=== PATIENT | female | born 1960 | race Hispanic/Latino ===

== ENCOUNTER 2020-01-27 02:31 | Observation (INO) | payer MEDICARE, MEDICAID, SELFPAY ==
[2020-01-27] VITALS (39 sets, daily range): BP systolic 167–236; BP diastolic 74–165; PULSE 82–108; RESP 14–23; TEMP 36.4–36.9; O2SAT 91–100; BMI 36.5
--- NOTE | ~2020-01-27 | XR_ITS ---
EXAMINATION: XR chest 2V DATE: 01/27/2020 03:11 INDICATION: Chest pain TECHNIQUE: frontal and lateral views of the chest were obtained. COMPARISON: Chest radiograph dated 09/03/2019 FINDINGS: Mild increased interstitial pattern in the bilateral lower lung zones consistent with mild pulmonary edema. Very small bilateral pleural effusions seen at the left posterior sulcus and along the right m ajor and minor fissures. No pneumothorax. The cardiomediastinal silhouette is normal. Mild thoracolum bar spondylosis. Cholecystectomy clips in right upper quadrant. IMPRESSION: 1. Mild pulmonary edema and very small bilateral pleural effusions. Reviewed, dictated and finalized at location A. MANAGEMENT CONSULTANT
--- NOTE | ~2020-01-27 | XR_ITS ---
EXAMINATION: XR abdomen obstructive series DATE: 01/29/2020 06:08 INDICATION: Abdominal pain and constipation TECHNIQUE: Frontal supine and upright views of the abdomen were obtained. COMPARISON: 04/23/19 FINDINGS: Moderate amount of stool in the proximal colon. The distal colon appears relatively decompressed. No dilated loops of gas-filled bowel to suggest obstruction. Cholecystectomy clips in the right upper qu adrant. 4 mm stone projecting over the upper pole of the right kidney. There are phleboliths in the p melissa and projecting over the left L5 transverse process. Larger round heterotopic ossicles projectin g slightly cephalad to the bilateral iliac crests. Airspace opacity in the right lower lung zone whic h could represent atelectasis and/or pneumonia. Minimal lumbar dextrocurvature. IMPRESSION: 1. No free intraperitoneal gas or dilated gas-filled loops of bowel to suggest obstruction. 2. Right nephrolithiasis. 3. Increasing airspace disease in the right lower lung zone which could represent atelectasis and/or pneumonia. Reviewed, dictated and finalized at location A. NALIST IMPRESSION: 1. No free intraperitoneal gas or dilated gas-filled loops of bowel to suggest obstruction. 2. Right nephrolithiasis. 3. Increasing airspace disease in the right lower lung zone which could represe nt atelectasis and/or pneumonia.
--- NOTE | ~2020-01-27 | XR_ITS ---
XR chest 2V DATE: 01/30/2020 11:16 INDICATION: Chest pain TECHNIQUE: PA and lateral views COMPARISON: 01/27/2020 AP and lateral chest FINDINGS: There is increased atelectasis and/or consolidation at the right lower lung and blunting of the right costo phrenic angle suggesting mild right pleural effusion. Mild cardiomegaly. There is mild prominence of the fissures suggesting pulmonary interstitial edema. Aortic calcification and mild tortuosity. Diffuse idiopathic skeletal hyperostosis of the thoracolumbar spine. Diffuse osteopenia. IMPRESSION: Increased right lower lung infiltrate/atelectasis and mild congestive changes since 020 Reviewed, dictated and finalized at location B. CONTROL CLERK IMPRESSION: Increased right lower lung infiltrate/atelectasis and mild congesti ve changes since 01/30/2020
--- NOTE | 2020-01-27 02:32 | ECG_ITS ---
Measurements Intervals [place] Rate: 99 P: 31 OR: 146 QRS: 2 QRSD: 84 T: 42 QT: 361 QTc: 464 Interpretive Statements SINUS RHYTHM BASELINE ARTIFACT- I, II, III, AVL NORMAL ECG Electronically Signed On 01-27-2020 7:03:08 LINE STAKER by Balbir Ashley D.O.
--- NOTE | 2020-01-27 02:32 | ED.CHESTPAIN ---
HPI - Chest Pain General Chief Complaint: Chest Pain Stated Complaint: CP Time Seen by Provider: 01/27/20 02:32 Source: patient and RN notes reviewed Mode of arrival: EMS Limitations: no limitations History of Present Illness HPI narrative: Pt is a 59 y/o female who presents to the ED, via EMS, with c/o intermittent midsternal chest pain which began at 2100 last night. Pt states she started to experience SOB alongside the chest pain. She reports her SOB is aggravated when she is lying down. Pt states she had two Nitroglycerin tablets at home which alleviated her pain. However, upon arrival to the ED bed, her pain has started again. She denies any modifying factors. Pt reports she is prescribed Lasix medication which she is currently taking as prescribed to her.. Patient took a full 325 mg aspirin prior to arrival Pt reports a PMHx of CHF. Pt states she is currently on dialysis treatment where she goes every Monday, , and Monday every week. MD complaint: chest pain (midsternal) Pertinent past history: other (CHF) Onset (ago): hour(s) (2100 last night) Timing of current episode: episodic (currently in the ED bed) Onset: during rest Pain location: other (midsternal) Pain radiation: none Relieving factors: nitroglycerin (2 tablets) Exacerbating factors: nothing Associated symptoms: dyspnea Related Data Allergies Allergy/AdvReac Type Severity Reaction Status Date / Time No Known Allergies Allergy Unknown Verified 01/27/20 03:02 Review of Systems Review of Systems: All systems reviewed & are unremarkable except as noted in HPI and below Cardiovascular: Cardiovascular: Reports chest pain (midsternal) Respiratory: Respiratory: Reports dyspnea [facility] Past Medical History Medical History (Updated 01/27/20 @ 04:53 by Simon Garcia DO) Anemia Angina at rest Anxiety Arthritis Bronchitis Cataract Congestive heart failure Coronary artery disease Depression Diabetes Fibromyalgia Hypercholesterolemia Hypertension Knee fracture, left Myocardial infarction Peripheral neuropathy Renal disease Seasonal allergies UTI (urinary tract infection) Surgical History Surgical History (Updated 01/27/20 @ 02:44 by Keesha Lopez) H/O cardiac catheterization H/O exploratory laparotomy H/O inguinal hernia repair H/O: hysterectomy Hx of cholecystectomy Stented coronary artery Family History Family History (Updated 07/03/17 @ 11:00 by DOCTOR UNKNOWN) Other Cerebrovascular accident Depression Diabetes mellitus Family history of Alzheimer's disease Family history of arthritis Family history of kidney disease Family history of osteoporosis Hypertension Social History Social History Smoking status: Never smoker Alcohol intake: never Exam Narrative: Exam Narrative: APPEARANCE: No acute distress, nontoxic, resting in bed EYES: EOMI HEENT: Normocephalic, atraumatic, OMM RESPIRATORY: No respiratory distress Clear to auscultation bilaterally with no rhonchi wheezing or rales. CARDIOVASCULAR: Regular rate and rhythm without murmurs rubs or gallops. ABDOMINAL: Soft, nontender, nondistended, no rebound or guarding MUSCULOSKELETAl: Moves all extremities. No clubbing, cyanosis or edema. NEURO: Awake and alert. Following commands, speech normal, no focal deficits SKIN:: Warm, dry. No rashes lesions or abrasions PSYCHIATRIC: Normal affect/mood, Course Course Emergency Course: Patient states chest pain is resolved with Nitropaste Discussed with Dr. Vasquez presentation work-up. This time agrees with admission. Discussed patient's blood pressure will give Lopressor at this time Discussed Dr Borja presentation work-up. Agrees with admission at this time Discussed with patient and family results of workup and diagnosis. Discussed need for admission. Patient and family understand and agree to current treatment plan Vital Signs Vital signs: Vital Signs Temperature 97.9 F 01/27/20 02:30 Puls
[2020-01-27] MEDS: NITROGLYCERIN OINTMENT 1 INCH DOSE TRANSDERM (02:57)
--- NOTE | 2020-01-27 03:02 | PC.NURSE ---
Patient taken to radiology.
[2020-01-27 03:09] LABS: Basophils Absolute Auto 0.1 K/mm3 (0.0-0.1); Basophils Percent Auto 0.9 % (0.2-1.2); Eosinophils Absolute Auto 0.4 K/mm3 (0-0.3); Hematocrit 33.5 % (37.0-47.0); Hemoglobin 10.4 g/dL (12.0-15.0); Immature Granulocyte Absolute 0.03 K/mm3 (0.00-0.031); Immature Granulocyte Percent A 0.4 % (0-0.5); Lymphocytes Absolute Auto 1.69 K/mm3 (0.9-3.2); Lymphocytes Percent Auto 19.8 % (18.3-44.2); Mean Corpuscular Hemoglobin 31.2 pg (26-34); Mean Corpuscular Volume 100.6 fl (80-100); Mean Platelet Volume 10.7 fl (7.4-10.4); Monocytes Absolute Auto 0.9 K/mm3 (0.1-0.6); Monocytes Percent Auto 10.1 % (2.6-8.5); Neutrophils Absolute Auto 5.5 K/mm3 (1.3-6.7); Neutrophils Percent Auto 63.8 % (45.5-73.1); Platelet Count Result 280 k/mm3 (150-375); Red Blood Count 3.33 M/mm3 (4.2-5.4); Red Cell Distribution Width 13.3 % (11.5-14.5); White Blood Count 8.6 K/mm3 (4.5-10.0)
[2020-01-27 03:24] LABS: Blood Urea Nitrogen 35 mg/dL (7-17); Calcium 9.5 mg/dL (8.4-10.2); Carbon Dioxide 26 mmol/L (22-30); Chloride 94 mmol/L (98-107); Estimated Glomerular Filt Rate 6; Glucose 129 mg/dL (65-105); Potassium 4.6 mmol/L (3.4-5.0); Sodium 137 mmol/L (137-145)
[2020-01-27 03:31] LABS: NT Pro B Type Natriuretic Pept 27300 PG/ML (5-100); Troponin I < 0.012 ng/mL (0.000-0.034)
[2020-01-27 03:39] LABS: INR 0.9; Prothrombin Time 12.3 Seconds (11.1-14.7)
[2020-01-27 03:40] LABS: Partial Thromboplastin Time 20.7 SECONDS (22.3-36.8)
[2020-01-27] MEDS: METOPROLOL TARTRATE INJ 5 MG/5 ML VIAL IV PUSH (04:26)
--- NOTE | 2020-01-27 04:55 | PC.NURSE ---
This patient, Isis Moore, was admitted to IMU Room 214-01. Patient/family oriented to hospital policies and general routines including ID bracelet, bed and alarms, visiting hours, pain management, procedures, bathroom and other care routines, personal items, smoking policy, room service/diet, and visiting hours. Valuables list has been completed. Information on how to activate the Rapid Response Team has been discussed. Patient/Family are encouraged to report perceived risks to care and to ask questions if they do not understand what they are told or what they should do.
[2020-01-27 08:35] LABS: Troponin I 0.014 ng/mL (0.000-0.034)
[2020-01-27] MEDS: METOPROLOL SUCCINATE EXT REL 25 MG TABCR PO (09:08)
[2020-01-27] MEDS: FLUOXETINE HCL 20 MG CAP 60 MG PO (09:08)
[2020-01-27] MEDS: ASPIRIN 325 MG TABLET PO (09:08)
[2020-01-27] MEDS: CLOPIDOGREL BISULFATE 75 MG TABLET PO (09:08)
[2020-01-27] MEDS: GABAPENTIN 300 MG CAPSULE 600 MG PO ×2 (09:09→18:36)
[2020-01-27] MEDS: hydrALAZINE HCL 50 MG TABLET PO ×3 (09:09→20:18)
[2020-01-27] MEDS: AMLODIPINE BESYLATE 5 MG TABLET 10 MG PO (09:09)
[2020-01-27] MEDS: RANOLAZINE 500 MG TAB.ER.12H PO (09:09)
[2020-01-27] MEDS: ATORVASTATIN 40 MG TABLET PO (09:09)
[2020-01-27] MEDS: ISOSORBIDE MONONITRATE 30 MG TAB.ER.24H PO (09:09)
[2020-01-27] MEDS: FUROSEMIDE 80 MG TABLET PO (09:09)
[2020-01-27] MEDS: PANTOPRAZOLE 40 MG TABLET PO ×2 (09:09→20:18)
[2020-01-27] MEDS: LORATADINE 10 MG TABLET PO (09:10)
--- NOTE | 2020-01-27 09:25 | PM.CNCAR ---
Assessment and Plan Assessment and plan (1) Chest pain: Qualifiers: Chest pain type: unspecified Qualified Code(s): R07.9 - Chest pain, unspecified Code(s): R07.9 - Chest pain, unspecified Status: Acute Assessment and Plan: Known to have stable angina with anti-anginal regimen including BB, Isosorbide and Ranexa She had ruled out for [place] by EKG and negative troponin X3 Would hold off repeating ischemic evaluation at this point Check 2D echo to rule out regional wall motion abnormalities (2) Coronary artery disease: Qualifiers: Coronary Disease-Associated Artery/Lesion type: [place] artery [place] vs. transplanted heart: [place] heart Associated angina: with unspecified angina Qualified Code(s): I25.119 - Atherosclerotic heart disease of [place] coronary artery with unspecified angina pectoris Code(s): I25.10 - Atherosclerotic heart disease of [place] coronary artery without angina pectoris Status: Acute Assessment and Plan: s/p LAD PCI. Continue ASA, Plavix and statin (3) End stage renal disease: Code(s): N18.6 - End stage renal disease Status: Chronic Assessment and Plan: HD per nephrology History of Present Illness History of Present Illness Consult date/time: 01/27/20 09:25 59 years-old woman with coronary artery disease s/p LAD stent (2012), HF-pEF, hypertension, hyperlipidemia, Diabetes mellitus, End Stage Renal Disease on Dialysis T//Mon, who presented with shortness of breath and chest pain. She is known to have stable angina and chronic chest pain typically more symptoms on her non dialysis day. She presented again with chest pain that was nitro responsive with recurrence of chest pain after nitro had helped. Most recent ischemic eval was with Cath in 2017 with patent LAD stent and small diagonal branch disease. . EKG sinus rhythm with no ST changes. Had ECHO done in 04/24/19 showed mild LVH , EF 60% , mild enlargement of left atrium. Mild mitral annular calcification. Mild mitral valve regurgitation. sleeps with 2 pillows. No palpitation. No syncope or near syncope. Denies recent ankle swelling. No nausea and vomiting. Had TIA 09/2017 at [facility] and work up showed no clear source of emboli was found, she had minor carotid disease Reason For Visit: Chest pain Review of Systems Review of Systems: All systems reviewed & are unremarkable except as noted in HPI and below Constitutional: Constitutional: Denies fatigue and Denies headache(s) Eyes: Eyes: Denies blurry vision ENT: Reports Normal hearing present and Denies headache(s) Cardiovascular: Cardiovascular: Denies chest pain, Denies diaphoresis, Denies pedal edema, Denies leg edema, Denies lightheadedness, Denies palpitations and Denies dyspnea Respiratory: Respiratory: Denies cough and Denies dyspnea Gastrointestinal: Gastrointestinal: Denies abdominal pain Musculoskeletal: Musculoskeletal: Denies back pain Neurologic: Reports Normal hearing present and Denies headache(s) Psychiatric: Psychiatric: Denies anxiety Endocrine: Endocrine: Denies fatigue and Denies palpitations [facility] Past Medical History Medical History (Updated 01/27/20 @ 13:53 by Garth Chowdhury MD) Anemia Anemia in CKD (chronic kidney disease) Angina at rest Anxiety Arthritis Bipolar disorder Bronchitis Cataract Chronic renal failure Congestive heart failure Coronary artery disease Depression Diabetes End stage renal disease Follows with Dr Chowdhury; HD Tues/Thurs/Sat at [facility] Fibromyalgia Hypercholesterolemia Hypertension Knee fracture, left Myocardial infarction Peripheral neuropathy Renal disease Seasonal allergies Secondary hyperparathyroidism (of renal origin) UTI (urinary tract infection) Surgical History Surgical History (Updated 01/27/20 @ 02:44 by Keesha Lopez) H/O cardiac catheterization H/O exploratory laparotomy
[2020-01-27 09:39] LABS: Troponin I 0.015 ng/mL (0.000-0.034)
[2020-01-27 09:56] LABS: Glucose Point of Care 136 (65-105)
--- NOTE | 2020-01-27 10:35 | PM.IMHP ---
H&P: HPI History of Present Illness Chief complaint: Chest pain Narrative: Date of Service 01/27/20 The supervising physician for this history and physical is Dr. Hopson. Isis Moore is a 59-year-old female with history of end-stage renal disease on hemodialysis Monday, , Monday, coronary artery disease, insulin-dependent type 2 diabetes mellitus, hypertension, and several other comorbidities who presented to the emergency department by EMS for evaluation of chest pain. She describes a sharp stabbing pain to the middle of her chest that began last night. She reported that she took 2 nitroglycerin which improved her pain. She describes the right side of her neck is sore along with a headache on the right side. She describes the chest pain is coming and going but is still present this morning at time of exam. She mentions nausea without vomiting. She describes that she began to feel more short of breath over the last 2 days. She went to dialysis as scheduled on Monday. She admits that she may have missed some doses of blood pressure medications yesterday because she was feeling so unwell. Blood pressures were significantly elevated in the ED early this morning up to 236/117 and appears that she was treated with 5 mg of IV Lopressor and nitro. Pressures this morning still elevated at 204/87 prior to resuming her home medications. Chest x-ray shows pulmonary edema and very small bilateral pleural effusions. Routine labs reveal stable chronic macrocytic anemia and stable elevated BUN and Cr near her baseline. The patient is admitted for evaluation of chest pain. She follows with Dr. Borja who has been consulted, and she has been seen by Dr Saunders this AM. Review of Systems Review of Systems: Narrative: Midsternal stabbing chest pain still present this morning, headache. She reports shortness of breath over the last 2 days, denies cough. She reports nausea without vomiting. Denies fever or chills at home. She reports she was constipated the last few days but had a good formed bowel movement this morning. She denies diarrhea, hematochezia, melena, or hematemesis. Twelve systems were reviewed with pertinent positives and negatives as per HPI. [facility] Past Medical History Medical History (Updated 01/27/20 @ 13:53 by Garth Chowdhury MD) Anemia Anemia in CKD (chronic kidney disease) Angina at rest Anxiety Arthritis Bipolar disorder Bronchitis Cataract Chronic renal failure Congestive heart failure Coronary artery disease Depression Diabetes End stage renal disease Follows with Dr Chowdhury; HD Tues/Thurs/Sat at [facility] in [place] Fibromyalgia Hypercholesterolemia Hypertension Knee fracture, left Myocardial infarction Peripheral neuropathy Renal disease Seasonal allergies Secondary hyperparathyroidism (of renal origin) UTI (urinary tract infection) Surgical History Surgical History (Updated 01/27/20 @ 19:09 by Elisa Rodriguez PA-C) H/O cardiac catheterization Sep 2017 showed patent stent to LAD and 90% occlusion of a very small diagonal branch. H/O cataract removal with insertion of prosthetic lens Fall 2018 Bilateral H/O section x2 - one in 1977, one 1979 H/O exploratory laparotomy ? partial colectomy in the ? Patient is unsure what this was for but denies history of cancer. H/O inguinal hernia repair H/O: hysterectomy 2002 Hx of cholecystectomy 1996 Stented coronary artery to LAD in 2012 Family History Family History (Updated 01/27/20 @ 19:11 by Elisa Rodriguez PA-C) Father , age 50s Cancer Diabetes mellitus Mother , Age 89 Cerebrovascular accident Sibling Family history of kidney disease Brother on dialysis Son Hypertension Diabetes mellitus Other Depression Family history of Alzheimer's disease Family history of arthritis Family history of osteoporosis Social History Social History (Updated 01/27/20 @ 19:13
--- NOTE | 2020-01-27 13:46 | PM.CNNEP ---
Assessment and Plan Assessment and plan (1) End stage renal disease: Code(s): N18.6 - End stage renal disease Status: Chronic Assessment and Plan: Patient is on Monday, , Monday dialysis schedule. We will maintain. There is plan with the cardiac catheterization. Dialysis either before or after depending on needs. Otherwise she is due for dialysis tomorrow. Maintain follow-up of ESRD and related complications. Erythropoietin and vitamin D analog as needed. Blood pressure control. Sugar control. Patient has been started on metoprolol. I will add clonidine p.r.n. for the time being and monitor heart rate. This will alleviate some of the stress that may be induced on the heart in the setting with chest pain. She is on multiple medications and dose adjustment slowly. Will follow. (2) Coronary artery disease: Qualifiers: Coronary Disease-Associated Artery/Lesion type: [place] artery [place] vs. transplanted heart: [place] heart Associated angina: with unspecified angina Qualified Code(s): I25.119 - Atherosclerotic heart disease of [place] coronary artery with unspecified angina pectoris Code(s): I25.10 - Atherosclerotic heart disease of [place] coronary artery without angina pectoris Status: Acute (3) Diabetes: Qualifiers: Diabetes mellitus type: type 2 Diabetes mellitus director long term care insulin use: with correction use Diabetes mellitus complication status: with neurologic complications Diabetes mellitus complication detail: with polyneuropathy Qualified Code(s): E11.42 - Type 2 diabetes mellitus with diabetic polyneuropathy; Z79.4 - halfway (current) use of insulin Code(s): E11.9 - Type 2 diabetes mellitus without complications Status: Chronic (4) Hypertensive urgency: Code(s): I16.0 - Hypertensive urgency Status: Acute (5) Chest pain: Qualifiers: Chest pain type: unspecified Qualified Code(s): R07.9 - Chest pain, unspecified Code(s): R07.9 - Chest pain, unspecified Status: Acute (6) Anemia in CKD (chronic kidney disease): Code(s): N18.9 - Chronic kidney disease, unspecified; D63.1 - Anemia in chronic kidney disease Status: Acute (7) Secondary hyperparathyroidism (of renal origin): Code(s): N25.81 - Secondary hyperparathyroidism of renal origin Status: Acute History of Present Illness Reason for Consult Consult date: 01/27/20 Reason for consult: end stage renal disease Chief Complaint Chief complaint: Chest pain History of Present Illness Narrative: 59-year-old female with a history of ESRD secondary to diabetes mellitus, hypertension, and has associated coronary artery disease, history of stent, congestive heart failure, and complications related to end-stage renal disease including anemia of chronic kidney disease and secondary hyperparathyroidism. CKD mean that she was sleeping last night and she does lobe central heavy pressure-like pain lasting less than 30 minutes with the radiation to the right side of the neck and year. She did not have any associated nausea vomiting or diaphoresis but she did have some shortness of breath. She came to the emergency room for the chest pain: She is admitted for further management She generally feels unwell. Also has hypertension. She is regular with dialysis 3 times a week on Monday, , Monday dialysis schedule. She has a functioning AV graft. Is has no uremic features. Review of Systems Review of Systems: All systems reviewed & are unremarkable except as noted in HPI and below PMFSH Past Medical History Medical History (Updated 01/27/20 @ 13:53 by Garth Chowdhury MD) Anemia Anemia in CKD (chronic kidney disease) Angina at rest Anxiety Arthritis Bipolar disorder Bronchitis Cataract Chronic renal failure Congestive heart failure Coronary artery disease Depression Diabetes End stage renal disease Follows with Dr Chowdhury;
[2020-01-27 18:36] LABS: Glucose Point of Care 120 (65-105)
[2020-01-27 18:36] LABS: Glucose Point of Care 133 (65-105)
[2020-01-27] MEDS: ACETAMINOPHEN 325 MG TABLET 650 MG PO (20:18)
[2020-01-27] MEDS: PRAZOSIN HCL 5 MG CAPSULE PO (20:18)
[2020-01-27] MEDS: CLONAZEPAM 0.5 MG TAB PO (20:30)
[2020-01-27 21:03] LABS: Glucose Point of Care 182 (65-105)
[2020-01-27] MEDS: ZIPRASIDONE HCL 20 MG CAPSULE 40 MG PO (21:55)
[2020-01-28] VITALS (29 sets, daily range): BP systolic 162–192; BP diastolic 67–100; PULSE 75–98; RESP 18–22; TEMP 36–37; O2SAT 93–99
--- NOTE | 2020-01-28 | ECHO_ITS ---
Patient Info Name: Isis Moore Age: 59 years : 1960 Gender: Female Ht: 62 in Wt: 199 lbs BSA: 2.03 m2 HR: 96 bpm BP: 173 / 82 mmHg Technical Quality: Good Exam Date: 01/28/2020 11:45 AM Exam Location: [facility] Patient Status: Outpatient Admit Date: 01/27/2020 Staff Ordering Physician: Elisa Rodriguez PA-C Transaction Manager: Flo Jean RDCS, RT Attending Provider: Radha Sellers PA-C Exam Type: CA echo dop color flow w con Study Info Indications R07.89 - Other chest pain Complete two-dimensional, color flow and Doppler transthoracic echocardiogram is performed with contrast to opacify the left ventrical and to improve the deliniation of the left ventrical endocarial boarders. Summary 1. Left ventricular chamber dimension is mildly enlarged. 2. Left ventricular systolic function is normal, estimated at 55-60%. 3. Mitral valve leaflets are thickened and mildly calcified. Posterior mitral annular calcification noted. Turbulent flow noted across mitral valve with mild increase mean pressure gradient at 4-5 mmHg at heart rate of 96. 4. The prox ascending aorta size is moderately calcified. 5. Moderate pulmonary hypertension, estimated pulmonary arterial systolic pressure is 60-65 mmHg. Left Ventricle Left ventricular chamber dimension is mildly enlarged. Left ventricular systolic function is normal, estimated at 55-60%. There is mildly increased left ventricular wall thickness. Left ventricular septal wall motion is normal. The left ventricular diastolic function is normal. Right Ventricle Right ventricular systolic function is normal. Right ventricle is top normal in size. Left Atria Left atrial chamber dimension is mildly enlarged. Right Atria Right atrial chamber dimension is normal. Aortic Valve The aortic valve is trileaflet. There is mild aortic valve sclerosis. There is no aortic valve stenosis. There is no aortic valve regurgitation. Pulmonic Valve The pulmonic valve is normal. There is no pulmonic valve stenosis. There is no pulmonic regurgitation. Mitral Valve There is mild mitral valve stenosis. There is mild mitral valve regurgitation. Mitral valve leaflets are thickened and mildly calcified. Posterior mitral annular calcification noted. Turbulent flow noted across mitral valve with mild increase mean pressure gradient at 4-5 mmHg at heart rate of 96. Tricuspid Valve The tricuspid valve leaflets are normal. There is mild tricuspid valve regurgitation. Moderate pulmonary hypertension, estimated pulmonary arterial systolic pressure is 60-65 mmHg. Pericardium/Pleural The pericardium appears normal. There is trivial pericardial effusion. Inferior Vena Cava Inferior vena cava is top normal in size. Aorta The prox ascending aorta size is moderately calcified. Left Ventricular Outflow Tract Name Value Normal LVOT 2D LVOT Diameter 1.98 cm LVOT Doppler LVOT Peak Gradient 8 mmHg LVOT Mean Gradient 4 mmHg LVOT VTI 26.79 cm LVOT VTI/AV VTI Ratio 0.73
[2020-01-28 04:45] LABS: Basophils Absolute Auto 0.1 K/mm3 (0.0-0.1); Basophils Percent Auto 0.6 % (0.2-1.2); Eosinophils Absolute Auto 0.5 K/mm3 (0-0.3); Eosinophils Percent Auto 4.3 % (0-4.4); Hematocrit 31.6 % (37.0-47.0); Hemoglobin 9.9 g/dL (12.0-15.0); Immature Granulocyte Absolute 0.05 K/mm3 (0.00-0.031); Immature Granulocyte Percent A 0.5 % (0-0.5); Lymphocytes Absolute Auto 1.41 K/mm3 (0.9-3.2); Lymphocytes Percent Auto 13.5 % (18.3-44.2); Mean Corpuscular HGB Conc 31.3 g/dl (32-36); Mean Corpuscular Hemoglobin 31.7 pg (26-34); Mean Corpuscular Volume 101.3 fl (80-100); Mean Platelet Volume 10.7 fl (7.4-10.4); Monocytes Percent Auto 9.2 % (2.6-8.5); Neutrophils Absolute Auto 7.5 K/mm3 (1.3-6.7); Neutrophils Percent Auto 71.9 % (45.5-73.1); Platelet Count Result 252 k/mm3 (150-375); Red Blood Count 3.12 M/mm3 (4.2-5.4); Red Cell Distribution Width 13.1 % (11.5-14.5); White Blood Count 10.4 K/mm3 (4.5-10.0)
[2020-01-28 05:11] LABS: Albumin Level 3.4 g/dL (3.5-5.1); Blood Urea Nitrogen 48 mg/dL (7-17); Carbon Dioxide 25 mmol/L (22-30); Chloride 98 mmol/L (98-107); Estimated CRCL calculation 7 ml/min; Estimated Glomerular Filt Rate 5; Glucose 127 mg/dL (65-105); Magnesium 2.3 mg/dL (1.6-2.3); Phosphorus 4.8 mg/dL (2.5-4.5); Potassium 4.7 mmol/L (3.4-5.0); Sodium 134 mmol/L (137-145)
[2020-01-28] MEDS: hydrALAZINE HCL 50 MG TABLET PO ×3 (06:38→21:43)
[2020-01-28 07:51] LABS: Glucose Point of Care 144 (65-105)
--- NOTE | 2020-01-28 09:46 | PM.PNNEP ---
Progress Note: A&P Assessment and Plan (1) End stage renal disease: Code(s): N18.6 - End stage renal disease Status: Chronic Assessment and Plan: Patient will be dialyzed today. The removal of fluid that hemodialysis will help the patient. Blood pressure may trend down. The patient is having anginal pain. Plan will be to medical treatment as discussed with Cardiology team. Maintained on erythropoietin and vitamin D analog therapy I am decreasing the dose of the gabapentin to a renal end-stage renal disease appropriate dose of 300 mg daily from 600 mg twice a day Whenever appropriate the patient may be discharged from a renal standpoint, follow up will be done on an outpatient basis at [facility] on a Monday, , Monday dialysis schedule (2) Hypertensive urgency: Code(s): I16.0 - Hypertensive urgency Status: Acute Assessment and Plan: Increasing metoprolol dose (3) Secondary hyperparathyroidism (of renal origin): Code(s): N25.81 - Secondary hyperparathyroidism of renal origin Status: Acute Assessment and Plan: Vitamin D analog (4) Anemia in CKD (chronic kidney disease): Code(s): N18.9 - Chronic kidney disease, unspecified; D63.1 - Anemia in chronic kidney disease Status: Acute Assessment and Plan: Erythropoietin (5) Coronary artery disease: Qualifiers: Coronary Disease-Associated Artery/Lesion type: [place] artery [place] vs. transplanted heart: [place] heart Associated angina: with unspecified angina Qualified Code(s): I25.119 - Atherosclerotic heart disease of [place] coronary artery with unspecified angina pectoris Code(s): I25.10 - Atherosclerotic heart disease of [place] coronary artery without angina pectoris Status: Acute Assessment and Plan: Angina (6) Chest pain: Qualifiers: Chest pain type: unspecified Qualified Code(s): R07.9 - Chest pain, unspecified Code(s): R07.9 - Chest pain, unspecified Status: Acute Assessment and Plan: No repeat cardiac catheterization planned, treatment will be medically as per the Cardiology team (7) Diabetes: Qualifiers: Diabetes mellitus type: type 2 Diabetes mellitus shelter insulin use: with shelter use Diabetes mellitus complication status: with neurologic complications Diabetes mellitus complication detail: with polyneuropathy Qualified Code(s): E11.42 - Type 2 diabetes mellitus with diabetic polyneuropathy; Z79.4 - [facility] (current) use of insulin Code(s): E11.9 - Type 2 diabetes mellitus without complications Status: Chronic Assessment and Plan: Need to keep hemoglobin A1c less than 7 Subjective Date/time seen: 01/28/20 09:46 Patient is having some chest pain and shortness of breath. I discussed with internet marketing strategist Dr Saunders patient is angina, patient will have medical treatment. She is due for dialysis today Exam Narrative: Exam Narrative: Patient is mildly short of breath, using oxygen, JVD negative regular rhythm no gallop, no rub, equal breath sounds, no crackles or wheezing, soft,mildly obese, nontender, abdomen,no masses, edema + Objective Data Vital Signs Vital Signs: Vital Signs - 24 hr 01/27/20 10:00 01/27/20 12:00 01/27/20 14:00 Temperature 36.6 C Pulse Rate 92 100 86 Respiratory Rate 20 Blood Pressure 204/87 H Pulse Oximetry 91 01/27/20 16:00 01/27/20 18:00 01/27/20 20:00 Temperature 36.4 C 36.9 C Pulse Rate 89 90 94 Respiratory Rate 18 18 Blood Pressure 175/74 H 184/75 H Pulse Oximetry 94 94 01/27/20 21:32 01/27/20 23:52 01/28/20 00:00 Temperature 36.6 C Pulse Rate 93 96 98 Respiratory Rate 20 Blood Pressure 162/77 H Pulse Oximetry 94 01/28/20 01:45 01/28/20 04:00 01/28/20 06:00 Temperature 36.8 C Pulse Rate 95 91 93 Respiratory Rate 18 Blood Pressure 173/82 H Pulse Oximetry 93 01/28/20 08:13 Temperature 36.
[2020-01-28] MEDS: AMLODIPINE BESYLATE 5 MG TABLET 10 MG PO (10:13)
[2020-01-28] MEDS: ASPIRIN 325 MG TABLET PO (10:14)
[2020-01-28] MEDS: ATORVASTATIN 40 MG TABLET PO (10:15)
[2020-01-28] MEDS: CLOPIDOGREL BISULFATE 75 MG TABLET PO (10:15)
[2020-01-28] MEDS: FLUOXETINE HCL 20 MG CAP 60 MG PO (10:15)
[2020-01-28] MEDS: FLUTICASONE PROPIONATE 0.05% NA SPR 16 GM BTL (*BKC) 1 SPRAY NASAL (10:16)
[2020-01-28] MEDS: FUROSEMIDE 80 MG TABLET PO (10:17)
[2020-01-28] MEDS: ISOSORBIDE MONONITRATE 30 MG TAB.ER.24H PO (10:17)
[2020-01-28] MEDS: LORATADINE 10 MG TABLET PO (10:18)
[2020-01-28] MEDS: PANTOPRAZOLE 40 MG TABLET PO ×2 (10:18→21:43)
--- NOTE | 2020-01-28 10:34 | PM.PNCARD ---
Progress Note: A&P Assessment and Plan (1) Chest pain: Qualifiers: Chest pain type: unspecified Qualified Code(s): R07.9 - Chest pain, unspecified Code(s): R07.9 - Chest pain, unspecified Status: Acute Assessment and Plan: Known to have stable angina on anti-anginal regimen including BB, Isosorbide and Ranexa She had ruled out for [place] by EKG and negative troponin X3 She typically has similar symptoms when volume overloaded She will be started on her scheduled dialysis session shortly Will follow symptoms after dialysis Would hold off repeating ischemic evaluation at this point Check 2D echo to rule out regional wall motion abnormalities (2) Coronary artery disease: Qualifiers: Coronary Disease-Associated Artery/Lesion type: [place] artery [place] vs. transplanted heart: [place] heart Associated angina: with unspecified angina Qualified Code(s): I25.119 - Atherosclerotic heart disease of [place] coronary artery with unspecified angina pectoris Code(s): I25.10 - Atherosclerotic heart disease of [place] coronary artery without angina pectoris Status: Acute Assessment and Plan: s/p LAD PCI. Continue ASA, Plavix and statin (3) End stage renal disease: Code(s): N18.6 - End stage renal disease Status: Chronic Assessment and Plan: HD per nephrology Subjective Date/time seen: 01/28/20 10:34 She feels more short of breath today with chest tightness associated with that. She will be started on her dialysis session shortly. Review of Systems Review of Systems: All systems reviewed & are unremarkable except as noted in HPI and below Constitutional: Constitutional: Denies fatigue and Denies headache(s) Eyes: Eyes: Denies blurry vision ENT: Reports Normal hearing present and Denies headache(s) Cardiovascular: Cardiovascular: Denies chest pain, Denies diaphoresis, Denies pedal edema, Denies leg edema, Denies lightheadedness, Denies palpitations and Denies dyspnea Respiratory: Respiratory: Denies cough and Denies dyspnea Gastrointestinal: Gastrointestinal: Denies abdominal pain Musculoskeletal: Musculoskeletal: Denies back pain Neurologic: Reports Normal hearing present and Denies headache(s) Psychiatric: Psychiatric: Denies anxiety Endocrine: Endocrine: Denies fatigue and Denies palpitations Exam Const: General: no acute distress Eyes: Sclera: sclerae normal Neck: Neck: no JVD Carotids: no bruits Resp: Effort & Inspection: normal respiratory effort Auscultation: clear to auscultation bilaterally Cardio: Rate: regular rate and not tachycardic Rhythm: regular rhythm Heart sounds: no gallops, no murmurs and no rubs Skin: General skin exam: normal color Neuro: Cranial nerves: Yes Normal hearing present Speech: normal speech Extrem: General: normal to inspection and no edema Psych: Affect: normal affect Objective Data Vital Signs Vital Signs: Vital Signs - 24 hr 01/27/20 12:00 01/27/20 14:00 01/27/20 16:00 Temperature 36.6 C 36.4 C Pulse Rate 100 86 89 Respiratory Rate 20 18 Blood Pressure 204/87 H 175/74 H Pulse Oximetry 91 94 01/27/20 18:00 01/27/20 20:00 01/27/20 21:32 Temperature 36.9 C Pulse Rate 90 94 93 Respiratory Rate 18 Blood Pressure 184/75 H Pulse Oximetry 94 01/27/20 23:52 01/28/20 00:00 01/28/20 01:45 Temperature 36.6 C Pulse Rate 96 98 95 Respiratory Rate 20 Blood Pressure 162/77 H Pulse Oximetry 94 01/28/20 04:00 01/28/20 06:00 01/28/20 08:13 Temperature 36.8 C 36.3 C L Pulse Rate 91 93 75 Respiratory Rate 18 20 Blood Pressure 173/82 H 188/79 H Pulse Oximetry 93 97 Intake/Output Intake/Output: Intake & Output 01/25/20 01/26/20 01/27/20 01/28/20 23:59 23:59 23:59 23:59 Intake Total 840 720 Balance 840 720 Meds/Results Medications: Active Medications Generic Name Dose Route Start Last Admin Trade Name Freq PRN Reason
[2020-01-28] MEDS: INSULIN ASPART (*BKC) 100 UNITS/ML SUB-Q (10:40)
[2020-01-28] MEDS: ACETAMINOPHEN 325 MG TABLET 650 MG PO (10:44)
[2020-01-28 12:03] LABS: Glucose Point of Care 181 (65-105)
[2020-01-28] MEDS: PERFLUTREN LIPID MICROSPHERES 1.5 ML VIAL DILUTED TO 10 ML TOTAL VOLUME IV PUSH (12:43)
[2020-01-28] MEDS: CLONIDINE HCL 0.1 MG TABLET PO ×2 (13:09→21:43)
[2020-01-28] MEDS: RANOLAZINE 500 MG TAB.ER.12H PO ×2 (13:09→21:43)
--- NOTE | 2020-01-28 16:18 | PM.IMPN ---
Progress Note: A&P Assessment and Plan (1) Chest pain: Qualifiers: Chest pain type: unspecified Qualified Code(s): R07.9 - Chest pain, unspecified Code(s): R07.9 - Chest pain, unspecified Status: Acute Assessment and Plan: ------Midsternal stabbing chest pain which has improved and now having GERD symptoms. Pain may be due to fluid overload. CXR reviewed, showing edema. PNA/PE less likely at this time. Undergoing dialysis and pt may need additional dialysis. No cardiac w/u at this time. Will await echo. (2) Hypertensive urgency: Code(s): I16.0 - Hypertensive urgency Status: Acute Assessment and Plan: -----Blood pressures significantly elevated in the ED and remain elevated but coming down nicely last bp 166/81. Will see her new trend after dialysis and taking more fluid off. May adjust medications. Pt currently has nitro pach on. Resume her home medications with Norvasc, hydralazine, Imdur, metoprolol and monitor BP. (3) End stage renal disease: Code(s): N18.6 - End stage renal disease Status: Chronic Assessment and Plan: ------End-stage renal disease on hemodialysis Monday, , Monday followed by Dr. Chowdhury. (4) Coronary artery disease: Qualifiers: Coronary Disease-Associated Artery/Lesion type: [place] artery [place] vs. transplanted heart: [place] heart Associated angina: with unspecified angina Qualified Code(s): I25.119 - Atherosclerotic heart disease of [place] coronary artery with unspecified angina pectoris Code(s): I25.10 - Atherosclerotic heart disease of [place] coronary artery without angina pectoris Status: Acute Assessment and Plan: -----Stent to LAD 2012. Cardiac catheterization September 2017 showed a patent stent 90% occlusion in a very small diagonal branch. Further management per cardiology. Continue her home medications including aspirin and Plavix. (5) Diabetes: Qualifiers: Diabetes mellitus type: type 2 Diabetes mellitus [place] insulin use: with fpc use Diabetes mellitus complication status: with neurologic complications Diabetes mellitus complication detail: with polyneuropathy Qualified Code(s): E11.42 - Type 2 diabetes mellitus with diabetic polyneuropathy; Z79.4 - supervisor intermediates (current) use of insulin Code(s): E11.9 - Type 2 diabetes mellitus without complications Status: Chronic Assessment and Plan: -----Last glucose 181. Pt has Insulin-dependent type 2 diabetes mellitus. Continue her home insulin regimen since she is eating.Monitor with Accu-Cheks and adjust treatment as needed. (6) Anemia: Qualifiers: Anemia type: due to chronic kidney disease Chronic kidney disease stage: on chronic dialysis Qualified Code(s): N18.6 - End stage renal disease; D63.1 - Anemia in chronic kidney disease; Z99.2 - Dependence on renal dialysis Code(s): D64.9 - Anemia, unspecified Status: Acute Assessment and Plan: -----Chronic based on review of previous labs, suspect a component of chronic disease due to renal failure. H&H low but stable. Will check b12 tomorrow AM. No signs or symptoms of acute bleeding. Monitor CBC. (7) GERD (gastroesophageal reflux disease): Qualifiers: Esophagitis presence: esophagitis presence not specified Qualified Code(s): K21.9 - Gastro-esophageal reflux disease without esophagitis Code(s): K21.9 - Gastro-esophageal reflux disease without esophagitis Status: Chronic Assessment and Plan: -----Protonix ordered. Will add tums PRN today. (8) Hypercholesterolemia: Code(s): E78.00 - Pure hypercholesterolemia, unspecified Status: Acute Assessment and Plan: -----Continue home statin therapy. (9) Depression: Qualifiers: Depression Type: unspecified Qualified Code(s): F32.9 - Major depressive disorder, single
[2020-01-28] MEDS: EPOETIN ALFA 2,000 UNITS/ML VIAL 2000 UNITS IV PUSH (18:20)
--- NOTE | 2020-01-28 19:44 | PC.NURSE ---
Patient off floor from 1499 to 1914.
[2020-01-28 20:54] LABS: Glucose Point of Care 136 (65-105)
[2020-01-28] MEDS: CLONAZEPAM 0.5 MG TAB PO (21:43)
[2020-01-28] MEDS: SENNA/DOCUSATE SODIUM TABLET 1 TAB PO (21:43)
[2020-01-28] MEDS: ZIPRASIDONE HCL 20 MG CAPSULE 40 MG PO (21:43)
[2020-01-29] VITALS (14 sets, daily range): BP systolic 160–186; BP diastolic 70–75; PULSE 73–96; RESP 16–22; TEMP 36.1–36.8; O2SAT 95–100
[2020-01-29 05:07] LABS: Hematocrit 31.5 % (37.0-47.0); Hemoglobin 10.2 g/dL (12.0-15.0); Mean Corpuscular HGB Conc 32.4 g/dl (32-36); Mean Corpuscular Hemoglobin 31.5 pg (26-34); Mean Corpuscular Volume 97.2 fl (80-100); Mean Platelet Volume 10.6 fl (7.4-10.4); Platelet Count Result 276 k/mm3 (150-375); Red Blood Count 3.24 M/mm3 (4.2-5.4); White Blood Count 7.9 K/mm3 (4.5-10.0)
[2020-01-29] MEDS: hydrALAZINE HCL 50 MG TABLET PO ×3 (06:00→21:54)
[2020-01-29 08:33] LABS: Albumin Level 3.7 g/dL (3.5-5.1); Blood Urea Nitrogen 25 mg/dL (7-17); Carbon Dioxide 29 mmol/L (22-30); Chloride 98 mmol/L (98-107); Estimated CRCL calculation 10 ml/min; Estimated Glomerular Filt Rate 8; Glucose 137 mg/dL (65-105); Lipase 67 U/L (23-300); Sodium 137 mmol/L (137-145)
[2020-01-29] MEDS: FLUTICASONE PROPIONATE 0.05% NA SPR 16 GM BTL (*BKC) 1 SPRAY NASAL (09:09)
[2020-01-29] MEDS: ATORVASTATIN 40 MG TABLET PO (09:09)
[2020-01-29] MEDS: ASPIRIN 325 MG TABLET PO (09:09)
[2020-01-29] MEDS: FLUOXETINE HCL 20 MG CAP 60 MG PO (09:10)
[2020-01-29] MEDS: CLOPIDOGREL BISULFATE 75 MG TABLET PO (09:10)
[2020-01-29] MEDS: AMLODIPINE BESYLATE 5 MG TABLET 10 MG PO (09:10)
[2020-01-29] MEDS: PANTOPRAZOLE 40 MG TABLET PO ×2 (09:10→17:51)
[2020-01-29] MEDS: LORATADINE 10 MG TABLET PO (09:11)
[2020-01-29] MEDS: GABAPENTIN 300 MG CAPSULE PO (09:11)
[2020-01-29] MEDS: FUROSEMIDE 80 MG TABLET PO (09:11)
[2020-01-29] MEDS: ISOSORBIDE MONONITRATE 30 MG TAB.ER.24H PO (09:11)
[2020-01-29] MEDS: METOPROLOL SUCCINATE EXT REL 50 MG TABCR PO (09:12)
[2020-01-29] MEDS: RANOLAZINE 500 MG TAB.ER.12H PO ×2 (09:12→21:54)
[2020-01-29] MEDS: ACETAMINOPHEN 325 MG TABLET 650 MG PO ×2 (09:19→21:59)
[2020-01-29] MEDS: INSULIN ASPART (*BKC) 100 UNITS/ML SUB-Q (09:21)
--- NOTE | 2020-01-29 09:32 | PM.PNCARD ---
Progress Note: A&P Assessment and Plan (1) Chest pain: Qualifiers: Chest pain type: unspecified Qualified Code(s): R07.9 - Chest pain, unspecified Code(s): R07.9 - Chest pain, unspecified Status: Acute Assessment and Plan: She had ruled out for [place] by EKG and negative troponin X3 She typically has similar symptoms when volume overloaded. Now she feels much better after dialysis echo with normal EF and calcified mitral and aortic valve consistent with no significant stenosis. Would hold off repeating ischemic evaluation at this point She is stable from cardiac standpoint for discharge. Need follow up with Dr Borja in 2-3 weeks (2) Coronary artery disease: Qualifiers: Coronary Disease-Associated Artery/Lesion type: [place] artery [place] vs. transplanted heart: [place] heart Associated angina: with unspecified angina Qualified Code(s): I25.119 - Atherosclerotic heart disease of [place] coronary artery with unspecified angina pectoris Code(s): I25.10 - Atherosclerotic heart disease of [place] coronary artery without angina pectoris Status: Acute Assessment and Plan: s/p LAD PCI. Continue ASA, Plavix and statin (3) End stage renal disease: Code(s): N18.6 - End stage renal disease Status: Chronic Assessment and Plan: HD per nephrology Subjective Date/time seen: 01/29/20 09:32 Feels much better since she had received dialysis. Review of Systems Review of Systems: All systems reviewed & are unremarkable except as noted in HPI and below Constitutional: Constitutional: Denies fatigue and Denies headache(s) Eyes: Eyes: Denies blurry vision ENT: Reports Normal hearing present and Denies headache(s) Cardiovascular: Cardiovascular: Denies chest pain, Denies diaphoresis, Denies pedal edema, Denies leg edema, Denies lightheadedness, Denies palpitations and Denies dyspnea Respiratory: Respiratory: Denies cough and Denies dyspnea Gastrointestinal: Gastrointestinal: Denies abdominal pain Musculoskeletal: Musculoskeletal: Denies back pain Neurologic: Reports Normal hearing present and Denies headache(s) Psychiatric: Psychiatric: Denies anxiety Endocrine: Endocrine: Denies fatigue and Denies palpitations Exam Const: General: no acute distress Eyes: Sclera: sclerae normal Neck: Neck: no JVD Carotids: no bruits Resp: Effort & Inspection: normal respiratory effort Auscultation: clear to auscultation bilaterally Cardio: Rate: regular rate and not tachycardic Rhythm: regular rhythm Heart sounds: no gallops, no murmurs and no rubs Skin: General skin exam: normal color Neuro: Cranial nerves: Yes Normal hearing present Speech: normal speech Extrem: General: normal to inspection and no edema Psych: Affect: normal affect Objective Data Vital Signs Vital Signs: Vital Signs - 24 hr 01/28/20 10:00 01/28/20 12:00 01/28/20 13:18 Temperature 36.8 C Pulse Rate 94 92 92 Respiratory Rate 20 Blood Pressure 186/79 H Pulse Oximetry 96 96 01/28/20 14:00 01/28/20 14:17 01/28/20 15:06 Temperature 36.7 C Pulse Rate 91 80 88 Respiratory Rate 20 Blood Pressure 175/67 H 176/95 H Pulse Oximetry 01/28/20 15:18 01/28/20 15:37 01/28/20 16:00 Temperature Pulse Rate 89 85 86 Respiratory Rate Blood Pressure 190/100 H 177/81 H 192/91 H Pulse Oximetry 01/28/20 16:15 01/28/20 16:30 01/28/20 16:45 Temperature Pulse Rate 87 86 88 Respiratory Rate Blood Pressure 191/93 H 188/93 H 178/93 H Pulse Oximetry 01/28/20 17:05 01/28/20 17:16 01/28/20 17:35 Temperature Pulse Rate 85 85 90 Respiratory Rate Blood Pressure 178/87 H 181/88 H 170/85 H Pulse Oximetry 01/28/20 17:52 01/28/20 18:00 01/28/20 18:15 Temperature Pulse Rate 87 88 89 Respiratory Rate Blood Pressure 178/88 H 181/92 H 175/84 H Pulse Oximetry 01/28/20 18:30 01/28/20 18:50 01/28/20 19:00 Te
[2020-01-29 10:25] LABS: Phosphorus 4.2 mg/dL (2.5-4.5)
--- NOTE | 2020-01-29 11:14 | PM.IMPN ---
Progress Note: A&P Assessment and Plan (1) Chest pain: Qualifiers: Chest pain type: unspecified Qualified Code(s): R07.9 - Chest pain, unspecified Code(s): R07.9 - Chest pain, unspecified Status: Acute Assessment and Plan: ------Midsternal stabbing chest pain which has improved and now having GERD symptoms. She does have reproducable chest pain on exam as well. Pain may be due to fluid overload. CXR reviewed, showing edema. Pt got 4L of fluid off yesterday and is still on o2 but is getting better. Will wean o2 today and recheck CXR tomorrow. If this has improved she may be able to discharge in 1-2 days. PNA/PE less likely at this time--pt has no cough, leukocytosis, or fever. Echo reviewed, normal EF. (2) Hypertensive urgency: Code(s): I16.0 - Hypertensive urgency Status: Acute Assessment and Plan: -----Blood pressures significantly elevated in the ED and remain elevated but improved systolic 170 today. Her metoprolol was increased today and we will watch her trend with this change. If she still runs high, may need to increase imdur but this can be done by pcp or emergency operator as she will likely be discharged soon. Continue her home medications with Norvasc, hydralazine, Imdur, metoprolol and monitor BP. (3) End stage renal disease: Code(s): N18.6 - End stage renal disease Status: Chronic Assessment and Plan: ------End-stage renal disease on hemodialysis Monday, , Monday followed by Dr. Chowdhury. (4) Coronary artery disease: Qualifiers: Associated angina: with unspecified angina Coronary Disease-Associated Artery/Lesion type: [place] artery [place] vs. transplanted heart: [place] heart Qualified Code(s): I25.119 - Atherosclerotic heart disease of [place] coronary artery with unspecified angina pectoris Code(s): I25.10 - Atherosclerotic heart disease of [place] coronary artery without angina pectoris Status: Acute Assessment and Plan: -----Stent to LAD 2012. Cardiac catheterization September 2017 showed a patent stent 90% occlusion in a very small diagonal branch. Further management per cardiology. Continue her home medications including aspirin and Plavix. (5) Diabetes: Qualifiers: Diabetes mellitus complication detail: with polyneuropathy Diabetes mellitus complication status: with neurologic complications Diabetes mellitus termite inspector insulin use: with custodial use Diabetes mellitus type: type 2 Qualified Code(s): E11.42 - Type 2 diabetes mellitus with diabetic polyneuropathy; Z79.4 - [facility] (current) use of insulin Code(s): E11.9 - Type 2 diabetes mellitus without complications Status: Chronic Assessment and Plan: -----Last glucose 137. Pt has Insulin-dependent type 2 diabetes mellitus. Continue her home insulin regimen since she is eating.Monitor with Accu-Cheks and adjust treatment as needed. (6) Anemia: Qualifiers: Anemia type: due to chronic kidney disease Chronic kidney disease stage: on chronic dialysis Qualified Code(s): N18.6 - End stage renal disease; D63.1 - Anemia in chronic kidney disease; Z99.2 - Dependence on renal dialysis Code(s): D64.9 - Anemia, unspecified Status: Acute Assessment and Plan: -----Chronic based on review of previous labs, suspect a component of chronic disease due to renal failure. H&H low but stable. B12 normal. No signs or symptoms of acute bleeding. Monitor CBC. (7) GERD (gastroesophageal reflux disease): Qualifiers: Esophagitis presence: esophagitis presence not specified Qualified Code(s): K21.9 - Gastro-esophageal reflux disease without esophagitis Code(s): K21.9 - Gastro-esophageal reflux disease without esophagitis Status: Chronic Assessment and Plan: -----Protonix ordered. Continue tums PRN. (8) Hypercholesterolemia: Code(s): E78.00 -
[2020-01-29 12:55] LABS: Folic Acid 8.7 ng/mL (2.76->20)
[2020-01-29 18:11] LABS: Glucose Point of Care 118 (65-105)
[2020-01-29 18:11] LABS: Glucose Point of Care 130 (65-105)
[2020-01-29 20:40] LABS: Glucose Point of Care 154 (65-105)
[2020-01-29 20:40] LABS: Glucose Point of Care 197 (65-105)
[2020-01-29] MEDS: SENNA/DOCUSATE SODIUM TABLET 1 TAB PO (21:53)
[2020-01-29] MEDS: PRAZOSIN HCL 5 MG CAPSULE PO ×2 (21:53→22:06)
[2020-01-29] MEDS: ZIPRASIDONE HCL 20 MG CAPSULE 40 MG PO (21:54)
[2020-01-29] MEDS: CLONAZEPAM 0.5 MG TAB PO (21:59)
[2020-01-30] VITALS (27 sets, daily range): BP systolic 133–180; BP diastolic 62–80; PULSE 66–90; RESP 18–22; TEMP 36–37.1; O2SAT 93–97
[2020-01-30] MEDS: CLONIDINE HCL 0.1 MG TABLET PO (01:01)
[2020-01-30] MEDS: CLONAZEPAM 0.5 MG TAB PO (01:01)
[2020-01-30] MEDS: hydrALAZINE HCL 50 MG TABLET PO ×2 (05:57→18:51)
[2020-01-30 06:44] LABS: Albumin Level 3.4 g/dL (3.5-5.1); Blood Urea Nitrogen 49 mg/dL (7-17); Calcium 8.5 mg/dL (8.4-10.2); Carbon Dioxide 25 mmol/L (22-30); Chloride 94 mmol/L (98-107); Estimated CRCL calculation 8 ml/min; Estimated Glomerular Filt Rate 6; Glucose 144 mg/dL (65-105); Phosphorus 5.2 mg/dL (2.5-4.5); Potassium 4.3 mmol/L (3.4-5.0); Sodium 137 mmol/L (137-145)
--- NOTE | 2020-01-30 07:06 | PM.DS ---
DS: Diagnosis Admitting Diagnosis Admitting Diagnosis: End stage renal disease Discharge Diagnosis (1) Chest pain: Qualifiers: Chest pain type: unspecified Qualified Code(s): R07.9 - Chest pain, unspecified Code(s): R07.9 - Chest pain, unspecified Status: Chronic Assessment and Plan: ------Midsternal stabbing chest pain which has improved and felt to be due to fluid overload/congestion. Trops negative x 3 and EKG reviewed NSR no abnormalities. Echo shows EF 55-60% with mitral valve calcification as well as aorta calcification. She has moderate pulmonary HTN. No reoccurent CP. Cardiology did see her and did not recommend any additional ischemia w/u. [place] to be less likely. CXR showed congestion. Repeat CXR revealed increased right lower lung infiltrate and thought to be due to atelectasis. The patient was not having any cough, fevers, or leukocytosis. The time of my exam she says she has not been taking very big breaths but has been trying to do so often and she feels better. No PNA suspected. PE felt to be less likely since pt has improvement with all her symptoms after dialysis. (2) Hypertensive urgency: Code(s): I16.0 - Hypertensive urgency Status: Acute Assessment and Plan: -----Blood pressures significantly elevated in the ED and remain elevated and has a long hx with this. Initially her metoprolol was reported that she took 25 mg daily. After discussing that with the patient, she mentions that she actually takes 100 mg daily. Her hypertension could be due to under dosing. I spoke with Nephrology and we have increased her Imdur. She is to follow-up with her primary care physician in 1-2 weeks to see if she needs additional changes. (3) End stage renal disease: Code(s): N18.6 - End stage renal disease Status: Chronic Assessment and Plan: ------End-stage renal disease on hemodialysis Monday, , Monday followed by Dr. Chowdhury. (4) Coronary artery disease: Qualifiers: Coronary Disease-Associated Artery/Lesion type: [place] artery [place] vs. transplanted heart: [place] heart Associated angina: with unspecified angina Qualified Code(s): I25.119 - Atherosclerotic heart disease of [place] coronary artery with unspecified angina pectoris Code(s): I25.10 - Atherosclerotic heart disease of [place] coronary artery without angina pectoris Status: Acute Assessment and Plan: -----Stent to LAD 2012. Cardiac catheterization September 2017 showed a patent stent 90% occlusion in a very small diagonal branch. Further management per cardiology. Continue her home medications including aspirin and Plavix. (5) Diabetes: Qualifiers: Diabetes mellitus type: type 2 Diabetes mellitus emt intermediate insulin use: with emt intermediate use Diabetes mellitus complication status: with neurologic complications Diabetes mellitus complication detail: with polyneuropathy Qualified Code(s): E11.42 - Type 2 diabetes mellitus with diabetic polyneuropathy; Z79.4 - exterminator termite (current) use of insulin Code(s): E11.9 - Type 2 diabetes mellitus without complications Status: Chronic Assessment and Plan: -----Last glucose 129. Pt has Insulin-dependent type 2 diabetes mellitus. (6) Anemia: Qualifiers: Anemia type: due to chronic kidney disease Chronic kidney disease stage: on chronic dialysis Qualified Code(s): N18.6 - End stage renal disease; D63.1 - Anemia in chronic kidney disease; Z99.2 - Dependence on renal dialysis Code(s): D64.9 - Anemia, unspecified Status: Acute Assessment and Plan: -----Chronic based on review of previous labs, suspect a component of chronic disease due to renal failure. H&H low but stable. B12 normal. No signs or symptoms of acute bleeding. Monitor CBC. (7) GERD (gastroesophageal reflux disease): Qualifiers: Esophagitis presence: esopha
[2020-01-30] MEDS: METOPROLOL SUCCINATE EXT REL 50 MG TABCR PO (09:22)
[2020-01-30] MEDS: PANTOPRAZOLE 40 MG TABLET PO ×2 (09:22→18:51)
[2020-01-30] MEDS: FLUOXETINE HCL 20 MG CAP 60 MG PO (09:24)
[2020-01-30] MEDS: AMLODIPINE BESYLATE 5 MG TABLET 10 MG PO (09:24)
[2020-01-30] MEDS: ASPIRIN 325 MG TABLET PO (09:24)
[2020-01-30] MEDS: ATORVASTATIN 40 MG TABLET PO (09:24)
[2020-01-30] MEDS: FUROSEMIDE 80 MG TABLET PO (09:25)
[2020-01-30] MEDS: GABAPENTIN 300 MG CAPSULE PO (09:25)
[2020-01-30] MEDS: FLUTICASONE PROPIONATE 0.05% NA SPR 16 GM BTL (*BKC) 1 SPRAY NASAL (09:25)
[2020-01-30] MEDS: CLOPIDOGREL BISULFATE 75 MG TABLET PO (09:25)
[2020-01-30] MEDS: ISOSORBIDE MONONITRATE 30 MG TAB.ER.24H PO (09:26)
[2020-01-30] MEDS: LORATADINE 10 MG TABLET PO (09:26)
[2020-01-30] MEDS: RANOLAZINE 500 MG TAB.ER.12H PO (09:26)
[2020-01-30 09:31] LABS: Glucose Point of Care 150 (65-105)
[2020-01-30 09:51] LABS: Hepatitis B Surface Antigen Negative (Negative)
[2020-01-30 10:09] LABS: Hepatitis B Surface Anti Res Positive
--- NOTE | 2020-01-30 11:29 | PM.PNNEP ---
Progress Note: A&P Assessment and Plan (1) End stage renal disease: Code(s): N18.6 - End stage renal disease Status: Chronic Assessment and Plan: HD today and continue T/T/S schedule while hospitalized electrolytes, volume status, and clearane acceptable (2) Chest pain: Qualifiers: Chest pain type: unspecified Qualified Code(s): R07.9 - Chest pain, unspecified Code(s): R07.9 - Chest pain, unspecified Status: Chronic Assessment and Plan: thought to be more related to fluid overload and GERD continue symptomatic support continue aggressive ultrafiltration with dialysis (3) Anemia: Qualifiers: Anemia type: due to chronic kidney disease Chronic kidney disease stage: on chronic dialysis Qualified Code(s): N18.6 - End stage renal disease; D63.1 - Anemia in chronic kidney disease; Z99.2 - Dependence on renal dialysis Code(s): D64.9 - Anemia, unspecified Status: Acute Assessment and Plan: due to ESRD Epogen with HD follow trend of H/H (4) Diabetes: Qualifiers: Diabetes mellitus complication detail: with polyneuropathy Diabetes mellitus complication status: with neurologic complications Diabetes mellitus long distance billing operator insulin use: with long distance billing operator use Diabetes mellitus type: type 2 Qualified Code(s): E11.42 - Type 2 diabetes mellitus with diabetic polyneuropathy; Z79.4 - terminal gauger (current) use of insulin Code(s): E11.9 - Type 2 diabetes mellitus without complications Status: Chronic Assessment and Plan: follow accuchecks on SSI and levemir Will continue to follow. Subjective Date/time seen: 01/30/20 11:29 Sitting up in chair sleeping at the time of my visit; after waking up, no apparent distress noted; no issues overnight or earlier this AM; due for dialysis today. Exam Narrative: Exam Narrative: General: WD/WN female in NAD Heart: normal S1 and S2; no rub Lungs: clear to auscultation Abdomen: soft, nontender, nondistended, positive bowel sounds Extremities: no cyanosis or clubbing; trace edema Skin: warm and dry Objective Data Vital Signs Vital Signs: Vital Signs Temp Pulse Resp BP Pulse Ox 01/30/20 09:22 84 01/30/20 08:32 36.6 C 82 22 H 159/68 H 96 01/30/20 08:00 85 22 H 96 01/30/20 06:00 82 01/30/20 04:00 36.9 C 84 22 H 149/64 H 93 01/30/20 02:00 85 01/30/20 01:33 37.1 C 90 22 H 180/74 H 97 01/30/20 00:00 90 22 H 97 01/29/20 22:00 75 01/29/20 20:00 73 99 01/29/20 19:39 36.4 C 75 18 182/71 H 95 01/29/20 18:00 79 01/29/20 16:00 36.8 C 81 18 179/70 H 98 01/29/20 14:00 82 01/29/20 12:00 36.1 C L 76 16 186/75 H 98 Intake/Output Intake/Output: Intake & Output 01/27/20 01/28/20 01/29/20 01/30/20 23:59 23:59 23:59 23:59 Intake Total 856 166 4501 830 Output Total 4000 100 Balance 840 -3160 1630 830 Meds/Results Medications: Active Medications Generic Name Dose Route Start Last Admin Trade Name Freq PRN Reason Stop Dose Admin Acetaminophen 650 mg 01/27/20 18:46 01/29/20 21:59 Tylenol Tablet PO 650 mg Q4H PRN Administration Mild Pain (1-3) or Fever Amlodipine Besylate 10 mg 01/27/20 09:00 01/30/20 09:24 Norvasc PO 10 mg DAILY CAMILLA Administration Aspirin 325 mg 01/27/20 09:00 01/30/20 09:24 Aspirin PO 325 mg DAILY CAMILLA Administration Atorvastatin Calcium 40 mg 01/27/20 09:00 01/30/20 09:24 Lipitor PO 40 mg DAILY CAMILLA Administration Calcium Carbonate 200 mg 01/28/20 19:45 Tums PO Q6H PRN Indigestion Clonazepam 0.5 mg 01/27/20 07:59 01/30/20 01:01 Klonopin Tablet PO 0.5 mg BID PRN Administration Anxiety Clonidine HCl 0.1 mg 01/27/20 13:56 01/30/20 01:01 Catapres PO 0.1 mg QID PRN Administration Hypertension SBP >180 and/or DBP>100 Clopidogrel Bisulfate 75 mg 01/27/20 09:00
--- NOTE | 2020-01-30 11:30 | PC.NURSE ---
Received patient from IMU. Patient settled in bed. Telemetry placed on patient and patient assisted with ordering lunch tray. No distress noted and no c/o pain.
--- NOTE | 2020-01-30 14:15 | PC.NURSE ---
To dialysis via bed with staff.
--- NOTE | 2020-01-30 18:00 | PC.NURSE ---
Patient returned from dialysis via bed. No distress and no c/o pain. Settled in room eating dinner. To be discharged after dinner.
[2020-01-30 19:54] LABS: Glucose Point of Care 129 (65-105)
[2020-02-03 05:16] LABS: Hepatitis B Core Ab Total Nonreactive (Nonreactive)
== END 2020-01-30 19:15 | disposition home or self-care (01) ==
LOC: ANHED 03:14 → ANHIMU 04:24 → ANH2MED 01-30 15:40 → ANHIMU 02-03 08:01
PROVIDERS: Internal Medicine Nephrology; Physician Assistant; Admitting Provider Family Medicine; Emergency Provider Emergency Medicine; PCP Internal Medicine Gastroenterology; Visit Provider Physician Assistant
DX: R07.9 Chest pain, unspecified (principal); I16.0 Hypertensive urgency; I13.2 Hypertensive heart and chronic kidney disease with heart failure and with stage 5 chronic kidney disease, or end stage renal disease; I50.9 Heart failure, unspecified; N18.6 End stage renal disease; Z99.2 Dependence on renal dialysis; E11.22 Type 2 diabetes mellitus with diabetic chronic kidney disease; E11.42 Type 2 diabetes mellitus with diabetic polyneuropathy; I25.119 Atherosclerotic heart disease of native coronary artery with unspecified angina pectoris; K21.9 Gastro-esophageal reflux disease without esophagitis; E78.00 Pure hypercholesterolemia, unspecified; J96.01 Acute respiratory failure with hypoxia; D63.1 Anemia in chronic kidney disease; D53.9 Nutritional anemia, unspecified; N25.81 Secondary hyperparathyroidism of renal origin; I27.20 Pulmonary hypertension, unspecified; I25.2 Old myocardial infarction; F31.9 Bipolar disorder, unspecified; F41.8 Other specified anxiety disorders; K59.00 Constipation, unspecified; Z79.4 Long term (current) use of insulin; Z79.82 Long term (current) use of aspirin; Z79.899 Other long term (current) drug therapy; Z86.73 Personal history of transient ischemic attack (TIA), and cerebral infarction without residual deficits; Z95.5 Presence of coronary angioplasty implant and graft
CPT/HCPCS: 36415; 71046; 74019; 80048; 80069; 82607; 82746; 83690; 83735; 83880; 84484; 85025; 85027; 85610; 85730; 86704; 86706; 87340; 93005; 93306; 96374; 96375; 99285; A9270; C8929; G0257; G0378; J1644; J1815; J7030; Q4081; Q9957

== ENCOUNTER 2020-02-10 10:23 | Emergency (ER) | payer MEDICARE, MEDICAID, SELFPAY ==
[2020-02-10 10:42] VITALS: BP 173/68; PULSE 79; RESP 16; TEMP 37.1; O2SAT 98
--- NOTE | 2020-02-10 11:04 | ED.EAR ---
HPI - Ear Problem General Chief complaint: Ear Stated complaint: earache/inflammation of tonsils Time Seen by Provider: 02/10/20 10:54 Source: patient and RN notes reviewed Mode of arrival: ambulatory Limitations: no limitations History of Present Illness HPI Narrative: Patient presents today with a 2-day history of bilateral ear pain, left greater than right, sore throat that is only painful with swallowing, nasal congestion. Denies fever, rhinorrhea, decreased hearing. Currently rates her left ear pain 8/10 and has been taking Tylenol. MD Complaint: ear pain and other (Sore throat) Related Data Home Medications Medication Instructions Recorded Confirmed Levemir FlexTouch U-100 Insuln 14 unit SUBCUT DAILY 01/27/20 01/27/20 amlodipine 10 mg PO DAILY 01/27/20 01/27/20 aspirin 325 mg PO DAILY 01/27/20 01/27/20 atorvastatin 40 mg PO DAILY 01/27/20 01/27/20 clonazepam 0.5 mg PO BID PRN 01/27/20 01/27/20 clopidogrel 75 mg PO DAILY 01/27/20 01/27/20 fluoxetine 60 mg PO DAILY 01/27/20 01/27/20 fluticasone propionate [Allergy 1 spray INTRANASAL DAILY 01/27/20 01/27/20 Relief (fluticasone)] furosemide 80 mg PO DAILY 01/27/20 01/27/20 hydralazine 50 mg PO TID 01/27/20 01/27/20 insulin aspart U-100 [Novolog 4 unit SUB-Q TIDWM 01/27/20 01/27/20 Flexpen U-100 Insulin] loratadine 10 mg PO DAILY 01/27/20 01/27/20 metoprolol succinate 100 mg PO DAILY 01/27/20 01/30/20 nitroglycerin 0.4 mg SUBLINGUAL Q5MIN PRN 01/27/20 01/27/20 omeprazole 20 mg PO BID 01/27/20 01/27/20 prazosin 5 mg PO HS 01/27/20 01/27/20 ranolazine 1,000 mg PO DAILY 01/27/20 01/27/20 Allergies Allergy/AdvReac Type Severity Reaction Status Date / Time No Known Allergies Allergy Unknown Verified 01/27/20 03:02 Review of Systems Review of Systems: Narrative: CONSTITUTIONAL: Denies body aches, fever, chills, or sweats. EYES: Denies visual changes, redness, or discharge. ENT: Denies rhinorrhea. + Congestion, bilateral ear pain, sore throat CARDIOVASCULAR: Denies chest pain, palpitations, or edema. RESPIRATORY: Denies cough or dyspnea. GASTROINTESTINAL: Denies abdominal pain, nausea, vomiting, or diarrhea. GENITOURINARY: Denies dysuria or hematuria. SKIN: Denies rash, itching, or wounds. MUSCULOSKELETAL: Denies back pain, joint pain, or myalgia. NEUROLOGIC: Denies headache, numbness, tingling, or weakness. PSYCH: Denies depression or anxiety. [facility] Past Medical History Medical History (Updated 02/10/20 @ 11:18 by Lee Ann Ramon, [facility], ) Anemia Anemia in CKD (chronic kidney disease) Angina at rest Anxiety Arthritis Bipolar disorder Bronchitis Cataract Chronic renal failure Congestive heart failure Coronary artery disease Depression Diabetes End stage renal disease Follows with Dr Chowdhury; HD Tu//Sat at [facility] in [place] Fibromyalgia Hypercholesterolemia Hypertension Knee fracture, left Myocardial infarction Peripheral neuropathy Renal disease Seasonal allergies Secondary hyperparathyroidism (of renal origin) UTI (urinary tract infection) Surgical History Surgical History (Updated 01/27/20 @ 19:09 by Elisa Rodriguez PA-C) H/O cardiac catheterization Sep 2017 showed patent stent to LAD and 90% occlusion of a very small diagonal branch. H/O cataract removal with insertion of prosthetic lens Fall 2018 Bilateral H/O section x2 - one in 1977, one 1979 H/O exploratory laparotomy ? partial colectomy in the ? Patient is unsure what this was for but denies history of cancer. H/O inguinal hernia repair H/O: hysterectomy 2002 Hx of cholecystectomy 1996 Stented coronary artery to LAD in 2012 Family History Family History (Updated 01/27/20 @ 19:11 by Elisa Rodriguez PA-C) Father , age 50s Cancer Diabetes mellitus Mother , Age 89 Cerebrovascular accident Sibling Family history of kidney disease Brother on dialysis Son Hypertension Diabetes mellitus Other
== END 2020-02-10 11:22 | disposition home or self-care (01) ==
PROVIDERS: Emergency Provider Nurse Practitioner; PCP Internal Medicine Gastroenterology
DX: J06.9 Acute upper respiratory infection, unspecified (principal); I25.110 Atherosclerotic heart disease of native coronary artery with unstable angina pectoris; F41.9 Anxiety disorder, unspecified; F32.9 Major depressive disorder, single episode, unspecified; I13.2 Hypertensive heart and chronic kidney disease with heart failure and with stage 5 chronic kidney disease, or end stage renal disease; E11.22 Type 2 diabetes mellitus with diabetic chronic kidney disease; N18.6 End stage renal disease; I50.9 Heart failure, unspecified; Z79.4 Long term (current) use of insulin; M79.7 Fibromyalgia; E78.00 Pure hypercholesterolemia, unspecified; I25.2 Old myocardial infarction; N25.81 Secondary hyperparathyroidism of renal origin; Z98.41 Cataract extraction status, right eye; Z98.42 Cataract extraction status, left eye; Z96.1 Presence of intraocular lens; Z95.5 Presence of coronary angioplasty implant and graft; E11.42 Type 2 diabetes mellitus with diabetic polyneuropathy; Z99.2 Dependence on renal dialysis
CPT/HCPCS: 87081; 87880; 99213; G0463

== ENCOUNTER 2020-02-14 00:39 | Observation (INO) | payer MEDICARE, MEDICAID, SELFPAY ==
[2020-02-14] VITALS (30 sets, daily range): BP systolic 114–190; BP diastolic 59–87; PULSE 66–83; RESP 15–22; TEMP 36–37.1; O2SAT 93–100; BMI 36.6
--- NOTE | ~2020-02-14 | XR_ITS ---
EXAMINATION: XR chest 2V EXAM DATE: 02/14/2020 01:32 INDICATION: Shortness of breath. TECHNIQUE: Frontal and lateral projections of the chest obtained and reviewed. Comparison is made to prior examination from 01/30/2020. FINDINGS: There are small bilateral pleural effusions. Mild cardiomegaly and pulmonary vascular adams estion. There is indistinct reticulation with a bibasal predominance which may indicate pulmonary kenneth ma. Findings suspicious for mild CHF exacerbation. The basilar pneumonia not excludable. There is no pneumothorax suspected. There are no osseous abnormalities identified. IMPRESSION: Findings consistent with mild CHF exacerbation. Reviewed, dictated and finalized at location A.
--- NOTE | ~2020-02-14 | US_ITS ---
EXAMINATION: US carotid duplex BI DATE: 02/14/2020 13:30 INDICATION: Shortness of breath TECHNIQUE: Grayscale, color Doppler, and pulsed Doppler images of the cervical carotid arteries were obtained. The degree of vessel stenosis is placed in one of the following categories: normal, <50%, 5 0-69%, >=70% but less than near-occlusion, near-occlusion, or total occlusion. Note that percent sten osis relative to normal distal artery lumen diameter is indirectly measured from velocity measurement s as described by Fran, et al. Radiology 2003; [id number]. Notes: Normal: Peak systolic velocity <125 centimeters/sec and no plaque <50%. Peak systolic velocity <125 ( EDV <40; ICA/CCA PSV ratio <2.0; used these factors only a tandem lesions or low cardiac output or co ntralateral disease) 50-69 %: PSV 125-230 (EDV 40-100; ratio 2-4) >= 70% but less than near occlusion: PSV greater than 230 (EDV > 100; ratio> 4.0) Near Occlusion: PSV that is variable; markedly narrowed lumen Occlusion: Absent flow on color/spectral Doppler and no lumen on clinton scale. COMPARISON: None. FINDINGS: RIGHT: The right common carotid artery (CCA) peak systolic velocity (PSV) is 74 cm/s. The right internal car otid artery (ICA) PSV is 77 cm/s. The right ICA end-diastolic velocity (EDV) is 11 cm/s. The right IC A/CCA PSV ratio is 1.0. The external carotid artery (ECA) PSV is 142 cm/s. There is antegrade flow in the right vertebral artery. LEFT: The left CCA PSV is 91 cm/s. The left ICA PSV is 81 cm/s. The left ICA EDV is 58 cm/s. The left ICA/C CA PSV ratio is 0.9. The ECA PSV is 89 cm/s. There is antegrade flow in the left vertebral artery. IMPRESSION: 1. Less than 50% stenosis in the right internal carotid artery by sonographic criteria. 2. Less than 50% stenosis in the left internal carotid artery by sonographic criteria. Reviewed, dictated and finalized at location A. IMPRESSION: 1. Less than 50% stenosis in the right internal carotid artery by sonographic cleo silva. 2. Less than 50% stenosis in the left internal carotid artery by sonographic nabil momin.
--- NOTE | ~2020-02-14 | CT_ITS ---
EXAMINATION: CT brain wo con EXAM DATE: 02/14/2020 02:29 INDICATION: Dizziness. Symptoms 1 standing. TECHNIQUE: Spiral CT of the head was performed without contrast. Axial, coronal and sagittal images were reviewed. The dose-length product (DLP) for this examination was 605.33 mGy-cm. The exposure w as tailored according to patient size, and iterative reconstruction (ASIR) was used as additional dos e reduction technique. There is no prior study for comparison. FINDINGS: There is no acute intraparenchymal hemorrhage. No evidence of intraparenchymal brain mass lesion. No evidence of acute infarction. Mild microangiopathy. There is no mass effect or midline sh ift. The ventricles are normal in size. There are no extra-axial collections. There are no acute c alvarial fractures. Patient has had bilateral ocular lens surgery. Soft tissue is unremarkable. The visualized sinuses and mastoid air cells are well aerated. IMPRESSION: 1. No acute intracranial findings. 2. Mild microangiopathy. Reviewed, dictated and finalized at location A.
--- NOTE | 2020-02-14 00:44 | ED.SOB ---
HPI - SOB/Dyspnea General Chief Complaint: Shortness of Breath/Dyspnea Stated Complaint: sob Time Seen by Provider: 02/14/20 00:40 Source: patient, EMS and RN notes reviewed Mode of arrival: EMS Limitations: no limitations History of Present Illness HPI Narrative: A 59 y/o female presents to the ED via EMS with worsening SOB and wheezes beginning yesterday. She states that her sister, who she lives with, just returned from [place] roughly 1 week ago. She reports that she has been having a dry cough, SOB, and wheezes since yesterday. She notes that she missed her dialysis treatment yesterday. She denies any fevers, CP, or edema. Patient follows with Dr. Chowdhury, gets dialysis Monday, Monday, Monday. MD elicited complaint: shortness of breath Pertinent past history: congestive heart failure Onset (ago): week(s) (1) Timing: progressively worsening Known history of: congestive heart failure Associated symptoms: cough (dry) and wheezing Treatment prior to arrival: oxygen (2L NC) Related Data Home Medications Medication Instructions Recorded Confirmed Levemir FlexTouch U-100 Insuln 14 unit SUBCUT DAILY 01/27/20 01/27/20 amlodipine 10 mg PO DAILY 01/27/20 01/27/20 aspirin 325 mg PO DAILY 01/27/20 01/27/20 atorvastatin 40 mg PO DAILY 01/27/20 01/27/20 clonazepam 0.5 mg PO BID PRN 01/27/20 01/27/20 clopidogrel 75 mg PO DAILY 01/27/20 01/27/20 fluoxetine 60 mg PO DAILY 01/27/20 01/27/20 fluticasone propionate [Allergy 1 spray INTRANASAL DAILY 01/27/20 01/27/20 Relief (fluticasone)] furosemide 80 mg PO DAILY 01/27/20 01/27/20 hydralazine 50 mg PO TID 01/27/20 01/27/20 insulin aspart U-100 [Novolog 4 unit SUB-Q TIDWM 01/27/20 01/27/20 Flexpen U-100 Insulin] loratadine 10 mg PO DAILY 01/27/20 01/27/20 metoprolol succinate 100 mg PO DAILY 01/27/20 01/30/20 nitroglycerin 0.4 mg SUBLINGUAL Q5MIN PRN 01/27/20 01/27/20 omeprazole 20 mg PO BID 01/27/20 01/27/20 prazosin 5 mg PO HS 01/27/20 01/27/20 ranolazine 1,000 mg PO DAILY 01/27/20 01/27/20 ziprasidone HCl 80 mg PO HS 02/14/20 02/14/20 Allergies Allergy/AdvReac Type Severity Reaction Status Date / Time No Known Allergies Allergy Unknown Verified 02/14/20 03:00 Review of Systems Review of Systems: Narrative: CONSTITUTIONAL: Denies fever. HEENT: Denies sore throat CARDIOVASCULAR: Denies chest pain or edema. RESPIRATORY: Reports a dry cough, wheezes, and dyspnea. ABD: Denies abd pain, denies nausea, vomiting EXT: Denies edema NEURO: Reports dizziness with movement SKIN: Denies rash All systems reviewed & are unremarkable except as noted in HPI and below PMFSH Past Medical History Medical History Anemia Anemia in CKD (chronic kidney disease) Angina at rest Anxiety Arthritis Bipolar disorder Bronchitis Cataract Chronic renal failure Congestive heart failure Coronary artery disease Depression Diabetes End stage renal disease Follows with Dr Chowdhury; HD Tues/Thurs/Sat at [facility] in [place] Fibromyalgia Hypercholesterolemia Hypertension Knee fracture, left Myocardial infarction Peripheral neuropathy Renal disease Seasonal allergies Secondary hyperparathyroidism (of renal origin) UTI (urinary tract infection) Surgical History Surgical History H/O cardiac catheterization Sep 2017 showed patent stent to LAD and 90% occlusion of a very small diagonal branch. H/O cataract removal with insertion of prosthetic lens Fall 2018 Bilateral H/O section x2 - one in 1977, one 1979 H/O exploratory laparotomy ? partial colectomy in the ? Patient is unsure what this was for but denies history of cancer. H/O inguinal hernia repair H/O: hysterectomy 2002 Hx of cholecystectomy 1996 Stented coronary artery to LAD in 2012 Family History Family History (Updated 02/14/20 @ 03:25 by Sheron Marina, [place]) Father , age 50s Diabetes mellitus Cancer M
--- NOTE | 2020-02-14 00:48 | ECG_ITS ---
Measurements Intervals Kelly Rate: 70 P: -20 SC: 130 QRS: 54 QRSD: 94 T: 32 QT: 420 QTc: 455 Interpretive Statements SINUS RHYTHM BASELINE ARTIFACT- I, II, AVR, AVL, AF, V1, V6 NORMAL ECG Electronically Signed On 02-14-2020 7:21:36 CDT by Balbir Ashley D.O.
[2020-02-14 01:07] LABS: Basophils Percent Auto 0.5 % (0.2-1.2); Eosinophils Absolute Auto 0.3 K/mm3 (0-0.3); Eosinophils Percent Auto 3.3 % (0-4.4); Hemoglobin 9.7 g/dL (12.0-15.0); Immature Granulocyte Absolute 0.03 K/mm3 (0.00-0.031); Immature Granulocyte Percent A 0.4 % (0-0.5); Lymphocytes Absolute Auto 1.25 K/mm3 (0.9-3.2); Lymphocytes Percent Auto 15.2 % (18.3-44.2); Mean Corpuscular HGB Conc 31.3 g/dl (32-36); Mean Corpuscular Hemoglobin 31.1 pg (26-34); Mean Corpuscular Volume 99.4 fl (80-100); Mean Platelet Volume 11.5 fl (7.4-10.4); Monocytes Absolute Auto 0.6 K/mm3 (0.1-0.6); Monocytes Percent Auto 7.8 % (2.6-8.5); Neutrophils Percent Auto 72.8 % (45.5-73.1); Platelet Count Result 249 k/mm3 (150-375); Red Blood Count 3.12 M/mm3 (4.2-5.4); Red Cell Distribution Width 13.1 % (11.5-14.5); White Blood Count 8.3 K/mm3 (4.5-10.0)
[2020-02-14 01:10] LABS: Alveolar/Arterial O2 Gradient 75.9 mmHg; Base Excess ABG -0.1 mEq/l (+/-2.0); Fractional Inspired Oxygen 28 %; HCO3 ABG 25.5 mEq/l (22.0-26.0); Oxygen Saturation ABG 93.4 % (95.0-100.0); Oxyhemoglobin 91.1 % THb (90.0-100.0); PCO2 ABG 45.7 mmHg (35.0-45.0); PO2 ABG 69.8 mmHg (80.0-100.0); PO2 FiO2 Ratio Arterial Blood 2.49 %; Site Drawn RIGHT RADIAL; Total Hemoglobin 10.1 g/dL (12.0-18.0); pH ABG 7.364 (7.350-7.450)
[2020-02-14 01:11] LABS: Device NASAL CANNULA; Modified Allen's Test Pass
[2020-02-14 01:28] LABS: NT Pro B Type Natriuretic Pept > 35000 PG/ML (5-100)
[2020-02-14 01:32] LABS: Prothrombin Time 12.7 Seconds (11.1-14.7)
[2020-02-14 01:33] LABS: Alanine Aminotransferase 19 U/L (4-35); Albumin Level 4.1 g/dL (3.5-5.1); Alkaline Phosphatase 78 U/L (38-126); Aspartate Amino Transferase 33 U/L (14-36); Bilirubin,Total 0.9 mg/dL (0.2-1.3); Blood Urea Nitrogen 55 mg/dL (7-17); Calcium 8.9 mg/dL (8.4-10.2); Carbon Dioxide 24 mmol/L (22-30); Chloride 95 mmol/L (98-107); Estimated CRCL calculation 6 ml/min; Estimated Glomerular Filt Rate 5; Glucose 213 mg/dL (65-105); Partial Thromboplastin Time 30.9 SECONDS (22.3-36.8); Potassium 5.4 mmol/L (3.4-5.0); Sodium 135 mmol/L (137-145)
--- NOTE | 2020-02-14 01:48 | PC.NURSE ---
Ambulated patient in hallway on pulse ox, O2 sat 93-95% on room air. Patient c/o of dizziness with ambulation.
[2020-02-14] MEDS: methylPREDNISolone SOD SUCC 125 MG VIAL IV PUSH (01:57)
[2020-02-14] MEDS: MECLIZINE HCL 25 MG TABLET PO (01:57)
[2020-02-14] MEDS: ALBUTEROL SULFATE NEB 2.5 MG/0.5 ML INH 5 MG INHALATION ×3 (02:07→15:42)
[2020-02-14] MEDS: IPRATROPIUM BR 0.02% INH SOLN 0.5 MG/2.5 ML VIAL 1 MG INHALATION (02:07)
--- NOTE | 2020-02-14 02:39 | PC.NURSE ---
Patient report faxed to 3rd floor.
--- NOTE | 2020-02-14 02:50 | ADMGEN ---
This patient, Isis Moore, was admitted to 3 [facility] Surg Room 320-01. Patient/family oriented to hospital policies and general routines including ID bracelet, bed and alarms, visiting hours, pain management, procedures, bathroom and other care routines, personal items, smoking policy, room service/diet, and visiting hours. Valuables list has been completed. Information on how to activate the Rapid Response Team has been discussed. Patient/Family are encouraged to report perceived risks to care and to ask questions if they do not understand what they are told or what they should do.
[2020-02-14 03:56] LABS: Glucose Point of Care 154 (65-105)
[2020-02-14] MEDS: IPRATROPIUM BR 0.02% INH SOLN 0.5 MG/2.5 ML VIAL INHALATION ×2 (08:32→15:43)
[2020-02-14] MEDS: ASPIRIN 325 MG TABLET PO (09:38)
[2020-02-14] MEDS: CLOPIDOGREL BISULFATE 75 MG TABLET PO (09:38)
[2020-02-14] MEDS: FLUOXETINE HCL 20 MG CAP 60 MG PO (09:38)
[2020-02-14] MEDS: AMLODIPINE BESYLATE 5 MG TABLET 10 MG PO (09:38)
[2020-02-14] MEDS: FLUTICASONE PROPIONATE 0.05% NA SPR 16 GM BTL (*BKC) 1 SPRAY NASAL (09:39)
[2020-02-14] MEDS: GABAPENTIN 300 MG CAPSULE PO (09:39)
[2020-02-14] MEDS: FUROSEMIDE 80 MG TABLET PO (09:39)
[2020-02-14] MEDS: hydrALAZINE HCL 50 MG TABLET PO ×2 (09:39→13:49)
[2020-02-14] MEDS: LORATADINE 10 MG TABLET PO (09:40)
[2020-02-14] MEDS: METOPROLOL SUCCINATE EXT REL 100 MG TABCR PO (09:40)
[2020-02-14] MEDS: ISOSORBIDE MONONITRATE 60 MG TAB.ER.24H PO (09:40)
[2020-02-14] MEDS: PANTOPRAZOLE 40 MG TABLET PO (09:40)
[2020-02-14] MEDS: RANOLAZINE 500 MG TAB.ER.12H 1000 MG PO (09:40)
[2020-02-14] MEDS: predniSONE 20 MG TABLET 60 MG PO (09:58)
--- NOTE | 2020-02-14 10:40 | PM.CNNEP ---
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 From a renal standpoint if stable can be discharged and be followed up on an outpatient basis. We will follow up with ESRD and related needs. Discussed with patient. (2) Anemia in CKD (chronic kidney disease): Code(s): N18.9 - Chronic kidney disease, unspecified; D63.1 - Anemia in chronic kidney disease Status: Acute (3) Secondary hyperparathyroidism (of renal origin): Code(s): N25.81 - Secondary hyperparathyroidism of renal origin Status: Acute (4) Diabetes: Qualifiers: Diabetes mellitus type: type 2 Diabetes mellitus retirement insulin use: with terminal press operator use Diabetes mellitus complication status: with neurologic complications Diabetes mellitus complication detail: with polyneuropathy Qualified Code(s): E11.42 - Type 2 diabetes mellitus with diabetic polyneuropathy; Z79.4 - remote computer terminal operator (current) use of insulin Code(s): E11.9 - Type 2 diabetes mellitus without complications Status: Chronic (5) CHF (congestive heart failure): Qualifiers: Heart failure type: other Qualified Code(s): I50.9 - Heart failure, unspecified Code(s): I50.9 - Heart failure, unspecified Status: Acute (6) Acute respiratory failure with hypoxia: Code(s): J96.01 - Acute respiratory failure with hypoxia Status: Acute (7) Hypertension: Code(s): I10 - Essential (primary) hypertension Status: Acute History of Present Illness Reason for Consult Consult date: 02/14/20 Reason for consult: chronic renal failure (End-stage renal disease, chronic kidney disease stage 6) Requesting physician: Damon Alvarez MD Chief Complaint Chief complaint: CHF/Fluid overload/COPD exacerbation History of Present Illness Narrative: 59-year-old female who has end stage renal disease, is a diabetic, hypertensive, whose echocardiogram report from the early part of January is as indicated below: Ejection fraction 55-60% Moderate hypertension She a Monday dialysis schedule. She has a left upper arm AV graft. She presented to dialysis yesterday and the dialysis machine was not functioning correctly. She was asked to go back to outpatient dialysis center today at 5:00 a.m. in the morning However yesterday self she states that she was feeling unwell with coughing, cough associated chest discomfort, progressive shortness of breath. Clear sputum. No hemoptysis. No fevers or chills. However progressively during the day yesterday and overnight the patient became more short of breath. She was found to have CHF changes on the x-ray. She was found to have an elevated BNP. She hence is admitted for further management and fluid removal in dialysis. She also is noted to have access revision of COPD and is doing better with the nebulizer treatments. She has reported diarrhea. No nausea vomiting associated. No abdominal pain. Review of Systems Review of Systems: All systems reviewed & are unremarkable except as noted in HPI and below [facility] Past Medical History Medical History Anemia Anemia in CKD (chronic kidney disease) Angina at rest Anxiety Arthritis Bipolar disorder Bronchitis Cataract Chronic renal failure Congestive heart failure Coronary artery disease Depression Diabetes End stage jesse
--- NOTE | 2020-02-14 15:51 | PM.SD ---
Same Day Admit/Disch: HPI History of Present Illness Chief complaint: CHF/Fluid overload/COPD exacerbation Narrative: Isis Moore is a 59 year old female on ESRD here for fluid overload. One week ago, she developed cough and one episode one nausea with vomiting. The nausea resolved. The next day, her cough worsened and [facility] note states patietn there for ear pain and sore throat. Strept screen was negative. She continued to have cough and developed fever that night to 101.0. She has been taking Tylenol intermittently. She was seen on 02/10 for HD and was noted to be afebrile. She completed her HD course without difficulty. She was seen again on 02/12 for HD but the machine was broken. She felt too tired to come back that afternoon and plan for HD the next morning. Patient has noted increasing pedal edema past few days. She complains of body aches and dizziness but no chest pain. Having SOB with minimal activity. last night, she had orthopnea and PND symptoms. Weight has been stable. She still has symptoms of rhinorrhea and sore throat but this has improved. The otalgia has resolved. She has been wheezing as well. She normally gets dialysis at [facility]. She has falls with Dr. Chowdhury. She had a fistula in left upper extremity placed in August 2017. No dysuria or hematuria. She still makes small amounts of urine. She had loose stool 2 days ago but nothing since. No abdominal pain. No further nausea or vomiting. because of the increasing shortness of breath overnight patient presented to the emergency room just after midnight on the day of admission. Patient was hemodynamically stable. Brain CT was performed because of the dizziness and this was negative. Chest x-ray was consistent with CHF exacerbation. Patient given IV Lasix and oral meclizine. She was given nebulizer treatments and 1 dose of Solu-Medrol. She was admitted for further care. It should be mentioned that t patient's sister had return 1 week ago from the [place]. No COVID exposure that the patient is aware of. Her sister is feeling well and has not been ill recently. The patient does state that her nieces and nephews have been ill with viral symptoms. [facility] Past Medical History Medical History (Updated 02/14/20 @ 16:17 by Damon Alvarez MD) Anemia in CKD (chronic kidney disease) Angina at rest Anxiety Arthritis Bipolar disorder Bronchitis Cataract Congestive heart failure Echo in January 2020 showing EF of 55-60% with moderate pulmonary hypertension and turbulent flow across the mitral valve; the diastolic function is normal Coronary artery disease With history of myocardial infarction Depression Diabetes End stage renal disease Follows with Dr Chowdhury; HD Tues/Thurs/Sat at [facility] in [place] Fibromyalgia Hypercholesterolemia Hypertension Knee fracture, left Peripheral neuropathy Related to her diabetes Seasonal allergies Secondary hyperparathyroidism (of renal origin) Surgical History Surgical History H/O cardiac catheterization Sep 2017 showed patent stent to LAD and 90% occlusion of a very small diagonal branch. H/O cataract removal with insertion of prosthetic lens Fall 2018 Bilateral H/O section x2 - one in 1977, one 1979 H/O exploratory laparotomy ? partial colectomy in the ? Patient is unsure what this was for but denies history of cancer. H/O inguinal hernia repair H/O: hysterectomy 2002 Hx of cholecystectomy 1996 Stented coronary artery to LAD in 2012 Family History Family History Father , age 50s Diabetes mellitus Cancer Mother , Age 89 Cerebrovascular accident Sibling Family history of kidney disease Brother on dialysis Son Diabetes mellitus Hypertension Asthma Social History
== END 2020-02-14 20:05 | disposition home or self-care (01) ==
LOC: ANHED 01:56 → ANH3MEDSUR 02:52
PROVIDERS: Admitting Provider Internal Medicine; Emergency Provider Emergency Medicine; PCP Internal Medicine Gastroenterology; Visit Provider Internal Medicine
DX: I13.2 Hypertensive heart and chronic kidney disease with heart failure and with stage 5 chronic kidney disease, or end stage renal disease (principal); I50.9 Heart failure, unspecified; E11.22 Type 2 diabetes mellitus with diabetic chronic kidney disease; N18.6 End stage renal disease; Z99.2 Dependence on renal dialysis; D63.1 Anemia in chronic kidney disease; J96.01 Acute respiratory failure with hypoxia; E11.42 Type 2 diabetes mellitus with diabetic polyneuropathy; I25.119 Atherosclerotic heart disease of native coronary artery with unspecified angina pectoris; I25.2 Old myocardial infarction; E78.00 Pure hypercholesterolemia, unspecified; N25.81 Secondary hyperparathyroidism of renal origin; R09.89 Other specified symptoms and signs involving the circulatory and respiratory systems; Z79.82 Long term (current) use of aspirin; Z79.899 Other long term (current) drug therapy; Z79.4 Long term (current) use of insulin; Z95.5 Presence of coronary angioplasty implant and graft
CPT/HCPCS: 36415; 36600; 70450; 71046; 80053; 82805; 83880; 85025; 85610; 85730; 87804; 93005; 93880; 94640; 96374; 99285; A9270; G0257; G0378; J2930; J7030; J7512

== ENCOUNTER 2021-03-08 08:51 | Outpatient (CLI) | payer MEDICARE, MEDICAID, SELFPAY ==
[2021-03-08 09:56] LABS: Basophils Absolute Auto 0.1 K/mm3 (0.0-0.1); Basophils Percent Auto 0.6 % (0.2-1.2); Eosinophils Absolute Auto 0.3 K/mm3 (0-0.3); Eosinophils Percent Auto 3.3 % (0-4.4); Hematocrit 26.6 % (37.0-47.0); Hemoglobin 8.3 g/dL (12.0-15.0); Immature Granulocyte Absolute 0.04 K/mm3 (0.00-0.031); Immature Granulocyte Percent A 0.4 % (0-0.5); Lymphocytes Absolute Auto 0.87 K/mm3 (0.9-3.2); Lymphocytes Percent Auto 9.2 % (18.3-44.2); Mean Corpuscular HGB Conc 31.2 g/dl (32-36); Mean Corpuscular Hemoglobin 31.3 pg (26-34); Mean Corpuscular Volume 100.4 fl (80-100); Mean Platelet Volume 11.1 fl (7.4-10.4); Monocytes Absolute Auto 0.7 K/mm3 (0.1-0.6); Monocytes Percent Auto 7.2 % (2.6-8.5); Neutrophils Absolute Auto 7.5 K/mm3 (1.3-6.7); Neutrophils Percent Auto 79.3 % (45.5-73.1); Platelet Count Result 261 k/mm3 (150-375); Red Blood Count 2.65 M/mm3 (4.2-5.4); Red Cell Distribution Width 12.8 % (11.5-14.5); White Blood Count 9.5 K/mm3 (4.5-10.0)
[2021-03-08 10:11] LABS: Prothrombin Time 13.5 Seconds (11.1-14.7)
[2021-03-08 10:14] LABS: Anion Gap 10 mmol/L (8-16); Blood Urea Nitrogen 48 mg/dL (7-17); Calcium 8.5 mg/dL (8.4-10.2); Carbon Dioxide 31 mmol/L (22-30); Chloride 95 mmol/L (98-107); Estimated Glomerular Filt Rate 5; Glucose 274 mg/dL (65-105); Potassium 4.9 mmol/L (3.4-5.0); Sodium 136 mmol/L (137-145)
[2021-03-08 10:40] LABS: Partial Thromboplastin Time 25.1 SECONDS (22.3-36.8)
== END 2021-03-08 08:52 | disposition home or self-care (01) ==
PROVIDERS: PCP Internal Medicine Gastroenterology; Visit Provider Specialist
DX: I10 Essential (primary) hypertension (principal); R07.89 Other chest pain; R06.02 Shortness of breath
CPT/HCPCS: 36415; 80048; 85025; 85610; 85730

== ENCOUNTER 2021-05-26 13:31 | Outpatient (CLI) | payer MEDICARE, MEDICAID, SELFPAY ==
--- NOTE | ~2021-05-26 | XR_ITS ---
EXAMINATION: XR chest 2V DATE: 05/26/2021 14:07 INDICATION: Cough. TECHNIQUE: Frontal and lateral views of the chest were obtained. COMPARISON: Chest 2 views 02/14/2020, CT abdomen and pelvis 04/23/2019 FINDINGS: There is mild atelectasis in left upper lobe. No pleural effusion or pneumothorax. The hear t size is normal. Surgical clips in the right upper quadrant are likely from cholecystectomy. IMPRESSION: 1. Mild atelectasis in left upper lobe. Reviewed, dictated and finalized at location A.
== END 2021-05-26 13:32 | disposition home or self-care (01) ==
PROVIDERS: PCP Internal Medicine Gastroenterology; Visit Provider Internal Medicine Nephrology
DX: Z11.1 Encounter for screening for respiratory tuberculosis (principal); N18.6 End stage renal disease; J98.11 Atelectasis
CPT/HCPCS: 71046

== ENCOUNTER 2021-07-09 08:22 | Outpatient (CLI) | payer MEDICARE, MEDICAID, SELFPAY ==
[2021-07-09 12:41] LABS: Erythrocyte Sedimentation Rate 42 mm/hr (0-20)
== END 2021-07-09 08:23 | disposition home or self-care (01) ==
LOC: ANHLAB 08:42
PROVIDERS: PCP Internal Medicine Gastroenterology
DX: R10.11 Right upper quadrant pain (principal)
CPT/HCPCS: 36415; 85652

== ENCOUNTER 2021-08-04 07:52 | Outpatient (CLI) | payer MEDICARE, MEDICAID, SELFPAY ==
--- NOTE | ~2021-08-04 | US_ITS ---
EXAMINATION: US abdomen limited DATE: 08/04/2021 08:29 INDICATION: Right upper quadrant pain TECHNIQUE: Multiple grayscale and Doppler ultrasound images of the abdomen were obtained. COMPARISON: CT, 04/23/2019 FINDINGS: Bowel gas obscures visualization of the pancreas. The liver is normal with normal echogenic ity and echotexture. No surface nodularity. Normal hepatopetal flow in the main portal vein. The gall bladder is surgically absent. There is chronic enlargement of the common bile duct which measures up to 12 mm. IMPRESSION: 1. No sonographic correlate for the patient's symptoms. Reviewed, dictated and finalized at location B.
== END 2021-08-04 07:53 | disposition home or self-care (01) ==
LOC: ANHIMG 08:01
PROVIDERS: PCP Internal Medicine Gastroenterology
DX: R10.11 Right upper quadrant pain (principal)
CPT/HCPCS: 76705

== ENCOUNTER 2021-08-18 12:02 | Inpatient (IN) | payer MEDICARE, MEDICAID, SELFPAY ==
[2021-08-18] VITALS (8 sets, daily range): BP systolic 152–208; BP diastolic 52–76; PULSE 71–100; RESP 12–22; TEMP 36.6; O2SAT 96–97
--- NOTE | ~2021-08-18 | XR_ITS ---
XR chest 1V portable 08/18/2021 13:04 Indication: Shortness of breath. Covid infection. Procedure: AP portable chest Comparison: Comparison to multiple prior studies sequentially, with oldest reviewed study dated 12/2019. Findings: Extensive patchy bilateral airspace disease, compatible with pneumonia. No pleural effusion or pneumothorax. No acute osseous abnormality Impression: 1: Patchy bilateral airspace disease, compatible with pneumonia. Reviewed, dictated and finalized at location A. Impression: 1: Patchy bilateral airspace disease, compatible with pneumonia.
[2021-08-18] MEDS: ISOSORBIDE DINITRATE 20 MG TABLET PO (13:00)
[2021-08-18] MEDS: METOPROLOL TARTRATE TAB 25 MG, METOPROLOL TARTRATE TAB 50 MG 75 MG PO (13:01)
[2021-08-18] MEDS: FUROSEMIDE 40 MG TABLET 80 MG PO (13:02)
[2021-08-18 13:07] LABS: Basophils Percent Auto 0.3 % (0.2-1.2); Eosinophils Percent Auto 0.4 % (0-4.4); Hematocrit 34.7 % (37.0-47.0); Hemoglobin 11.3 g/dL (12.0-15.0); Immature Granulocyte Absolute 0.03 K/mm3 (0.00-0.031); Immature Granulocyte Percent A 0.4 % (0-0.5); Lymphocytes Absolute Auto 0.68 K/mm3 (0.9-3.2); Lymphocytes Percent Auto 8.7 % (18.3-44.2); Mean Corpuscular HGB Conc 32.6 g/dl (32-36); Mean Corpuscular Hemoglobin 31.8 pg (26-34); Mean Corpuscular Volume 97.7 fl (80-100); Mean Platelet Volume 10.4 fl (7.4-10.4); Monocytes Absolute Auto 0.6 K/mm3 (0.1-0.6); Neutrophils Absolute Auto 6.4 K/mm3 (1.3-6.7); Neutrophils Percent Auto 82.2 % (45.5-73.1); Platelet Count Result 233 k/mm3 (150-375); Red Blood Count 3.55 M/mm3 (4.2-5.4); Red Cell Distribution Width 12.7 % (11.5-14.5); White Blood Count 7.8 K/mm3 (4.5-10.0)
--- NOTE | 2021-08-18 13:15 | ED.SOB ---
HPI - SOB/Dyspnea General Chief Complaint: Shortness of Breath/Dyspnea Stated Complaint: NEEDS DIALYSIS Time Seen by Provider: 08/18/21 12:03 Source: patient Mode of arrival: EMS Limitations: no limitations History of Present Illness HPI Narrative: 60-year-old female Hemodialysis patient Started with mild URI symptoms 4 days ago over the [facility] a [facility] done at [facility] which came back positive Because of that she did not get her usual Monday dialysis She is here today feeling short of breath She is little bit of a cough, no fever, no unusual swelling She reported she did not take her morning medications until EMS picked her up and recommended she take a couple of her blood pressure pills Related Data Home Medications Medication Instructions Recorded Confirmed Levemir FlexTouch U-100 Insuln 14 unit SUBCUT HS 01/27/20 02/14/20 amlodipine 10 mg PO DAILY 01/27/20 02/14/20 aspirin 325 mg PO DAILY 01/27/20 02/14/20 atorvastatin 40 mg PO DAILY 01/27/20 02/14/20 clonazepam 0.5 mg PO BID PRN 01/27/20 02/14/20 clopidogrel 75 mg PO DAILY 01/27/20 02/14/20 fluoxetine 60 mg PO DAILY 01/27/20 02/14/20 fluticasone propionate [Allergy 1 spray INTRANASAL DAILY 01/27/20 02/14/20 Relief (fluticasone)] furosemide 80 mg PO DAILY 01/27/20 02/14/20 hydralazine 50 mg PO TID 01/27/20 02/14/20 insulin aspart U-100 [Novolog 4 unit SUB-Q QACBREAK 01/27/20 02/14/20 Flexpen U-100 Insulin] loratadine 10 mg PO DAILY 01/27/20 02/14/20 metoprolol succinate 100 mg PO DAILY 01/27/20 02/14/20 nitroglycerin 0.4 mg SUBLINGUAL Q5MIN PRN 01/27/20 02/14/20 omeprazole 20 mg PO BID 01/27/20 02/14/20 prazosin 5 mg PO HS 01/27/20 02/14/20 ranolazine 1,000 mg PO BID 01/27/20 02/14/20 ziprasidone HCl 80 mg PO HS 02/14/20 02/14/20 Allergies Allergy/AdvReac Type Severity Reaction Status Date / Time No Known Allergies Allergy Unknown Verified 08/18/21 12:06 Review of Systems Review of Systems: All systems reviewed & are unremarkable except as noted in HPI and below Constitutional: Constitutional: Reports no additional constitutional complaints, Denies chills, Reports fatigue, Denies fever(s), Denies headache(s) and Reports weakness Eyes: Eyes: Reports no additional eye complaints and Denies change in vision ENT: Denies headache(s) and Denies sore throat Cardiovascular: Cardiovascular: Denies chest pain and Denies dyspnea Respiratory: Respiratory: Reports cough, Reports dyspnea and Denies wheezing Gastrointestinal: Gastrointestinal: Denies abdominal pain, Denies diarrhea and Denies vomiting Genitourinary: Genitourinary: Denies urinary frequency and Denies dysuria Musculoskeletal: Musculoskeletal: Denies deformity, Denies arthralgias, Denies joint swelling and Denies numbness Integumentary/Breasts: Skin/Breast: Denies rash and Denies wounds Neurologic: Denies headache(s), Denies focal weakness and Denies numbness Psychiatric: Psychiatric: Reports no additional psychiatric complaints Endocrine: Endocrine: Reports no additional endocrine complaints Hematologic/Lymphatic: Hematologic/Lymphatic: Reports no additional hematologic/lymphatic complaints Allergic/Immunologic: Allergic/Immunologic: Reports no additional allergic/immunologic complaints [facility] Past Medical History Medical History (Updated 08/18/21 @ 17:17 by Clifford Hsu MD) Anemia in CKD (chronic kidney disease) Angina at rest Anxiety Arthritis Bipolar disorder Bronchitis Cataract Congestive heart failure Echo in January 2020 showing EF of 55-60% with moderate pulmonary hypertension and turbulent flow across the mitral valve; the diastolic function is normal Coronary artery disease With history of myocardial infarction Depression Diabetes End stage renal disease Follows with Dr Chowdhury; HD Tues/Thurs/Sat at [facility] in [place] Fibromyalgia Hypercholesterolemia Hypertension Knee fracture, left Peripheral
[2021-08-18 15:43] LABS: Alanine Aminotransferase 8 U/L (4-35); Albumin Level 4.4 g/dL (3.5-5.1); Alkaline Phosphatase 99 U/L (38-126); Anion Gap 23 mmol/L (8-16); Aspartate Amino Transferase 29 U/L (14-36); Bilirubin,Total 1.2 mg/dL (0.2-1.3); Blood Urea Nitrogen 83 mg/dL (7-17); Calcium 8.8 mg/dL (8.4-10.2); Carbon Dioxide 18 mmol/L (22-30); Chloride 96 mmol/L (98-107); Estimated CRCL calculation 4 ml/min; Estimated Glomerular Filt Rate 3; Glucose 106 mg/dL (65-110); Lactate Dehydrogenase 673 U/L (313-618); Potassium 6.7 mmol/L (3.4-5.0); Sodium 137 mmol/L (137-145)
[2021-08-18 15:52] LABS: NT Pro B Type Natriuretic Pept 32700 pg/mL (5-100)
--- NOTE | 2021-08-18 16:24 | ECG_ITS ---
Measurements Intervals [place] Rate: 83 P: 38 OH: 152 QRS: -7 QRSD: 88 T: 48 QT: 384 QTc: 452 Interpretive Statements SINUS RHYTHM BASELINE ARTIFACT- I, II, III, AVR, AVL, AVF, V1-V6 NORMAL ECG Electronically Signed On 08-19-2021 10:07:26 CDT by Balbir Ashley D.O.
[2021-08-18 16:36] LABS: Anion Gap 22 mmol/L (8-16); Blood Urea Nitrogen 83 mg/dL (7-17); Calcium 8.6 mg/dL (8.4-10.2); Carbon Dioxide 18 mmol/L (22-30); Chloride 96 mmol/L (98-107); Estimated CRCL calculation 4 ml/min; Estimated Glomerular Filt Rate 3; Glucose 111 mg/dL (65-110); Sodium 136 mmol/L (137-145)
[2021-08-18] MEDS: SODIUM POLYSTYRENE SULFONONATE 15 GM/60 ML BTL PO ×2 (17:17→21:52)
--- NOTE | 2021-08-18 19:21 | PC.NURSE ---
Called [employer] to question admission to MED SURG with TELE due to hyperkalemia (potassium level 7.0). [employer] Lace Cutter [employer] stated she is a dialysis patient and missed her treatment, that admitting MD and others are aware, but will call to verify.
[2021-08-18 21:49] LABS: Anion Gap 22 mmol/L (8-16); Blood Urea Nitrogen 87 mg/dL (7-17); Calcium 8.3 mg/dL (8.4-10.2); Carbon Dioxide 18 mmol/L (22-30); Chloride 95 mmol/L (98-107); Glucose 190 mg/dL (65-110); Potassium 6.8 mmol/L (3.4-5.0); Sodium 135 mmol/L (137-145)
[2021-08-18 21:52] LABS: Estimated CRCL calculation 4 ml/min; Estimated Glomerular Filt Rate 3
[2021-08-18] MEDS: ALBUTEROL SULFATE NEB 2.5 MG/3 ML INH 5 MG INHALATION (22:32)
[2021-08-18] MEDS: INSULIN HUMAN REGULAR (*BKC) 100 UNITS/ML 10 UNITS IV PUSH (23:38)
[2021-08-18] MEDS: DEXTROSE 50% 25 GM/50 ML SYRINGE IV PUSH (23:39)
[2021-08-18] MEDS: SODIUM BICARBONATE 8.4% 50 MEQ/50 ML SYRINGE IV PUSH (23:39)
--- NOTE | 2021-08-18 23:55 | PC.NURSE ---
patients O2 saturation was 89-90% on room air. placed pt on 3L of O2 via nasal cannula and pt's O2 saturation has gone up to 96%.
[2021-08-19] VITALS (19 sets, daily range): BP systolic 126–198; BP diastolic 56–83; PULSE 75–90; RESP 16–27; TEMP 36.7–37.3; O2SAT 94–99; BMI 37.0
[2021-08-19 00:23] LABS: Potassium 5.5 mmol/L (3.4-5.0)
--- NOTE | 2021-08-19 03:46 | PC.NURSE ---
This patient, Isis Moore, was admitted to [facility] Surg Room 313-01 @[id number]. Patient/family oriented to hospital policies and general routines including ID bracelet, bed and alarms, visiting hours, pain management, procedures, bathroom and other care routines, personal items, smoking policy, room service/diet, and visiting hours. Information on how to activate the Rapid Response Team has been discussed. Patient/Family are encouraged to report perceived risks to care and to ask questions if they do not understand what they are told or what they should do.
--- NOTE | 2021-08-19 04:33 | PM.IMHP ---
H&P: HPI History of Present Illness Date/Time: 08/19/21 04:33 Chief Complaint: Shortness of breath Narrative: 60-year-old female who presents to the ER yesterday with increasing shortness of breath. She is end-stage renal disease on hemodialysis patient however she has been having upper respiratory symptoms since past 4 days and was tested positive for COVID and hence she was not able to go to her usual dialysis center on Monday. She was scheduled to go to another facility who can do her dialysis being positive for COVID and was scheduled to go next day however since he got short of breath she came to the ER for evaluation. In a ER evaluation she was noted to have COVID pneumonia along with hyperkalemia up to 7. She was needed to be dialyzed overnight to get the hyperkalemia resolved however this was not visible and hands temporizing treatments were instituted luckily with improvement of potassium level down to 5.5. She was not getting admitted for the planned inpatient hemodialysis to happened earlier this morning. Decide shortness of breath she has very minimal cough. See also denies any fever or any increased swelling in her lower extremities. She was also noted to have elevated blood pressure in the ER and was given her usual medications to combat that. Review of Systems Review of Systems: - CONSTITUTIONAL: Denies weight loss, fever and chills. - HEENT: Denies changes in vision and hearing - RESPIRATORY: Reports SOB and cough. - CV: Denies palpitations and CP. - GI: Denies abdominal pain, nausea, vomiting and diarrhea. - : Denies dysuria and urinary frequency. - MSK: Denies myalgia and joint pain. - SKIN: Denies rash and pruritus. - NEUROLOGICAL: Denies headache and syncope. - PSYCHIATRIC: Denies recent changes in mood. Denies anxiety and depression. All systems reviewed & are unremarkable except as noted in HPI and below Constitutional: Constitutional: Reports fatigue and Reports weakness Neurologic: Reports weakness Endocrine: Endocrine: Reports fatigue [facility] Past Medical History Medical History (Updated 08/19/21 @ 04:36 by Robbin Verduzco MD) Anemia in CKD (chronic kidney disease) Angina at rest Anxiety Arthritis Bipolar disorder Bronchitis Cataract Congestive heart failure Echo in January 2020 showing EF of 55-60% with moderate pulmonary hypertension and turbulent flow across the mitral valve; the diastolic function is normal Coronary artery disease With history of myocardial infarction Depression Diabetes End stage renal disease Follows with Dr Chowdhury; HD Tues/Thurs/Sat at [facility] in [place] Fibromyalgia Hypercholesterolemia Hypertension Knee fracture, left Peripheral neuropathy Related to her diabetes Seasonal allergies Secondary hyperparathyroidism (of renal origin) Surgical History Surgical History H/O cardiac catheterization Sep 2017 showed patent stent to LAD and 90% occlusion of a very small diagonal branch. H/O cataract removal with insertion of prosthetic lens Fall 2018 Bilateral H/O section x2 - one in 1977, one 1979 H/O exploratory laparotomy ? partial colectomy in the ? Patient is unsure what this was for but denies history of cancer. H/O inguinal hernia repair H/O: hysterectomy 2002 Hx of cholecystectomy 1996 Stented coronary artery to LAD in 2012 Family History Family History Father , age 50s Diabetes mellitus Cancer Mother , Age 89 Cerebrovascular accident Sibling Family history of kidney disease Brother on dialysis Son Diabetes mellitus Hypertension Asthma Social History Social History (Updated 02/14/20 @ 16:08 by Damon Alvarez MD) Social History: Ms. Moore lives at home with her in [place], [place]. 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
[2021-08-19 06:02] LABS: Basophils Percent Auto 0.2 % (0.2-1.2); Eosinophils Percent Auto 0.1 % (0-4.4); Hematocrit 31.3 % (37.0-47.0); Hemoglobin 10.5 g/dL (12.0-15.0); Immature Granulocyte Absolute 0.03 K/mm3 (0.00-0.031); Immature Granulocyte Percent A 0.4 % (0-0.5); Lymphocytes Absolute Auto 0.87 K/mm3 (0.9-3.2); Lymphocytes Percent Auto 10.3 % (18.3-44.2); Mean Corpuscular HGB Conc 33.5 g/dl (32-36); Mean Corpuscular Hemoglobin 31.4 pg (26-34); Mean Corpuscular Volume 93.7 fl (80-100); Mean Platelet Volume 9.8 fl (7.4-10.4); Monocytes Absolute Auto 0.6 K/mm3 (0.1-0.6); Neutrophils Absolute Auto 6.9 K/mm3 (1.3-6.7); Platelet Count Result 235 k/mm3 (150-375); Red Blood Count 3.34 M/mm3 (4.2-5.4); Red Cell Distribution Width 12.6 % (11.5-14.5); White Blood Count 8.4 K/mm3 (4.5-10.0)
[2021-08-19 06:12] LABS: Alanine Aminotransferase 7 U/L (4-35); Albumin Level 3.8 g/dL (3.5-5.1); Alkaline Phosphatase 88 U/L (38-126); Anion Gap 23 mmol/L (8-16); Aspartate Amino Transferase 24 U/L (14-36); Bilirubin,Total 1.1 mg/dL (0.2-1.3); Blood Urea Nitrogen 87 mg/dL (7-17); Calcium 7.9 mg/dL (8.4-10.2); Carbon Dioxide 19 mmol/L (22-30); Chloride 94 mmol/L (98-107); Glucose 95 mg/dL (65-110); Sodium 136 mmol/L (137-145)
[2021-08-19 06:21] LABS: Estimated CRCL calculation 4 ml/min; Estimated Glomerular Filt Rate 2
[2021-08-19 08:27] LABS: Glucose Point of Care 77 mg/dl (65-105)
[2021-08-19] MEDS: amLODIPine BESYLATE 5 MG TABLET 10 MG PO (08:52)
[2021-08-19] MEDS: ASPIRIN 325 MG TABLET PO (08:53)
[2021-08-19] MEDS: CLOPIDOGREL BISULFATE 75 MG TABLET PO (08:54)
[2021-08-19] MEDS: FUROSEMIDE 80 MG TABLET PO (08:55)
[2021-08-19] MEDS: HEPARIN SODIUM 5,000 UNITS/ML VIAL 5000 UNITS SUB-Q ×2 (08:55→21:24)
[2021-08-19] MEDS: DEXAMETHASONE SOD PHOS INJ 4 MG/ML VIAL 6 MG IV PUSH (08:55)
[2021-08-19] MEDS: FLUoxetine HCL 20 MG CAPSULE 60 MG PO (08:55)
[2021-08-19] MEDS: ISOSORBIDE MONONITRATE 60 MG TAB.ER.24H PO (08:56)
[2021-08-19] MEDS: hydrALAZINE HCL 50 MG TABLET PO ×3 (08:56→18:38)
[2021-08-19] MEDS: METOPROLOL SUCCINATE EXT REL 100 MG TABCR PO (08:56)
[2021-08-19] MEDS: RANOLAZINE 500 MG TAB.ER.12H 1000 MG PO ×2 (08:57→21:23)
[2021-08-19] MEDS: ATORVASTATIN 40 MG TABLET PO (08:57)
[2021-08-19] MEDS: PANTOPRAZOLE 40 MG TABLET PO ×2 (08:57→17:07)
[2021-08-19 10:22] LABS: Hepatitis B Surface Antigen Negative (Negative)
[2021-08-19 10:27] LABS: Hepatitis B Core IgM Result Negative (Negative)
[2021-08-19 10:46] LABS: Hepatitis B Surface Anti Res Positive
[2021-08-19 12:04] LABS: Glucose Point of Care 149 mg/dl (65-105)
[2021-08-19 14:40] LABS: Glucose Point of Care 207 mg/dl (65-105)
[2021-08-19] MEDS: INSULIN ASPART (*BKC) 100 UNITS/ML SUB-Q ×3 (15:15→17:08)
--- NOTE | 2021-08-19 16:33 | P.PNIM_ITS ---
Progress Note: A&P Assessment and Plan (1) Pneumonia due to COVID-19 virus: Code(s): U07.1 - COVID-19; J12.82 - Pneumonia due to coronavirus disease 2019 Status: Acute Assessment and Plan: Tested positive for COVID-19 on 08/17/2021 at outside facility. CXR showed patchy bilateral airspace disease compatible with pneumonia. * Continue dexamethasone * She is not a candidate for remdesivir given her end-stage renal disease * Supportive care to include bronchodilators, expectorants, antipyretics, incentive spirometry * Supplemental O2 as needed with goal saturation 90% or above. She is requiring 2 L per nasal cannula. * Continue isolation precautions * Received Schuyler & Schuyler vaccine in January 2021. (2) End stage renal disease: Code(s): N18.6 - End stage renal disease Status: Chronic Assessment and Plan: Maintained on hemodialysis Monday, , and Monday. She is established with Dr. Chowdhury. * Missed dialysis on 08/17 due to isolation precautions for COVID * She has been dialyzed today * Nephrology has been consulted for management of dialysis * Renal dialysis diet (3) Fluid overload: Code(s): E87.70 - Fluid overload, unspecified Status: Acute Assessment and Plan: Secondary to missed dialysis as above. Resolving. * Continue hemodialysis * Monitor intake and output. Monitor volume status closely (4) Hyperkalemia: Code(s): E87.5 - Hyperkalemia Status: Acute Assessment and Plan: Potassium elevated up to 7.0 on presentation, secondary to missed dialysis. * Improved with treatment with Kayexalate, Lasix, insulin and dextrose * Potassium stabilized at 5.0 today. * Continue with dialysis (5) Diabetes: Qualifiers: Diabetes mellitus type: type 2 Diabetes mellitus long term care phlebotomist insulin use: with senior living use Diabetes mellitus complication status: with neurologic complications Diabetes mellitus complication detail: with polyneuropathy Qualified Code(s): E11.42 - Type 2 diabetes mellitus with diabetic polyneuropathy; Z79.4 - long term care phlebotomist (current) use of insulin Code(s): E11.9 - Type 2 diabetes mellitus without complications Status: Chronic Assessment and Plan: Glucose reasonably well controlled today. * Continue Accu-Cheks, sliding scale insulin, hypoglycemic protocol * Continue Levemir * Check updated A1c * Close monitoring in light of IV steroids (6) Hypertension: Code(s): I10 - Essential (primary) hypertension Status: Acute Assessment and Plan: Blood pressure significantly elevated on presentation, due to volume overload. * BP has improved following hemodialysis. Last BP 154/75. * Continue with antihypertensive * Monitor blood pressure trends closely (7) Anemia in CKD (chronic kidney disease): Code(s): N18.9 - Chronic kidney disease, unspecified; D63.1 - Anemia in chronic kidney disease Status: Acute Assessment and Plan: Hemoglobin and hematocrit are stable on review of prior labs. No signs/symptoms of bleeding. Subjective Date/time seen: 08/19/21 16:33 Interval history: Date of service: 08/19/2021 Isis Moore is a 60-year-old female with a history of end-stage renal disease, CAD, CHF type 2 diabetes mellitus, hypertension, and anemia of chronic disease who is seen in follow-up for volume overload secondary to missed dialysi s and COVID-19 pneumonia. She is feeling a bit better today. She still endorses shortness of breath that
--- NOTE | 2021-08-19 16:33 | PM.IMPN ---
Progress Note: A&P Assessment and Plan (1) Pneumonia due to COVID-19 virus: Code(s): U07.1 - COVID-19; J12.82 - Pneumonia due to coronavirus disease 2019 Status: Acute Assessment and Plan: Tested positive for COVID-19 on 08/17/2021 at outside facility. CXR showed patchy bilateral airspace disease compatible with pneumonia. Continue dexamethasone She is not a candidate for remdesivir given her end-stage renal disease Supportive care to include bronchodilators, expectorants, antipyretics, incentive spirometry Supplemental O2 as needed with goal saturation 90% or above. She is requiring 2 L per nasal cannula. Continue isolation precautions Received Schuyler & Schuyler vaccine in January 2021. (2) End stage renal disease: Code(s): N18.6 - End stage renal disease Status: Chronic Assessment and Plan: Maintained on hemodialysis Monday, , and Monday. She is established with Dr. Chowdhury. Missed dialysis on 08/17 due to isolation precautions for COVID She has been dialyzed today Nephrology has been consulted for management of dialysis Renal dialysis diet (3) Fluid overload: Code(s): E87.70 - Fluid overload, unspecified Status: Acute Assessment and Plan: Secondary to missed dialysis as above. Resolving. Continue hemodialysis Monitor intake and output. Monitor volume status closely (4) Hyperkalemia: Code(s): E87.5 - Hyperkalemia Status: Acute Assessment and Plan: Potassium elevated up to 7.0 on presentation, secondary to missed dialysis. Improved with treatment with Kayexalate, Lasix, insulin and dextrose Potassium stabilized at 5.0 today. Continue with dialysis (5) Diabetes: Qualifiers: Diabetes mellitus type: type 2 Diabetes mellitus continuous churn buttermaker insulin use: with halfway use Diabetes mellitus complication status: with neurologic complications Diabetes mellitus complication detail: with polyneuropathy Qualified Code(s): E11.42 - Type 2 diabetes mellitus with diabetic polyneuropathy; Z79.4 - terminal press operator (current) use of insulin Code(s): E11.9 - Type 2 diabetes mellitus without complications Status: Chronic Assessment and Plan: Glucose reasonably well controlled today. Continue Accu-Cheks, sliding scale insulin, hypoglycemic protocol Continue Levemir Check updated A1c Close monitoring in light of IV steroids (6) Hypertension: Code(s): I10 - Essential (primary) hypertension Status: Acute Assessment and Plan: Blood pressure significantly elevated on presentation, due to volume overload. BP has improved following hemodialysis. Last BP 154/75. Continue with antihypertensive Monitor blood pressure trends closely (7) Anemia in CKD (chronic kidney disease): Code(s): N18.9 - Chronic kidney disease, unspecified; D63.1 - Anemia in chronic kidney disease Status: Acute Assessment and Plan: Hemoglobin and hematocrit are stable on review of prior labs. No signs/symptoms of bleeding. Subjective Date/time seen: 08/19/21 16:33 Interval history: Date of service: 08/19/2021 Isis Moore is a 60-year-old female with a history of end-stage renal disease, CAD, CHF type 2 diabetes mellitus, hypertension, and anemia of chronic disease who is seen in follow-up for volume overload secondary to missed dialysis and COVID-19 pneumonia. She is feeling a bit better today. She still endorses shortness of breath that has been slowly improving since her admission. She endorses dyspnea on exertion as well as orthopnea. Denies edema of her extremities. No chest pain or palpitations. Complains of nonproductive cough. She denies abdominal pain, nausea, vomiting, fever, or chills. No anosmia or dysgeusia. No additional concerns. Review of Systems Review of Systems: All systems reviewed & are unremarkable except as noted in HPI and below Exam
--- NOTE | 2021-08-19 16:54 | PM.CNNEP ---
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 Will try to get some fluid off tomorrow -patient is on Monday, , Monday dialysis schedule. She has been set up for outpatient in a [facility] COVID-19 facility on a Monday, , Monday dialysis schedule at about 10 30. -will keep patient on a Monday, , Monday dialysis schedule -follow-up of ESRD and related -currently is on Decadron -will follow up with ESRD and related needs. I do not believe that clinically the patient is ready for discharge to outpatient dialysis facility -hopefully she turns a corner soon History of Present Illness Reason for Consult Consult date: 08/19/21 Reason for consult: end stage renal disease and hyperkalemia Requesting physician: Clifford Hsu MD Chief Complaint Chief complaint: Hyperkalemia; Covid; CRF History of Present Illness Narrative: S to see patient in consultation for ESRD. Patient came in with shortness of breath to the emergency room yesterday. On Monday he went to have a COVID-19 antigen test and was found to be positive. The day prior to the testing she had a fever, feeling unwell, cough, congestion, shortness of breath. Does been no nausea, vomiting, diarrhea. No change in smell or taste. Appetite has been sustained. Chest x-ray shows bilateral patchy infiltrates. She has been started on Decadron therapy. The patient is initial presentation potassium was 6.7 and went up to 7. Those no dialysis nurse available last night and she had to be treated aggressively medically with subsequent decrease in potassium. She was dialyzed earlier this morning and the dialysis was arranged for this morning. Ca and about 3.5 L of fluid removed. Her breathing is better. She continues to have a dry cough. No chest pain. No fevers or chills. Review of the the from current and past as indicated below: CXR Impression: Patchy bilateral airspace disease, compatible with pneumonia. Echo Summary 01/2020 1. Left ventricular chamber dimension is mildly enlarged. 2. Left ventricular systolic function is normal, estimated at 55-60%. 3. Mitral valve leaflets are thickened and mildly calcified. Posterior mitral annular calcification noted. Turbulent flow noted across mitral valve with mild increase mean pressure gradient at 4-5 mmHg at heart rate of 96. 4. The prox ascending aorta size is moderately calcified. 5. Moderate pulmonary hypertension, estimated pulmonary arterial systolic pressure is 60-65 mmHg. Patient does have history of coronary artery disease. Currently no cardiac manifestations. There is no lower extremity swelling although the swelling is being assessed after dialysis today and may have decreased. No abdominal discomfort Negative of the systems he feels Review of Systems Review of Systems: All systems reviewed & are unremarkable except as noted in HPI and below (history of presenting illness) [facility] Past Medical History Medical History (Updated 08/19/21 @ 04:36 by Robbin Verduzco MD) Anemia in CKD (chronic kidney disease) Angina at rest Anxiety Arthritis Bipolar disorder Bronchitis Cataract Congestive heart failure Echo in January 2020 showing EF of 55-60% with moderate pulmonary hypertension and turbulent flow
[2021-08-19 16:55] LABS: Glucose Point of Care 222 mg/dl (65-105)
[2021-08-19 17:06] LABS: SARS-CoV-2 RNA PCR Positive
[2021-08-19] MEDS: PRAZOSIN HCL 5 MG CAPSULE 10 MG PO (21:23)
[2021-08-19] MEDS: guaiFENesin 12 HR 600 MG TABCR PO (21:23)
[2021-08-19] MEDS: ZIPRASIDONE HCL 80 MG CAPSULE PO (21:24)
[2021-08-19] MEDS: clonazePAM (*CRX) 0.5 MG TABLET PO (21:28)
[2021-08-19] MEDS: INSULIN DETEMIR 100 UNITS/ML 14 UNITS SUB-Q (21:28)
[2021-08-19] MEDS: ALBUTEROL SULFATE (*SP) AEROSOL 1 PUFF 2 PUFF INHALATION (21:56)
[2021-08-19 22:03] LABS: Glucose Point of Care 114 mg/dl (65-105)
[2021-08-20] VITALS (10 sets, daily range): BP systolic 130–168; BP diastolic 52–65; PULSE 66–82; RESP 18–20; TEMP 36.3–37; O2SAT 92–97
[2021-08-20] MEDS: ALBUTEROL SULFATE (*SP) AEROSOL 1 PUFF 2 PUFF INHALATION ×4 (03:44→20:03)
[2021-08-20 06:16] LABS: Hematocrit 32.6 % (37.0-47.0); Hemoglobin 10.7 g/dL (12.0-15.0)
[2021-08-20 06:36] LABS: Albumin Level 3.8 g/dL (3.5-5.1); Anion Gap 16 mmol/L (8-16); Blood Urea Nitrogen 53 mg/dL (7-17); Calcium 8.6 mg/dL (8.4-10.2); Carbon Dioxide 25 mmol/L (22-30); Chloride 98 mmol/L (98-107); Estimated CRCL calculation 6 ml/min; Estimated Glomerular Filt Rate 4; Glucose 122 mg/dL (65-110); Phosphorus 8.4 mg/dL (2.5-4.5); Potassium 4.5 mmol/L (3.4-5.0); Sodium 139 mmol/L (137-145)
[2021-08-20 08:11] LABS: Glucose Point of Care 90 mg/dl (65-105)
--- NOTE | 2021-08-20 08:53 | PM.PNNEP ---
Progress Note: A&P Assessment and Plan (1) End stage renal disease: Code(s): N18.6 - End stage renal disease Status: Chronic Assessment and Plan: End-stage renal disease: Dialysis tomorrow Hyperkalemia: Corrected COVID-19 pneumonia: On steroids, DVT prophylaxis, increase heparin to 3 times a day Anemia chronic kidney disease: Her erythropoietin as needed Secondary hyperparathyroidism with high phosphorus: Added Tums Planning on dialysis for tomorrow. Maintain fluid removal Continue with care. Maintaining steroids, had GI prophylaxis with famotidine Will follow Subjective Date/time seen: 08/20/21 08:53 Seen and examined. Admitted with COVID-19 pneumonia Feel better with the breathing Oxygen saturation 92% on room air She is on steroids, is on heparin subcutaneously for DVT prophylaxis She had dialysis yesterday which he tolerated about 3 L of fluid removal Slept better. Exam Narrative: Well-developed well-nourished, comfortable at rest upright with breathing, still noted to have a cough, alert and awake, no tremors, JVD negative, regular rate rhythm, no gallop, diminished breath sounds, no rales appreciated current tacrolimus soft nontender abdomen, edema negative, but oriented x3 Objective Data Vital Signs Vital Signs: Vital Signs - 24 hr 08/19/21 08:56 08/19/21 09:25 08/19/21 09:30 Temperature 36.8 C Pulse Rate 90 89 89 Respiratory Rate 20 Blood Pressure 187/73 H 178/77 H Pulse Oximetry 08/19/21 10:30 08/19/21 11:30 08/19/21 12:00 Temperature Pulse Rate 77 75 78 Respiratory Rate Blood Pressure 169/79 H 182/83 H Pulse Oximetry 08/19/21 12:30 08/19/21 13:00 08/19/21 13:15 Temperature 36.7 C Pulse Rate 78 78 78 Respiratory Rate 22 H Blood Pressure 128/67 126/56 L 154/75 H Pulse Oximetry 08/19/21 16:00 08/19/21 20:00 08/19/21 21:57 Temperature 37.1 C 36.9 C Pulse Rate 81 80 75 Respiratory Rate 16 18 Blood Pressure 156/63 H 164/68 H Pulse Oximetry 99 99 08/19/21 21:58 08/19/21 23:33 08/20/21 00:00 Temperature 36.8 C Pulse Rate 75 80 75 Respiratory Rate 20 Blood Pressure 154/70 H Pulse Oximetry 96 94 08/20/21 02:25 08/20/21 03:57 08/20/21 04:00 Temperature 36.8 C Pulse Rate 71 73 Respiratory Rate 20 Blood Pressure 153/52 H Pulse Oximetry 97 92 08/20/21 08:00 Temperature 36.9 C Pulse Rate 79 Respiratory Rate 18 Blood Pressure 168/64 H Pulse Oximetry 94 Intake/Output Intake/Output: Intake & Output 08/17/21 08/18/21 08/19/21 08/20/21 23:59 23:59 23:59 23:59 Intake Total 1720 250 Output Total 3500 Balance -1780 250 Meds/Results Medications: Active Medications Generic Name Dose Route Start Last Admin Trade Name Freq PRN Reason Stop Dose Admin Albuterol 2 puff 08/19/21 20:00 08/20/21 03:44 Albuterol Sulfate (*Sp) Aerosol 1 Puff INHALATION 2 puff Q6HRT CAMILLA Administration Amlodipine Besylate 10 mg 08/19/21 09:00 08/19/21 08:52 Amlodipine Besylate 5 Mg Tablet PO 10 mg DAILY [facility]A Administration Aspirin 325 mg 08/19/21 08:00 08/19/21 08:53 Aspirin 325 Mg Tablet PO 325 mg DAILY@0800 [facility]A Administration Atorvastatin Calcium 40 mg 08/19/21 09:00 08/19/21 08:57 Atorvastatin 40 Mg Tablet PO 40 mg DAILY [facility]A Administration Calcium Carbonate 200 mg 08/21/21 08:00 Calcium Carbonate (Tums) 500 Mg (200 Mg Elemental) PO DAILY@0800 [facility]A Clonazepam 0.5 mg 08/19/21 04:53 08/19/21 21:28 Clonazepam (*Crx) 0.5 Mg Tablet PO 0.5 mg BID PRN Administration Anxiety Clopidogrel Bisulfate 75 mg 08/19/21 09:00 08/19/21 08:54 Clopidogrel Bisulfate 75 Mg Tablet PO 75 mg DAILY [facility] Administration Dexamethasone Sodium Phosphate 6 mg 08/19/21 09:00 08/19/21 08:55 Dexamethasone Sod Phos Inj 4 Mg/Ml Vial IV PUSH 08/28/21 09:01 6 mg DAILY CAMILLA Administration Dextrose 12.5 gm 08/19/21 08:08 Dextrose 50% 25 Gm/50 Ml Syringe
[2021-08-20] MEDS: RANOLAZINE 500 MG TAB.ER.12H 1000 MG PO ×2 (09:06→22:00)
[2021-08-20] MEDS: hydrALAZINE HCL 50 MG TABLET PO ×3 (09:06→17:47)
[2021-08-20] MEDS: METOPROLOL SUCCINATE EXT REL 100 MG TABCR PO (09:07)
[2021-08-20] MEDS: guaiFENesin 12 HR 600 MG TABCR PO ×2 (09:07→22:00)
[2021-08-20] MEDS: PANTOPRAZOLE 40 MG TABLET PO ×2 (09:07→17:47)
[2021-08-20] MEDS: ISOSORBIDE MONONITRATE 60 MG TAB.ER.24H PO (09:07)
[2021-08-20] MEDS: CLOPIDOGREL BISULFATE 75 MG TABLET PO (09:07)
[2021-08-20] MEDS: FUROSEMIDE 80 MG TABLET PO (09:08)
[2021-08-20] MEDS: FLUoxetine HCL 20 MG CAPSULE 60 MG PO (09:09)
[2021-08-20] MEDS: amLODIPine BESYLATE 5 MG TABLET 10 MG PO (09:09)
[2021-08-20] MEDS: ASPIRIN 325 MG TABLET PO (09:09)
[2021-08-20] MEDS: ATORVASTATIN 40 MG TABLET PO (09:09)
[2021-08-20] MEDS: HEPARIN SODIUM 5,000 UNITS/ML VIAL 5000 UNITS SUB-Q ×3 (09:10→22:01)
[2021-08-20] MEDS: DEXAMETHASONE SOD PHOS INJ 4 MG/ML VIAL 6 MG IV PUSH (09:10)
[2021-08-20] MEDS: INSULIN ASPART (*BKC) 100 UNITS/ML SUB-Q ×4 (09:11→17:50)
[2021-08-20] MEDS: FAMOTIDINE 20 MG TABLET PO ×2 (12:03→22:11)
[2021-08-20 12:15] LABS: Glucose Point of Care 169 mg/dl (65-105)
--- NOTE | 2021-08-20 13:51 | PM.IMPN ---
Progress Note: A&P Assessment and Plan (1) Pneumonia due to COVID-19 virus: Code(s): U07.1 - COVID-19; J12.82 - Pneumonia due to coronavirus disease 2019 Status: Acute Assessment and Plan: Tested positive for COVID-19 on 08/17/2021 at outside facility CXR showed patchy bilateral airspace disease compatible with pneumonia Continue dexamethasone She is not a candidate for remdesivir, ESRD Supportive care to include bronchodilators, expectorants, antipyretics, incentive spirometry Now on RA Supplemental O2 as needed with goal saturation 90% or above Continue isolation precautions Received [employer]uyler & Schuyler vaccine in January 2021 (2) End stage renal disease: Code(s): N18.6 - End stage renal disease Status: Chronic Assessment and Plan: HD TTS Followed by Dr. Chowdhury Missed dialysis on 08/17 due to isolation precautions for COVID Nephrology consulted, recommendations appreciated Renal diet (3) Fluid overload: Code(s): E87.70 - Fluid overload, unspecified Status: Acute Assessment and Plan: 2/2 above Improved Continue hemodialysis Monitor intake and output Monitor volume status closely (4) Hyperkalemia: Code(s): E87.5 - Hyperkalemia Status: Acute Assessment and Plan: K+ 7.0 on presentation, secondary to missed dialysis Improved with treatment with Kayexalate, Lasix, insulin and dextrose K+ 8-->4.5 today Monitor (5) Diabetes: Qualifiers: Diabetes mellitus type: type 2 Diabetes mellitus intermediate insulin use: with intermediate use Diabetes mellitus complication status: with neurologic complications Diabetes mellitus complication detail: with polyneuropathy Qualified Code(s): E11.42 - Type 2 diabetes mellitus with diabetic polyneuropathy; Z79.4 - halfway (current) use of insulin Code(s): E11.9 - Type 2 diabetes mellitus without complications Status: Chronic Assessment and Plan: Continue Accu-Cheks, sliding scale insulin, hypoglycemic protocol Continue Levemir Check updated A1c Close monitoring in light of IV steroids (6) Hypertension: Code(s): I10 - Essential (primary) hypertension Status: Acute Assessment and Plan: Blood pressure significantly elevated on presentation, due to volume overload. Improved after HD Continue with antihypertensive Continue Lasix Monitor blood pressure trends closely (7) Anemia in CKD (chronic kidney disease): Code(s): N18.9 - Chronic kidney disease, unspecified; D63.1 - Anemia in chronic kidney disease Status: Acute Assessment and Plan: Hemoglobin and hematocrit are stable on review of prior labs. No signs/symptoms of bleeding. Additional Plan # COVID-19 pneumonia: With mild hypoxia on 2 L nasal cannula oxygen. Chest x-ray with diffuse bilateral opacities noted. With mild hypoxia and underlying COVID-19 we will put on Decadron. Will have to watch for her diabetes control during treatment. # Severe hyperkalemia missed HD yesterday. improvd with kayexalate/lasx, insulin/dextrose, plan for dialysis in patient this morning # ESRD on HD missed her dialysis due to COVID status # history of Coronary artery disease # Diabetes mellitus type 2 on insulin at home. Resume home medication # hypertension uncontrolled on admission [facility] home medication does improved with resuming her home medication # Anemia in CKD (chronic kidney disease) no signs of bleeding continue to monitor # Anxiety/depression resume home medication # Bipolar disorder resume home medication # Congestive heart failure watch for volume status. # Fibromyalgia resume home medication # Hyperlipidemia resume home medication # Peripheral neuropathy resume home medication # DVT proph: heparin sq # full code status Subjective Date/time seen: 08/20/21 13:51 Interval history: Pt seen and evaluated; labs, VS and diagnostic reports reviewed; no acute events overnight; pt states she feels better; overall
[2021-08-20 16:57] LABS: Glucose Point of Care 253 mg/dl (65-105)
[2021-08-20] MEDS: PRAZOSIN HCL 5 MG CAPSULE 10 MG PO (22:00)
[2021-08-20] MEDS: ZIPRASIDONE HCL 80 MG CAPSULE PO (22:00)
[2021-08-20] MEDS: INSULIN DETEMIR 100 UNITS/ML 14 UNITS SUB-Q (22:01)
[2021-08-20] MEDS: clonazePAM (*CRX) 0.5 MG TABLET PO (22:08)
[2021-08-20 22:47] LABS: Glucose Point of Care 261 mg/dl (65-105)
[2021-08-21] VITALS (22 sets, daily range): BP systolic 86–179; BP diastolic 45–84; PULSE 64–84; RESP 14–20; TEMP 36.5–36.9; O2SAT 94–99
[2021-08-21] MEDS: ALBUTEROL SULFATE (*SP) AEROSOL 1 PUFF 2 PUFF INHALATION ×4 (02:04→20:14)
[2021-08-21] MEDS: HEPARIN SODIUM 5,000 UNITS/ML VIAL 5000 UNITS SUB-Q ×3 (06:38→21:01)
[2021-08-21 08:33] LABS: Glucose Point of Care 102 mg/dl (65-105)
[2021-08-21] MEDS: CALCIUM CARBONATE (TUMS) 500 MG (200 MG ELEMENTAL) PO (09:18)
[2021-08-21] MEDS: ASPIRIN 325 MG TABLET PO (09:18)
[2021-08-21] MEDS: hydrALAZINE HCL 50 MG TABLET PO ×3 (09:18→17:24)
[2021-08-21] MEDS: FUROSEMIDE 80 MG TABLET PO (09:18)
[2021-08-21] MEDS: FAMOTIDINE 20 MG TABLET PO ×2 (09:19→21:00)
[2021-08-21] MEDS: CLOPIDOGREL BISULFATE 75 MG TABLET PO (09:19)
[2021-08-21] MEDS: METOPROLOL SUCCINATE EXT REL 100 MG TABCR PO (09:19)
[2021-08-21] MEDS: RANOLAZINE 500 MG TAB.ER.12H 1000 MG PO ×2 (09:19→21:00)
[2021-08-21] MEDS: ISOSORBIDE MONONITRATE 60 MG TAB.ER.24H PO (09:19)
[2021-08-21] MEDS: PANTOPRAZOLE 40 MG TABLET PO ×2 (09:19→17:25)
[2021-08-21] MEDS: guaiFENesin 12 HR 600 MG TABCR PO ×2 (09:19→21:00)
[2021-08-21] MEDS: FLUoxetine HCL 20 MG CAPSULE 60 MG PO (09:19)
[2021-08-21] MEDS: amLODIPine BESYLATE 5 MG TABLET 10 MG PO (09:34)
[2021-08-21 09:36] LABS: Alanine Aminotransferase 9 U/L (4-35); Albumin Level 4.1 g/dL (3.5-5.1); Alkaline Phosphatase 89 U/L (38-126); Anion Gap 21 mmol/L (8-16); Aspartate Amino Transferase 23 U/L (14-36); Bilirubin,Total 0.9 mg/dL (0.2-1.3); Blood Urea Nitrogen 82 mg/dL (7-17); Calcium 8.4 mg/dL (8.4-10.2); Carbon Dioxide 21 mmol/L (22-30); Chloride 92 mmol/L (98-107); Estimated CRCL calculation 6 ml/min; Estimated Glomerular Filt Rate 4; Glucose 147 mg/dL (65-110); Potassium 4.8 mmol/L (3.4-5.0); Sodium 134 mmol/L (137-145)
[2021-08-21 12:21] LABS: Glucose Point of Care 120 mg/dl (65-105)
[2021-08-21] MEDS: clonazePAM (*CRX) 0.5 MG TABLET PO ×2 (12:25→21:10)
[2021-08-21] MEDS: DEXAMETHASONE SOD PHOS INJ 4 MG/ML VIAL 6 MG IV PUSH (12:26)
--- NOTE | 2021-08-21 13:33 | PM.IMPN ---
Progress Note: A&P Assessment and Plan (1) Pneumonia due to COVID-19 virus: Code(s): U07.1 - COVID-19; J12.82 - Pneumonia due to coronavirus disease 2019 Status: Acute Assessment and Plan: Tested positive for COVID-19 on 08/17/2021 at outside facility CXR showed patchy bilateral airspace disease compatible with pneumonia Continue dexamethasone She is not a candidate for remdesivir, ESRD Supportive care to include bronchodilators, expectorants, antipyretics, incentive spirometry Now on RA Supplemental O2 as needed with goal saturation 90% or above Continue isolation precautions Received Schuyler & Schuyler vaccine in January 2021 (2) End stage renal disease: Code(s): N18.6 - End stage renal disease Status: Chronic Assessment and Plan: HD TTS Followed by Dr. Chowdhury Missed dialysis on 08/17 due to isolation precautions for COVID Nephrology consulted, recommendations appreciated Renal diet (3) Fluid overload: Code(s): E87.70 - Fluid overload, unspecified Status: Acute Assessment and Plan: 2/2 above Improved Continue hemodialysis Monitor intake and output Monitor volume status closely (4) Hyperkalemia: Code(s): E87.5 - Hyperkalemia Status: Acute Assessment and Plan: K+ 7.0 on presentation, secondary to missed dialysis Improved with treatment with Kayexalate, Lasix, insulin and dextrose K+ 8-->4.5-->4.8 today Monitor (5) Diabetes: Qualifiers: Diabetes mellitus type: type 2 Diabetes mellitus alf insulin use: with alf use Diabetes mellitus complication status: with neurologic complications Diabetes mellitus complication detail: with polyneuropathy Qualified Code(s): E11.42 - Type 2 diabetes mellitus with diabetic polyneuropathy; 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 Improved after HD Continue with antihypertensive Continue Lasix Monitor blood pressure trends closely (7) Anemia in CKD (chronic kidney disease): Code(s): N18.9 - Chronic kidney disease, unspecified; D63.1 - Anemia in chronic kidney disease Status: Acute Assessment and Plan: Hemoglobin and hematocrit are stable on review of prior labs. No signs/symptoms of bleeding. Additional Plan # COVID-19 pneumonia: With mild hypoxia on 2 L nasal cannula oxygen. Chest x-ray with diffuse bilateral opacities noted. With mild hypoxia and underlying COVID-19 we will put on Decadron. Will have to watch for her diabetes control during treatment. # Severe hyperkalemia missed HD yesterday. improvd with kayexalate/lasx, insulin/dextrose, plan for dialysis in patient this morning # ESRD on HD missed her dialysis due to COVID status # history of Coronary artery disease # Diabetes mellitus type 2 on insulin at home. Resume home medication # hypertension uncontrolled on admission home medication does improved with resuming her home medication # Anemia in CKD (chronic kidney disease) no signs of bleeding continue to monitor # Anxiety/depression resume home medication # Bipolar disorder resume home medication # Congestive heart failure watch for volume status. # Fibromyalgia resume home medication # Hyperlipidemia resume home medication # Peripheral neuropathy resume home medication # DVT proph: heparin sq # full code status Subjective Date/time seen: 08/21/21 13:33 Interval history: Pt seen and evaluated; no acute events overnight; no new complaints; HD today Review of Systems Review of Systems:
[2021-08-21] MEDS: BISACODYL 5 MG TABLET EC PO (15:30)
[2021-08-21] MEDS: ACETAMINOPHEN 325 MG TABLET 650 MG PO (15:37)
[2021-08-21 17:11] LABS: Glucose Point of Care 281 mg/dl (65-105)
[2021-08-21] MEDS: INSULIN ASPART (*BKC) 100 UNITS/ML SUB-Q (17:23)
[2021-08-21] MEDS: ATORVASTATIN 40 MG TABLET PO (21:00)
[2021-08-21] MEDS: PRAZOSIN HCL 5 MG CAPSULE 10 MG PO (21:00)
[2021-08-21] MEDS: ZIPRASIDONE HCL 80 MG CAPSULE PO (21:00)
[2021-08-21 21:17] LABS: Glucose Point of Care 145 mg/dl (65-105)
[2021-08-22] VITALS (11 sets, daily range): BP systolic 131–172; BP diastolic 59–84; PULSE 69–97; RESP 16–20; TEMP 36.6–37.3; O2SAT 96–99
[2021-08-22] MEDS: ALBUTEROL SULFATE (*SP) AEROSOL 1 PUFF 2 PUFF INHALATION ×3 (04:02→22:27)
[2021-08-22] MEDS: HEPARIN SODIUM 5,000 UNITS/ML VIAL 5000 UNITS SUB-Q ×3 (05:09→21:06)
[2021-08-22 07:04] LABS: Hematocrit 32.6 % (37.0-47.0); Hemoglobin 10.8 g/dL (12.0-15.0); Mean Corpuscular HGB Conc 33.1 g/dl (32-36); Mean Corpuscular Hemoglobin 30.8 pg (26-34); Mean Corpuscular Volume 92.9 fl (80-100); Mean Platelet Volume 9.9 fl (7.4-10.4); Platelet Count Result 350 k/mm3 (150-375); Red Blood Count 3.51 M/mm3 (4.2-5.4); Red Cell Distribution Width 12.1 % (11.5-14.5)
[2021-08-22 07:40] LABS: Alanine Aminotransferase 8 U/L (4-35); Albumin Level 3.7 g/dL (3.5-5.1); Alkaline Phosphatase 86 U/L (38-126); Anion Gap 14 mmol/L (8-16); Aspartate Amino Transferase 26 U/L (14-36); Bilirubin,Total 0.8 mg/dL (0.2-1.3); Blood Urea Nitrogen 51 mg/dL (7-17); Calcium 8.2 mg/dL (8.4-10.2); Carbon Dioxide 28 mmol/L (22-30); Chloride 91 mmol/L (98-107); Estimated CRCL calculation 8 ml/min; Estimated Glomerular Filt Rate 6; Glucose 121 mg/dL (65-110); Potassium 4.2 mmol/L (3.4-5.0); Sodium 133 mmol/L (137-145)
[2021-08-22 08:35] LABS: Glucose Point of Care 126 mg/dl (65-105)
[2021-08-22] MEDS: amLODIPine BESYLATE 5 MG TABLET 10 MG PO (09:25)
[2021-08-22] MEDS: ASPIRIN 325 MG TABLET PO (09:25)
[2021-08-22] MEDS: CALCIUM CARBONATE (TUMS) 500 MG (200 MG ELEMENTAL) PO (09:25)
[2021-08-22] MEDS: guaiFENesin 12 HR 600 MG TABCR PO ×2 (09:26→20:32)
[2021-08-22] MEDS: RANOLAZINE 500 MG TAB.ER.12H 1000 MG PO ×2 (09:26→20:32)
[2021-08-22] MEDS: CLOPIDOGREL BISULFATE 75 MG TABLET PO (09:26)
[2021-08-22] MEDS: FLUoxetine HCL 20 MG CAPSULE 60 MG PO (09:26)
[2021-08-22] MEDS: METOPROLOL SUCCINATE EXT REL 100 MG TABCR PO (09:26)
[2021-08-22] MEDS: hydrALAZINE HCL 50 MG TABLET PO ×3 (09:27→17:47)
[2021-08-22] MEDS: FUROSEMIDE 80 MG TABLET PO (09:27)
[2021-08-22] MEDS: ISOSORBIDE MONONITRATE 60 MG TAB.ER.24H PO (09:27)
[2021-08-22] MEDS: PANTOPRAZOLE 40 MG TABLET PO ×2 (09:27→17:47)
[2021-08-22] MEDS: FAMOTIDINE 20 MG TABLET PO ×2 (09:27→20:32)
[2021-08-22] MEDS: DEXAMETHASONE SOD PHOS INJ 4 MG/ML VIAL 6 MG IV PUSH (09:27)
--- NOTE | 2021-08-22 10:40 | PM.IMPN ---
Progress Note: A&P Assessment and Plan (1) Pneumonia due to COVID-19 virus: Code(s): U07.1 - COVID-19; J12.82 - Pneumonia due to coronavirus disease 2019 Status: Acute Assessment and Plan: Tested positive for COVID-19 on 08/17/2021 at outside facility CXR showed patchy bilateral airspace disease compatible with pneumonia Continue dexamethasone She is not a candidate for remdesivir, ESRD Supportive care to include bronchodilators, expectorants, antipyretics, incentive spirometry Now on RA Supplemental O2 as needed with goal saturation 90% or above Continue isolation precautions Received Schuyler [employer] Schuyler vaccine in January 2021 (2) End stage renal disease: Code(s): N18.6 - End stage renal disease Status: Chronic Assessment and Plan: HD TTS Followed by Dr. Chowdhury Missed dialysis on 08/17 due to isolation precautions for COVID Nephrology consulted, recommendations appreciated Renal diet (3) Fluid overload: Code(s): E87.70 - Fluid overload, unspecified Status: Acute Assessment and Plan: 2/2 above Improved Continue hemodialysis Monitor intake and output Monitor volume status closely (4) Hyperkalemia: Code(s): E87.5 - Hyperkalemia Status: Acute Assessment and Plan: K+ 7.0 on presentation, secondary to missed dialysis Improved with treatment with Kayexalate, Lasix, insulin and dextrose K+ 8-->4.5-->4.8-->4.2 today Monitor (5) Diabetes: Qualifiers: Diabetes mellitus type: type 2 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: with 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 owner operator truck driver use Diabetes mellitus complication status: with neurologic complications Diabetes mellitus complication detail: with polyneuropathy Qualified Code(s): E11.42 - Type 2 diabetes mellitus with diabetic polyneuropathy; Z79.4 - nursing home (current) use of insulin Code(s): E11.9 - Type 2 diabetes mellitus without complications Status: Chronic Assessment and Plan: Continue Accu-Cheks, sliding scale insulin, hypoglycemic protocol Continue Levemir Check updated A1c Close monitoring in light of IV steroids (6) Hypertension: Code(s): I10 - Essential (primary) hypertension Status: Acute Assessment and Plan: Blood pressure significantly elevated on presentation, due to volume overload. Improved after HD Continue with antihypertensive Continue Lasix Monitor blood pressure trends closely (7) Anemia in CKD (chronic kidney disease): Code(s): N18.9 - Chronic kidney disease, unspecified; D63.1 - Anemia in chronic kidney disease Status: Acute Assessment and Plan: Hemoglobin and hematocrit are stable on review of prior labs. No signs/symptoms of bleeding. Additional Plan # COVID-19 pneumonia: With mild hypoxia on 2 L nasal cannula oxygen. Chest x-ray with diffuse bilateral opacities noted. With mild hypoxia and underlying COVID-19 we will put on Decadron. Will have to watch for her diabetes control during treatment. # Severe hyperkalemia missed HD yesterday. improvd with kayexalate/lasx, insulin/dextrose, plan for dialysis in patient this morning # ESRD on HD missed her dialysis due to COVID status # history of Coronary artery disease # Diabetes mellitus type 2 on insulin at home. Resume home medication # hypertension uncontrolled on admission Mr. barrera medication does improved with resuming her home medication # Anemia in CKD (chronic kidney disease) no signs of bleeding continue to monitor # Anxiety/depression resume home medication # Bipolar disorder resume home medication # Congestive heart failure watch for volume status. # Fibromyalgia resume home medication # Hyperlipidemia resume home medication # Peripheral neuropathy resume home medication # DVT proph: heparin sq # full code status d/c home tomorrow after 5th dose of dexamethasone Subjective Date/time seen: 08/22/21 10:40 Interval history: Pt seen and evaluated; no acute events overnight; no new compl
[2021-08-22 12:11] LABS: Glucose Point of Care 163 mg/dl (65-105)
[2021-08-22] MEDS: ONDANSETRON INJ 4 MG/2 ML VIAL IV PUSH (14:54)
[2021-08-22 17:01] LABS: Glucose Point of Care 235 mg/dl (65-105)
[2021-08-22] MEDS: INSULIN ASPART (*BKC) 100 UNITS/ML SUB-Q (17:47)
[2021-08-22] MEDS: ZIPRASIDONE HCL 80 MG CAPSULE PO (20:32)
[2021-08-22] MEDS: ATORVASTATIN 40 MG TABLET PO (20:32)
[2021-08-22] MEDS: PRAZOSIN HCL 5 MG CAPSULE 10 MG PO (20:32)
[2021-08-22] MEDS: clonazePAM (*CRX) 0.5 MG TABLET PO (20:32)
[2021-08-22] MEDS: ACETAMINOPHEN 325 MG TABLET 650 MG PO (20:40)
[2021-08-22 23:39] LABS: Glucose Point of Care 146 mg/dl (65-105)
[2021-08-23] VITALS: PULSE 71
[2021-08-23] MEDS: ALBUTEROL SULFATE (*SP) AEROSOL 1 PUFF 2 PUFF INHALATION ×3 (03:14→15:10)
[2021-08-23 04:00] VITALS: BP 155/64; PULSE 74; PULSE 76; RESP 20; TEMP 36.9; O2SAT 99
[2021-08-23] MEDS: HEPARIN SODIUM 5,000 UNITS/ML VIAL 5000 UNITS SUB-Q (06:01)
[2021-08-23 06:40] LABS: Hematocrit 32.6 % (37.0-47.0); Hemoglobin 10.8 g/dL (12.0-15.0); Mean Corpuscular HGB Conc 33.1 g/dl (32-36); Mean Corpuscular Hemoglobin 31.5 pg (26-34); Platelet Count Result 341 k/mm3 (150-375); Red Blood Count 3.43 M/mm3 (4.2-5.4); Red Cell Distribution Width 12.1 % (11.5-14.5); White Blood Count 5.3 K/mm3 (4.5-10.0)
[2021-08-23 07:15] LABS: Alanine Aminotransferase 11 U/L (4-35); Albumin Level 3.7 g/dL (3.5-5.1); Alkaline Phosphatase 81 U/L (38-126); Anion Gap 17 mmol/L (8-16); Aspartate Amino Transferase 25 U/L (14-36); Bilirubin,Total 1.1 mg/dL (0.2-1.3); Blood Urea Nitrogen 66 mg/dL (7-17); Calcium 7.8 mg/dL (8.4-10.2); Carbon Dioxide 24 mmol/L (22-30); Chloride 90 mmol/L (98-107); Estimated CRCL calculation 7 ml/min; Estimated Glomerular Filt Rate 5; Glucose 114 mg/dL (65-110); Potassium 4.4 mmol/L (3.4-5.0); Sodium 131 mmol/L (137-145)
[2021-08-23 08:00] VITALS: BP 166/80; PULSE 82; RESP 20; TEMP 36.9; O2SAT 94; O2SAT 95
[2021-08-23] MEDS: ONDANSETRON INJ 4 MG/2 ML VIAL IV PUSH (08:26)
[2021-08-23 08:59] LABS: Glucose Point of Care 123 mg/dl (65-105)
--- NOTE | 2021-08-23 09:20 | PCAUD ---
N&v reported to [facility] this morning, pt refusing medication at this time r/t n&v, b/p 166/80 82 hr. Zofran given 4mg this morning, ineffective at this time. Will reattempt medication once N&v subsides.
[2021-08-23 09:26] VITALS: O2SAT 94
[2021-08-23] MEDS: ASPIRIN 325 MG TABLET PO (10:09)
[2021-08-23] MEDS: METOPROLOL SUCCINATE EXT REL 100 MG TABCR PO (10:09)
[2021-08-23] MEDS: FAMOTIDINE 20 MG TABLET PO (10:09)
[2021-08-23] MEDS: RANOLAZINE 500 MG TAB.ER.12H 1000 MG PO (10:09)
[2021-08-23] MEDS: FUROSEMIDE 80 MG TABLET PO (10:09)
[2021-08-23] MEDS: CLOPIDOGREL BISULFATE 75 MG TABLET PO (10:09)
[2021-08-23] MEDS: hydrALAZINE HCL 50 MG TABLET PO ×2 (10:09→12:34)
[2021-08-23] MEDS: amLODIPine BESYLATE 5 MG TABLET 10 MG PO (10:10)
[2021-08-23] MEDS: guaiFENesin 12 HR 600 MG TABCR PO (10:10)
[2021-08-23] MEDS: PANTOPRAZOLE 40 MG TABLET PO (10:10)
[2021-08-23] MEDS: FLUoxetine HCL 20 MG CAPSULE 60 MG PO (10:10)
[2021-08-23] MEDS: CALCIUM CARBONATE (TUMS) 500 MG (200 MG ELEMENTAL) PO (10:10)
[2021-08-23] MEDS: ISOSORBIDE MONONITRATE 60 MG TAB.ER.24H PO (10:10)
[2021-08-23] MEDS: DEXAMETHASONE SOD PHOS INJ 4 MG/ML VIAL 6 MG IV PUSH (10:11)
[2021-08-23] MEDS: ACETAMINOPHEN 325 MG TABLET 650 MG PO (10:20)
[2021-08-23 12:00] VITALS: BP 139/72; PULSE 75; PULSE 76; RESP 18; TEMP 37; O2SAT 95
[2021-08-23 12:28] LABS: Glucose Point of Care 205 mg/dl (65-105)
[2021-08-23] MEDS: INSULIN ASPART (*BKC) 100 UNITS/ML SUB-Q (12:30)
--- NOTE | 2021-08-23 14:28 | PM.PNNEP ---
Progress Note: A&P Assessment and Plan (1) End stage renal disease: Code(s): N18.6 - End stage renal disease Status: Chronic (2) Anemia in CKD (chronic kidney disease): Code(s): N18.9 - Chronic kidney disease, unspecified; D63.1 - Anemia in chronic kidney disease Status: Acute (3) Secondary hyperparathyroidism (of renal origin): Code(s): N25.81 - Secondary hyperparathyroidism of renal origin Status: Acute (4) Hypertension: Code(s): I10 - Essential (primary) hypertension Status: Acute (5) Fluid overload: Code(s): E87.70 - Fluid overload, unspecified Status: Acute (6) Hyperkalemia: Code(s): E87.5 - Hyperkalemia Status: Acute (7) COVID-19: Code(s): U07.1 - COVID-19 Status: Acute Assessment and Plan: Assessment and Plan (1) End stage renal disease: Code(s): N18.6 - End stage renal disease Status: Chronic Assessment and Plan: End-stage renal disease: Dialysis tomorrow as out patient if patient gets DC home today. Hyperkalemia: Corrected COVID-19 pneumonia: On steroids, DVT prophylaxis, increase heparin to 3 times a day Anemia chronic kidney disease: erythropoietin as needed Secondary hyperparathyroidism with high phosphorus: Added Tums Planning on dialysis for tomorrow. Maintain fluid removal Continue with care. Maintaining steroids, had GI prophylaxis with famotidine Will follow Subjective Date/time seen: 08/23/21 14:28 Interval history: Patient is seen and examined. Patient is still lying in the bed comfortably not in acute distress. No acute events overnight. Exam Narrative: Well-developed well-nourished, comfortable at rest upright with breathing, still noted to have a cough, alert and awake, no tremors, JVD negative, regular rate rhythm, no gallop, diminished breath sounds, no rales appreciated current tacrolimus soft nontender abdomen, edema negative, but oriented x3 Objective Data Vital Signs Vital Signs: Vital Signs - 24 hr 08/22/21 16:00 08/22/21 20:00 08/22/21 22:30 Temperature 36.8 C 36.8 C Pulse Rate 78 81 78 Respiratory Rate 18 20 16 Blood Pressure 131/61 172/67 H Pulse Oximetry 97 96 96 08/22/21 23:42 08/23/21 00:00 08/23/21 04:00 Temperature 36.6 C 36.9 C Pulse Rate 79 71 74 Respiratory Rate 20 20 Blood Pressure 152/70 H 155/64 H Pulse Oximetry 99 99 08/23/21 08:00 08/23/21 09:26 08/23/21 12:00 Temperature 36.9 C 37.0 C Pulse Rate 82 76 Respiratory Rate 20 18 Blood Pressure 166/80 H 139/72 Pulse Oximetry 94 94 95 Intake/Output Intake/Output: Intake & Output 08/20/21 08/21/21 08/22/21 08/23/21 23:59 23:59 23:59 23:59 Intake Total 1330 1520 2980 450 Output Total 2303 Balance 1330 -783 2980 450 Meds/Results Medications: Active Medications Generic Name Dose Route Start Last Admin Trade Name Freq PRN Reason Stop Dose Admin Acetaminophen 650 mg 08/21/21 15:32 08/23/21 10:20 Acetaminophen 325 Mg Tablet PO 650 mg Q4H PRN Administration Headache, Mild Pain Albuterol 2 puff 08/19/21 20:00 08/23/21 09:26 Albuterol Sulfate (*Sp) Aerosol 1 Puff INHALATION 2 puff Q6HRT [facility] Administration Amlodipine Besylate 10 mg 08/19/21 09:00 08/23/21 10:10 Amlodipine Besylate 5 Mg Tablet PO 10 mg DAILY [facility] Administration Aspirin 325 mg 08/19/21 08:00 08/23/21 10:09 Aspirin 325 Mg Tablet PO 325 mg DAILY@0800 [facility] Administration Atorvastatin Calcium 40 mg 08/21/21 21:00 08/22/21 20:32 Atorvastatin 40 Mg Tablet PO 40 mg HS [facility]A Administration Bisacodyl 5 mg 08/21/21 09:52 08/21/21 15:30 Bisacodyl 5 Mg Tablet Ec PO 5 mg QAM PRN Administration Constipation Calcium Carbonate 200 mg 08/21/21 08:00 08/23/21 10:10 Calcium Carbonate (Tums) 500 Mg (200 Mg Elemental) PO 200 mg DAILY@0800 [facility] Administration Clonazepam 0.5 mg 08/19/21 04:53 08/22/21 20:32 Clonazepam (*Crx) 0
[2021-08-23 16:00] VITALS: BP 154/75; PULSE 77; RESP 18; TEMP 37.2; O2SAT 93
--- NOTE | 2021-08-23 17:42 | PM.DS ---
DS: Admitting Diagnosis Discharge Date 08/23/2021 Admitting Diagnosis COVID-19 pneumonia with mild hypoxia DS: Discharge Diagnosis Discharge Diagnosis (1) Pneumonia due to COVID-19 virus: Code(s): U07.1 - COVID-19; J12.82 - Pneumonia due to coronavirus disease 2019 Status: Acute Assessment and Plan: Tested positive for COVID-19 on 08/17/2021 at outside facility CXR showed patchy bilateral airspace disease compatible with pneumonia Continue dexamethasone She is not a candidate for remdesivir, ESRD Supportive care to include bronchodilators, expectorants, antipyretics, incentive spirometry Now on RA Supplemental O2 as needed with goal saturation 90% or above Continue isolation precautions Received Schuyler & Schuyler vaccine in January 2021 (2) End stage renal disease: Code(s): N18.6 - End stage renal disease Status: Chronic Assessment and Plan: HD TTS Followed by Dr. Chowdhury Missed dialysis on 08/17 due to isolation precautions for COVID Nephrology consulted, recommendations appreciated Renal diet (3) Fluid overload: Code(s): E87.70 - Fluid overload, unspecified Status: Acute Assessment and Plan: 2/2 above Improved Continue hemodialysis Monitor intake and output Monitor volume status closely (4) Hyperkalemia: Code(s): E87.5 - Hyperkalemia Status: Acute Assessment and Plan: K+ 7.0 on presentation, secondary to missed dialysis Improved with treatment with Kayexalate, Lasix, insulin and dextrose K+ 8-->4.5-->4.8-->4.2 today Monitor (5) Diabetes: Qualifiers: Diabetes mellitus type: type 2 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 Diabetes mellitus complication status: with neurologic complications Diabetes mellitus complication detail: with polyneuropathy Qualified Code(s): E11.42 - Type 2 diabetes mellitus with diabetic polyneuropathy; Z79.4 - terminal manager (current) use of insulin Code(s): E11.9 - Type 2 diabetes mellitus without complications Status: Chronic Assessment and Plan: Continue Accu-Cheks, sliding scale insulin, hypoglycemic protocol Continue Levemir Check updated A1c Close monitoring in light of IV steroids (6) Hypertension: Code(s): I10 - Essential (primary) hypertension Status: Acute Assessment and Plan: Blood pressure significantly elevated on presentation, due to volume overload. Improved after HD Continue with antihypertensive Continue Lasix Monitor blood pressure trends closely (7) Anemia in CKD (chronic kidney disease): Code(s): N18.9 - Chronic kidney disease, unspecified; D63.1 - Anemia in chronic kidney disease Status: Acute Assessment and Plan: Hemoglobin and hematocrit are stable on review of prior labs. No signs/symptoms of bleeding. DS: Summary Hospital Course Hospital Course: Mrs. Moore is a 60-year-old female who presented to the ED with increasing shortness of breath. She has end-stage renal disease on hemodialysis patient however she has been having upper respiratory symptoms x 4 days. She tested positive for COVID and hence she was not able to go to her usual dialysis center on Monday. She was scheduled to go to another facility, however, since she got short of breath she came to the ED for evaluation. In a ER evaluation she was noted to have COVID pneumonia along with hyperkalemia up to 7. She was dialyzed and the hyperkalemia showed improvement of potassium level down to 5.5. She was admitted for inpatient hemodialysis. She denied SOB, and endorsed a very minimal cough. See also denied any fever or any increased swelling in her lower extremities. She was also noted to have elevated blood pressure in the ER and was given her usual medications to combat that. She had a CXR showed patchy bilateral airspace disease compatible with pneumonia and was treated with dexamethasone for 5 days. She was not a candidate for remdesivir due
== END 2021-08-23 16:56 | disposition home or self-care (01) | DRG 177 ==
LOC: ANHED 22:39 → ANH3MEDSUR 08-19 02:19
PROVIDERS: Emergency Medicine; Internal Medicine; Internal Medicine Nephrology; Nurse Practitioner Adult Health; Physician Assistant; Admitting Provider Internal Medicine; Emergency Provider Emergency Medicine; PCP Internal Medicine Gastroenterology; Visit Provider Family Medicine
DX: U07.1 COVID-19 (principal); N18.6 End stage renal disease; J12.82 Pneumonia due to coronavirus disease 2019; N25.81 Secondary hyperparathyroidism of renal origin; I13.2 Hypertensive heart and chronic kidney disease with heart failure and with stage 5 chronic kidney disease, or end stage renal disease; F31.9 Bipolar disorder, unspecified; I25.10 Atherosclerotic heart disease of native coronary artery without angina pectoris; I25.2 Old myocardial infarction; M79.7 Fibromyalgia; E78.00 Pure hypercholesterolemia, unspecified; F41.9 Anxiety disorder, unspecified; E87.5 Hyperkalemia; I50.9 Heart failure, unspecified; Z99.2 Dependence on renal dialysis; D63.1 Anemia in chronic kidney disease; Z87.891 Personal history of nicotine dependence; E11.22 Type 2 diabetes mellitus with diabetic chronic kidney disease; Z79.4 Long term (current) use of insulin; E11.42 Type 2 diabetes mellitus with diabetic polyneuropathy; I16.0 Hypertensive urgency; K21.9 Gastro-esophageal reflux disease without esophagitis; Z79.82 Long term (current) use of aspirin; E87.70 Fluid overload, unspecified
CPT/HCPCS: 36415; 71045; 80048; 80053; 80069; 82728; 82948; 83036; 83615; 83880; 84132; 85014; 85018; 85025; 85027; 86705; 86706; 87340; 93005; 94640; 96372; 96374; 96375; 99285; A9270; C9803; G0257; G0378; J1100; J1644; J1815; J2405; J7030; U0003; U0005

== ENCOUNTER 2021-11-28 08:12 | Observation (INO) | payer MEDICARE, MEDICAID, SELFPAY ==
[2021-11-28] VITALS (45 sets, daily range): BP systolic 163–190; BP diastolic 60–73; PULSE 73–126; RESP 12–28; TEMP 37.3–37.4; O2SAT 93–100
--- NOTE | ~2021-11-28 | XR_ITS ---
EXAMINATION: XR chest 1V portable DATE: 11/30/2021 06:16 INDICATION: Pneumonia. TECHNIQUE: A single frontal view of the chest was obtained. COMPARISON: Chest 2 views 11/28/2021, CT abdomen and pelvis 04/23/2019 FINDINGS: There are airspace opacities in all lung zones bilaterally with a perihilar predominance. N o pleural effusion or pneumothorax. The heart size is normal. IMPRESSION: 1. Worsened diffuse lung disease, consistent with pulmonary edema versus pneumonia. Reviewed, dictated and finalized at location A. E SUGAR BOILER IMPRESSION: 1. Worsened diffuse lung disease, consistent with pulmonary edema versus pneumo cabrera.
--- NOTE | ~2021-11-28 | XR_ITS ---
EXAMINATION: XR chest 2V EXAM DATE: 11/28/2021 12:32 INDICATION: Cough, fever, shortness of breath. TECHNIQUE: Frontal and lateral projections of the chest obtained and reviewed. Comparison is made to prior examination from 08/18/2021. FINDINGS: There is patchy bilateral perihilar predominant airspace disease probably pneumonia. There was more extensive airspace disease in July. There is no pneumothorax. Small pleural effusions. The cardiomediastinal silhouette is prominent but magnified on this AP technique. There are no osseou s abnormalities identified. IMPRESSION: Patchy perihilar pneumonia. Reviewed, dictated and finalized at location A. N SHOVELER IMPRESSION: Patchy perihilar pneumonia.
[2021-11-28 11:19] LABS: Glucose Point of Care 154 mg/dl (65-105)
--- NOTE | 2021-11-28 11:42 | ED.GENADULT ---
HPI - General Adult General Chief complaint: Upper Respiratory Infection <Jaleel Richardson PA-C - Last Filed: 11/28/21 13:32> Stated complaint: Cough,Difficulty Breathing x 4 days <Jaleel Richardson PA-C - Last Filed: 11/28/21 13:32> Time Seen by Provider: 11/28/21 11:40 <Jaleel Richardson PA-C - Last Filed: 11/28/21 13:32> History of Present Illness HPI narrative: Patient is a 61-year-old female with past medical history significant for end-stage renal disease on hemodialysis who comes to the ED today complaining of upper respiratory symptoms. Patient reports that for about the last 4 days she has been having a cough, feeling short of breath, sinus congestion, having fevers as high as 101. She did receive her [employer] Covid vaccine in January or 2020, no booster. Gets hemodialysis on Tuesdays, and Saturdays. Her last session was 3 days ago. She was supposed to go to dialysis yesterday but this had to be rearranged because of the New 's holiday. Did not go to today's session because she was not feeling well. Her training professional is Dr. Rodriguez <Jaleel Richardson PA-C - Last Filed: 11/28/21 13:32> Related Data Home medications: Home Medications Medication Instructions Recorded Confirmed Levemir FlexTouch U-100 Insuln 14 unit SUBCUT HS 01/27/20 08/19/21 amlodipine 10 mg PO DAILY 01/27/20 08/19/21 aspirin 325 mg PO DAILY 01/27/20 08/19/21 atorvastatin 40 mg PO DAILY 01/27/20 08/19/21 clonazepam 0.5 mg PO BID PRN 01/27/20 08/19/21 clopidogrel 75 mg PO DAILY 01/27/20 08/19/21 fluoxetine 60 mg PO DAILY 01/27/20 08/19/21 fluticasone propionate [Allergy 1 spray INTRANASAL PRN PRN 01/27/20 08/19/21 Relief (fluticasone)] furosemide 80 mg PO DAILY 01/27/20 08/19/21 hydralazine 50 mg PO TID 01/27/20 08/19/21 insulin aspart U-100 [Novolog 4 unit SUB-Q QACBREAK 01/27/20 08/19/21 Flexpen U-100 Insulin] metoprolol succinate 100 mg PO DAILY 01/27/20 08/19/21 nitroglycerin 0.4 mg SUBLINGUAL Q5MIN PRN 01/27/20 08/19/21 omeprazole 20 mg PO BID 01/27/20 08/19/21 prazosin 10 mg PO HS 01/27/20 08/19/21 ranolazine 1,000 mg PO BID 01/27/20 08/19/21 ziprasidone HCl 80 mg PO HS 02/14/20 08/19/21 <GLADYS Ortega Last Filed: 11/28/21 13:32> Allergies/adverse reactions: Allergies Allergy/AdvReac Type Severity Reaction Status Date / Time No Known Allergies Allergy Unknown Verified 11/28/21 12:16 <GLADYS Ortega Last Filed: 11/28/21 13:32> Review of Systems Constitutional: Constitutional: Reports as per HPI, Denies fever(s), Denies night sweats and Denies weakness <GLADYS Ortega Last Filed: 11/28/21 13:32> Cardiovascular: Cardiovascular: Denies chest pain, Denies edema, Denies leg edema, Denies dyspnea and Denies orthopnea <GLADYS Ortega Last Filed: 11/28/21 13:32> Respiratory: Respiratory: Reports as per HPI, Reports chest congestion, Reports cough and Reports dyspnea <GLADYS Ortega Last Filed: 11/28/21 13:32> Gastrointestinal: Gastrointestinal: Denies abdominal pain, Denies constipation, Denies diarrhea, Denies nausea and Denies vomiting <GLADYS Ortega Last Filed: 11/28/21 13:32> Musculoskeletal: Musculoskeletal: Denies abnormal gait, Denies back pain, Denies numbness and Denies tingling <GLADYS Ortega Last Filed: 11/28/21 13:32> Neurologic: Denies Abnormal speech present, Denies abnormal gait, Denies numbness, Denies tingling and Denies weakness <Jaleel Richardson PA-C - Last Filed: 11/28/21 13:32> Psychiatric: Psychiatric: Denies homicidal ideation and Denies suicidal ideation <Jaleel Richardson PA-C - Last Filed: 11/28/21 13:32> [facility] Past Medical History Medical History: Medical History (Updated 11/28/21 @ 13:24 by Jaleel Richardson PA-C) Anemia in CKD (chronic kidney disease) Angina at rest Anxiety Arthritis Bipolar disorder Bronchitis Cat
[2021-11-28 11:54] LABS: Basophils Percent Auto 0.4 % (0.2-1.2); Eosinophils Absolute Auto 0.1 K/mm3 (0-0.3); Eosinophils Percent Auto 1.1 % (0-4.4); Hematocrit 26.7 % (37.0-47.0); Hemoglobin 8.5 g/dL (12.0-15.0); Immature Granulocyte Absolute 0.04 K/mm3 (0.00-0.031); Immature Granulocyte Percent A 0.4 % (0-0.5); Lymphocytes Absolute Auto 0.79 K/mm3 (0.9-3.2); Lymphocytes Percent Auto 8.3 % (18.3-44.2); Mean Corpuscular HGB Conc 31.8 g/dl (32-36); Mean Corpuscular Hemoglobin 31.7 pg (26-34); Mean Corpuscular Volume 99.6 fl (80-100); Mean Platelet Volume 10.9 fl (7.4-10.4); Monocytes Absolute Auto 0.8 K/mm3 (0.1-0.6); Monocytes Percent Auto 8.5 % (2.6-8.5); Neutrophils Absolute Auto 7.7 K/mm3 (1.3-6.7); Neutrophils Percent Auto 81.3 % (45.5-73.1); Platelet Count Result 229 k/mm3 (150-375); Red Blood Count 2.68 M/mm3 (4.2-5.4); Red Cell Distribution Width 13.2 % (11.5-14.5); White Blood Count 9.5 K/mm3 (4.5-10.0)
[2021-11-28 12:09] LABS: Alanine Aminotransferase 11 U/L (4-35); Albumin Level 4.2 g/dL (3.5-5.1); Alkaline Phosphatase 102 U/L (38-126); Anion Gap 21 mmol/L (8-16); Aspartate Amino Transferase 22 U/L (14-36); Bilirubin,Total 0.8 mg/dL (0.2-1.3); Blood Urea Nitrogen 73 mg/dL (7-17); Calcium 9.3 mg/dL (8.4-10.2); Carbon Dioxide 22 mmol/L (22-30); Chloride 93 mmol/L (98-107); Estimated Glomerular Filt Rate 3; Glucose 153 mg/dL (65-110); Potassium 6.8 mmol/L (3.4-5.0); Sodium 136 mmol/L (137-145)
--- NOTE | 2021-11-28 12:09 | ECG_ITS ---
Measurements Intervals [place] Rate: 0 P: NC: 0 QRS: QRSD: 0 T: QT: 0 QTc: 0 Interpretive Statements SINUS RHYTHM ATRIAL PREMATURE COMPLEX BASELINE ARTIFACT- I, II, III, AVR, AVL, AVF BORDERLINE ECG Electronically Signed On 11-28-2021 17:27:04 REFRIGERATION TECH by Balbir Ashley D.O.
[2021-11-28 13:34] LABS: EDCOVIDSCREEN Negative (Negative)
[2021-11-28] MEDS: ONDANSETRON INJ 4 MG/2 ML VIAL IV PUSH (14:48)
[2021-11-28] MEDS: SODIUM ZIRCONIUM CYCLOSILICATE 10 GM POWD.PACK BY MOUTH (14:59)
[2021-11-28] MEDS: cefTRIAXone 2 GM in SODIUM CHLORIDE 0.9% IV 100 ML 200 ML IVPB (16:26)
[2021-11-28 18:54] LABS: Anion Gap 22 mmol/L (8-16); Blood Urea Nitrogen 74 mg/dL (7-17); Calcium 9.1 mg/dL (8.4-10.2); Carbon Dioxide 19 mmol/L (22-30); Chloride 92 mmol/L (98-107); Estimated Glomerular Filt Rate 3; Glucose 285 mg/dL (65-110); Potassium 5.8 mmol/L (3.4-5.0); Sodium 133 mmol/L (137-145)
--- NOTE | 2021-11-28 21:09 | PC.NURSE ---
ED PA informed that pt requesting prazosin and tylenol, in addition to clonazepam and other home meds previously requested. Awaiting orders.
[2021-11-28 21:36] LABS: Glucose Point of Care 127 mg/dl (65-105)
[2021-11-28] MEDS: ACETAMINOPHEN 325 MG TABLET 650 MG PO (21:37)
[2021-11-28] MEDS: PRAZOSIN HCL 5 MG CAPSULE 10 MG PO (21:38)
[2021-11-28] MEDS: clonazePAM (*CRX) 0.5 MG TABLET PO (21:39)
[2021-11-28] MEDS: ZIPRASIDONE HCL 80 MG CAPSULE PO (21:39)
--- NOTE | 2021-11-28 21:50 | PC.NURSE ---
Pt requested boxed lunch - provided to pt along with diet soda as asked for. Accucheck done prior to meal: 127.
[2021-11-29] VITALS (35 sets, daily range): BP systolic 130–235; BP diastolic 60–110; PULSE 74–120; RESP 16–41; TEMP 14.4–37.3; O2SAT 92–100; BMI 36.8
[2021-11-29 03:13] LABS: Glucose Point of Care 178 mg/dl (65-105)
--- NOTE | 2021-11-29 05:18 | ADMGEN ---
This patient, Isis Moore, was admitted to [facility] Surg Room 324-02. Patient/family oriented to hospital policies and general routines including ID bracelet, bed and alarms, visiting hours, pain management, procedures, bathroom and other care routines, personal items, smoking policy, room service/diet, and visiting hours. Information on how to activate the Rapid Response Team has been discussed. Patient/Family are encouraged to report perceived risks to care and to ask questions if they do not understand what they are told or what they should do.
[2021-11-29 07:58] LABS: Glucose Point of Care 163 mg/dl (65-105)
--- NOTE | 2021-11-29 08:49 | PM.IMHP ---
H&P: HPI History of Present Illness Date/Time: 11/29/21 08:49 Chief Complaint: Shortness of breath Narrative: 61 years old female with history of end-stage renal disease on dialysis, laws ulcer 1000 has today was admitted through the emergency room with complaints of having shortness of breath fever and chills going on for the last 4 days. Patient also have cough for the last 4 days. No loss of sense of smell or taste. No nausea or vomiting. No chest pain. Patient patient did receive COVID vaccination January of 2021. She did not get any booster. Patient was also found to have high potassium in the emergency room. Patient was admitted for possible COVID pneumonia and hyperkalemia management. Review of Systems Review of Systems: All systems reviewed & are unremarkable except as noted in HPI and below (the history and physical examination.) [facility] Past Medical History Medical History Anemia in CKD (chronic kidney disease) Angina at rest Anxiety Arthritis Bipolar disorder Bronchitis Cataract Congestive heart failure Echo in January 2020 showing EF of 55-60% with moderate pulmonary hypertension and turbulent flow across the mitral valve; the diastolic function is normal Coronary artery disease With history of myocardial infarction Depression Diabetes End stage renal disease Follows with Dr Chowdhury; HD Tues/Thurs/Sat at [facility] in [place] Fibromyalgia Hypercholesterolemia Hypertension Knee fracture, left Peripheral neuropathy Related to her diabetes Seasonal allergies Secondary hyperparathyroidism (of renal origin) Surgical History Surgical History H/O cardiac catheterization Sep 2017 showed patent stent to LAD and 90% occlusion of a very small diagonal branch. H/O cataract removal with insertion of prosthetic lens Fall 2018 Bilateral H/O section x2 - one in 1977, one 1979 H/O exploratory laparotomy ? partial colectomy in the ? Patient is unsure what this was for but denies history of cancer. H/O inguinal hernia repair H/O: hysterectomy 2002 Hx of cholecystectomy 1996 Stented coronary artery to LAD in 2012 Family History Family History Father , age 50s Diabetes mellitus Cancer Mother , Age 89 Cerebrovascular accident Sibling Family history of kidney disease Brother on dialysis Son Diabetes mellitus Hypertension Asthma Social History Social History Social History: Ms. Moore lives at home with her in [place], [place]. 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 She denies alcohol or other substance use. She designates her surrogate decision maker as her son, Sincere Blevins. She wishes to be full code status. She ambulates without a cane or walker at home. She is a lifelong nonsmoker Smoking status: Never smoker Second hand tobacco smoke exposure: No Alcohol intake: never Substance use: never Substance use type: does not use Gender identity (if verbalized by the patient): Female Spiritual care concerns: No Agree to blood products: Yes Meds Home Medications and Allergies Home Medications Medication Instructions Recorded Confirmed Type Levemir FlexTouch U-100 Insuln 14 unit SUBCUT HS 01/27/20 11/29/21 History amlodipine 10 mg PO DAILY 01/27/20 11/29/21 History aspirin 325 mg PO DAILY 01/27/20 11/29/21 History atorvastatin 40 mg PO DAILY 01/27/20 11/29/21 History clonazepam 0.5 mg PO BID PRN 01/27/20 11/29/21 History clopidogrel 75 mg PO DAILY 01/27/20 11/29/21 History fluoxetine 60 mg PO DAILY 01/27/20 11/29/21 History fluticasone propionate [Allergy 1 spray INTRANASAL PRN PRN 01/27/20 11/29/21 History Relief (fluticasone)] furosemide 80 mg PO DAILY 01/27/20 11/29/21 Hi
--- NOTE | 2021-11-29 09:51 | PM.CNNEP ---
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 If not will need to get her dialyzed tomorrow in the hospital -follow-up of ESRD and related needs History of Present Illness Reason for Consult Consult date: 11/29/21 Reason for consult: end stage renal disease and hyperkalemia Chief Complaint Chief complaint: Hyperkalemia History of Present Illness Narrative: 61-year-old female, ESRD on a Monday, , Monday dialysis schedule. She has a functioning AV graft. Has underlying coronary artery disease, status post stents, diabetes, hypertension, anemia chronic kidney disease, secondary hyperparathyroidism. She has had problems receiving dialysis due to COVID like symptoms. Hence missed dialysis. Came in with a potassium of 6.8. There was no dialysis nurse available underground production foreperson to come in and do dialysis. I had verified this with [facility] dialysis charge nurse for acute dialysis yesterday. Had recommended that ideally she will need dialysis and this tissue transfer patient to another facility where she can be dialyzed. However with the COVID pandemic and the lack of ability to transfer patient is from 1 facility to another, patient was kept in hospital overnight, monitored on telemetry, given medication treatment with potassium lowering agents. She is due for dialysis today as she has missed a number of treatments. We asked to meet her ongoing renal needs. She was admitted with shortness of breath, fevers. She also had a cough. She has had COVID infection in the past and history of COVID vaccinations but no booster. Chest x-ray shows patchy perihilar pneumonia. COVID antigen testing is negative. PCR is pending. Patient's last dialysis treatment was on . She went to dialysis on Monday that they would not do her treatment as she had presented with a fever and a cough. She now has diarrhea with the treatment. Review of Systems Review of Systems: All systems reviewed & are unremarkable except as noted in HPI and below PMFSH Past Medical History Medical History Anemia in CKD (chronic kidney disease) Angina at rest Anxiety Arthritis Bipolar disorder Bronchitis Cataract Congestive heart failure Echo in January 2020 showing EF of 55-60% with moderate pulmonary hypertension and turbulent flow across the mitral valve; the diastolic function is normal Coronary artery disease With history of myocardial infarction Depression Diabetes End stage renal disease Follows with Dr Chowdhury; HD Tues/Thurs/Sat at [facility] in [place] Fibromyalgia Hypercholesterolemia Hypertension Knee fracture, left Peripheral neuropathy Related to her diabetes Seasonal allergies Secondary hyperparathyroidism (of renal origin) Surgical History Surgical History H/O cardiac catheterization Sep 2017 showed patent stent to LAD and 90% occlusion of a very small diagonal branch. H/O cataract removal with insertion of prosthetic lens Fall 2018 Bilateral H/O section x2 - one in 1977, one 1979 H/O exploratory laparotomy ? partial colectomy in the ? Patient is unsure what this was for but denies history of cancer. H/O inguinal hernia repair H/O: hysterectomy 2002 Hx of cholecystectomy 1996 Stented coronary artery to LAD in 2012 Family History Family History (Reviewed
[2021-11-29] MEDS: METOPROLOL SUCCINATE EXT REL 100 MG TABCR PO (10:19)
[2021-11-29] MEDS: hydrALAZINE HCL 50 MG TABLET PO ×3 (10:19→21:23)
[2021-11-29] MEDS: LOPERAMIDE HCL 2 MG CAPSULE 4 MG PO (10:20)
[2021-11-29 11:12] LABS: Alveolar/Arterial O2 Gradient 94.4 mmHg; Base Excess ABG -3.7 mEq/l (+/-2.0); Fractional Inspired Oxygen 28 %; HCO3 ABG 21.1 mEq/l (22.0-26.0); Oxygen Content ABG 11.6 %vol (16.0-22.0); PCO2 ABG 37.3 mmHg (35.0-45.0); PO2 ABG 61.2 mmHg (80.0-100.0); PO2 FiO2 Ratio Arterial Blood 2.19 %; Total Hemoglobin 9.4 g/dL (12.0-18.0); pH ABG 7.371 (7.350-7.450)
[2021-11-29 11:18] LABS: Device NASAL CANNULA; Modified Allen's Test Pass; Oxyhemoglobin 87.1 % THb (90.0-100.0); Site Drawn RIGHT RADIAL
[2021-11-29 12:01] LABS: Glucose Point of Care 163 mg/dl (65-105)
[2021-11-29] MEDS: ASPIRIN 325 MG TABLET PO (15:21)
[2021-11-29] MEDS: amLODIPine BESYLATE 5 MG TABLET 10 MG PO (15:21)
[2021-11-29] MEDS: HEPARIN SODIUM 5,000 UNITS/ML VIAL 5000 UNITS SUB-Q ×2 (15:22→21:22)
[2021-11-29] MEDS: FUROSEMIDE 80 MG TABLET PO (15:22)
[2021-11-29] MEDS: CLOPIDOGREL BISULFATE 75 MG TABLET PO (15:22)
[2021-11-29] MEDS: ISOSORBIDE MONONITRATE 60 MG TAB.ER.24H PO (15:23)
[2021-11-29] MEDS: RANOLAZINE 500 MG TAB.ER.12H 1000 MG PO ×2 (15:23→21:22)
[2021-11-29 17:02] LABS: Glucose Point of Care 194 mg/dl (65-105)
[2021-11-29 21:11] LABS: Glucose Point of Care 137 mg/dl (65-105)
[2021-11-29 21:22] LABS: SARS-CoV-2 RNA PCR Negative
[2021-11-29] MEDS: PANTOPRAZOLE 40 MG TABLET 20 MG PO (21:22)
[2021-11-29] MEDS: ZIPRASIDONE HCL 80 MG CAPSULE PO (21:22)
[2021-11-29] MEDS: PRAZOSIN HCL 5 MG CAPSULE 10 MG PO (21:23)
[2021-11-30] VITALS: PULSE 90
[2021-11-30 04:00] VITALS: PULSE 76
[2021-11-30 06:00] VITALS: BP 137/50; PULSE 81; RESP 20; TEMP 36.4; O2SAT 98
[2021-11-30 07:18] LABS: Alanine Aminotransferase 10 U/L (4-35); Albumin Level 3.8 g/dL (3.5-5.1); Alkaline Phosphatase 88 U/L (38-126); Anion Gap 14 mmol/L (8-16); Aspartate Amino Transferase 22 U/L (14-36); Bilirubin,Total 0.6 mg/dL (0.2-1.3); Blood Urea Nitrogen 49 mg/dL (7-17); Calcium 8.7 mg/dL (8.4-10.2); Carbon Dioxide 28 mmol/L (22-30); Chloride 93 mmol/L (98-107); Estimated CRCL calculation 7 ml/min; Estimated Glomerular Filt Rate 5; Glucose 101 mg/dL (65-110); Potassium 4.8 mmol/L (3.4-5.0); Sodium 135 mmol/L (137-145)
[2021-11-30 07:27] LABS: Basophils Percent Auto 0.7 % (0.2-1.2); Eosinophils Absolute Auto 0.3 K/mm3 (0-0.3); Eosinophils Percent Auto 4.2 % (0-4.4); Hematocrit 24.9 % (37.0-47.0); Immature Granulocyte Absolute 0.04 K/mm3 (0.00-0.031); Immature Granulocyte Percent A 0.7 % (0-0.5); Lymphocytes Absolute Auto 1.12 K/mm3 (0.9-3.2); Lymphocytes Percent Auto 18.3 % (18.3-44.2); Mean Corpuscular HGB Conc 32.1 g/dl (32-36); Mean Corpuscular Hemoglobin 31.6 pg (26-34); Mean Corpuscular Volume 98.4 fl (80-100); Mean Platelet Volume 11.3 fl (7.4-10.4); Monocytes Absolute Auto 0.7 K/mm3 (0.1-0.6); Monocytes Percent Auto 11.4 % (2.6-8.5); Neutrophils Percent Auto 64.7 % (45.5-73.1); Platelet Count Result 228 k/mm3 (150-375); Red Blood Count 2.53 M/mm3 (4.2-5.4); Red Cell Distribution Width 12.9 % (11.5-14.5); White Blood Count 6.1 K/mm3 (4.5-10.0)
[2021-11-30 08:00] VITALS: BP 147/57; PULSE 81; PULSE 83; RESP 20; TEMP 36.6; O2SAT 90; O2SAT 97
[2021-11-30] MEDS: ATORVASTATIN 40 MG TABLET PO (08:33)
[2021-11-30] MEDS: hydrALAZINE HCL 50 MG TABLET PO ×2 (08:34→11:56)
[2021-11-30] MEDS: FUROSEMIDE 80 MG TABLET PO (08:34)
[2021-11-30] MEDS: ASPIRIN 325 MG TABLET PO (08:34)
[2021-11-30] MEDS: ISOSORBIDE MONONITRATE 60 MG TAB.ER.24H PO (08:34)
[2021-11-30 08:35] VITALS: PULSE 93
[2021-11-30] MEDS: METOPROLOL SUCCINATE EXT REL 100 MG TABCR PO (08:35)
[2021-11-30] MEDS: RANOLAZINE 500 MG TAB.ER.12H 1000 MG PO (08:35)
[2021-11-30] MEDS: FLUoxetine HCL 20 MG CAPSULE 60 MG PO (08:35)
[2021-11-30] MEDS: CLOPIDOGREL BISULFATE 75 MG TABLET PO (08:36)
[2021-11-30] MEDS: amLODIPine BESYLATE 5 MG TABLET 10 MG PO (08:37)
[2021-11-30] MEDS: PANTOPRAZOLE 40 MG TABLET 20 MG PO (08:37)
[2021-11-30] MEDS: HEPARIN SODIUM 5,000 UNITS/ML VIAL 5000 UNITS SUB-Q (08:38)
--- NOTE | 2021-11-30 10:07 | PM.PNNEP ---
Progress Note: A&P Assessment and Plan (1) End stage renal disease: Code(s): N18.6 - End stage renal disease Status: Chronic Assessment and Plan: End-stage renal disease Fluid overload, acute hypoxemic respiratory failure Lung infiltrates on chest x-ray probably is fluid related Type 2 diabetes with end-stage nephropathy Hypertensive renal disease Anemia of chronic kidney disease Secondary hyperparathyroidism Plan: -end-stage renal disease: Stable -fluid status: Stable -electrolyte status: Stable -COVID testing by PCR negative -breathing overall better -patient's next dialysis session will be on , if stable she can return to dialysis unit on an outpatient Subjective Date/time seen: 11/30/21 10:07 Follow-up of ESRD and related needs Feels better today. Breathing is better.. There is no lower extremity swelling. She is more comfortable at rest Exam Const: General: no acute distress Eyes: Sclera: sclerae normal Neck: Neck: no JVD Resp: Effort & Inspection: normal respiratory effort Auscultation: clear to auscultation bilaterally Cardio: Rate: regular rate Rhythm: regular rhythm Heart sounds: no gallops GI: GI Palp: Yes Soft to palpation and No Tenderness to palpation present (GI) Skin: General skin exam: normal color Rashes: no rashes noted Neuro: Cognition (Neuro): normal cognition Extrem: General: normal to inspection and no edema Psych: Mental Status: mental status grossly normal Affect: normal affect Objective Data Vital Signs Vital Signs: Vital Signs - 24 hr 11/29/21 10:19 11/29/21 10:36 11/29/21 10:51 Temperature 37.3 C Pulse Rate 98 114 H 120 H Respiratory Rate 24 H Blood Pressure 227/103 H 235/110 H Pulse Oximetry 11/29/21 11:00 11/29/21 11:30 11/29/21 12:00 Temperature Pulse Rate 120 H 84 77 Respiratory Rate Blood Pressure 234/98 H 200/86 H 177/67 H Pulse Oximetry 11/29/21 12:30 11/29/21 12:45 11/29/21 13:00 Temperature Pulse Rate 75 74 77 Respiratory Rate Blood Pressure 195/79 H 187/73 H 190/85 H Pulse Oximetry 11/29/21 13:55 11/29/21 14:00 11/29/21 16:00 Temperature 37.2 C 36.6 C Pulse Rate 78 80 83 Respiratory Rate 20 16 Blood Pressure 173/76 H 175/78 H 152/81 H Pulse Oximetry 97 11/29/21 20:00 11/30/21 00:00 11/30/21 04:00 Temperature 37.0 C Pulse Rate 83 90 76 Respiratory Rate 20 Blood Pressure 150/71 H Pulse Oximetry 96 11/30/21 06:00 11/30/21 08:00 11/30/21 08:35 Temperature 36.4 C 36.6 C Pulse Rate 81 83 93 Respiratory Rate 20 20 Blood Pressure 137/50 L 147/57 H Pulse Oximetry 98 97 Intake/Output Intake/Output: Intake & Output 11/27/21 11/28/21 11/29/21 11/30/21 23:59 23:59 23:59 23:59 Intake Total 350 1440 590 Output Total 4400 Balance 350 -2960 590 Meds/Results Medications: Active Medications Generic Name Dose Route Start Last Admin Trade Name Freq PRN Reason Stop Dose Admin Acetaminophen 650 mg 11/28/21 21:09 11/28/21 21:37 Acetaminophen 325 Mg Tablet PO 650 mg Q6H PRN Administration Mild Pain (1-3) or Fever Amlodipine Besylate 10 mg 11/29/21 09:00 11/30/21 08:37 Amlodipine Besylate 5 Mg Tablet PO 10 mg DAILY CAMILLA Administration Aspirin 325 mg 11/29/21 09:00 11/30/21 08:34 Aspirin 325 Mg Tablet PO 325 mg DAILY CAMILLA Administration Atorvastatin Calcium 40 mg 11/29/21 09:00 11/30/21 08:33 Atorvastatin 40 Mg Tablet PO 40 mg DAILY CAMILLA Administration Clopidogrel Bisulfate 75 mg 11/29/21 09:00 11/30/21 08:36 Clopidogrel Bisulfate 75 Mg Tablet PO 75 mg DAILY CAMILLA Administration Dextrose 12.5 gm 11/29/21 08:45 Dextrose 50% 25 Gm/50 Ml Syringe IV PUSH PRN PRN Hypoglycemia Protocol Fluoxetine HCl 60 mg 11/29/21 09:00 11/30/21 08:35 Fluoxetine Hcl 20 Mg Capsule PO 60 mg DAILY CAMILLA Administration Fluticasone Propionate 1 spray 11/29/21 08:44 Flut
[2021-11-30 10:21] LABS: Glucose Point of Care 102 mg/dl (65-105)
[2021-11-30 11:34] LABS: Glucose Point of Care 205 mg/dl (65-105)
[2021-11-30] MEDS: INSULIN ASPART (*BKC) 100 UNITS/ML SUB-Q (11:54)
[2021-11-30 12:00] VITALS: BP 139/60; PULSE 72; PULSE 77; RESP 20; TEMP 36.8; O2SAT 97
--- NOTE | 2021-11-30 12:18 | PM.DS ---
DS: Admitting Diagnosis Discharge Date 11/30/2021 Admitting Diagnosis shortness of breath DS: Discharge Diagnosis Discharge Diagnosis (1) Acute hyperkalemia: Code(s): E87.5 - Hyperkalemia Status: Acute Assessment and Plan: Patient repeat potassium is 5.8. Will consult nephrology in good dialysis done today. Repeat potassium in the morning. (2) Pneumonia due to COVID-19 virus: Code(s): U07.1 - COVID-19; J12.82 - Pneumonia due to coronavirus disease 2018 Status: Acute Assessment and Plan: Start antibiotic treatment. Consult Pulmonary. Continue with oxygen. If needed will give remdesivir and steroids he. (3) Chronic kidney failure: Code(s): N18.9 - Chronic kidney disease, unspecified Status: Acute Assessment and Plan: Nephrology consult and continue dialysis. (4) Hypertension: Code(s): I10 - Essential (primary) hypertension Status: Acute Assessment and Plan: Stable on meds. (5) Anemia in CKD (chronic kidney disease): Code(s): N18.9 - Chronic kidney disease, unspecified; D63.1 - Anemia in chronic kidney disease Status: Acute Assessment and Plan: Continue current treatment monitor closely. DS: Summary Hospital Course Reason for hospitalization: Chief Complaint: Shortness of breath Narrative: 61 years old female with history of end-stage renal disease on dialysis, laws ulcer 1000 has today was admitted through the emergency room with complaints of having shortness of breath fever and chills going on for the last 4 days. Patient also have cough for the last 4 days. No loss of sense of smell or taste. No nausea or vomiting. No chest pain. Patient patient did receive COVID vaccination January of 2021. She did not get any booster. Patient was also found to have high potassium in the emergency room. Patient was admitted for possible COVID pneumonia and hyperkalemia management. Hospital Course: patient is 61-year-old female with history of end-stage renal disease on hemodialysis presented with shortness of breath most likely secondary to volume overload due to missed dialysis, her COVID test was negative, and unlikely patient has a pneumonia as patient white counts are normal and patient does not have any fever, however will discharge the patient home doxycycline cover for atypical pneumonia, today patient seen by her commuter pilot patient is clinically stable can be discharged and will have scheduled dialysis tomorrow and dialysis center. Status at Discharge Functional status at discharge: independent ambulation Overall status at discharge: patient is back to baseline Time Spent with Patient Time attestation: Total time spent providing and/or coordinating discharge services: Patient was seen and examined at the time of the discharge Condition at discharge is stable Code status: Full code. Time spent preparing discharge summary, discharge medications, discussing discharge planning with case folder and patient is 35 minutes. Time spent: Greater than 30 minutes Exam Narrative: moderately obese Patient is comfortable, NAD HEENT: eyes are clear and none icteric LUNGS: normal respiratory effort ABD: distended Lower extremities: no edema SKIN: nonjaundiced Neuro: grossly intact. DS: Data Data Completed and Pending Labs on day of discharge: Labs from last 24 hours 11/30/21 11/30/21 11/30/21 11:32 07:51 06:17 WBC RBC Hgb Hct MCV MCH MCHC RDW Plt Count MPV Immature Gran % (Auto) Neut % (Auto) Lymph % (Auto) Summers % (Auto) Eos % (Auto) Baso % (Auto) Lymph # (Auto) Summers # (Auto) Eos # (Auto) Baso # (Auto) Abs Immat Gran (auto) Absolute Neuts (auto) Absolute Nucleated RBC Nucleated RBC % Sodium 135 L Potassium 4.8 Chloride 93 L Carbon Dioxide 28 Anion Gap 14 BUN 49 H D Creatinine 8.30 H Estim Creat Clear Calc 7 Estim
== END 2021-11-30 13:35 | disposition home or self-care (01) ==
LOC: ANHED 13:24 → ANH3MEDSUR 11-29 11:54
PROVIDERS: Internal Medicine; Physician Assistant Medical; Student in an Organized Health Care Education/Training Program; Admitting Provider Internal Medicine; Emergency Provider Emergency Medicine; PCP Internal Medicine Gastroenterology; Visit Provider Family Medicine
DX: E87.5 Hyperkalemia (principal); J18.9 Pneumonia, unspecified organism; I13.2 Hypertensive heart and chronic kidney disease with heart failure and with stage 5 chronic kidney disease, or end stage renal disease; D63.1 Anemia in chronic kidney disease; E11.22 Type 2 diabetes mellitus with diabetic chronic kidney disease; N18.6 End stage renal disease; I50.9 Heart failure, unspecified; E78.00 Pure hypercholesterolemia, unspecified; E11.42 Type 2 diabetes mellitus with diabetic polyneuropathy; E66.9 Obesity, unspecified; E87.1 Hypo-osmolality and hyponatremia; E21.3 Hyperparathyroidism, unspecified; I25.10 Atherosclerotic heart disease of native coronary artery without angina pectoris; R06.02 Shortness of breath; Z68.37 Body mass index [BMI] 37.0-37.9, adult; Z99.2 Dependence on renal dialysis; Z95.5 Presence of coronary angioplasty implant and graft; Z90.49 Acquired absence of other specified parts of digestive tract; Z79.82 Long term (current) use of aspirin; Z79.899 Other long term (current) drug therapy; Z79.4 Long term (current) use of insulin; Z20.822 Contact with and (suspected) exposure to COVID-19
CPT/HCPCS: 36415; 36600; 71045; 71046; 80048; 80053; 82805; 82948; 85025; 87040; 87426; 93005; 96365; 96366; 96368; 96372; 96375; 99285; A9270; C9803; G0257; G0378; J0456; J0696; J1644; J1815; J2405; J7030; J7060; U0003; U0005

== ENCOUNTER 2022-05-18 01:51 | Observation (INO) | payer MEDICARE, MEDICAID, SELFPAY ==
[2022-05-18] VITALS (35 sets, daily range): BP systolic 151–213; BP diastolic 55–108; PULSE 74–104; RESP 16–32; TEMP 36.2–37.1; O2SAT 87–100
--- NOTE | 2022-05-18 | ECHO_ITS ---
Patient Info Name: Isis Moore Age: 61 years : 1960 Gender: Female Ht: 62 in Wt: 176 lbs BSA: 1.90 m2 HR: 82 bpm BP: 164 / 78 mmHg Technical Quality: Good Exam Date: 05/18/2022 12:43 PM Exam Location: [facility] Pulmonary Exam Room: [facility] Patient Status: Inpatient Admit Date: 05/18/2022 Staff Ordering Physician: Nohemy Shin MD Communication Center Operator: Kay Rdz RDCS Attending Provider: Eileen Marsh DO Referring Physician: Aleida MONTOYA; Exam Type: CA echo doppler color flow Study Info Indications - sob Complete two-dimensional, color flow and Doppler transthoracic echocardiogram is performed. Summary 1. Complete two-dimensional, color flow and Doppler transthoracic echocardiogram is performed. 2. Left ventricular chamber dimension is normal. 3. Left ventricular systolic function is normal, estimated at 60-65%. 4. The left ventricular diastolic function is abnormal. 5. E/e' 27 is elevated. 6. Left atrial chamber dimension is mildly enlarged. 7. Right atrial chamber dimension is mildly enlarged. 8. The mitral valve has mildly calcified annulus. 9. There is trace mitral valve regurgitation. 10. There is mild tricuspid valve regurgitation. 11. Moderate pulmonary hypertension, estimated pulmonary arterial systolic pressure is 54 mmHg. Left Ventricle E/e' 27 is elevated. Left ventricular chamber dimension is normal. Left ventricular systolic function is normal, estimated at 60-65%. The left ventricular diastolic function is abnormal. Right Ventricle Right ventricular chamber dimension is normal. Right ventricular systolic function is normal. Left Atria Left atrial chamber dimension is mildly enlarged. Right Atria Right atrial chamber dimension is mildly enlarged. Aortic Valve The aortic valve is trileaflet. There is no aortic valve stenosis. There is no aortic valve regurgitation. Pulmonic Valve There is no pulmonic regurgitation. Mitral Valve The mitral valve has mildly calcified annulus. There is no mitral valve stenosis. There is trace mitral valve regurgitation. Tricuspid Valve There is mild tricuspid valve regurgitation. Moderate pulmonary hypertension, estimated pulmonary arterial systolic pressure is 54 mmHg. Pericardium/Pleural There is no pericardial effusion. Inferior Vena Cava Normal inferior vena cava with >50% collapse upon inspiration consistent with normal right atrial pressure, 5 mmHg. Aorta The aortic root size at the sinus of Valsalva is normal. Left Ventricular Outflow Tract Name Value Normal LVOT 2D LVOT Diameter 2.0 cm LVOT Doppler LVOT Peak Gradient 7 mmHg LVOT Mean Gradient 4 mmHg LVOT VTI 30 cm LVOT VTI/AV VTI Ratio 0.9 LVOT Stroke Volume 91 ml LVOT CO 18.0 l/min LVOT CI 9.5 l/min/m2 Pulmonic Valve Name
--- NOTE | ~2022-05-18 | XR_ITS ---
EXAMINATION: XR chest 2V DATE: 05/18/2022 02:33 INDICATION: Chest pain. TECHNIQUE: Frontal and lateral views of the chest were obtained. COMPARISON: Chest single view 11/30/2021, CT abdomen and pelvis 04/23/2019 FINDINGS: There is a diffuse interstitial pattern, consistent mild pulmonary edema. There is mild ate lectasis in left midlung zone. There are tiny pleural effusions. No pneumothorax. The heart size is n ormal. IMPRESSION: 1. Mild pulmonary edema. 2. Tiny pleural effusions. Reviewed, dictated and finalized at location A.
[2022-05-18 02:17] LABS: Basophils Absolute Auto 0.1 K/mm3 (0.0-0.1); Basophils Percent Auto 0.8 % (0.2-1.2); Eosinophils Absolute Auto 0.5 K/mm3 (0-0.3); Eosinophils Percent Auto 5.6 % (0-4.4); Hematocrit 31.4 % (37.0-47.0); Hemoglobin 9.9 g/dL (12.0-15.0); Immature Granulocyte Absolute 0.03 K/mm3 (0.00-0.031); Immature Granulocyte Percent A 0.4 % (0-0.5); Lymphocytes Absolute Auto 0.95 K/mm3 (0.9-3.2); Lymphocytes Percent Auto 11.5 % (18.3-44.2); Mean Corpuscular HGB Conc 31.5 g/dl (32-36); Mean Corpuscular Hemoglobin 32.4 pg (26-34); Mean Corpuscular Volume 102.6 fl (80-100); Mean Platelet Volume 10.6 fl (7.4-10.4); Monocytes Percent Auto 11.6 % (2.6-8.5); Neutrophils Absolute Auto 5.8 K/mm3 (1.3-6.7); Neutrophils Percent Auto 70.1 % (45.5-73.1); Platelet Count Result 280 k/mm3 (150-375); Red Blood Count 3.06 M/mm3 (4.2-5.4); Red Cell Distribution Width 14.5 % (11.5-14.5); White Blood Count 8.3 K/mm3 (4.5-10.0)
--- NOTE | 2022-05-18 02:19 | PC.NURSE ---
Pt states they were given 4 aspirin by EMS in route.
[2022-05-18 02:28] LABS: INR 1.1; Prothrombin Time 13.3 Seconds (11.1-14.7)
[2022-05-18 02:29] LABS: Partial Thromboplastin Time 25.3 SECONDS (22.3-36.8)
[2022-05-18 02:39] LABS: Alanine Aminotransferase 11 U/L (6-35); Albumin Level 4.2 g/dL (3.5-5.1); Alkaline Phosphatase 90 U/L (38-126); Anion Gap 9 mmol/L (8-16); Aspartate Amino Transferase 22 U/L (14-36); Bilirubin,Total 0.5 mg/dL (0.2-1.3); Blood Urea Nitrogen 32 mg/dL (7-17); Calcium 9.3 mg/dL (8.4-10.2); Carbon Dioxide 32 mmol/L (22-30); Chloride 96 mmol/L (98-107); Estimated CRCL calculation 9 ml/min; Estimated Glomerular Filt Rate 8; Glucose 163 mg/dL (65-110); Lipase 48 U/L (23-300); Potassium 5.1 mmol/L (3.4-5.0); Sodium 137 mmol/L (137-145)
[2022-05-18] MEDS: NITROGLYCERIN SL 0.4 MG TABLET SUBLINGUAL (02:51)
[2022-05-18 02:53] LABS: Troponin I 0.024 ng/mL (0.000-0.034)
--- NOTE | 2022-05-18 03:15 | ED.CHESTPAIN ---
HPI - Chest Pain General Chief Complaint: Chest Pain Stated Complaint: Chest Pain Time Seen by Provider: 05/18/22 01:59 History of Present Illness HPI narrative: 61-year-old female on dialysis on Saturdays presented to the emergency department for evaluation of worsening shortness of breath. Patient was at dialysis today and states that they were not able to complete her dialysis. Patient does not have dialysis again until . Patient's primary complaint is shortness of breath, patient denies any associated chest pain. Patient denies any recent fevers coughs or colds. Related Data Home Medications Medication Instructions Recorded Confirmed amlodipine 10 mg tablet 10 mg PO DAILY 01/27/20 11/29/21 aspirin 325 mg tablet 325 mg PO DAILY 01/27/20 11/29/21 atorvastatin 40 mg tablet 40 mg PO DAILY 01/27/20 11/29/21 clonazepam 0.5 mg tablet 0.5 mg PO BID PRN Anxiety 01/27/20 11/29/21 clopidogrel 75 mg tablet 75 mg PO DAILY 01/27/20 11/29/21 fluoxetine 20 mg capsule 60 mg PO DAILY 01/27/20 11/29/21 fluticasone propionate 50 1 spray intranasal PRN PRN Nasal 01/27/20 11/29/21 mcg/actuation nasal Congestion spray,suspension (Allergy Relief (fluticasone)) furosemide 80 mg tablet 80 mg PO DAILY 01/27/20 11/29/21 hydralazine 50 mg tablet 50 mg PO TID 01/27/20 11/29/21 insulin aspart U-100 100 unit/mL 4 unit subcut QACBREAK 01/27/20 11/29/21 (3 mL) subcutaneous pen (Novolog Flexpen U-100 Insulin aspart) insulin detemir U-100 100 unit/mL 14 unit subcut HS 01/27/20 11/29/21 (3 mL) subcutaneous pen (Levemir FlexTouch U-100 Insulin) metoprolol succinate 25 mg 100 mg PO DAILY 01/27/20 11/29/21 tablet,extended release 24 hr nitroglycerin 0.4 mg sublingual 0.4 mg sublingual Q5MIN PRN Chest 01/27/20 11/29/21 tablet Pain omeprazole 20 mg capsule,delayed 20 mg PO BID 01/27/20 11/29/21 release prazosin 5 mg capsule 10 mg PO HS 01/27/20 11/29/21 ranolazine 1,000 mg 1,000 mg PO BID 01/27/20 11/29/21 tablet,extended release,12 hr ziprasidone HCl 40 mg capsule 80 mg PO HS 02/14/20 11/29/21 Allergies Allergy/AdvReac Type Severity Reaction Status Date / Time No Known Allergies Allergy Unknown Verified 11/28/21 12:16 Review of Systems Review of Systems: CONSTITUTIONAL: Denies fever, chills, or sweats. EYES: Denies visual changes, redness, or discharge. ENT: Denies rhinorrhea, congestion, sore throat, or otalgia. CARDIOVASCULAR: Denies chest pain, palpitations, or edema. RESPIRATORY: Reports shortness of breath GASTROINTESTINAL: Denies abdominal pain, nausea, vomiting, or diarrhea. GENITOURINARY: Denies dysuria or hematuria. SKIN: Denies rash or itching. MUSCULOSKELETAL: Denies back pain, joint pain, or myalgia. NEUROLOGIC: Denies headache, numbness, or weakness. [facility] Past Medical History Medical History Anemia in CKD (chronic kidney disease) Angina at rest Anxiety Arthritis Bipolar disorder Bronchitis Cataract Congestive heart failure Echo in January 2020 showing EF of 55-60% with moderate pulmonary hypertension and turbulent flow across the mitral valve; the diastolic function is normal Coronary artery disease With history of myocardial infarction Depression Diabetes End stage renal disease Follows with Dr Chowdhury; HD Tu/Th/Sat at [facility] in [place] Fibromyalgia Hypercholesterolemia Hypertension Knee fracture, left Peripheral neuropathy Related to her diabetes Seasonal allergies Secondary hyperparathyroidism (of renal origin) Surgical History Surgical History H/O cardiac catheterization Sep 2017 showed patent stent to LAD and 90% occlusion of a very small diagonal branch. H/O cataract removal with insertion of prosthetic lens Fall 2018 Bilateral H/O section x2 - one in 1977, one 1979 H/O exploratory laparotomy ? partial colectomy in the ? Patient is unsure
[2022-05-18] MEDS: hydrALAZINE HCL 20 MG/ML VIAL 10 MG IV PUSH (05:15)
[2022-05-18] MEDS: NITROGLYCERIN OINTMENT 1 INCH DOSE TRANSDERM (05:15)
[2022-05-18 05:21] LABS: Troponin I 0.025 ng/mL (0.000-0.034)
[2022-05-18 05:28] LABS: Alveolar/Arterial O2 Gradient 57.7 mmHg; Base Excess ABG 7.8 mEq/l (+/-2.0); Fractional Inspired Oxygen 28 %; HCO3 ABG 32.7 mEq/l (22.0-26.0); Oxygen Content ABG 13.9 %vol (16.0-22.0); Oxygen Saturation ABG 96.8 % (95.0-100.0); Oxyhemoglobin 94.4 % THb (90.0-100.0); PCO2 ABG 47.8 mmHg (35.0-45.0); PO2 ABG 85.5 mmHg (80.0-100.0); PO2 FiO2 Ratio Arterial Blood 3.05 %; Total Hemoglobin 10.4 g/dL (12.0-18.0); pH ABG 7.453 (7.350-7.450)
[2022-05-18 05:29] LABS: Device NASAL CANNULA; Modified Allen's Test Unable to perform; Site Drawn RIGHT BRACHIAL
[2022-05-18 05:36] LABS: SARS-CoV-2 RNA PCR Negative
--- NOTE | 2022-05-18 05:47 | ADMGEN ---
This patient, Isis Moore, was admitted to IMU Room 206-02. Patient/family oriented to hospital policies and general routines including ID bracelet, bed and alarms, visiting hours, pain management, procedures, bathroom and other care routines, personal items, smoking policy, room service/diet, and visiting hours. Information on how to activate the Rapid Response Team has been discussed. Patient/Family are encouraged to report perceived risks to care and to ask questions if they do not understand what they are told or what they should do.
[2022-05-18 08:21] LABS: Glucose Point of Care 120 mg/dl (65-105)
--- NOTE | 2022-05-18 08:21 | PM.IMHP ---
H&P: HPI History of Present Illness Date/Time: 05/18/22 08:21 Chief Complaint: Chest pain and shortness of breath Narrative: 61F with a past medical history of [place] s/p stent, CAD, hypertension, hyperlipidemia, fibromyalgia, Bipolar disorder, anxiety, ESRD on TRS HD, diabetes, seasonal allergies who presented to the ED with chest pain and shortness of breath. Patient reports chest pain and shortness of breath starting on 05/15/22. Patient says she has had this type of chest pain/pressure and shortness of breath in the past and that it was improved with hemodialysis because she was fluid overloaded. Patient describes the chest pain as pressure feeling like something is sitting on her chest. Patient was unable to complete her hemodialysis on 05/17/22 after the needle infiltrated. Overnight, the patient noticed worsening of the chest pressure and shortness of breath and says she took three nitroglycerin tabs without having any relief, so she called the ambulance. Patient denies fever, chills, headache, vision changes, palpitations, diaphoresis, lightheadedness, presyncope, abdominal pain, dysuria. Patient has seasonal allergies causing her to have rhinorrhea and congestion in the morning. Patient usually urinates once a day or so. In the ED, troponin 0.024-->0.025-->0.024. EKG with sinus tachycardia otherwise similar to previous EKGs, potassium 5.1, COVID19 negative, CXR w/ pulmonary edema, BCX sent, ASA 324 given. Review of Systems Constitutional: Constitutional: Denies chills and Denies night sweats ENT: Reports nasal congestion and Reports nasal discharge Cardiovascular: Cardiovascular: Denies no additional cardiovascular complaints, Reports chest pain, Denies diaphoresis, Denies lightheadedness and Denies palpitations Respiratory: Respiratory: Denies chest congestion, Denies cough, Reports dyspnea and Denies wheezing Gastrointestinal: Gastrointestinal: Denies abdominal pain Genitourinary: Genitourinary: Denies dysuria and Denies flank pain Psychiatric: Psychiatric: Reports anxiety [facility] Past Medical History Medical History (Updated 05/18/22 @ 14:05 by Nohemy Shin MD) Anemia in CKD (chronic kidney disease) Angina at rest Anxiety Arthritis Bipolar disorder Bronchitis Cataract Congestive heart failure Echo in January 2020 showing EF of 55-60% with moderate pulmonary hypertension and turbulent flow across the mitral valve; the diastolic function is normal Coronary artery disease With history of myocardial infarction Depression Diabetes End stage renal disease Follows with Dr Chowdhury; HD Tues/Thurs/Sat at [facility] in [place] Fibromyalgia Hypercholesterolemia Hypertension Knee fracture, left Peripheral neuropathy Related to her diabetes Seasonal allergies Secondary hyperparathyroidism (of renal origin) Surgical History Surgical History H/O cardiac catheterization Sep 2017 showed patent stent to LAD and 90% occlusion of a very small diagonal branch. H/O cataract removal with insertion of prosthetic lens Fall 2018 Bilateral H/O section x2 - one in 1977, one 1979 H/O exploratory laparotomy ? partial colectomy in the ? Patient is unsure what this was for but denies history of cancer. H/O inguinal hernia repair H/O: hysterectomy 2002 Hx of cholecystectomy 1996 Stented coronary artery to LAD in 2012 Family History Family History Father , age 50s Diabetes mellitus Cancer Mother , Age 89 Cerebrovascular accident Sibling Family history of kidney disease Brother on dialysis Son Diabetes mellitus Hypertension Asthma Social History Social History Social History: Ms. Moore lives at home with her in [place], [place]. 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
[2022-05-18 08:41] LABS: Troponin I 0.024 ng/mL (0.000-0.034)
[2022-05-18] MEDS: METOPROLOL SUCCINATE EXT REL 100 MG TABCR PO (09:20)
[2022-05-18] MEDS: FLUoxetine HCL 20 MG CAPSULE 60 MG PO (09:21)
[2022-05-18] MEDS: amLODIPine BESYLATE 5 MG TABLET 10 MG PO (09:21)
[2022-05-18] MEDS: ATORVASTATIN 40 MG TABLET PO (09:21)
[2022-05-18] MEDS: ISOSORBIDE MONONITRATE 60 MG TAB.ER.24H PO (09:22)
[2022-05-18] MEDS: FUROSEMIDE 80 MG TABLET PO (09:22)
[2022-05-18] MEDS: PANTOPRAZOLE 40 MG TABLET PO ×2 (09:22→21:23)
[2022-05-18] MEDS: ASPIRIN 325 MG TABLET PO (09:22)
[2022-05-18] MEDS: CLOPIDOGREL BISULFATE 75 MG TABLET PO (09:22)
[2022-05-18] MEDS: RANOLAZINE 500 MG TAB.ER.12H 1000 MG PO ×2 (09:25→21:23)
[2022-05-18] MEDS: ONDANSETRON INJ 4 MG/2 ML VIAL IV PUSH (10:36)
[2022-05-18] MEDS: hydrALAZINE HCL 50 MG TABLET PO ×3 (10:36→21:24)
[2022-05-18 15:32] LABS: NT Pro B Type Natriuretic Pept > 35000 pg/mL (5-100)
[2022-05-18 16:15] LABS: Glucose Point of Care 189 mg/dl (65-105)
[2022-05-18 16:52] LABS: Free T4 Free Thyroxine 1.22 ng/mL (0.78-2.19)
--- NOTE | 2022-05-18 18:57 | PM.CNNEP ---
Assessment and Plan Assessment and plan (1) End stage renal disease: Code(s): N18.6 - End stage renal disease Status: Chronic Assessment and Plan: End-stage renal disease Fluid overload/pulmonary edema History of congestive heart failure Diabetic nephropathy type 2 Benign essential hypertensive renal disease Anemia chronic kidney disease Secondary hyperparathyroidism Metabolic alkalosis post dialysis with some respiratory compensation Plan: -dialysis unable to be carried out today due to lack of dialysis nursing availability -dialysis for more -monitor closely tonight -follow, questions answered, discussed with patient History of Present Illness Reason for Consult Consult date: 05/18/22 Chief Complaint Chief complaint: htn, hypoxia, dyspnea History of Present Illness Narrative: 61-year-old female with a history of ESRD secondary to diabetes mellitus, hypertension, history of coronary artery disease and stent, congestive heart failure who was at dialysis yesterday and had about a couple of hours of dialysis treatment. Had some 2 L of fluid removed. However a needle infiltrated and due to ongoing shortness of breath presented to the emergency room. Chest x-ray shows mild pulmonary edema. She has a cough. Dry. No hemoptysis. No chest pain or chest pressure. There is no lower extremity swelling. No pain over the left upper arm AV graft. Review of Systems Review of Systems: Negative All systems reviewed & are unremarkable except as noted in HPI and below PMFSH Past Medical History Medical History (Updated 05/18/22 @ 14:05 by Nohemy Shin MD) Anemia in CKD (chronic kidney disease) Angina at rest Anxiety Arthritis Bipolar disorder Bronchitis Cataract Congestive heart failure Echo in January 2020 showing EF of 55-60% with moderate pulmonary hypertension and turbulent flow across the mitral valve; the diastolic function is normal Coronary artery disease With history of myocardial infarction Depression Diabetes End stage renal disease Follows with Dr Chowdhury; HD Tues/Th/Sat at [facility] in [place] Fibromyalgia Hypercholesterolemia Hypertension Knee fracture, left Peripheral neuropathy Related to her diabetes Seasonal allergies Secondary hyperparathyroidism (of renal origin) Surgical History Surgical History H/O cardiac catheterization Sep 2017 showed patent stent to LAD and 90% occlusion of a very small diagonal branch. H/O cataract removal with insertion of prosthetic lens Fall 2018 Bilateral H/O section x2 - one in 1977, one 1979 H/O exploratory laparotomy ? partial colectomy in the ? Patient is unsure what this was for but denies history of cancer. H/O inguinal hernia repair H/O: hysterectomy 2002 Hx of cholecystectomy 1996 Stented coronary artery to LAD in 2012 Family History Family History Father , age 50s Diabetes mellitus Cancer Mother , Age 89 Cerebrovascular accident Sibling Family history of kidney disease Brother on dialysis Son Diabetes mellitus Hypertension Asthma Social History Social History Social History: Ms. Moore lives at home with her in [place], [place]. 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 She denies alcohol or other substance use. She designates her surrogate decision maker as her son, Sincere Blevins. She wishes to be full code status. She ambulates without a cane or walker at home. She is a lifelong nonsmoker Smoking status: Never smoker Second hand tobacco smoke exposure: No Alcohol intake: never Substance use: never Substance use type: does not use Gender identity (if verbalized by the patient): Female Spiritual care concerns: No Agree to blood products:
[2022-05-18 20:16] LABS: Procalcitonin 1.9 ng/mL
[2022-05-18 20:54] LABS: Folic Acid 10.5 ng/mL (2.76->20)
[2022-05-18] MEDS: ZIPRASIDONE HCL 80 MG CAPSULE PO (21:24)
[2022-05-18] MEDS: PRAZOSIN HCL 5 MG CAPSULE 10 MG PO (21:25)
[2022-05-18] MEDS: clonazePAM (*CRX) 0.5 MG TABLET PO (21:25)
[2022-05-18] MEDS: HEPARIN SODIUM 5,000 UNITS/ML VIAL 5000 UNITS SUB-Q (21:25)
[2022-05-19] VITALS (24 sets, daily range): BP systolic 150–196; BP diastolic 58–110; PULSE 70–89; RESP 18–20; TEMP 36.4–36.9; O2SAT 97–100
[2022-05-19 05:48] LABS: Basophils Absolute Auto 0.1 K/mm3 (0.0-0.1); Basophils Percent Auto 0.7 % (0.2-1.2); Eosinophils Absolute Auto 0.4 K/mm3 (0-0.3); Eosinophils Percent Auto 6.3 % (0-4.4); Hematocrit 29.6 % (37.0-47.0); Immature Granulocyte Absolute 0.02 K/mm3 (0.00-0.031); Immature Granulocyte Percent A 0.3 % (0-0.5); Lymphocytes Absolute Auto 1.07 K/mm3 (0.9-3.2); Lymphocytes Percent Auto 15.8 % (18.3-44.2); Mean Corpuscular HGB Conc 30.4 g/dl (32-36); Mean Corpuscular Hemoglobin 32.1 pg (26-34); Mean Corpuscular Volume 105.7 fl (80-100); Mean Platelet Volume 11.1 fl (7.4-10.4); Monocytes Absolute Auto 0.8 K/mm3 (0.1-0.6); Monocytes Percent Auto 11.6 % (2.6-8.5); Neutrophils Absolute Auto 4.4 K/mm3 (1.3-6.7); Neutrophils Percent Auto 65.3 % (45.5-73.1); Platelet Count Result 214 k/mm3 (150-375); Red Cell Distribution Width 14.1 % (11.5-14.5); White Blood Count 6.8 K/mm3 (4.5-10.0)
[2022-05-19 06:14] LABS: Albumin Level 3.6 g/dL (3.5-5.1); Anion Gap 9 mmol/L (8-16); Blood Urea Nitrogen 48 mg/dL (7-17); Calcium 8.4 mg/dL (8.4-10.2); Carbon Dioxide 26 mmol/L (22-30); Chloride 95 mmol/L (98-107); Estimated CRCL calculation 7 ml/min; Estimated Glomerular Filt Rate 5; Glucose 119 mg/dL (65-110); Phosphorus 6.4 mg/dL (2.5-4.5); Potassium 5.9 mmol/L (3.4-5.0); Sodium 130 mmol/L (137-145)
[2022-05-19 06:20] LABS: Ovalocytes 1+ (NORMAL); Platelet Estimate Adequate (Adequate)
[2022-05-19 06:21] LABS: Burr Cells 1+ (NORMAL)
[2022-05-19] MEDS: hydrALAZINE HCL 50 MG TABLET PO ×2 (06:29→16:09)
--- NOTE | 2022-05-19 08:14 | PM.IMPN ---
Progress Note: A&P Assessment and Plan (1) Shortness of breath: Code(s): R06.02 - Shortness of breath Status: Acute Assessment and Plan: Likely multifactorial with SBP in 200s, so hypertensive urgency and may have volume overload from incomplete HD treatment. Also has seasonal allergies with congestion that can contribute to feeling SOB. Hx of [place] s/p stent in 2014 and follow with in house Cardiology group. Troponin are flat without elevation and no improvement of chest pain with nitroglycerin. Lifetime nonsmoker. Has seasonal allergies, but no other respiratory symptoms to suggest respiratory infection and cxr with no obvious pneumonia. Pulmonary edema noted on CXR w/ hx of CHF. Well's score 0. Hx of COVID19 November 2021, which can cause chronic SOB. [id number] negative on admission. Echo w/ EF 60-65% w/ moderate pulmonary hypertension, biatrial enlargement. BNP > 68218. TSH normal. Appears to be volume overload. -Will hopefully get hemodialysis today -Will re-evaluate after HD to see if there is improvement (2) Acute hyperkalemia: Code(s): E87.5 - Hyperkalemia Status: Acute Assessment and Plan: Worsened this morning. Treated with albuterol, insulin, glucose, Kayexalate. Will recheck BMP after hemodialysis. (3) End stage renal disease: Code(s): N18.6 - End stage renal disease Status: Chronic Assessment and Plan: Likely due to DM & HTN. TRS normally but will have hemodialysis today. -Appreciate recommendations from Nephrology (4) Hypertensive urgency: Code(s): I16.0 - Hypertensive urgency Status: Acute Assessment and Plan: Restarted home medications. Appreciate Nephrology recommendations. Will hopefully improve after HD. Will monitor. (5) Coronary artery disease: Qualifiers: Coronary Disease-Associated Artery/Lesion type: [place] artery [place] vs. transplanted heart: [place] heart Associated angina: with unspecified angina Qualified Code(s): I25.119 - Atherosclerotic heart disease of [place] coronary artery with unspecified angina pectoris Code(s): I25.10 - Atherosclerotic heart disease of [place] coronary artery without angina pectoris Status: Acute Assessment and Plan: On statin, plavix, ASA and BB. Continue home medications. (6) Anemia: Qualifiers: Anemia type: due to chronic kidney disease Chronic kidney disease stage: on chronic dialysis Qualified Code(s): N18.6 - End stage renal disease; D63.1 - Anemia in chronic kidney disease; Z99.2 - Dependence on renal dialysis Code(s): D64.9 - Anemia, unspecified Status: Acute Assessment and Plan: Likely chronic due to ESRD. MCV 101. No signs of acute bleed. (7) Anxiety: Code(s): F41.9 - Anxiety disorder, unspecified Status: Acute Assessment and Plan: Takes clonazepam at home PRN. Continue. (8) Bipolar disorder: Code(s): F31.9 - Bipolar disorder, unspecified Status: Acute Assessment and Plan: Has been on disability for Bipolar since 2010 when she had a severe exacerbation. Takes ziprasidone. Continue. (9) Seasonal allergies: Code(s): J30.2 - Other seasonal allergic rhinitis Status: Acute Assessment and Plan: Somewhat uncontrolled recently. Will continue fluticasone for now. (10) Diabetes: Qualifiers: Diabetes mellitus type: type 2 Diabetes mellitus prison insulin use: with buttermaker use Diabetes mellitus complication status: with neurologic complications Diabetes mellitus complication detail: with polyneuropathy Qualified Code(s): E11.42 - Type 2 diabetes mellitus with diabetic polyneuropathy; Z79.4 - jail (current) use of insulin Code(s): E11.9 - Type 2 diabetes mellitus without complications Status: Chronic Assessment and Plan: Takes insulin at home. Will continue insulin w/ POC glucose checks. Eric
[2022-05-19] MEDS: SODIUM POLYSTYRENE SULFONONATE 15 GM/60 ML BTL 30 GM PO (08:47)
[2022-05-19] MEDS: INSULIN HUMAN REGULAR (*BKC) 100 UNITS/ML 10 UNITS IV PUSH (08:48)
[2022-05-19] MEDS: DEXTROSE 50% 25 GM/50 ML SYRINGE IV PUSH (08:48)
[2022-05-19] MEDS: METOPROLOL SUCCINATE EXT REL 100 MG TABCR PO (08:53)
[2022-05-19] MEDS: PANTOPRAZOLE 40 MG TABLET PO (08:55)
[2022-05-19] MEDS: RANOLAZINE 500 MG TAB.ER.12H 1000 MG PO (08:55)
[2022-05-19] MEDS: FUROSEMIDE 80 MG TABLET PO (09:00)
[2022-05-19] MEDS: FLUTICASONE PROPIONATE 0.05% NA SPR 16 GM BTL (*BKC) 1 SPRAY NASAL (09:01)
[2022-05-19] MEDS: ATORVASTATIN 40 MG TABLET PO (09:02)
[2022-05-19] MEDS: ASPIRIN 325 MG TABLET PO (09:04)
[2022-05-19 10:26] LABS: Anion Gap 13 mmol/L (8-16); Blood Urea Nitrogen 46 mg/dL (7-17); Calcium 9.1 mg/dL (8.4-10.2); Carbon Dioxide 29 mmol/L (22-30); Chloride 94 mmol/L (98-107); Estimated CRCL calculation 7 ml/min; Estimated Glomerular Filt Rate 5; Glucose 78 mg/dL (65-110); Potassium 5.2 mmol/L (3.4-5.0); Sodium 136 mmol/L (137-145)
--- NOTE | 2022-05-19 10:55 | PC.NURSE ---
0950- to dialysis for treatment via bed accompanied by staff
[2022-05-19] MEDS: CYANOCOBALAMIN 1,000 MCG TABLET 1000 MCG PO (14:09)
[2022-05-19] MEDS: ISOSORBIDE MONONITRATE 60 MG TAB.ER.24H PO (14:10)
[2022-05-19] MEDS: CLOPIDOGREL BISULFATE 75 MG TABLET PO (14:10)
[2022-05-19] MEDS: FLUoxetine HCL 20 MG CAPSULE 60 MG PO (14:10)
[2022-05-19] MEDS: amLODIPine BESYLATE 5 MG TABLET 10 MG PO (14:10)
[2022-05-19 16:15] LABS: Glucose Point of Care 169 mg/dl (65-105)
--- NOTE | 2022-05-19 16:26 | PM.PNNEP ---
Progress Note: A&P Assessment and Plan (1) End stage renal disease: Code(s): N18.6 - End stage renal disease Status: Chronic Assessment and Plan: End-stage renal disease Fluid overload/pulmonary edema History of congestive heart failure Diabetic nephropathy type 2 Benign essential hypertensive renal disease Anemia chronic kidney disease Secondary hyperparathyroidism Metabolic alkalosis post dialysis with some respiratory compensation Plan: -Dialysis carried a today. Patient is feeling better. -discharge planning -weight post dialysis and use that as a goal weight -discussed with patient, questions answered -most likely patient got water overloaded due to watermelon ingestion on Monday Subjective Date/time seen: 05/19/22 16:26 For follow-up ESRD Review of Systems Review of Systems: Feels better. Had dialysis. Breathing is better. Off oxygen. Exam Narrative: Well-developed well-nourished, DVT negative: Skin turgor normal, muscle mucosa, regular rhythm, no gallop, no rub, good results, and overall risk, soft nontender abdomen, no masses, no edema, but oriented x3, ambulatory Objective Data Vital Signs Vital Signs: Vital Signs - 24 hr 05/18/22 16:27 05/18/22 17:36 05/18/22 18:00 Temperature 36.5 C Pulse Rate 76 89 Respiratory Rate 22 H Blood Pressure 151/55 H Pulse Oximetry 100 98 Oxygen Delivery Nasal Cannula Oxygen Flow Rate 2 05/18/22 20:00 05/18/22 20:00 05/18/22 22:00 Temperature 36.9 C Pulse Rate 74 75 77 Respiratory Rate 22 H Blood Pressure 175/59 H Pulse Oximetry 100 Oxygen Delivery Oxygen Flow Rate 05/18/22 20:00 05/18/22 23:49 05/19/22 00:00 Temperature 36.5 C Pulse Rate 77 78 75 Respiratory Rate 22 H 20 Blood Pressure 185/75 H Pulse Oximetry 100 98 Oxygen Delivery Nasal Cannula Oxygen Flow Rate 2 05/19/22 02:00 05/19/22 00:00 05/19/22 04:00 Temperature 36.4 C L Pulse Rate 78 78 77 Respiratory Rate 20 18 Blood Pressure 150/58 H Pulse Oximetry 98 100 Oxygen Delivery Nasal Cannula Oxygen Flow Rate 2 05/19/22 04:00 05/19/22 06:00 05/19/22 04:00 Temperature Pulse Rate 74 78 78 Respiratory Rate 18 Blood Pressure Pulse Oximetry 100 Oxygen Delivery Nasal Cannula Oxygen Flow Rate 2 05/19/22 08:03 05/19/22 08:53 05/19/22 08:30 Temperature 36.5 C Pulse Rate 84 89 85 Respiratory Rate 20 Blood Pressure 181/72 H Pulse Oximetry 100 Oxygen Delivery Oxygen Flow Rate 05/19/22 08:30 05/19/22 10:00 05/19/22 10:05 Temperature Pulse Rate 80 87 Respiratory Rate Blood Pressure 184/84 H Pulse Oximetry 98 Oxygen Delivery Nasal Cannula Oxygen Flow Rate 2 05/19/22 10:20 05/19/22 11:00 05/19/22 10:40 Temperature Pulse Rate 85 81 81 Respiratory Rate Blood Pressure 178/83 H 172/78 H 196/84 H Pulse Oximetry Oxygen Delivery Oxygen Flow Rate 05/19/22 11:00 05/19/22 11:20 05/19/22 09:55 Temperature 36.4 C Pulse Rate 81 79 87 Respiratory Rate 18 Blood Pressure 172/78 H 175/75 H 184/84 H Pulse Oximetry Oxygen Delivery Oxygen Flow Rate 05/19/22 10:00 05/19/22 11:40 05/19/22 12:00 Temperature Pulse Rate 70 87 Respiratory Rate Blood Pressure 175/79 H 168/77 H Pulse Oximetry Oxygen Delivery Oxygen Flow Rate 2 05/19/22 12:20 05/19/22 12:40 05/19/22 13:00 Temperature Pulse Rate 87 89 85 Respiratory Rate Blood Pressure 176/110 H 159/74 H 172/74 H Pulse Oximetry Oxygen Delivery Oxygen Flow Rate 05/19/22 13:30 05/19/22 13:35 Temperature 36.6 C Pulse Rate 78 81 Respiratory Rate 18 Blood Pressure 173/79 H 189/70 H Pulse Oximetry Oxygen Delivery Oxygen Flow Rate Intake/Output Intake/Output: Intake & Output 05/16/22 05/17/22 05/18/22 05/19/22 23:59 23:59 23:59 23:59 Intake Total 1120 1170 Output Total 3500 Balance 1120 -2330 Meds/Results Med
[2022-05-19 16:50] LABS: Potassium 4.3 mmol/L (3.4-5.0)
--- NOTE | 2022-05-19 17:10 | PM.DS ---
DS: Admitting Diagnosis Discharge Date 05/19/22 Admitting Diagnosis Chest Pain DS: Discharge Diagnosis Discharge Diagnosis (1) Shortness of breath: Code(s): R06.02 - Shortness of breath Status: Acute Assessment and Plan: Likely multifactorial with SBP in 200s, so hypertensive urgency and may have volume overload from incomplete HD treatment. Also has seasonal allergies with congestion that can contribute to feeling SOB. Hx of MT s/p stent in 2014 and follow with in house Cardiology group. Troponin are flat without elevation and no improvement of chest pain with nitroglycerin. Lifetime nonsmoker. Has seasonal allergies, but no other respiratory symptoms to suggest respiratory infection and cxr with no obvious pneumonia. Pulmonary edema noted on CXR w/ hx of CHF. Well's score 0. Hx of COVID19 November 2021, which can cause chronic SOB. [id number] negative on admission. Echo w/ EF 60-65% w/ moderate pulmonary hypertension, biatrial enlargement. BNP > 52184. TSH normal. Patient had resolution of symptoms after hemodialysis. (2) Acute hyperkalemia: Code(s): E87.5 - Hyperkalemia Status: Acute Assessment and Plan: Recheck after hemodialysis 4.3. Resolved. (3) End stage renal disease: Code(s): N18.6 - End stage renal disease Status: Chronic Assessment and Plan: Likely due to DM & HTN. TRS HD. -Appreciate recommendations from Nephrology (4) Hypertensive urgency: Code(s): I16.0 - Hypertensive urgency Status: Acute Assessment and Plan: Restarted home medications. Appreciate Nephrology recommendations. Will hopefully improve after HD. Will monitor. (5) Coronary artery disease: Qualifiers: Coronary Disease-Associated Artery/Lesion type: [place] artery [place] vs. transplanted heart: [place] heart Associated angina: with unspecified angina Qualified Code(s): I25.119 - Atherosclerotic heart disease of [place] coronary artery with unspecified angina pectoris Code(s): I25.10 - Atherosclerotic heart disease of [place] coronary artery without angina pectoris Status: Acute Assessment and Plan: On statin, plavix, ASA and BB. Continue home medications. (6) Anemia: Qualifiers: Anemia type: due to chronic kidney disease Chronic kidney disease stage: on chronic dialysis Qualified Code(s): N18.6 - End stage renal disease; D63.1 - Anemia in chronic kidney disease; Z99.2 - Dependence on renal dialysis Code(s): D64.9 - Anemia, unspecified Status: Acute Assessment and Plan: Likely chronic due to ESRD. MCV 101. No signs of acute bleed. (7) Anxiety: Code(s): F41.9 - Anxiety disorder, unspecified Status: Acute Assessment and Plan: Takes clonazepam at home PRN. Continue. (8) Bipolar disorder: Code(s): F31.9 - Bipolar disorder, unspecified Status: Acute Assessment and Plan: Has been on disability for Bipolar since 2010 when she had a severe exacerbation. Takes ziprasidone. Continue. (9) Seasonal allergies: Code(s): J30.2 - Other seasonal allergic rhinitis Status: Acute Assessment and Plan: Somewhat uncontrolled recently. Will continue fluticasone for now. 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 Will continue insulin w/ POC glucose checks. -Levemir 14 units qhs -POC glucose checks (11) Hypercholesterolemia: Code(s): E78.00 - Pu
== END 2022-05-19 16:40 | disposition home or self-care (01) ==
LOC: ANHED 04:45 → ANHIMU 06:24
PROVIDERS: Internal Medicine Nephrology; Admitting Provider Internal Medicine; Emergency Provider Emergency Medicine; PCP Internal Medicine Gastroenterology; Visit Provider Family Medicine
DX: E87.5 Hyperkalemia (principal); I13.2 Hypertensive heart and chronic kidney disease with heart failure and with stage 5 chronic kidney disease, or end stage renal disease; R06.02 Shortness of breath; R09.02 Hypoxemia; I16.0 Hypertensive urgency; R07.9 Chest pain, unspecified; E53.8 Deficiency of other specified B group vitamins; E87.3 Alkalosis; R05.9 Cough, unspecified; E11.22 Type 2 diabetes mellitus with diabetic chronic kidney disease; N18.6 End stage renal disease; I50.9 Heart failure, unspecified; Z99.2 Dependence on renal dialysis; D63.1 Anemia in chronic kidney disease; E78.00 Pure hypercholesterolemia, unspecified; E11.42 Type 2 diabetes mellitus with diabetic polyneuropathy; N25.81 Secondary hyperparathyroidism of renal origin; F31.9 Bipolar disorder, unspecified; I25.10 Atherosclerotic heart disease of native coronary artery without angina pectoris; I25.2 Old myocardial infarction; J30.2 Other seasonal allergic rhinitis; M79.7 Fibromyalgia; Z95.5 Presence of coronary angioplasty implant and graft; Z79.82 Long term (current) use of aspirin; Z79.02 Long term (current) use of antithrombotics/antiplatelets; Z79.4 Long term (current) use of insulin; Z20.822 Contact with and (suspected) exposure to COVID-19
CPT/HCPCS: 36415; 36600; 71046; 80048; 80053; 80069; 82607; 82746; 82805; 82948; 83690; 83880; 84132; 84145; 84439; 84443; 84484; 85025; 85610; 85730; 87040; 93005; 93306; 94640; 96365; 96375; 99285; A9270; C9803; G0257; G0378; J0360; J0456; J0696; J1644; J1815; J2405; J7030; U0003; U0005

== ENCOUNTER 2022-08-19 10:45 | Outpatient (CLI) | payer MEDICARE, MEDICAID, SELFPAY ==
--- NOTE | ~2022-08-19 | MM_ITS ---
EXAMINATION: MM screening liane BI w yoli HISTORY: Screening mammogram TECHNIQUE: Craniocaudal and mediolateral oblique 3-D tomosynthesis images were obtained and synthetic 2-D images were generated. CAD analysis was submitted and interpreted. COMPARISON: No prior mammogram is available for comparison at this institution. BREAST PARENCHYMAL COMPOSITION: The breasts are almost entirely fatty. FINDINGS: RIGHT BREAST: There is no suspicious mass, calcification, or architectural distortion to suggest diana gnancy. LEFT BREAST: There is a possible mass in the middle third of the outer breast best appreciated 10 cm from the nipple on the craniocaudal view. IMPRESSION: 1. Possible left breast mass. 2. Additional mammographic views and possible breast ultrasound are recommended. BI-RADS Category 0: Incomplete: Needs additional imaging evaluation. Reviewed, dictated and finalized at location A. IMPRESSION: 1. Possible left breast mass. 2. Additional mammographic views and possible breast ultrasound are recommended . BI-RADS Category 0: Incomplete: Needs additional imaging evaluation.
== END 2022-08-19 10:46 | disposition home or self-care (01) ==
LOC: ANHIMG 10:47
PROVIDERS: PCP Internal Medicine Gastroenterology
DX: Z12.31 Encounter for screening mammogram for malignant neoplasm of breast (principal); R92.8 Other abnormal and inconclusive findings on diagnostic imaging of breast
CPT/HCPCS: 77063; 77067

== ENCOUNTER 2022-10-11 08:46 | Inpatient (IN) | payer MEDICARE, MEDICAID, SELFPAY ==
[2022-10-11] VITALS (32 sets, daily range): BP systolic 158–234; BP diastolic 63–109; PULSE 81–111; RESP 17–33; TEMP 36–37.1; O2SAT 88–98; BMI 30.2
--- NOTE | ~2022-10-11 | XR_ITS ---
EXAMINATION: XR chest 2V DATE: 10/11/2022 09:23 INDICATION: Cough and shortness of breath. TECHNIQUE: Frontal and lateral views of the chest were obtained. COMPARISON: Chest 2 views 05/18/2022 FINDINGS: There are airspace opacities in the mid and lower lung zones. There are small pleural effus ions. No pneumothorax. Cardiomegaly is noted. IMPRESSION: 1. Worsened airspace opacities in the mid and lower lung zones, consistent with atelectasis versus pn eumonia. 2. Small pleural effusions. 3. Cardiomegaly. Reviewed, dictated and finalized at location A. 2 DEVELOPER IMPRESSION: 1. Worsened airspace opacities in the mid and lower lung zones, consistent with atelectasis versus pneumonia. 2. Small pleural effusions. 3. Cardiomegaly.
[2022-10-11 08:51] LABS: Glucose Point of Care 247 mg/dl (65-105)
--- NOTE | 2022-10-11 08:54 | ECG_ITS ---
Measurements Intervals [place] Rate: 111 P: 31 GA: 146 QRS: -2 QRSD: 91 T: 53 QT: 332 QTc: 452 Interpretive Statements SINUS TACHYCARDIA DELAYED PRECORDIAL R/S TRANSITION NONSPECIFIC ST & T-WAVE ABNORMALITY- LAT/HIGH LAT LEADS BASELINE ARTIFACT- III, V6 ABNORMAL ECG COMPARED TO ECG 05/18/2022 02:12:25 T-WAVE ABNORMALITY NOW PRESENT Electronically Signed On 10-11-2022 9:09:07 FUELS SALES REPRESENTATIVE by Balbir Ashley D.O.
[2022-10-11] MEDS: ASPIRIN 81 MG CHEWABLE TABLET 324 MG PO (09:00)
[2022-10-11 09:07] LABS: Basophils Absolute Auto 0.1 K/mm3 (0.0-0.1); Basophils Percent Auto 0.7 % (0.2-1.2); Eosinophils Absolute Auto 0.1 K/mm3 (0-0.3); Eosinophils Percent Auto 0.7 % (0-4.4); Hematocrit 30.6 % (37.0-47.0); Hemoglobin 9.6 g/dL (12.0-15.0); Immature Granulocyte Absolute 0.03 K/mm3 (0.00-0.031); Immature Granulocyte Percent A 0.4 % (0-0.5); Lymphocytes Absolute Auto 0.33 K/mm3 (0.9-3.2); Lymphocytes Percent Auto 4.3 % (18.3-44.2); Mean Corpuscular HGB Conc 31.4 g/dl (32-36); Mean Corpuscular Hemoglobin 32.1 pg (26-34); Mean Corpuscular Volume 102.3 fl (80-100); Mean Platelet Volume 10.7 fl (7.4-10.4); Monocytes Absolute Auto 0.4 K/mm3 (0.1-0.6); Monocytes Percent Auto 5.1 % (2.6-8.5); Neutrophils Absolute Auto 6.8 K/mm3 (1.3-6.7); Neutrophils Percent Auto 88.8 % (45.5-73.1); Platelet Count Result 267 k/mm3 (150-375); Red Blood Count 2.99 M/mm3 (4.2-5.4); White Blood Count 7.6 K/mm3 (4.5-10.0)
[2022-10-11 09:17] LABS: INR 1.1; Prothrombin Time 13.8 Seconds (11.1-14.7)
[2022-10-11 09:18] LABS: Partial Thromboplastin Time 24.6 SECONDS (22.3-36.8)
[2022-10-11 09:20] LABS: Alanine Aminotransferase 13 U/L (6-35); Albumin Level 4.3 g/dL (3.5-5.1); Alkaline Phosphatase 83 U/L (38-126); Anion Gap 23 mmol/L (8-16); Aspartate Amino Transferase 27 U/L (14-36); Bilirubin,Total 0.7 mg/dL (0.2-1.3); Blood Urea Nitrogen 49 mg/dL (7-17); Calcium 9.5 mg/dL (8.4-10.2); Carbon Dioxide 28 mmol/L (22-30); Chloride 87 mmol/L (98-107); Estimated Glomerular Filt Rate 4; Glucose 251 mg/dL (65-110); Lipase 50 U/L (23-300); Sodium 138 mmol/L (137-145)
[2022-10-11] MEDS: NITROGLYCERIN OINTMENT 1 INCH DOSE TRANSDERM (09:34)
[2022-10-11 09:35] LABS: Troponin I 0.101 ng/mL (0.000-0.034)
--- NOTE | 2022-10-11 09:53 | ED.CHESTPAIN ---
HPI - Chest Pain General Chief Complaint: Chest Pain Stated Complaint: CHEST PAIN Time Seen by Provider: 10/11/22 08:57 Source: patient and old records reviewed Mode of arrival: EMS Limitations: no limitations History of Present Illness HPI narrative: Patient is a 62 y/o female who presents to the ED with c/o SOB and CP. Patient reports she began having increased difficulty breathing last night. This morning around 6:30 AM she developed midsternal chest pain. She took 2 nitroglycerin at home, which did improve her pain some. EMS was then called. Patient does report persistent pain currently in the ED. She was scheduled to receive hemodialysis this morning, schedule /Mon, under Dr. Chowdhury. Patient also reports having a recent cough, but denies fever, congestion, rhinorrhea, abdominal pain, nausea, vomiting. Related Data Home Medications Medication Instructions Recorded Confirmed amlodipine 10 mg tablet 10 mg PO DAILY 01/27/20 10/11/22 aspirin 325 mg tablet 325 mg PO DAILY 01/27/20 10/11/22 atorvastatin 40 mg tablet 40 mg PO HS 01/27/20 10/11/22 clonazepam 0.5 mg tablet 0.5 mg PO BID PRN Anxiety 01/27/20 10/11/22 clopidogrel 75 mg tablet 75 mg PO DAILY 01/27/20 10/11/22 fluoxetine 20 mg capsule 60 mg PO DAILY 01/27/20 10/11/22 fluticasone propionate 50 1 spray intranasal BID PRN Nasal 01/27/20 10/11/22 mcg/actuation nasal Congestion spray,suspension (Allergy Relief (fluticasone)) furosemide 80 mg tablet 80 mg PO DAILY 01/27/20 10/11/22 hydralazine 50 mg tablet 50 mg PO Q8H 01/27/20 10/11/22 insulin aspart U-100 100 unit/mL 4 unit subcut QACBREAK 01/27/20 10/11/22 (3 mL) subcutaneous pen (Novolog Flexpen U-100 Insulin aspart) insulin detemir U-100 100 unit/mL 14 unit subcut HS 01/27/20 10/11/22 (3 mL) subcutaneous pen (Levemir FlexTouch U-100 Insulin) metoprolol succinate 25 mg 100 mg PO DAILY 01/27/20 10/11/22 tablet,extended release 24 hr nitroglycerin 0.4 mg sublingual 0.4 mg sublingual Q5MIN PRN Chest 01/27/20 10/11/22 tablet Pain omeprazole 20 mg capsule,delayed 40 mg PO DAILY 01/27/20 10/11/22 release prazosin 5 mg capsule 10 mg PO HS 01/27/20 10/11/22 ranolazine 1,000 mg 1,000 mg PO BID 01/27/20 10/11/22 tablet,extended release,12 hr ziprasidone HCl 40 mg capsule 80 mg PO HS 02/14/20 10/11/22 Allergies Allergy/AdvReac Type Severity Reaction Status Date / Time No Known Allergies Allergy Unknown Verified 11/28/21 12:16 Review of Systems Review of Systems: CONSTITUTIONAL: Denies fever, chills, or sweats. ENT: Denies rhinorrhea, congestion, sore throat. CARDIOVASCULAR: Reports midsternal CP. RESPIRATORY: Reports cough and dyspnea. GASTROINTESTINAL: Denies abdominal pain, nausea, vomiting, or diarrhea. All systems reviewed & are unremarkable except as noted in HPI and below PMFSH Past Medical History Medical History Anemia in CKD (chronic kidney disease) Angina at rest Anxiety Arthritis Bipolar disorder Bronchitis Cataract Chest pain Congestive heart failure Echo in January 2020 showing EF of 55-60% with moderate pulmonary hypertension and turbulent flow across the mitral valve; the diastolic function is normal Coronary artery disease With history of myocardial infarction Depression Diabetes End stage renal disease Follows with Dr Chowdhury; HD Tues/Thurs/Sat at [facility] in [place] Fibromyalgia Hypercholesterolemia Hypertension Knee fracture, left Peripheral neuropathy Related to her diabetes Seasonal allergies Secondary hyperparathyroidism (of renal origin) Surgical History Surgical History H/O cardiac catheterization Sep 2017 showed patent stent to LAD and 90% occlusion of a very small diagonal branch. H/O cataract removal with insertion of prosthetic lens Fall 2018 Bilateral H/O section x2 - one in 1977, one 1979 H/O exploratory laparot
[2022-10-11 10:06] LABS: NT Pro B Type Natriuretic Pept > 35000 pg/mL (5-100)
[2022-10-11 10:30] LABS: Influenza A QL RT-PCR Negative (Negative); Influenza B QL RT-PCR Negative (Negative); SARS-CoV-2 RNA PCR Negative
[2022-10-11 12:40] LABS: Troponin I 0.119 ng/mL (0.000-0.034)
[2022-10-11] MEDS: LABETALOL HCL INJ 100 MG/20 ML VIAL 20 MG IV PUSH (12:56)
--- NOTE | 2022-10-11 13:15 | PC.NURSE ---
[facility]. PT BELONGINGS SENT WITH HER. aWAITING ROOM ASSIGNMENT
--- NOTE | 2022-10-11 13:30 | PM.IMHP ---
H&P: HPI History of Present Illness Date/Time: 10/11/22 13:30 Chief Complaint: patient is 62-year-old female with a history of end-stage renal disease on chronic dialysis 3 times a week came to the hospital with severe shortness of breath. Patient states she was unable to sleep all night because of difficulty breathing denied any history of any chest pain no leg swelling no hemoptysis or cough. Patient has been compliant on medications. No recent history of any infection. Patient thinks she got sicker after getting her boosters COVID shot. Patient is brought to the emergency room and has been dialyzed. Patient denies any history of any chest pains no urgency or frequency urination no abdominal pain no increase in abdominal girth Review of Systems Review of Systems: No fevers chills nausea vomiting. No double vision no blurry vision. No difficulty hearing or sinus complaints. No chest pain has shortness of breath no fever palpitation dizziness ankle swelling. No coughing wheezing chills. No nausea constipation diarrhea abdominal pain reflux, No urgency frequency of urination. No hematuria. No skin rash eczema. No anxiety depression difficulty sleeping. No bleeding gums enlarged glands. No muscle ache back pain joint stiffness. No loss of strength numbness headache tremor or loss of memory. [facility] Past Medical History Medical History (Updated 10/11/22 @ 13:46 by Tristan Salazar MD) Anemia in CKD (chronic kidney disease) Angina at rest Anxiety Arthritis Bipolar disorder Bronchitis Cataract Chest pain Congestive heart failure Echo in January 2020 showing EF of 55-60% with moderate pulmonary hypertension and turbulent flow across the mitral valve; the diastolic function is normal Coronary artery disease With history of myocardial infarction Depression Diabetes End stage renal disease Follows with Dr Chowdhury; HD Tu/Th/Sat at [facility] in [place] Fibromyalgia Hypercholesterolemia Hypertension Knee fracture, left Peripheral neuropathy Related to her diabetes Seasonal allergies Secondary hyperparathyroidism (of renal origin) Surgical History Surgical History H/O cardiac catheterization Sep 2017 showed patent stent to LAD and 90% occlusion of a very small diagonal branch. H/O cataract removal with insertion of prosthetic lens Fall 2018 Bilateral H/O section x2 - one in 1977, one 1979 H/O exploratory laparotomy ? partial colectomy in the ? Patient is unsure what this was for but denies history of cancer. H/O inguinal hernia repair H/O: hysterectomy 2002 Hx of cholecystectomy 1996 Stented coronary artery to LAD in 2012 Family History Family History Father , age 50s Diabetes mellitus Cancer Mother , Age 89 Cerebrovascular accident Sibling Family history of kidney disease Brother on dialysis Son Diabetes mellitus Hypertension Asthma Social History Social History Social History: Ms. Moore lives at home with her in [place], [place]. 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 She denies alcohol or other substance use. She designates her surrogate decision maker as her son, Sincere Blevins. She wishes to be full code status. She ambulates without a cane or walker at home. She is a lifelong nonsmoker Smoking status: Never smoker Second hand tobacco smoke exposure: No Alcohol intake: never Substance use: never Substance use type: does not use Gender identity (if verbalized by the patient): Female Spiritual care concerns: No Agree to blood products: Yes Meds Home Medications and Allergies Home Medications Medication Instructions Recorded Confirmed Type amlodipine 10 mg tablet 10 mg
[2022-10-11 15:17] LABS: Troponin I 0.141 ng/mL (0.000-0.034)
[2022-10-11 16:26] LABS: Hepatitis B Surface Antigen Negative (Negative)
[2022-10-11 16:44] LABS: Hepatitis B Surface Anti Res Positive
[2022-10-11] MEDS: METOPROLOL TARTRATE INJ 5 MG/5 ML VIAL IV PUSH (17:59)
[2022-10-11 19:49] LABS: Glucose Point of Care 164 mg/dl (65-105)
--- NOTE | 2022-10-11 19:57 | PC.NURSE ---
1800---@1725 Received pt from dialysis room -post treatment- pt had been in ER prior to treatment- home medications verified- BP elevated- Dr. Ricci informed
[2022-10-11] MEDS: INSULIN GLARGINE (*BKC) 100 UNITS/ML 14 UNITS SUB-Q (20:46)
[2022-10-11] MEDS: ZIPRASIDONE HCL 80 MG CAPSULE PO (20:47)
[2022-10-11] MEDS: ATORVASTATIN 40 MG TABLET PO (20:47)
[2022-10-11] MEDS: PRAZOSIN HCL 5 MG CAPSULE 10 MG PO (20:47)
[2022-10-11] MEDS: HEPARIN SODIUM 5,000 UNITS/ML VIAL 5000 UNITS SUB-Q (20:47)
[2022-10-11] MEDS: hydrALAZINE HCL 50 MG TABLET PO (20:48)
[2022-10-11] MEDS: FLUTICASONE PROPIONATE 0.05% NA SPR 16 GM BTL (*BKC) 1 SPRAY NASAL (22:13)
[2022-10-11] MEDS: PANTOPRAZOLE SODIUM IV 40 MG VIAL IV PUSH (23:43)
[2022-10-12] VITALS (18 sets, daily range): BP systolic 146–224; BP diastolic 50–83; PULSE 74–113; RESP 15–22; TEMP 36.4–37.1; O2SAT 91–100
[2022-10-12 04:26] LABS: Basophils Absolute Auto 0.1 K/mm3 (0.0-0.1); Basophils Percent Auto 0.7 % (0.2-1.2); Eosinophils Absolute Auto 0.3 K/mm3 (0-0.3); Eosinophils Percent Auto 4.2 % (0-4.4); Hematocrit 29.7 % (37.0-47.0); Hemoglobin 9.4 g/dL (12.0-15.0); Immature Granulocyte Absolute 0.03 K/mm3 (0.00-0.031); Immature Granulocyte Percent A 0.4 % (0-0.5); Lymphocytes Percent Auto 8.6 % (18.3-44.2); Mean Corpuscular HGB Conc 31.6 g/dl (32-36); Mean Corpuscular Hemoglobin 32.3 pg (26-34); Mean Corpuscular Volume 102.1 fl (80-100); Mean Platelet Volume 10.6 fl (7.4-10.4); Monocytes Absolute Auto 0.7 K/mm3 (0.1-0.6); Neutrophils Absolute Auto 6.3 K/mm3 (1.3-6.7); Neutrophils Percent Auto 77.1 % (45.5-73.1); Platelet Count Result 283 k/mm3 (150-375); Red Blood Count 2.91 M/mm3 (4.2-5.4); Red Cell Distribution Width 13.8 % (11.5-14.5); White Blood Count 8.2 K/mm3 (4.5-10.0)
[2022-10-12] MEDS: hydrALAZINE HCL 50 MG TABLET PO ×3 (05:56→21:21)
[2022-10-12 07:59] LABS: Glucose Point of Care 62 mg/dl (65-105)
[2022-10-12 08:12] LABS: Alanine Aminotransferase 13 U/L (6-35); Albumin Level 3.8 g/dL (3.5-5.1); Alkaline Phosphatase 76 U/L (38-126); Anion Gap 14 mmol/L (8-16); Aspartate Amino Transferase 28 U/L (14-36); Bilirubin,Total 0.4 mg/dL (0.2-1.3); Blood Urea Nitrogen 26 mg/dL (7-17); Calcium 8.9 mg/dL (8.4-10.2); Carbon Dioxide 34 mmol/L (22-30); Chloride 90 mmol/L (98-107); Estimated CRCL calculation 9 ml/min; Estimated Glomerular Filt Rate 8; Glucose 64 mg/dL (65-110); Potassium 3.7 mmol/L (3.4-5.0); Sodium 138 mmol/L (137-145)
[2022-10-12] MEDS: ISOSORBIDE MONONITRATE 60 MG TAB.ER.24H PO (08:15)
[2022-10-12] MEDS: amLODIPine BESYLATE 5 MG TABLET 10 MG PO (08:15)
[2022-10-12] MEDS: METOPROLOL SUCCINATE EXT REL 100 MG TABCR PO (08:15)
[2022-10-12] MEDS: CLOPIDOGREL BISULFATE 75 MG TABLET PO (08:15)
[2022-10-12] MEDS: FLUoxetine HCL 20 MG CAPSULE 60 MG PO (08:15)
[2022-10-12] MEDS: RANOLAZINE 500 MG TAB.ER.12H 1000 MG PO ×2 (08:16→21:22)
[2022-10-12] MEDS: ASPIRIN 325 MG TABLET PO (08:16)
[2022-10-12] MEDS: PANTOPRAZOLE 40 MG TABLET PO (08:16)
[2022-10-12] MEDS: FUROSEMIDE 80 MG TABLET PO (08:17)
[2022-10-12] MEDS: FLUTICASONE PROPIONATE 0.05% NA SPR 16 GM BTL (*BKC) 1 SPRAY NASAL ×2 (08:17→21:21)
[2022-10-12] MEDS: clonazePAM (*CRX) 0.5 MG TABLET PO ×2 (08:19→21:38)
[2022-10-12] MEDS: HEPARIN SODIUM 5,000 UNITS/ML VIAL 5000 UNITS SUB-Q ×2 (08:19→21:22)
--- NOTE | 2022-10-12 11:04 | PM.IMPN ---
Progress Note: A&P Assessment and Plan (1) Diabetes mellitus with complication, with long-term current use of insulin: Code(s): E11.8 - Type 2 diabetes mellitus with unspecified complications; Z79.4 - FDC (current) use of insulin Status: Acute Assessment and Plan: Yearly eye exam and foot exam. HBA1c ( goal <7.0%) , Renal functions, Liver panel every 3 months Monitor vitamin B12 levels Optimize TOM-inhibitor and statin Routine glucose monitoring. Watch for Hypoglycemia. BMI goal < 25 Yearly eye exam and foot exam Exercise, Diet ( low salt- low carb) Weight loss Routinely check for urine microalbuminuria Routine follow-up with PCP and electrician manager (2) (HFpEF) heart failure with preserved ejection fraction: Code(s): I50.30 - Unspecified diastolic (congestive) heart failure Status: Acute Assessment and Plan: patient has a normal ejection fraction. Fluid overload status post dialysis. Echo findings reviewed and noted last ejection fraction was 65% noted on on 05/18/2022. (3) ESRD (end stage renal disease) on dialysis: Code(s): N18.6 - End stage renal disease; Z99.2 - Dependence on renal dialysis Status: Acute Assessment and Plan: CRFOn chronic dialysis 3 times a week And gentle hydration. Avoid nephrotoxic drugs. Monitor antihypertensive drugs Avoid NSAIDs. Routine CMP monitor GFR. Monitor electrolytes potassium levels. Dose antibiotics depending on creatinine clearance Routine follow-up with PCP and director school of nursing recommended patient's blood pressure uncontrolled will start IV hydralazine. Slight bump in the troponin discussed with Cardiology no need for any further intervention will continue monitor. I&O is -2000 (4) Acute respiratory failure with hypoxia: Code(s): J96.01 - Acute respiratory failure with hypoxia Status: Acute (5) Pneumonia: Code(s): J18.9 - Pneumonia, unspecified organism Status: Acute Assessment and Plan: IV fluid resuscitation Monitor lactic acid levels Repeat CBC CMP CXR shows Pneumonia Monitor albumin' Monitoring of mental status. Steroids suggested if septic shock on his positive fluid resuscitation and vasopressors. IV antibiotics Rocephin continue Plan DVT prophylaxis. GI prophylaxis. All records reviewed Discussed plan of care with the nursing staff and with the patient in detail. Answered all questions and concerns from the patient. All labs have been reviewed. Code status updated dictation may have been done utilizing a voice recognition system. Attempts have been made to correct errors. However, there may be uncorrected grammatical, spelling, and recognition errors present. Subjective Date/time seen: 10/12/22 11:04 patient appears comfortable cough much improved no shortness of breath Review of Systems Review of Systems: All systems reviewed & are unremarkable except as noted in HPI and below Exam Narrative: GENERAL: Well appearing, well-nourished, non-toxic, in no acute distress. HEAD: Normocephalic, atraumatic. NECK: Supple. No adenopathy, no masses. RESPIRATORY: Airway patent, respirations nonlabored. Clear to auscultation bilaterally, no rales, rhonchi, wheezing. CARDIOVASCULAR: Regular rate and rhythm without murmurs, rubs, or gallops. Peripheral pulses 2+ and equal bilaterally. ABDOMINAL: Soft, nontender, nondistended, no hepatosplenomegaly. Normoactive BS. MUSCULOSKELETAL: no Epigastric and no hypochondrial tenderness SKIN: Warm, dry, normal color. No rashes. NEURO: A&O X3. Moves all extremities PSYCHIATRIC: Appropriate mood and affect. Normal interaction. Objective Data Vital Signs Vital Signs: Vital Signs - 24 hr 10/11/22 12:43 10/11/22 11:58 10/11/22 12:01 Temperature Pulse Rate Respiratory Rate 17 Blood Pressure 202/98 H 226/98 H Pulse Oximetry 98 Oxygen Delivery Nasal Cannula Oxygen Flow Rate 2 10/11/22 12:08 09/27
[2022-10-12] MEDS: hydrALAZINE HCL 20 MG/ML VIAL 10 MG IV PUSH (11:05)
[2022-10-12 11:41] LABS: Glucose Point of Care 116 mg/dl (65-105)
[2022-10-12] MEDS: ALBUTEROL SULFATE NEB 2.5 MG/3 ML INH INHALATION ×2 (11:56→23:48)
[2022-10-12] MEDS: ONDANSETRON HCL ODT 4 MG TABLET PO ×3 (14:13→21:21)
--- NOTE | 2022-10-12 14:24 | PM.CNCAR ---
Assessment and Plan Assessment and plan (1) Elevated troponin: Code(s): R77.8 - Other specified abnormalities of plasma proteins Status: Acute Plan ECG without ischemic changes. Echo from 04/2022 showing LVEF 60-65%, moderate pulmonary hypertension, no significant valvular disease. Patient presented with SBP as high as the 230s. Her troponin elevation likely due to ESRD and hypertensive emergency. Do not suspect ACS at this time. Would continue ASA and statin. Patient on 325mg at home, do not see clear indication for the higher dose of ASA. Recommend 81mg instead. Continue Plavix. Continue anti-anginal therapy. Patient needs blood pressure control. History of Present Illness History of Present Illness Consult date/time: 10/12/22 14:24 Requesting physician: Radha Naylor PA-C Consult reason: shortness of breath and Other (Elevated troponin) Reason For Visit: Acute Resp Failure w/hypoxia,CP w/elev trop,ESRD Narrative: We are being consulted for elevated troponins, acute respiratory failure with hypoxia. Patient is a 62-year-old female with a history of ESRD on HD who came to the ED yesterday with severe shortness of breath. Patient reports sharp stabbing chest pain yesterday. She had missed her hemodialysis appointment yesterday. On arrival to the ED, patient was noted to be hypertensive with SBP as high as the 230s. ECG without ischemic changes. Troponins were 0.101 --> 0.119 --> 0.141. Patient reports this morning that she is no longer having chest pain. Has some shortness of breath, but overall feels much better. She did get dialysis here yesterday. She has a known history of CAD s/p prior LAD PCI. Review of Systems Review of Systems: 12-point ROS obtained. Negative, unless stated in HPI. [facility] Past Medical History Medical History Anemia in CKD (chronic kidney disease) Angina at rest Anxiety Arthritis Bipolar disorder Bronchitis Cataract Chest pain Congestive heart failure Echo in January 2020 showing EF of 55-60% with moderate pulmonary hypertension and turbulent flow across the mitral valve; the diastolic function is normal Coronary artery disease With history of myocardial infarction Depression Diabetes End stage renal disease Follows with Dr Chowdhury; HD Tues/Thurs/Sat at [facility] in [place] Fibromyalgia Hypercholesterolemia Hypertension Knee fracture, left Peripheral neuropathy Related to her diabetes Seasonal allergies Secondary hyperparathyroidism (of renal origin) Surgical History Surgical History H/O cardiac catheterization Sep 2017 showed patent stent to LAD and 90% occlusion of a very small diagonal branch. H/O cataract removal with insertion of prosthetic lens Fall 2018 Bilateral H/O section x2 - one in 1977, one 1979 H/O exploratory laparotomy ? partial colectomy in the ? Patient is unsure what this was for but denies history of cancer. H/O inguinal hernia repair H/O: hysterectomy 2002 Hx of cholecystectomy 1996 Stented coronary artery to LAD in 2012 Family History Family History Father , age 50s Diabetes mellitus Cancer Mother , Age 89 Cerebrovascular accident Sibling Family history of kidney disease Brother on dialysis Son Diabetes mellitus Hypertension Asthma Social History Social History Social History: Ms. Moore lives at home with her in [place], [place]. 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 She denies alcohol or other substance use. She designates her surrogate decision maker as her son, Sincere Blevins. She wishes to be full code status. She ambulates without a cane or walker at home. She is a lifelong nonsmoker Smoking status: Never smoke
[2022-10-12] MEDS: ACETAMINOPHEN 325 MG TABLET 650 MG PO ×2 (14:43→21:43)
[2022-10-12] MEDS: BISACODYL 5 MG TABLET EC PO (15:17)
[2022-10-12 16:45] LABS: Glucose Point of Care 175 mg/dl (65-105)
[2022-10-12] MEDS: ATORVASTATIN 40 MG TABLET PO (21:22)
[2022-10-12] MEDS: PRAZOSIN HCL 5 MG CAPSULE 10 MG PO (21:22)
[2022-10-12] MEDS: ZIPRASIDONE HCL 80 MG CAPSULE PO (21:22)
[2022-10-12 21:47] LABS: Glucose Point of Care 144 mg/dl (65-105)
[2022-10-13] VITALS (23 sets, daily range): BP systolic 129–203; BP diastolic 48–90; PULSE 64–87; RESP 16–22; TEMP 36.2–37; O2SAT 94–100
[2022-10-13] MEDS: hydrALAZINE HCL 50 MG TABLET PO ×3 (06:50→21:10)
--- NOTE | 2022-10-13 07:42 | PC.NURSE ---
06:40 Patient had an assisted fall. 07:35 Dr Salazar notified.
[2022-10-13 07:47] LABS: Glucose Point of Care 172 mg/dl (65-105)
--- NOTE | 2022-10-13 08:32 | PC.NURSE ---
This patient, Isis Moore, was transferred to [facility] on 10/13/22 at 0832. Personal belongings sent with patient. Report given to Gopi SNOWDEN. Appropriate documentation sent with patient.
[2022-10-13] MEDS: FLUTICASONE PROPIONATE 0.05% NA SPR 16 GM BTL (*BKC) 1 SPRAY NASAL (08:48)
[2022-10-13] MEDS: HEPARIN SODIUM 5,000 UNITS/ML VIAL 5000 UNITS SUB-Q ×2 (08:49→21:09)
[2022-10-13] MEDS: FLUoxetine HCL 20 MG CAPSULE 60 MG PO (08:49)
[2022-10-13] MEDS: ASPIRIN 325 MG TABLET PO (08:49)
[2022-10-13] MEDS: PANTOPRAZOLE 40 MG TABLET PO (08:50)
[2022-10-13] MEDS: amLODIPine BESYLATE 5 MG TABLET 10 MG PO (08:50)
[2022-10-13] MEDS: CLOPIDOGREL BISULFATE 75 MG TABLET PO (08:50)
[2022-10-13] MEDS: METOPROLOL SUCCINATE EXT REL 100 MG TABCR PO (08:50)
[2022-10-13] MEDS: RANOLAZINE 500 MG TAB.ER.12H 1000 MG PO ×2 (08:50→21:10)
[2022-10-13] MEDS: FUROSEMIDE 80 MG TABLET PO (08:50)
[2022-10-13] MEDS: ISOSORBIDE MONONITRATE 60 MG TAB.ER.24H PO (08:50)
--- NOTE | 2022-10-13 11:26 | PM.CNNEP ---
Assessment and Plan Assessment and plan (1) End stage renal disease: Code(s): N18.6 - End stage renal disease Status: Chronic Assessment and Plan: HD today and continue T/T/S dialysis schedule follow electrolytes, volume status and clearance (2) Chest pain: Qualifiers: Chest pain type: unspecified Qualified Code(s): R07.9 - Chest pain, unspecified Code(s): R07.9 - Chest pain, unspecified Status: Acute Assessment and Plan: as noted on admission Cardiology recommendations noted no further intervention other tyrell BP control (3) Shortness of breath: Code(s): R06.02 - Shortness of breath Status: Acute Assessment and Plan: due to fluid overload(?) clinically better at this time follow respiratory status (4) Hypertension: Code(s): I10 - Essential (primary) hypertension Status: Chronic Assessment and Plan: suspect due to HTN and volume overload doing better follow trend of hemodynamics (5) Anemia: Code(s): D64.9 - Anemia, unspecified Status: Chronic Assessment and Plan: due to ESRD Epogen with HD follow trend of H/H (6) Diabetes mellitus with complication, with long-term current use of insulin: Code(s): E11.8 - Type 2 diabetes mellitus with unspecified complications; Z79.4 - continuous churn buttermaker (current) use of insulin Status: Chronic Assessment and Plan: follow accuchecks glycemic control Will continue to follow. History of Present Illness Reason for Consult Consult date: 10/13/22 Reason for consult: end stage renal disease Chief Complaint Chief complaint: Acute Resp Failure w/hypoxia,CP w/elev trop,ESRD History of Present Illness Narrative: The patient is a 62-year-old female with a past medical history as outlined below who presented to [facility] Emergency room with complaints of shortness of breath in association with chest pain. The patient apparently started having difficulty breathing the night before admission. She initially thought it would get better with supportive therapy but by the morning of admission, around 6:30 a.m., she developed sudden midsternal chest pain. Furthermore, the shortness of breath was still persistent and maybe even a bit worse. She took 2 nitroglycerins at home which did improve her pain but by that point, EMS had already been called given the symptom of chest pain in general. By the time of arrival to the emergency room, her chest pain was still somewhat present. Workup and evaluation emergency room demonstrated the patient be quite hypertensive in the 200 systolic range. Furthermore, routine blood test demonstrated labs consistent with her known history of end-stage renal disease and her troponins were mildly elevated but likely secondary to her known history of end-stage renal disease. Given her constellation of symptoms and numerous risk factors for coronary artery disease, she was admitted the hospital for both dialysis as well as monitoring of her symptoms. Since her admission, she did receive dialysis on Monday (10/11/22 - the day of admission) here at [facility] and tolerated the treatment reasonably well. Her breathing/ respiratory status seems to improve and she was just recently some seen by Cardiology with regard to evaluation of her chest pain. It would seem no further testing is needed other than more aggressive blood pressure control. Renal consultation was requested due to her end-stage renal disease. The patient dialyzes on a Monday, Monday, Monday dialysis schedule at [facility] under the care of Dr Garth Chowdhury. As already mentioned, she did receive dialysis on Monday here at [facility] and is due for dialysis today. By her most recent blood work, she has no critical electrolyte abnormalities and in already mentioned, her fluid status seems to be somewhat better given her treatment 4
[2022-10-13] MEDS: EPOETIN ALFA-EPBX 10,000 UNITS/ML VIAL 10000 UNITS IV PUSH (14:55)
[2022-10-13] MEDS: SODIUM CHLORIDE 0.9% IV 1,000 ML 999 ML IV CONT (14:56)
[2022-10-13] MEDS: clonazePAM (*CRX) 0.5 MG TABLET PO (21:09)
[2022-10-13] MEDS: ZIPRASIDONE HCL 80 MG CAPSULE PO (21:10)
[2022-10-13] MEDS: PRAZOSIN HCL 5 MG CAPSULE 10 MG PO (21:10)
[2022-10-13] MEDS: BISACODYL 5 MG TABLET EC PO (21:18)
[2022-10-13 21:28] LABS: Glucose Point of Care 170 mg/dl (65-105)
[2022-10-14] VITALS (10 sets, daily range): BP systolic 144–168; BP diastolic 52–68; PULSE 63–77; RESP 14–18; TEMP 36.4–36.6; O2SAT 90–99
[2022-10-14 06:18] LABS: Platelet Count Result 255 k/mm3 (150-375)
[2022-10-14] MEDS: hydrALAZINE HCL 50 MG TABLET PO ×2 (06:44→16:24)
[2022-10-14] MEDS: INSULIN ASPART (*BKC) 100 UNITS/ML SUB-Q (08:45)
[2022-10-14] MEDS: FLUoxetine HCL 20 MG CAPSULE 60 MG PO (08:45)
[2022-10-14] MEDS: CLOPIDOGREL BISULFATE 75 MG TABLET PO (08:46)
[2022-10-14] MEDS: ASPIRIN 325 MG TABLET PO (08:46)
[2022-10-14] MEDS: PANTOPRAZOLE 40 MG TABLET PO (08:46)
[2022-10-14] MEDS: amLODIPine BESYLATE 5 MG TABLET 10 MG PO (08:46)
[2022-10-14] MEDS: FUROSEMIDE 80 MG TABLET PO (08:46)
[2022-10-14] MEDS: ISOSORBIDE MONONITRATE 60 MG TAB.ER.24H PO (08:46)
[2022-10-14] MEDS: RANOLAZINE 500 MG TAB.ER.12H 1000 MG PO (08:46)
[2022-10-14] MEDS: METOPROLOL SUCCINATE EXT REL 100 MG TABCR PO (08:47)
[2022-10-14] MEDS: HEPARIN SODIUM 5,000 UNITS/ML VIAL 5000 UNITS SUB-Q (10:35)
[2022-10-14 11:55] LABS: Glucose Point of Care 62 mg/dl (65-105)
--- NOTE | 2022-10-14 12:39 | P.PNNP_ITS ---
Progress Note: A&P Assessment and Plan (1) End stage renal disease: Code(s): N18.6 - End stage renal disease Status: Chronic Assessment and Plan: * HD tomorrow and continue T/T/S dialysis schedule * follow electrolytes, volume status and clearance (2) Chest pain: Qualifiers: Chest pain type: unspecified Qualified Code(s): R07.9 - Chest pain, unspecified Code(s): R07.9 - Chest pain, unspecified Status: Acute Assessment and Plan: * as noted on admission * Cardiology recommendations noted * no further intervention other than BP control (3) Shortness of breath: Code(s): R06.02 - Shortness of breath Status: Acute Assessment and Plan: * due to fluid overload(?) * clinically better at this time * follow respiratory status (4) Hypertension: Code(s): I10 - Essential (primary) hypertension Status: Chronic Assessment and Plan: * suspect due to ESRD and volume overload * doing better * follow trend of hemodynamics (5) Anemia: Code(s): D64.9 - Anemia, unspecified Status: Chronic Assessment and Plan: * due to ESRD * Epogen with HD * follow trend of H/H (6) Diabetes mellitus with complication, with long-term current use of insulin: Code(s): E11.8 - Type 2 diabetes mellitus with unspecified complications; Z79.4 - intermediate manager (current) use of insulin Status: Chronic Assessment and Plan: * follow accuchecks * glycemic control Will continue to follow. Subjective Date/time seen: 10/14/22 12:39 Tolerated dialysis yesterday without any issues or problems; breathing/res piratory status is stable if not better in comparison to admission; no apparent distress voiced at the time of my visit; no issues/events overnight or earlier this AM; tells me she is being discharged today. Exam Narrative: General: WD/WN female in NAD Heart: normal S1 and S2; no rub Lungs: decreased at bases Abdomen: soft, nontender, nondistended, positive bowel sounds Extremities: no cyanosis or clubbing; no edema Skin: warm and dry Objective Data Vital Signs Vital Signs: Vital Signs Temp Pulse Resp BP Pulse Ox O2 Del Method 10/14/22 12:00 71 10/14/22 16:05 69 93 Room Air 10/14/22 16:00 77 90 Room Air 10/14/22 15:55 63 95 Room Air 10/14/22 12:00 36.5 C 67 18 144/58 H 98 Intake/Output Intake/Output: Intake & Output 10/12/22 10/13/22 10/14/22 10/15/22 23:59 23:59 23:59 23:59 Intake Total 1590 1080 970 Output Total 600 3000 Balance 990 -1920 970 Meds/Results Radiology Results: ITS Impressions Chest X-Ray 10/11/22 09:24 IMPRESSION: 1. Worsened airspace opacities in the mid and lower lung zones, consistent with atelectasis versus pneumonia. 2. Small pleural effusions. 3. Cardiomegaly. Labs Labs: Laboratory Tests 10/14/22 05:29 10/12/22 03:53
[2022-10-14 12:49] LABS: Glucose Point of Care 118 mg/dl (65-105)
--- NOTE | 2022-10-14 12:54 | PC.NURSE ---
On 10/14/22, the student, [Adrienne Ferreira], provided care and completed [facility] documentation on this patient. I have reviewed the student's documentation and agree with the findings.
--- NOTE | 2022-10-14 13:13 | PM.DS ---
DS: Admitting Diagnosis Discharge Date 10/14/2022 Admitting Diagnosis shortness of breath DS: Discharge Diagnosis Discharge Diagnosis (1) ESRD (end stage renal disease) on dialysis: Code(s): N18.6 - End stage renal disease; Z99.2 - Dependence on renal dialysis Status: Acute (2) (HFpEF) heart failure with preserved ejection fraction: Code(s): I50.30 - Unspecified diastolic (congestive) heart failure Status: Acute (3) Acute respiratory failure with hypoxia: Code(s): J96.01 - Acute respiratory failure with hypoxia Status: Acute (4) Elevated troponin: Code(s): R77.8 - Other specified abnormalities of plasma proteins Status: Acute (5) Shortness of breath: Code(s): R06.02 - Shortness of breath Status: Acute (6) Acute dyspnea: Code(s): R06.00 - Dyspnea, unspecified Status: Acute DS: Summary Hospital Course Hospital Course: patient is a 62-year-old female who came to the hospital complaining of shortness of breath and difficulty breathing. Patient is a dialysis patient who was seen and evaluated in the emergency room was found to be in fluid overload. Patient was immediately taken to a dialysis center that she was dialyzed. initial chest x-ray showed possible pneumonia so patient was treated for sepsis patient blood culture urine culture all negative patient recovered very well with IV antibiotics patient blood pressure was fluctuating but so hydralazine IV was added. Patient's echo results from few months ago showed ejection fraction of 60%. Patient also had high troponin for which Cardiology was consulted. Patient is in a negative balance now patient blood pressure is well controlled can be discharged home continue following with Dr. Chowdhury as a nephrology continue with her outpatient dialysis continue to follow PCP as an outpatient in 1 week Status at Discharge Functional status at discharge: independent ambulation Overall status at discharge: patient is back to baseline Time Spent with Patient Time attestation: Total time spent providing and/or coordinating discharge services: Time spent: Greater than 30 minutes Exam Narrative: GENERAL: Well appearing, well-nourished, non-toxic, in no acute distress. HEAD: Normocephalic, atraumatic. NECK: Supple. No adenopathy, no masses. RESPIRATORY: Airway patent, respirations nonlabored. Clear to auscultation bilaterally, no rales, rhonchi, wheezing. CARDIOVASCULAR: Regular rate and rhythm without murmurs, rubs, or gallops. Peripheral pulses 2+ and equal bilaterally. ABDOMINAL: Soft, nontender, nondistended, no hepatosplenomegaly. Normoactive BS. MUSCULOSKELETAL: no Epigastric and no hypochondrial tenderness SKIN: Warm, dry, normal color. No rashes. NEURO: A&O X3. Moves all extremities PSYCHIATRIC: Appropriate mood and affect. Normal interaction. DS: Data Data Completed and Pending Labs on day of discharge: Labs from last 24 hours 10/14/22 10/14/22 10/14/22 12:47 11:42 05:29 Plt Count 255 MPV 11.0 H POC Capillary Glucose 118 H 62 L 10/13/22 21:05 Plt Count MPV POC Capillary Glucose 170 H Preliminary micro results at discharge 10/12/22 12:24 Blood Culture - Preliminary Blood 10/12/22 12:25 Blood Culture - Preliminary Blood 10/11/22 20:50 Blood Culture - Preliminary Blood 10/11/22 20:50 Blood Culture - Preliminary Blood Discharge Plan Discharge Consulting providers: Garth Chowdhury ; Jordan Gtz ; Radha Naylor Discharging Clinician: Tristan Salazar Patient Disposition: Home, Self-Care Activity: as tolerated Diet: renal Patient Instructions: Heart Failure (GEN), Antibiotic Form Stand Alone Forms: General Discharge Information Follow-up/Referrals: Garth Chowdhury MD [Physician] - Jordan Gtz MD [Physician] - Discharge Medications: Continued ziprasidone HCl 40 mg capsule 80 mg PO HS atorvastatin
--- NOTE | 2022-10-14 16:14 | HOMEO2EVAL ---
Evaluation was performed at [facility] Home Oxygen Evaluation RC: Home Oxygen (O2) Evaluation Start: 10/14/22 15:30 Freq: ONCE Status: Active Protocol: RPE Activity Type Activity Date Activity User E-sign Co-sign Detail Recorded Client Recorded Date Recorded By Document 10/14/22 15:55 JOSÉ MIGUEL [id number] 10/14/22 16:14 JOSÉ MIGUEL Document 10/14/22 16:00 JOSÉ MIGUEL [id number] 10/14/22 16:14 JOSÉ MIGUEL Document 10/14/22 16:05 JOSÉ MIGUEL [id number] 10/14/22 16:14 JOSÉ MIGUEL 10/14/22 10/14/22 10/14/22 15:55 16:00 16:05 Home O2 Evaluation [Oxygen] -Test Phase Resting Exercise Resting -Oxygen Delivery Room Air Room Air Room Air [Pulse Oximetry] -Pulse Oximetry (90-100 %) 95 90 93 [Pulse Rate] -Pulse Rate (60-100 beats/min) 63 77 69 [Evaluation] -Activity Tolerance Good [Exercise] -Ambulation Distance (feet) 150 -Ambulation Distance (meters) 45.71 [Comments] -Home Oxygen Evaluation Comments NO HOME O2 NEEDED AT THIS TIME. [Charges] -Treatment Charges O2 Evaluation - Inpatient
--- NOTE | 2022-10-14 16:14 | PCRCNOTE ---
HOME O2 EVAL COMPLETED. NO HOME O2 NEEDED AT THIS TIME. RN NOTIFIED
== END 2022-10-14 16:55 | disposition home or self-care (01) | DRG 189 ==
LOC: ANHED 12:08 → ANHIMU 13:14 → ANH2MED 10-13 08:40
PROVIDERS: Internal Medicine Nephrology; Physician Assistant; Admitting Provider Internal Medicine; Emergency Provider Emergency Medicine; PCP Internal Medicine Gastroenterology; Visit Provider Internal Medicine
DX: J96.01 Acute respiratory failure with hypoxia (principal); N18.6 End stage renal disease; I13.2 Hypertensive heart and chronic kidney disease with heart failure and with stage 5 chronic kidney disease, or end stage renal disease; N25.81 Secondary hyperparathyroidism of renal origin; I50.32 Chronic diastolic (congestive) heart failure; Z20.822 Contact with and (suspected) exposure to COVID-19; E11.22 Type 2 diabetes mellitus with diabetic chronic kidney disease; I27.20 Pulmonary hypertension, unspecified; Z99.2 Dependence on renal dialysis; E11.42 Type 2 diabetes mellitus with diabetic polyneuropathy; D63.1 Anemia in chronic kidney disease; I25.119 Atherosclerotic heart disease of native coronary artery with unspecified angina pectoris; R77.8 Other specified abnormalities of plasma proteins; F31.9 Bipolar disorder, unspecified; E78.00 Pure hypercholesterolemia, unspecified; M79.7 Fibromyalgia; I25.2 Old myocardial infarction; Z79.4 Long term (current) use of insulin; Z79.82 Long term (current) use of aspirin; Z79.899 Other long term (current) drug therapy; Z95.5 Presence of coronary angioplasty implant and graft; Z98.49 Cataract extraction status, unspecified eye; Z96.1 Presence of intraocular lens
CPT/HCPCS: 36415; 71046; 80053; 82948; 83605; 83690; 83880; 84484; 85025; 85049; 85610; 85730; 86706; 87040; 87340; 87636; 93005; 94618; 94640; 96374; 99285; A9270; C9113; G0257; G0378; J0360; J0696; J1644; J1815; J7030; Q5105

== ENCOUNTER 2022-10-16 15:54 | Observation (INO) | payer MEDICARE, MEDICAID, SELFPAY ==
--- NOTE | ~2022-10-16 | XR_ITS ---
XR chest 1V portable 10/17/2022 10:29 Indication: Shortness of breath. Procedure: AP portable chest Comparison: Comparison to multiple prior studies sequentially, with oldest reviewed study dated 02/2022. Findings: Borderline heart size. There is improving bilateral interstitial infiltrates with peribronc hial thickening. There is focal consolidation of the right lung base. Impression: 1: Improving pulmonary edema with more focal consolidation in the right lung base, likely superimpose d atelectasis or less likely pneumonia. Reviewed, dictated and finalized at location B. [facility] Impression: 1: Improving pulmonary edema with more focal consolidation in the right lung ba se, likely superimposed atelectasis or less likely pneumonia.
[2022-10-16 16:09] VITALS: BP 176/52; PULSE 73; RESP 18; TEMP 37.7; O2SAT 95
[2022-10-16 18:34] LABS: Basophils Absolute Auto 0.1 K/mm3 (0.0-0.1); Basophils Percent Auto 1.2 % (0.2-1.2); Eosinophils Absolute Auto 0.3 K/mm3 (0-0.3); Eosinophils Percent Auto 3.4 % (0-4.4); Hematocrit 28.9 % (37.0-47.0); Hemoglobin 9.3 g/dL (12.0-15.0); Immature Granulocyte Absolute 0.03 K/mm3 (0.00-0.031); Immature Granulocyte Percent A 0.4 % (0-0.5); Lymphocytes Absolute Auto 0.91 K/mm3 (0.9-3.2); Mean Corpuscular HGB Conc 32.2 g/dl (32-36); Mean Corpuscular Hemoglobin 32.6 pg (26-34); Mean Corpuscular Volume 101.4 fl (80-100); Mean Platelet Volume 10.7 fl (7.4-10.4); Monocytes Percent Auto 11.7 % (2.6-8.5); Neutrophils Percent Auto 72.3 % (45.5-73.1); Platelet Count Result 281 k/mm3 (150-375); Red Blood Count 2.85 M/mm3 (4.2-5.4); Red Cell Distribution Width 13.7 % (11.5-14.5); White Blood Count 8.3 K/mm3 (4.5-10.0)
[2022-10-16 18:44] LABS: Alanine Aminotransferase 18 U/L (6-35); Albumin Level 4.1 g/dL (3.5-5.1); Alkaline Phosphatase 73 U/L (38-126); Anion Gap 12 mmol/L (8-16); Aspartate Amino Transferase 28 U/L (14-36); Bilirubin,Total 0.5 mg/dL (0.2-1.3); Blood Urea Nitrogen 27 mg/dL (7-17); Calcium 9.2 mg/dL (8.4-10.2); Carbon Dioxide 28 mmol/L (22-30); Chloride 95 mmol/L (98-107); Estimated CRCL calculation 10 ml/min; Estimated Glomerular Filt Rate 9; Glucose 148 mg/dL (65-110); Potassium 4.1 mmol/L (3.4-5.0); Sodium 135 mmol/L (137-145)
--- NOTE | 2022-10-16 18:55 | ED.GENADULT ---
HPI - General Adult General Chief complaint: Weakness Stated complaint: weakness - just DC'd from hospital 2 days ago Time Seen by Provider: 10/16/22 17:55 History of Present Illness HPI narrative: 62-year-old female presented the emergency department for evaluation of increased generalized weakness. Patient was recently admitted for pneumonia. Patient states she went home on Monday and over the course of the day on Monday and Monday she has had decreased that she ambulate on her own. Patient states that she has been unable to stand up from the toilet on her own and has been needing the assistance of a family member. When the family member is not present she is unable to care for herself. Patient is on hemodialysis and normally gets dialysis on Monday and Saturdays. Patient did have dialysis on Monday and she is switching to a Monday plan over the holiday. Patient denies any chest pain or shortness of breath. Patient denies any fevers. Patient states she did have a ground-level fall Her knees but denies any pain or injury. Patient denies striking head denies loss of consciousness. Related Data Home Medications Medication Instructions Recorded Confirmed amlodipine 10 mg tablet 10 mg PO DAILY 01/27/20 10/16/22 clonazepam 0.5 mg tablet 1 mg PO HS PRN Anxiety 01/27/20 10/16/22 clopidogrel 75 mg tablet 75 mg PO DAILY 01/27/20 10/16/22 fluoxetine 20 mg capsule 60 mg PO DAILY 01/27/20 10/16/22 fluticasone propionate 50 1 spray intranasal BID PRN Nasal 01/27/20 10/16/22 mcg/actuation nasal Congestion spray,suspension (Allergy Relief (fluticasone)) furosemide 80 mg tablet 80 mg PO DAILY 01/27/20 10/16/22 hydralazine 50 mg tablet 50 mg PO Q8H 01/27/20 10/16/22 insulin aspart U-100 100 unit/mL 4 unit subcut QACBREAK 01/27/20 10/16/22 (3 mL) subcutaneous pen (Novolog Flexpen U-100 Insulin aspart) insulin detemir U-100 100 unit/mL 14 unit subcut HS 01/27/20 10/16/22 (3 mL) subcutaneous pen (Levemir FlexTouch U-100 Insulin) metoprolol succinate 25 mg 100 mg PO DAILY 01/27/20 10/16/22 tablet,extended release 24 hr nitroglycerin 0.4 mg sublingual 0.4 mg sublingual Q5MIN PRN Chest 01/27/20 10/16/22 tablet Pain prazosin 5 mg capsule 10 mg PO HS 01/27/20 10/16/22 ranolazine 1,000 mg 1,000 mg PO BID 01/27/20 10/16/22 tablet,extended release,12 hr ziprasidone HCl 40 mg capsule 40 mg PO HS 02/14/20 10/16/22 ondansetron HCl 4 mg tablet 4 mg PO PRN PRN Nausea 10/11/22 10/16/22 pantoprazole 40 mg tablet,delayed 40 mg PO DAILY 10/11/22 10/16/22 release Allergies Allergy/AdvReac Type Severity Reaction Status Date / Time No Known Allergies Allergy Unknown Verified 10/11/22 20:27 Review of Systems Review of Systems: CONSTITUTIONAL: Increased generalized weakness EYES: Denies visual changes, redness, or discharge. ENT: Denies rhinorrhea, congestion, sore throat, or otalgia. CARDIOVASCULAR: Denies chest pain, palpitations, or edema. RESPIRATORY: Denies cough or dyspnea. GASTROINTESTINAL: Denies abdominal pain, nausea, vomiting, or diarrhea. GENITOURINARY: Denies dysuria or hematuria. SKIN: Denies rash or itching. MUSCULOSKELETAL: Denies back pain, joint pain, or myalgia. NEUROLOGIC: Denies headache, numbness, or weakness. [facility] Past Medical History Medical History Anemia in CKD (chronic kidney disease) Angina at rest Anxiety Arthritis Bipolar disorder Bronchitis Cataract Chest pain Congestive heart failure Echo in January 2020 showing EF of 55-60% with moderate pulmonary hypertension and turbulent flow across the mitral valve; the diastolic function is normal Coronary artery disease With history of myocardial infarction Depression Diabetes End stage renal disease Follows with Dr Chowdhury; HD Tues/Thurs/Sat at [facility] in [place] Fibromyalgia Hypercholesterolemia Hypertension Knee fracture, left Peripheral neuro
[2022-10-16 19:12] LABS: Influenza A QL RT-PCR Negative (Negative); Influenza B QL RT-PCR Negative (Negative); SARS-CoV-2 RNA PCR Negative
[2022-10-16 19:21] VITALS: BP 198/69; PULSE 74; PULSE 75; RESP 21; O2SAT 96
--- NOTE | 2022-10-16 19:22 | PC.NURSE ---
Pt states she does not produce urine
[2022-10-16 20:02] VITALS: BP 193/65; PULSE 72; RESP 19; O2SAT 93
[2022-10-16 20:16] LABS: Creatine Kinase 132 U/L (30-135)
--- NOTE | 2022-10-16 20:31 | PM.IMHP ---
H&P: HPI History of Present Illness Date/Time: 10/16/22 20:31 Chief Complaint: Generalized weakness Narrative: Patient is a 62-year-old woman with past history of ESRD on hemodialysis Monday Dr. Chowdhury in at [facility], heart failure preserved ejection fraction, bipolar disorder, CAD status with history of OR, type 2 diabetes, hypertension of kidney disease who presents to ED with complaints of generalized weakness. Patient was recently hospitalized from 10/11-10/14 with worsening dyspnea found to be fluid overloaded. She was treated with hemodialysis. She is also treated with IV antibiotics for possible pneumonia. Cardiology was consulted for elevated troponin associated with fluid overload. With negative fluid balance with ultrafiltration patient symptoms improved. She then was discharged home. She now returns 2 days later with generalized weakness and having difficulty ambulating at home. No other changes since discharge. In the ED: Labs are stable, she is due for dialysis tomorrow (schedule changed to MWF this week), flu negative, COVID negative. Patient admitted for observation for generalized weakness. Patient have PT OT and likely needs placement at care home facility. Review of Systems Review of Systems: Constitutional: No Fever, No Chills, No Night Sweats, No Fatigue, No Malaise. Endorses generalized weakness ENT/Mouth: No Hearing Changes, No Ear Pain, No Nasal Congestion, No Sinus Pain, No Hoarseness, No sore throat, No Rhinorrhea, No Swallowing Difficulty Eyes: No Eye Pain, No Redness, No Vision Changes Cardiovascular: No Chest Pain, No Palpitations, No Dyspnea on Exertion, No Orthopnea, No Claudication, No Edema Respiratory: No Cough, No Sputum, No Wheezing, No Shortness of Breath Gastrointestinal: No Nausea, No Vomiting, No Diarrhea, No Constipation, No Abdominal Pain, No Heartburn, No Hematochezia, No Melena Genitourinary: No Dysuria, No Urinary Frequency, No Hematuria, No Urinary Incontinence, No Urgency Musculoskeletal: No Arthralgias, No Myalgias, No Joint Swelling, No Joint Stiffness, No Back Pain Skin: No Skin Lesions, No Pruritis, No Hair Changes Neuro: No focal weakness, No Numbness, No Paresthesias, No Loss of Consciousness, No Syncope, No Dizziness, No Headache Psych: No Anxiety/Panic, No Depression, No Insomnia Heme: No Bruising, No Bleeding Lymph: No Adenopathy Endocrine: No Polyuria, No Polydipsia, No Temperature Intolerance [facility] Past Medical History Medical History Anemia in CKD (chronic kidney disease) Angina at rest Anxiety Arthritis Bipolar disorder Bronchitis Cataract Chest pain Congestive heart failure Echo in January 2020 showing EF of 55-60% with moderate pulmonary hypertension and turbulent flow across the mitral valve; the diastolic function is normal Coronary artery disease With history of myocardial infarction Depression Diabetes End stage renal disease Follows with Dr Chowdhury; HD Tues/Thurs/Sat at [facility] Fibromyalgia Hypercholesterolemia Hypertension Knee fracture, left Peripheral neuropathy Related to her diabetes Seasonal allergies Secondary hyperparathyroidism (of renal origin) Surgical History Surgical History H/O cardiac catheterization Sep 2017 showed patent stent to LAD and 90% occlusion of a very small diagonal branch. H/O cataract removal with insertion of prosthetic lens Fall 2018 Bilateral H/O section x2 - one in 1977, one 1979 H/O exploratory laparotomy ? partial colectomy in the ? Patient is unsure what this was for but denies history of cancer. H/O inguinal hernia repair H/O: hysterectomy 2002 Hx of cholecystectomy 1996 Stented coronary artery to LAD in 2012 Family History Family History Father , age 50
[2022-10-16] MEDS: HEPARIN SODIUM 5,000 UNITS/ML VIAL 5000 UNITS SUB-Q (21:29)
[2022-10-16 21:55] VITALS: BP 189/61; PULSE 74; RESP 18; TEMP 36.9; O2SAT 95
[2022-10-16 21:56] VITALS: BMI 29.9
[2022-10-16] MEDS: PRAZOSIN HCL 5 MG CAPSULE 10 MG PO (22:03)
[2022-10-16] MEDS: ZIPRASIDONE HCL 20 MG CAPSULE 40 MG PO (22:03)
[2022-10-16] MEDS: hydrALAZINE HCL 50 MG TABLET PO (22:04)
[2022-10-16] MEDS: RANOLAZINE 500 MG TAB.ER.12H 1000 MG PO (22:04)
[2022-10-16] MEDS: clonazePAM (*CRX) 0.5 MG TABLET 1 MG PO (22:09)
--- NOTE | 2022-10-16 22:16 | PC.NURSE ---
This patient, Isis Moore, was admitted to Medical Room 344-01. Patient/family oriented to hospital policies and general routines including ID bracelet, bed and alarms, visiting hours, pain management, procedures, bathroom and other care routines, personal items, smoking policy, room service/diet, and visiting hours. Information on how to activate the Rapid Response Team has been discussed. Patient/Family are encouraged to report perceived risks to care and to ask questions if they do not understand what they are told or what they should do.
[2022-10-17] VITALS (20 sets, daily range): BP systolic 131–186; BP diastolic 56–73; PULSE 60–71; RESP 16–18; TEMP 36–36.9; O2SAT 92–96; BMI 29.9
[2022-10-17 05:47] LABS: Alanine Aminotransferase 17 U/L (6-35); Albumin Level 3.5 g/dL (3.5-5.1); Alkaline Phosphatase 68 U/L (38-126); Anion Gap 11 mmol/L (8-16); Aspartate Amino Transferase 22 U/L (14-36); Bilirubin,Total 0.5 mg/dL (0.2-1.3); Blood Urea Nitrogen 31 mg/dL (7-17); Calcium 8.5 mg/dL (8.4-10.2); Carbon Dioxide 28 mmol/L (22-30); Chloride 96 mmol/L (98-107); Estimated CRCL calculation 9 ml/min; Estimated Glomerular Filt Rate 7; Glucose 121 mg/dL (65-110); Potassium 3.8 mmol/L (3.4-5.0); Sodium 135 mmol/L (137-145)
[2022-10-17] MEDS: hydrALAZINE HCL 50 MG TABLET PO ×2 (06:00→20:34)
[2022-10-17 08:11] LABS: Glucose Point of Care 132 mg/dl (65-105)
--- NOTE | 2022-10-17 09:27 | PC.NURSE ---
Patient states she does not take scheduled dose of novolog when blood sugar is 132. Scheduled dose not given.
[2022-10-17] MEDS: FLUoxetine HCL 20 MG CAPSULE 60 MG PO (09:38)
[2022-10-17] MEDS: HEPARIN SODIUM 5,000 UNITS/ML VIAL 5000 UNITS SUB-Q ×2 (09:38→20:34)
[2022-10-17] MEDS: CLOPIDOGREL BISULFATE 75 MG TABLET PO (09:38)
[2022-10-17] MEDS: amLODIPine BESYLATE 5 MG TABLET 10 MG PO (09:38)
[2022-10-17] MEDS: ISOSORBIDE MONONITRATE 60 MG TAB.ER.24H PO (09:38)
[2022-10-17] MEDS: METOPROLOL SUCCINATE EXT REL 100 MG TABCR PO (09:38)
[2022-10-17] MEDS: ASPIRIN 81 MG ENTERIC TABLET PO (09:38)
[2022-10-17] MEDS: FUROSEMIDE 80 MG TABLET PO (09:38)
[2022-10-17] MEDS: PANTOPRAZOLE 40 MG TABLET PO (09:39)
[2022-10-17] MEDS: RANOLAZINE 500 MG TAB.ER.12H 1000 MG PO ×2 (09:39→20:34)
[2022-10-17 12:24] LABS: Glucose Point of Care 240 mg/dl (65-105)
--- NOTE | 2022-10-17 12:36 | PM.IMPN ---
Progress Note: A&P Assessment and Plan (1) General weakness: Code(s): R53.1 - Weakness Status: Acute Plan # debility -likely secondary to the hospitalization and weakness from recent pneumonia/fluid overload. Recheck chest x-ray today -PT OT consult, patient may need placement at half-way facility # recent pneumonia -This patient is breathing comfortably, no sputum production, recent completed antibiotics for pneumonia. Recheck chest x-ray # other chronic conditions- resume all home meds -ESRD: Consulting Nephrology, plan for hemodialysis today. patient is to be on Monday schedule. On 80 mg p.o. Lasix daily . -hypertension of renal disease: Amlodipine, hydralazine, metoprolol -GERD: Protonix -CAD, history of [place]: Aspirin, Plavix, statin, Imdur, metoprolol, Ranexa -bipolar disorder: Klonopin, fluoxetine, ziprasidone, prazosin -seasonal allergies: Fluticasone -insulin-dependent type 2 diabetes: NovoLog 4 units q.a.c., Lantus 14 units nightly Diet: Renal dialysis DVT prophylaxis: Heparin Code status: Full code Disposition: Observation, likely half-way facility placement for weakness . PT OT to see care coordination consultation Subjective Date/time seen: 10/17/22 12:36 Interval history: Patient is a 62-year-old woman with past history of ESRD on hemodialysis Monday Dr. Chowdhury in at [facility], heart failure preserved ejection fraction, bipolar disorder, CAD status with history of [place], type 2 diabetes, hypertension of kidney disease who presents to ED with complaints of generalized weakness.? Patient was recently hospitalized from 10/11-10/14 with worsening dyspnea found to be fluid overloaded.? She was treated with hemodialysis.? She is also treated with IV antibiotics for possible pneumonia.? Cardiology was consulted for elevated troponin associated with fluid overload.? With negative fluid balance with ultrafiltration patient symptoms improved.? She then was discharged home.? She now returns 2 days later with generalized weakness and having difficulty ambulating at home.? No other changes since discharge. In the ED:? Labs are stable, she is due for dialysis tomorrow (schedule changed to [facility] this week), flu negative, COVID negative.? Patient admitted for observation for generalized weakness.? Patient have PT OT and likely needs placement at half-way facility. 10/17/2022 no new complaints. Feels Okay. Denies shortness of breath. Mild cough still persistent from recent pneumonia Review of Systems Review of Systems: All systems reviewed & are unremarkable except as noted in HPI and below Exam Narrative: - GENERAL: Pleasant woman in no acute distress. Well-nourished. - EYES: EOMI. Anicteric. - HENT: Moist mucous membranes. - LUNGS: Clear to auscultation bilaterally, no wheezing, rhonchi, or rales. - CARDIOVASCULAR: Regular rate and rhythm. No murmur. No JVD. - ABDOMEN: Soft, non-tender and non-distended. No palpable masses. - EXTREMITIES: No edema. Peripheral pulses 2+. Non-tender. - NEUROLOGIC: No focal neurological deficits. CN II-XII grossly intact. Generalized weakness 4/5 muscle strength throughout. - PSYCHIATRIC: Awake, Alert and oriented x 3. Appropriate mood and affect. - SKIN: No rashes or lesions. Warm. Objective Data Vital Signs Vital Signs: Vital Signs - 24 hr 10/16/22 16:09 10/16/22 19:21 10/16/22 19:21 Temperature 99.8 F H Pulse Rate 73 75 74 Respiratory Rate 18 21 H Blood Pressure 176/52 H 198/69 H Pulse Oximetry 95 96 Oxygen Delivery 10/16/22 20:02 10/16/22 21:55 10/16/22 22:14 Temperature 98.4 F Pulse Rate 72 74 Respiratory Rate 19 18 Blood Pressure 193/65 H 189/61 H Pulse Oximetry 93 95 Oxygen Delivery Room Air 10/17/22 04:31 10/17/22 09:38 10/17/22 09:50 Temperature 97.6 F Pulse Rate 64 71 Respiratory Rate 18 Blood Pressure 155/58 H Pulse Oximetry 92 Oxygen Delivery Room Air 1
--- NOTE | 2022-10-17 13:21 | PC.NURSE ---
Patient off of unit to dialysis
--- NOTE | 2022-10-17 13:34 | PM.CNNEP ---
Assessment and Plan Assessment and plan (1) End stage renal disease: Code(s): N18.6 - End stage renal disease Status: Chronic Assessment and Plan: HD today and continue dialysis 3x/week -- with holiday schedule, plan HD on Mon, Mon, and then Monday follow electrolytes, volume status and clearance (2) General weakness: Code(s): R53.1 - Weakness Status: Acute Assessment and Plan: likely secondary to recent hospitalization for fluid overload +/- pneumonia PT/OT as tolerated may need placement on discharge (3) Hypertension: Code(s): I10 - Essential (primary) hypertension Status: Chronic Assessment and Plan: reasonable control at this time follow trend of hemodynamics (4) Anemia: Code(s): D64.9 - Anemia, unspecified Status: Chronic Assessment and Plan: due to ESRD Epogen with HD follow trend of H/H (5) Diabetes mellitus with complication, with long-term current use of insulin: Code(s): E11.8 - Type 2 diabetes mellitus with unspecified complications; Z79.4 - halfway (current) use of insulin Status: Chronic Assessment and Plan: follow accuchecks glycemic control Will continue to follow. History of Present Illness Reason for Consult Consult date: 10/17/22 Reason for consult: end stage renal disease Chief Complaint Chief complaint: gen weakness History of Present Illness Narrative: The patient is a 62-year-old female with a past medical history as outlined below who presented to [facility] Emergency room with complaints of shortness of breath in association with generalized weakness. The patient was just recently hospitalized here at [facility] for worsening shortness of breath secondary to fluid overload and possibly bronchitis / pneumonia. She was treated with aggressive dialysis as well as IV antibiotic therapy and her overall clinical condition improved significantly. She was subsequently discharged on 10/14/2022 from the hospital. Apparently, following her return home, she noted that she was quite weak and having significant difficulty ambulating and doing simple activities of daily living. She did not have any other acute medical issues other than the a for mentioned weakness/fatigue. Due to the persistence of this issue, she came back to the ER for further assessment. Workup and evaluation emergency room demonstrated the patient to be hemodynamically stable and in no acute distress. Routine blood test demonstrated labs consistent with her known history of end-stage renal disease and she was influenza a/B as well as COVID-19 negative by rapid testing. It was felt that her overall weakness/fatigue was secondary to severe deconditioning from her last hospitalization and that she may need placement of a snf facility depending on PT /OT assessments/evaluation. For this reason, she was admitted the hospital for further evaluation and therapy. Renal consultation was requested due to her end-stage renal disease. The patient dialyzes on a //Monday dialysis schedule at [facility] under the care of Dr Garth Chowdhury. She did receive dialysis on Monday (due to the dialysis schedule) and is currently receiving dialysis at the time of my visit (seen on HD at 3:25PM). By her most recent blood work, she has no critical electrolyte abnormalities and in already mentioned, her fluid status seems to be somewhat better in general since her last hospitalization. Currently, the time my visit, she does not appear in acute distress. Review of Systems Review of Systems: As per HPI. [facility] Past Medical History Medical History Anemia in CKD (chronic kidney disease) Angina at rest Anxiety Arthritis Bipolar disorder Bronchitis Cataract Chest pain Congestive heart failure Echo in January 2020 showing
[2022-10-17] MEDS: EPOETIN ALFA-EPBX 10,000 UNITS/ML VIAL 10000 UNITS IV PUSH (13:42)
--- NOTE | 2022-10-17 17:40 | PC.NURSE ---
Patient returned back to unit from dialysis.
[2022-10-17 17:47] LABS: Glucose Point of Care 142 mg/dl (65-105)
[2022-10-17] MEDS: ZIPRASIDONE HCL 20 MG CAPSULE 40 MG PO (20:30)
[2022-10-17] MEDS: clonazePAM (*CRX) 0.5 MG TABLET 1 MG PO (20:34)
[2022-10-17] MEDS: PRAZOSIN HCL 5 MG CAPSULE 10 MG PO (20:34)
[2022-10-17] MEDS: INSULIN DETEMIR 100 UNITS/ML 14 UNITS SUB-Q (20:40)
[2022-10-17 20:41] LABS: Glucose Point of Care 196 mg/dl (65-105)
[2022-10-18 04:42] VITALS: BP 175/62; PULSE 69; RESP 18; TEMP 36.7; O2SAT 94
[2022-10-18 04:49] LABS: Glucose Point of Care 76 mg/dl (65-105)
[2022-10-18] MEDS: ONDANSETRON HCL ODT 4 MG TABLET (04:56)
[2022-10-18 05:51] LABS: Basophils Absolute Auto 0.1 K/mm3 (0.0-0.1); Basophils Percent Auto 1.1 % (0.2-1.2); Eosinophils Absolute Auto 0.3 K/mm3 (0-0.3); Eosinophils Percent Auto 3.4 % (0-4.4); Hematocrit 26.7 % (37.0-47.0); Hemoglobin 8.5 g/dL (12.0-15.0); Immature Granulocyte Absolute 0.03 K/mm3 (0.00-0.031); Immature Granulocyte Percent A 0.4 % (0-0.5); Lymphocytes Absolute Auto 0.94 K/mm3 (0.9-3.2); Lymphocytes Percent Auto 12.6 % (18.3-44.2); Mean Corpuscular HGB Conc 31.8 g/dl (32-36); Mean Corpuscular Hemoglobin 31.5 pg (26-34); Mean Corpuscular Volume 98.9 fl (80-100); Mean Platelet Volume 11.1 fl (7.4-10.4); Monocytes Percent Auto 12.9 % (2.6-8.5); Neutrophils Absolute Auto 5.2 K/mm3 (1.3-6.7); Neutrophils Percent Auto 69.6 % (45.5-73.1); Platelet Count Result 258 k/mm3 (150-375); Red Cell Distribution Width 13.6 % (11.5-14.5); White Blood Count 7.4 K/mm3 (4.5-10.0)
[2022-10-18] MEDS: hydrALAZINE HCL 50 MG TABLET PO ×3 (05:53→20:19)
[2022-10-18 05:59] LABS: Alanine Aminotransferase 15 U/L (6-35); Albumin Level 3.7 g/dL (3.5-5.1); Alkaline Phosphatase 61 U/L (38-126); Anion Gap 13 mmol/L (8-16); Aspartate Amino Transferase 23 U/L (14-36); Bilirubin,Total 0.4 mg/dL (0.2-1.3); Blood Urea Nitrogen 17 mg/dL (7-17); Calcium 8.8 mg/dL (8.4-10.2); Carbon Dioxide 27 mmol/L (22-30); Chloride 100 mmol/L (98-107); Estimated CRCL calculation 13 ml/min; Estimated Glomerular Filt Rate 12; Glucose 85 mg/dL (65-110); Potassium 4.3 mmol/L (3.4-5.0); Sodium 140 mmol/L (137-145)
[2022-10-18 08:30] LABS: Glucose Point of Care 94 mg/dl (65-105)
[2022-10-18] MEDS: RANOLAZINE 500 MG TAB.ER.12H 1000 MG PO ×2 (09:39→20:19)
[2022-10-18] MEDS: ONDANSETRON HCL ODT 4 MG TABLET PO (09:39)
[2022-10-18] MEDS: ACETAMINOPHEN 325 MG TABLET 650 MG PO (09:39)
[2022-10-18 09:40] VITALS: PULSE 69
[2022-10-18] MEDS: amLODIPine BESYLATE 5 MG TABLET 10 MG PO (09:40)
[2022-10-18] MEDS: HEPARIN SODIUM 5,000 UNITS/ML VIAL 5000 UNITS SUB-Q ×2 (09:40→20:23)
[2022-10-18] MEDS: FUROSEMIDE 80 MG TABLET PO (09:40)
[2022-10-18] MEDS: FLUoxetine HCL 20 MG CAPSULE 60 MG PO (09:40)
[2022-10-18] MEDS: ISOSORBIDE MONONITRATE 60 MG TAB.ER.24H PO (09:40)
[2022-10-18] MEDS: METOPROLOL SUCCINATE EXT REL 100 MG TABCR PO (09:40)
[2022-10-18] MEDS: CLOPIDOGREL BISULFATE 75 MG TABLET PO (09:40)
[2022-10-18] MEDS: PANTOPRAZOLE 40 MG TABLET PO (09:40)
[2022-10-18] MEDS: ASPIRIN 81 MG ENTERIC TABLET PO (09:40)
[2022-10-18] MEDS: INSULIN ASPART (*BKC) 100 UNITS/ML SUB-Q (09:41)
--- NOTE | 2022-10-18 11:31 | PM.PNNEP ---
Progress Note: A&P Assessment and Plan (1) End stage renal disease: Code(s): N18.6 - End stage renal disease Status: Chronic Assessment and Plan: HD tomorrow and continue dialysis 3x/week -- with holiday schedule, plan HD on Mon, Mon, and then Monday follow electrolytes, volume status and clearance (2) General weakness: Code(s): R53.1 - Weakness Status: Acute Assessment and Plan: likely secondary to recent hospitalization for fluid overload +/- pneumonia PT/OT as tolerated may need placement on discharge (3) Hypertension: Code(s): I10 - Essential (primary) hypertension Status: Chronic Assessment and Plan: reasonable control at this time follow trend of hemodynamics (4) Anemia: Code(s): D64.9 - Anemia, unspecified Status: Chronic Assessment and Plan: due to ESRD Epogen with HD follow trend of H/H (5) Diabetes mellitus with complication, with long-term current use of insulin: Code(s): E11.8 - Type 2 diabetes mellitus with unspecified complications; Z79.4 - terminal supervisor (current) use of insulin Status: Chronic Assessment and Plan: follow accuchecks glycemic control Will continue to follow. Subjective Date/time seen: 10/18/22 11:31 Tolerated dialysis yesterday without any issues or problems; she otherwise feels reasonably well; still has a bit of a cough from her last hospitalization; otherwise, no apparent distress currently; no events overnight or earlier this morning. Exam Narrative: General: WD/WN female in NAD Heart: normal S1 and S2; no rub Lungs: clear anteriorly; decreased at bases Abdomen: soft, nontender, nondistended, positive bowel sounds Extremities: no cyanosis or clubbing; no edema Skin: warm and dry Objective Data Vital Signs Vital Signs: Vital Signs Temp Pulse Resp BP Pulse Ox O2 Del Method 10/18/22 09:45 Room Air 10/18/22 09:40 69 10/18/22 04:42 98.1 F 69 18 175/62 H 94 10/17/22 20:00 68 18 96 Room Air 10/17/22 20:03 98.4 F 68 18 176/60 H 96 10/17/22 17:49 98.2 F 68 18 158/64 H 94 10/17/22 17:11 98.0 F 67 16 168/73 H 10/17/22 16:58 63 186/71 H 10/17/22 16:47 64 163/71 H 10/17/22 16:30 64 163/70 H 10/17/22 16:10 64 159/66 H 10/17/22 15:50 62 153/64 H 10/17/22 15:30 60 145/62 H 10/17/22 15:10 61 155/63 H 10/17/22 14:50 61 143/56 H 10/17/22 14:30 61 137/61 10/17/22 14:10 62 133/63 10/17/22 13:50 61 140/67 10/17/22 13:15 97.8 F 63 16 146/69 H 10/17/22 13:27 61 131/63 Intake/Output Intake/Output: Intake & Output 10/15/22 10/16/22 10/17/22 10/18/22 23:59 23:59 23:59 23:59 Intake Total 904 690 Output Total 2500 Balance -1596 690 Meds/Results Medications: Active Medications Generic Name Dose Route Start Last Admin Trade Name Freq PRN Reason Stop Dose Admin Acetaminophen 650 mg 10/16/22 20:42 10/18/22 09:39 Acetaminophen 325 Mg Tablet PO 650 mg Q4H PRN Administration Mild Pain (1-3) or Fever Al Hydrox/Mg Hydrox/Simethicone 30 ml 10/16/22 20:42 Mag Hydrox/Al Hydrox/Simeth 30 Ml Udc PO QID PRN Dyspepsia Amlodipine Besylate 10 mg 10/17/22 09:00 10/18/22 09:40 Amlodipine Besylate 5 Mg Tablet PO 10 mg DAILY CAMILLA Administration Aspirin 81 mg 10/17/22 09:00 10/18/22 09:40 Aspirin 81 Mg Enteric Tablet PO 81 mg QAM CAMILLA Administration Clonazepam 1 mg 10/16/22 21:40 10/17/22 20:34 Clonazepam (*Crx) 0.5 Mg Tablet PO 1 mg HS PRN Administration Anxiety Clopidogrel Bisulfate 75 mg 10/17/22 09:00 10/18/22 09:40 Clopidogrel Bisulfate 75 Mg Tablet PO 75 mg DAILY CAMILLA Administration Fluoxetine HCl 60 mg 10/17/22 09:00 10/18/22 09:40 Fluoxetine Hcl 20 Mg Capsule PO 60 mg DAILY CAMILLA Administration Fluticasone Propionate 1 spray 11
[2022-10-18 12:41] LABS: Glucose Point of Care 101 mg/dl (65-105)
[2022-10-18 14:00] VITALS: BP 136/54; PULSE 58; RESP 18; TEMP 36.6; O2SAT 94
--- NOTE | 2022-10-18 15:20 | PM.IMPN ---
Progress Note: A&P Assessment and Plan (1) General weakness: Code(s): R53.1 - Weakness Status: Acute Plan # debility -likely secondary to the hospitalization and weakness from recent pneumonia/fluid overload. Recheck chest x-ray With improving pneumonia -PT OT consult, patient may need placement at fpc facility. PT OT to evaluate care coordination on board for placement # recent pneumonia -This patient is breathing comfortably, no sputum production, recent completed antibiotics for pneumonia. Recheck chest x-ray with improving pneumonia # other chronic conditions- resume all home meds -ESRD: Consulting Nephrology, plan for hemodialysis as scheduled nephrology. patient is to be on Monday schedule. On 80 mg p.o. Lasix daily . -hypertension of renal disease: Amlodipine, hydralazine, metoprolol -GERD: Protonix -CAD, history of [place]: Aspirin, Plavix, statin, Imdur, metoprolol, Ranexa -bipolar disorder: Klonopin, fluoxetine, ziprasidone, prazosin -seasonal allergies: Fluticasone -insulin-dependent type 2 diabetes: NovoLog 4 units q.a.c., Lantus 14 units nightly Diet: Renal dialysis DVT prophylaxis: Heparin Code status: Full code Disposition: Observation, likely fpc facility placement for weakness . PT OT to see care coordination consultation Subjective Date/time seen: 10/18/22 15:20 Interval history: Patient is a 62-year-old woman with past history of ESRD on hemodialysis Monday Dr. Chowdhury in at [facility], heart failure preserved ejection fraction, bipolar disorder, CAD status with history of [place], type 2 diabetes, hypertension of kidney disease who presents to ED with complaints of generalized weakness.? Patient was recently hospitalized from 10/11-10/14 with worsening dyspnea found to be fluid overloaded.? She was treated with hemodialysis.? She is also treated with IV antibiotics for possible pneumonia.? Cardiology was consulted for elevated troponin associated with fluid overload.? With negative fluid balance with ultrafiltration patient symptoms improved.? She then was discharged home.? She now returns 2 days later with generalized weakness and having difficulty ambulating at home.? No other changes since discharge. In the ED:? Labs are stable, she is due for dialysis tomorrow (schedule changed to [facility] this week), flu negative, COVID negative.? Patient admitted for observation for generalized weakness.? Patient have PT OT and likely needs placement at fpc facility. 10/17/2022 no new complaints. Feels Okay. Denies shortness of breath. Mild cough still persistent from recent pneumonia 10/18/2022 no overnight events. Working with therapy. The sellar stronger. Denies any shortness of breath. Cough is improving Review of Systems Review of Systems: All systems reviewed & are unremarkable except as noted in HPI and below Exam Narrative: - GENERAL: Pleasant woman in no acute distress. Well-nourished. - EYES: EOMI. Anicteric. - HENT: Moist mucous membranes. - LUNGS: Clear to auscultation bilaterally, no wheezing, rhonchi, or rales. - CARDIOVASCULAR: Regular rate and rhythm. No murmur. No JVD. - ABDOMEN: Soft, non-tender and non-distended. No palpable masses. - EXTREMITIES: No edema. Peripheral pulses 2+. Non-tender. - NEUROLOGIC: No focal neurological deficits. CN II-XII grossly intact. Generalized weakness 4/5 muscle strength throughout. - PSYCHIATRIC: Awake, Alert and oriented x 3. Appropriate mood and affect. - SKIN: No rashes or lesions. Warm. Objective Data Vital Signs Vital Signs: Vital Signs - 24 hr 10/17/22 15:30 10/17/22 15:50 10/17/22 16:10 Temperature Pulse Rate 60 62 64 Respiratory Rate Blood Pressure 145/62 H 153/64 H 159/66 H Pulse Oximetry Oxygen Delivery 10/17/22 16:30 10/17/22 16:47 10/17/22 16:58 Temperature Pulse Rate 64 64 63 Respiratory Rate Blood Pressure 163/70 H 163/71 H 186/71 H
[2022-10-18 17:36] LABS: Glucose Point of Care 113 mg/dl (65-105)
[2022-10-18 19:37] VITALS: BP 154/54; PULSE 65; RESP 18; TEMP 36.4; O2SAT 95
[2022-10-18 20:00] VITALS: PULSE 65; RESP 18; O2SAT 95
[2022-10-18] MEDS: clonazePAM (*CRX) 0.5 MG TABLET 1 MG PO (20:19)
[2022-10-18] MEDS: PRAZOSIN HCL 5 MG CAPSULE 10 MG PO (20:19)
[2022-10-18] MEDS: ZIPRASIDONE HCL 20 MG CAPSULE 40 MG PO (20:20)
[2022-10-18 20:37] LABS: Glucose Point of Care 180 mg/dl (65-105)
[2022-10-19] VITALS (18 sets, daily range): BP systolic 145–209; BP diastolic 46–88; PULSE 65–74; RESP 16–20; TEMP 35.7–37.4; O2SAT 93–97
[2022-10-19] MEDS: hydrALAZINE HCL 50 MG TABLET PO ×2 (05:49→12:57)
[2022-10-19 07:55] LABS: Glucose Point of Care 147 mg/dl (65-105)
[2022-10-19] MEDS: INSULIN ASPART (*BKC) 100 UNITS/ML SUB-Q (09:30)
[2022-10-19] MEDS: EPOETIN ALFA-EPBX 10,000 UNITS/ML VIAL 10000 UNITS IV PUSH (09:33)
--- NOTE | 2022-10-19 11:36 | PCPTNOTE ---
The patient treatment was not able to be completed on 10/19/2022 due to patient out of room for dialysis. Will plan to continue treatment per plan of care.
--- NOTE | 2022-10-19 12:25 | PM.PNNEP ---
Progress Note: A&P Assessment and Plan (1) End stage renal disease: Code(s): N18.6 - End stage renal disease Status: Chronic Assessment and Plan: HD today and continue dialysis 3x/week -- with holiday schedule, plan HD on Mon, Mon, and then Monday follow electrolytes, volume status and clearance (2) General weakness: Code(s): R53.1 - Weakness Status: Acute Assessment and Plan: likely secondary to recent hospitalization for fluid overload +/- pneumonia PT/OT as tolerated may need placement on discharge (3) Hypertension: Code(s): I10 - Essential (primary) hypertension Status: Chronic Assessment and Plan: reasonable control at this time follow trend of hemodynamics (4) Anemia: Code(s): D64.9 - Anemia, unspecified Status: Chronic Assessment and Plan: due to ESRD Epogen with HD follow trend of H/H (5) Diabetes mellitus with complication, with long-term current use of insulin: Code(s): E11.8 - Type 2 diabetes mellitus with unspecified complications; Z79.4 - detention (current) use of insulin Status: Chronic Assessment and Plan: follow accuchecks glycemic control Not opposed to discharge from renal perspective when outpatient arrangements for rehab are finalized. Will continue to follow. Subjective Date/time seen: 10/19/22 12:25 Tolerating dialysis treatment at the time of my visit (seen on HD at 12:15PM); no apparent distress overnight or earlier this morning; no other acute complaints voiced; seems to be feeling reasonably well. Exam Narrative: General: WD/WN female in NAD Heart: normal S1 and S2; no rub Lungs: clear anteriorly; decreased at bases Abdomen: soft, nontender, nondistended, positive bowel sounds Extremities: no cyanosis or clubbing; no edema Skin: warm and intact Objective Data Vital Signs Vital Signs: Vital Signs Temp Pulse Resp BP Pulse Ox O2 Del Method 10/19/22 12:20 98.1 F 72 16 209/85 H 10/19/22 12:10 71 208/81 H 10/19/22 12:00 72 203/82 H 10/19/22 11:40 71 191/74 H 10/19/22 11:20 70 189/88 H 10/19/22 11:00 69 204/77 H 10/19/22 10:40 69 192/80 H 10/19/22 10:20 74 189/78 H 10/19/22 10:00 70 188/81 H 10/19/22 09:40 70 186/78 H 10/19/22 09:20 67 188/81 H 10/19/22 09:00 67 188/83 H 10/19/22 08:25 98.7 F 69 16 186/76 H 10/19/22 08:36 69 163/74 H 10/19/22 04:48 97.6 F 65 20 147/54 H 93 10/18/22 20:00 65 18 95 Room Air 10/18/22 19:37 97.6 F 65 18 154/54 H 95 10/18/22 14:00 98 F 58 L 18 136/54 L 94 Intake/Output Intake/Output: Intake & Output 10/16/22 10/17/22 10/18/22 10/19/22 23:59 23:59 23:59 23:59 Intake Total 904 1270 100 Output Total 2500 2500 Balance -1596 1270 -2400 Meds/Results Medications: Active Medications Generic Name Dose Route Start Last Admin Trade Name Freq PRN Reason Stop Dose Admin Acetaminophen 650 mg 10/16/22 20:42 10/18/22 09:39 Acetaminophen 325 Mg Tablet PO 650 mg Q4H PRN Administration Mild Pain (1-3) or Fever Al Hydrox/Mg Hydrox/Simethicone 30 ml 10/16/22 20:42 Mag Hydrox/Al Hydrox/Simeth 30 Ml Udc PO QID PRN Dyspepsia Amlodipine Besylate 10 mg 10/17/22 09:00 10/18/22 09:40 Amlodipine Besylate 5 Mg Tablet PO 10 mg DAILY CAMILLA Administration Aspirin 81 mg 10/17/22 09:00 10/18/22 09:40 Aspirin 81 Mg Enteric Tablet PO 81 mg QAM CAMILLA Administration Clonazepam 1 mg 10/16/22 21:40 10/18/22 20:19 Clonazepam (*Crx) 0.5 Mg Tablet PO 1 mg HS PRN Administration Anxiety Clopidogrel Bisulfate 75 mg 10/17/22 09:00 10/18/22 09:40 Clopidogrel Bisulfate 75 Mg Tablet PO 75 mg DAILY CAMILLA Administration Epoetin Sam-epbx 10,000 units 10/19/22 19:01 10/19/22 09:33 Epoetin Sam-Epbx 10,000 Units/Ml Vial IV PUSH 10/19/22 19:02 1
[2022-10-19 12:41] LABS: Glucose Point of Care 83 mg/dl (65-105)
[2022-10-19] MEDS: METOPROLOL SUCCINATE EXT REL 100 MG TABCR PO (12:53)
[2022-10-19] MEDS: ASPIRIN 81 MG ENTERIC TABLET PO (12:53)
[2022-10-19] MEDS: FLUoxetine HCL 20 MG CAPSULE 60 MG PO (12:53)
[2022-10-19] MEDS: FUROSEMIDE 80 MG TABLET PO (12:53)
[2022-10-19] MEDS: amLODIPine BESYLATE 5 MG TABLET 10 MG PO (12:53)
[2022-10-19] MEDS: ISOSORBIDE MONONITRATE 60 MG TAB.ER.24H PO (12:53)
[2022-10-19] MEDS: CLOPIDOGREL BISULFATE 75 MG TABLET PO (12:53)
[2022-10-19] MEDS: RANOLAZINE 500 MG TAB.ER.12H 1000 MG PO (12:54)
[2022-10-19] MEDS: PANTOPRAZOLE 40 MG TABLET PO (12:54)
[2022-10-19] MEDS: ACETAMINOPHEN 325 MG TABLET 650 MG PO (13:22)
--- NOTE | 2022-10-19 14:57 | PM.DS ---
DS: Admitting Diagnosis Discharge Date 10/19/2022 Admitting Diagnosis Generalized weakness DS: Discharge Diagnosis Discharge Diagnosis (1) General weakness: Code(s): R53.1 - Weakness Status: Acute Plan # debility -likely secondary to the hospitalization and weakness from recent pneumonia/fluid overload. Recheck chest x-ray With improving pneumonia -PT OT consult, patient may need placement at snf facility. PT OT to evaluate care coordination on board for placement # recent pneumonia -This patient is breathing comfortably, no sputum production, recent completed antibiotics for pneumonia. Recheck chest x-ray with improving pneumonia # other chronic conditions- resume all home meds -ESRD: Consulting Nephrology, plan for hemodialysis as scheduled nephrology. patient is to be on Monday schedule. On 80 mg p.o. Lasix daily . -hypertension of renal disease: Amlodipine, hydralazine, metoprolol -GERD: Protonix -CAD, history of ID: Aspirin, Plavix, statin, Imdur, metoprolol, Ranexa -bipolar disorder: Klonopin, fluoxetine, ziprasidone, prazosin -seasonal allergies: Fluticasone -insulin-dependent type 2 diabetes: NovoLog 4 units q.a.c., Lantus 14 units nightly Diet: Renal dialysis DVT prophylaxis: Heparin Code status: Full code Disposition: Observation, likely snf facility placement for weakness . PT OT to see care coordination consultation DS: Summary Hospital Course Reason for hospitalization: Generalized weakness Narrative: Patient is a 62-year-old woman with past history of ESRD on hemodialysis Monday Dr. Chowdhury in at [facility], heart failure preserved ejection fraction, bipolar disorder, CAD status with history of ID, type 2 diabetes, hypertension of kidney disease who presents to ED with complaints of generalized weakness.? Patient was recently hospitalized from 10/11-10/14 with worsening dyspnea found to be fluid overloaded.? She was treated with hemodialysis.? She is also treated with IV antibiotics for possible pneumonia.? Cardiology was consulted for elevated troponin associated with fluid overload.? With negative fluid balance with ultrafiltration patient symptoms improved.? She then was discharged home.? She now returns 2 days later with generalized weakness and having difficulty ambulating at home.? No other changes since discharge. In the ED:? Labs are stable, she is due for dialysis tomorrow (schedule changed to [facility] this week), flu negative, COVID negative.? Patient admitted for observation for generalized weakness.? Patient have PT OT and likely needs placement at snf facility. Hospital Course: ?debility -likely secondary to the hospitalization and weakness from recent pneumonia/fluid overload.? Recheck chest x-ray ? With improving pneumonia -PT OT consult, patient may need placement at snf facility. PT OT to evaluate care coordination on board for placement # recent pneumonia -This patient is breathing comfortably, no sputum production, recent completed antibiotics for pneumonia.? Recheck chest x-ray with improving pneumonia # other chronic conditions- resume all home meds -ESRD: Consulting Nephrology, plan for hemodialysis? as scheduled nephrology. patient is to be on Monday schedule.? On 80 mg p.o. Lasix daily . -hypertension of renal disease:? Amlodipine, hydralazine, metoprolol -GERD: Protonix -CAD, history of ID: Aspirin, Plavix, statin, Imdur, metoprolol, Ranexa -bipolar disorder: Klonopin, fluoxetine, ziprasidone, prazosin -seasonal allergies:? Fluticasone -insulin-dependent type 2 diabetes:? 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
[2022-10-19] MEDS: BENZONATATE 100 MG CAPSULE PO (15:47)
[2022-10-19] MEDS: SENNA/DOCUSATE SODIUM TABLET 1 TAB PO (15:47)
== END 2022-10-19 17:16 | disposition home health service (06) ==
LOC: ANHED 20:25 → ANH3MED 21:46
PROVIDERS: Admitting Provider Student in an Organized Health Care Education/Training Program; Emergency Provider Emergency Medicine; PCP Internal Medicine Gastroenterology; Visit Provider Internal Medicine
DX: R53.1 Weakness (principal); I13.2 Hypertensive heart and chronic kidney disease with heart failure and with stage 5 chronic kidney disease, or end stage renal disease; E11.22 Type 2 diabetes mellitus with diabetic chronic kidney disease; N18.6 End stage renal disease; D63.1 Anemia in chronic kidney disease; I50.30 Unspecified diastolic (congestive) heart failure; Z99.2 Dependence on renal dialysis; F41.9 Anxiety disorder, unspecified; F31.9 Bipolar disorder, unspecified; M79.7 Fibromyalgia; E78.00 Pure hypercholesterolemia, unspecified; Z20.822 Contact with and (suspected) exposure to COVID-19; K21.9 Gastro-esophageal reflux disease without esophagitis; E11.40 Type 2 diabetes mellitus with diabetic neuropathy, unspecified; I25.10 Atherosclerotic heart disease of native coronary artery without angina pectoris; N25.81 Secondary hyperparathyroidism of renal origin; J81.1 Chronic pulmonary edema; Z87.01 Personal history of pneumonia (recurrent); Z79.02 Long term (current) use of antithrombotics/antiplatelets; Z79.51 Long term (current) use of inhaled steroids; Z79.4 Long term (current) use of insulin; Z79.899 Other long term (current) drug therapy; Z83.3 Family history of diabetes mellitus; Z82.49 Family history of ischemic heart disease and other diseases of the circulatory system
CPT/HCPCS: 36415; 71045; 80053; 82550; 82948; 83735; 85025; 87636; 96372; 97110; 97161; 97165; 97530; 99285; A9270; G0257; G0378; J1644; J1815; J7030; Q5105

== ENCOUNTER 2023-02-06 13:41 | Outpatient (CLI) | payer MEDICARE, MEDICAID, SELFPAY ==
--- NOTE | ~2023-02-06 | MM_ITS ---
EXAMINATION: MM diagnostic liane LT w yoli HISTORY: Possible left breast mass reported on 08/19/2022 screening mammogram TECHNIQUE: Additional 3-D tomosynthesis images of the left breast were performed and synthetic 2-D im ages were generated. CAD analysis was submitted and interpreted. COMPARISON: 08/19/2022 bilateral screening mammogram BREAST PARENCHYMAL COMPOSITION: There are scattered areas of fibroglandular density. FINDINGS: The area of concern in the outer left breast on CC projection compresses out and there is n o suspicious mass, architectural distortion or other significant abnormality at this site or elsewher e in the left breast. IMPRESSION: 1. No mammographic evidence of malignancy 2. Routine mammographic screening is recommended BI-RADS Category 1: Negative Reviewed, dictated and finalized at location A.
== END 2023-02-06 13:42 | disposition home or self-care (01) ==
LOC: ANHIMG 13:42
PROVIDERS: PCP Internal Medicine Gastroenterology
DX: R92.8 Other abnormal and inconclusive findings on diagnostic imaging of breast (principal)
CPT/HCPCS: 77061; 77065; G0279

== ENCOUNTER 2023-02-11 09:45 | Observation (INO) | payer MEDICARE, MEDICAID, SELFPAY ==
[2023-02-11] VITALS (49 sets, daily range): BP systolic 170–219; BP diastolic 52–88; PULSE 16–86; RESP 10–29; TEMP 36–37.5; O2SAT 89–100; BMI 29.1
--- NOTE | ~2023-02-11 | XR_ITS ---
EXAMINATION: XR chest 1V portable INDICATION: Hypoxia TECHNIQUE: Portable AP chest at 1636 hours COMPARISON: 02/11/2023 FINDINGS: Cardiomegaly is noted. There is a mild diffuse interstitial pattern. Minimal airspace opaci ties are present in the right lung base. There is a small right pleural effusion. No pneumothorax is identified. IMPRESSION: 1. Cardiomegaly with mild pulmonary edema. 2. Small right pleural effusion with minimal associated airspace opacity, likely atelectasis. Reviewed, dictated and finalized at location L. IMPRESSION: 1. Cardiomegaly with mild pulmonary edema. 2. Small right pleural effusion with minimal associated airspace opacity, likel y atelectasis.
--- NOTE | ~2023-02-11 | CT_ITS ---
EXAMINATION: CT cervical spine wo con DATE: 02/11/2023 10:21 INDICATION: Status post fall. Neck pain. TECHNIQUE: Computed tomography (CT) of the cervical spine was performed without intravenous contrast. The dose-length product was 340 mGy-cm. Automated exposure control and iterative reconstruction tech nique were employed. COMPARISON: None FINDINGS: Straightening of cervical lordosis. There is moderate cervical spondylosis at C5-6 and C6-7 characterized by disc narrowing, endplate hypertrophy and marginal osteophytosis. Vertebral body hei ghts are maintained. Odontoid process is normal. Craniovertebral junction is normal. There is uncinat e and facet hypertrophy at C5-6 and C6-7. There is mild levoscoliosis. Lateral masses normally aligne d. No significant paraspinal soft tissue abnormality. IMPRESSION: 1. No acute abnormality of the cervical spine. Reviewed, dictated and finalized at location A.
--- NOTE | ~2023-02-11 | CT_ITS ---
EXAMINATION: CT BRAIN W/O DATE: 02/11/2023 10:21 INDICATION: Status post fall. Patient hit top of head. Patient is on blood thinners. TECHNIQUE: Computed tomography (CT) of the head was performed without intravenous contrast. The dose- length product was 605.33 mGy-cm. Automated exposure control and iterative reconstruction technique w ere employed. COMPARISON: CT dated 02/14/2020 FINDINGS: There is a scalp hematoma at the vertex. Mild generalized atrophy. There are scattered mild periventricular and subcortical white matter changes, most likely related to small vessel ischemic d isease (microangiopathy). There is intracranial atherosclerosis. No ventriculomegaly or midline shift. Midline sagittal images demonstrate a normal corpus callosum, c raniovertebral junction and sella turcica. Basilar cisterns are patent. Paranasal sinuses and mastoids are pneumatized. No depressed skull fractures. IMPRESSION: 1. No acute intracranial abnormality. Reviewed, dictated and finalized at location A.
--- NOTE | ~2023-02-11 | CT_ITS ---
EXAMINATION: CT brain wo con DATE: 02/12/2023 10:03 INDICATION: Status post fall. Altered level consciousness. TECHNIQUE: Computed tomography (CT) of the head was performed without intravenous contrast. The dose- length product was 605.33 mGy-cm. Automated exposure control and iterative reconstruction technique w ere employed. COMPARISON: CT dated 02/11/2023 FINDINGS: There is a scalp hematoma near the vertex. Normal brain parenchymal volume for age. No vent riculomegaly or midline shift. Basilar cisterns are patent. There is intracranial atherosclerosis. No depressed skull fractures. Paranasal sinuses and mastoids are pneumatized. There are scattered mild periventricular and subcortical white matter changes, most likely related to small vessel ischemic di sease (microangiopathy). No acute intracranial hemorrhage, infarction, mass or mass effect. IMPRESSION: 1. No acute intracranial abnormality. 2: Scalp hematoma near the vertex. 3: Chronic age-related findings. Reviewed, dictated and finalized at location A.
--- NOTE | ~2023-02-11 | US_ITS ---
EXAMINATION: US carotid duplex BI DATE: 02/12/2023 08:17 INDICATION: Syncope TECHNIQUE: Grayscale, color Doppler, and pulsed Doppler images of the cervical carotid arteries were obtained. The degree of vessel stenosis is placed in one of the following categories: normal, <50%, 5 0-69%, >=70% but less than near-occlusion, near-occlusion, or total occlusion. Note that percent sten osis relative to normal distal artery lumen diameter is indirectly measured from velocity measurement s as described by Fran, et al. Radiology 2003; 229:340-346. Notes: Normal: Peak systolic velocity <125 centimeters/sec and no plaque <50%. Peak systolic velocity <125 ( EDV <40; ICA/CCA PSV ratio <2.0; used these factors only a tandem lesions or low cardiac output or co ntralateral disease) 50-69 %: PSV 125-230 (EDV 40-100; ratio 2-4) >= 70% but less than near occlusion: PSV greater than 230 (EDV > 100; ratio> 4.0) Near Occlusion: PSV that is variable; markedly narrowed lumen Occlusion: Absent flow on color/spectral Doppler and no lumen on clinton scale. COMPARISON: Ultrasound dated 02/14/2020. FINDINGS: RIGHT: The right common carotid artery (CCA) peak systolic velocity (PSV) is 78 cm/s. The right internal car otid artery (ICA) PSV is 43 cm/s. The right ICA end-diastolic velocity (EDV) is 26 cm/s. The right IC A/CCA PSV ratio is 0.6. The external carotid artery (ECA) PSV is 85 cm/s. There is antegrade flow in the right vertebral artery. LEFT: The left CCA PSV is 90 cm/s. The left ICA PSV is 116 cm/s. The left ICA EDV is 20 cm/s. The left ICA/ CCA PSV ratio is 1.3. The ECA PSV is 68 cm/s. There is antegrade flow in the left vertebral artery. IMPRESSION: 1. Less than 50% stenosis in the right internal carotid artery by sonographic criteria. 2. Less than 50% stenosis in the left internal carotid artery by sonographic criteria. Reviewed, dictated and finalized at location A. IMPRESSION: 1. Less than 50% stenosis in the right internal carotid artery by sonographic c clarissaeria. 2. Less than 50% stenosis in the left internal carotid artery by sonographic cr liliane.
--- NOTE | ~2023-02-11 | XR_ITS ---
XR chest 1V portable 02/11/2023 10:15 Indication: Status post fall. Procedure: AP portable chest Comparison: Comparison to multiple prior studies sequentially, with oldest reviewed study dated 02/2022. Findings: Cardiomegaly with mild interstitial edema. No acute osseous abnormality. No pleural effusio n or pneumothorax. No acute osseous abnormality. Impression: 1: Cardiomegaly with mild interstitial edema. Reviewed, dictated and finalized at location A. Impression: 1: Cardiomegaly with mild interstitial edema.
--- NOTE | 2023-02-11 10:07 | ECG_ITS ---
Measurements Intervals [place] Rate: 62 P: 35 MS: 166 QRS: -5 QRSD: 90 T: 224 QT: 435 QTc: 445 Interpretive Statements SINUS RHYTHM NONSPECIFIC ST & T-WAVE ABNORMALITY- DIFFUSE LEADS BASELINE ARTIFACT- I, II, AVR BORDERLINE ECG COMPARED TO ECG 10/11/2022 08:57:17 SINUS RHYTHM NOW PRESENT Electronically Signed On 02-11-2023 21:28:08 CDT by Balbir Ashley D.O.
--- NOTE | 2023-02-11 10:11 | PC.NURSE ---
Pt off floor to radiology.
--- NOTE | 2023-02-11 10:14 | ED.FALL ---
HPI - Fall General Chief Complaint: Fall Stated Complaint: Fall, Hit Head Time Seen by Provider: 02/11/23 09:54 History of Present Illness HPI Narrative: 62 y/o F with hx of ESRD, DM, CHF, hypercholesterolemia, GERD reports for evaluation post fall. Pt reports this morning, she bent over to sampler pickup her dog to put him in bed, then when she stood up she felt lightheaded and saw black , fell backwards and hit her head on the dresser. Reports posterior headache now. Pt denies losing consciousness after she hit her head. Denies neck pain, CP, SOB, abdominal pain, diarrhea, other injury in the fall. Pt reported she vomited one time yesterday and attributed this to constipation. See took Dulcolax and had a BM. Denies n/v/d today, vision changes. Pt goes to Dialysis and missed her dialysis apt this morning to come to the ED. Next schedules dialysis is in 3 days. Pt is on ASA and plavix. Related Data Home Medications Medication Instructions Recorded Confirmed amlodipine 10 mg tablet 10 mg PO DAILY 01/27/20 10/16/22 clonazepam 0.5 mg tablet 1 mg PO HS PRN Anxiety 01/27/20 10/16/22 clopidogrel 75 mg tablet 75 mg PO DAILY 01/27/20 10/16/22 fluoxetine 20 mg capsule 60 mg PO DAILY 01/27/20 10/16/22 fluticasone propionate 50 1 spray intranasal BID PRN Nasal 01/27/20 10/16/22 mcg/actuation nasal Congestion spray,suspension (Allergy Relief (fluticasone)) furosemide 80 mg tablet 80 mg PO DAILY 01/27/20 10/16/22 hydralazine 50 mg tablet 50 mg PO Q8H 01/27/20 10/16/22 insulin aspart U-100 100 unit/mL 4 unit subcut QACBREAK 01/27/20 10/16/22 (3 mL) subcutaneous pen (Novolog FlexPen U-100 Insulin aspart) insulin detemir U-100 100 unit/mL 14 unit subcut HS 01/27/20 10/16/22 (3 mL) subcutaneous pen (Levemir FlexTouch U-100 Insulin) metoprolol succinate 25 mg 100 mg PO DAILY 01/27/20 10/16/22 tablet,extended release 24 hr nitroglycerin 0.4 mg sublingual 0.4 mg sublingual Q5MIN PRN Chest 01/27/20 10/16/22 tablet Pain prazosin 5 mg capsule 10 mg PO HS 01/27/20 10/16/22 ranolazine 1,000 mg 1,000 mg PO BID 01/27/20 10/16/22 tablet,extended release,12 hr ziprasidone HCl 40 mg capsule 40 mg PO HS 02/14/20 10/16/22 ondansetron HCl 4 mg tablet 4 mg PO PRN PRN Nausea 10/11/22 10/16/22 pantoprazole 40 mg tablet,delayed 40 mg PO DAILY 10/11/22 10/16/22 release Allergies Allergy/AdvReac Type Severity Reaction Status Date / Time No Known Allergies Allergy Unknown Verified 10/11/22 20:27 Review of Systems Review of Systems: CONSTITUTIONAL: Denies fever, chills EYES: Denies visual changes, redness, or discharge. ENT: Denies rhinorrhea, congestion, sore throat, or otalgia. CARDIOVASCULAR: Denies chest pain, palpitations, or edema. RESPIRATORY: Denies cough or dyspnea. GASTROINTESTINAL: Denies abdominal pain, nausea, vomiting, or diarrhea. GENITOURINARY: Denies dysuria or hematuria. SKIN: Denies rash or itching. MUSCULOSKELETAL: Denies back pain, joint pain, or myalgia. NEUROLOGIC: Denies numbness, dizziness, or weakness. PSYCHIATRIC: Denies anxiety or depression. [facility] Past Medical History Medical History (Updated 02/11/23 @ 14:25 by Marlen Garcia PA-C) Anemia in chronic kidney disease Anxiety Arthritis Bipolar disorder Cataract Congestive heart failure Echo in January 2020 showing EF of 55-60% with moderate pulmonary hypertension and turbulent flow across the mitral valve; the diastolic function is normal Coronary artery disease With history of myocardial infarction. Depression Diabetic peripheral neuropathy Diabetic retinopathy Dyslipidemia End-stage renal disease on hemodialysis Patient of Dr. Chowdhury. Deviated dialysis in [place] on Monday, , Monday. Fibromyalgia Hypertension Insulin dependent type 2 diabetes mellitus Seasonal allergies Secondary hyperparathyroidism (of renal origin) Surgical History Surgical History (Updated 02/11/23 @ 14:22 by Marlen Garcia PA-C) History of 2 secti
[2023-02-11] MEDS: ACETAMINOPHEN 325 MG TABLET 650 MG PO (10:28)
[2023-02-11 10:43] LABS: Basophils Absolute Auto 0.1 K/mm3 (0.0-0.1); Basophils Percent Auto 1.2 % (0.2-1.2); Eosinophils Absolute Auto 0.2 K/mm3 (0-0.3); Eosinophils Percent Auto 3.1 % (0-4.4); Hemoglobin 9.1 g/dL (12.0-15.0); Immature Granulocyte Absolute 0.04 K/mm3 (0.00-0.031); Immature Granulocyte Percent A 0.6 % (0-0.5); Lymphocytes Absolute Auto 0.56 K/mm3 (0.9-3.2); Lymphocytes Percent Auto 8.3 % (18.3-44.2); Mean Corpuscular HGB Conc 31.4 g/dl (32-36); Mean Corpuscular Hemoglobin 31.7 pg (26-34); Mean Platelet Volume 10.2 fl (7.4-10.4); Monocytes Absolute Auto 0.9 K/mm3 (0.1-0.6); Monocytes Percent Auto 12.9 % (2.6-8.5); Neutrophils Percent Auto 73.9 % (45.5-73.1); Platelet Count Result 297 k/mm3 (150-375); Red Blood Count 2.87 M/mm3 (4.2-5.4); Red Cell Distribution Width 14.2 % (11.5-14.5); White Blood Count 6.7 K/mm3 (4.5-10.0)
[2023-02-11 10:53] LABS: INR 1.3; Partial Thromboplastin Time 28.4 SECONDS (22.3-36.8); Prothrombin Time 15.9 Seconds (11.1-14.7)
[2023-02-11 10:55] LABS: Alanine Aminotransferase 22 U/L (6-35); Albumin Level 3.9 g/dL (3.5-5.1); Alkaline Phosphatase 156 U/L (38-126); Anion Gap 12 mmol/L (8-16); Aspartate Amino Transferase 27 U/L (14-36); Bilirubin,Total 0.6 mg/dL (0.2-1.3); Blood Urea Nitrogen 37 mg/dL (7-17); Calcium 9.2 mg/dL (8.4-10.2); Carbon Dioxide 30 mmol/L (22-30); Chloride 92 mmol/L (98-107); Estimated CRCL calculation 8 ml/min; Estimated Glomerular Filt Rate 7; Glucose 217 mg/dL (65-110); Potassium 5.1 mmol/L (3.4-5.0); Sodium 134 mmol/L (137-145)
[2023-02-11 11:13] LABS: Troponin I 0.017 ng/mL (0.000-0.034)
[2023-02-11] MEDS: hydrALAZINE HCL 20 MG/ML VIAL 10 MG IV PUSH (11:39)
[2023-02-11] MEDS: MORPHINE SULFATE (*CRX) 2 MG/ML INJ IV PUSH ×2 (11:39→13:13)
[2023-02-11] MEDS: FUROSEMIDE INJ 40 MG/4 ML VIAL IV PUSH (12:19)
[2023-02-11 14:14] LABS: Troponin I 0.014 ng/mL (0.000-0.034)
--- NOTE | 2023-02-11 14:45 | PM.IMHP ---
H&P: HPI History of Present Illness Date/Time: 02/11/23 14:45 Chief Complaint: Fall. Narrative: This is a very pleasant 62-year-old female with end-stage renal disease on hemodialysis, coronary artery disease, hypertension, dyslipidemia, diabetes, and chronic anemia who presented to the emergency department for evaluation after a fall. Patient provides the following history. She got up this morning at about 07:30 as per usual. She went into the kitchen to have a cup of coffee with her and she was feeling quite tired so she decided to go back to bed for a bit. Her dog wanted to go with her and she bent over to pick him up to put him in bed and when she stood up ?everything went black and she fell backwards and struck her head on the dresser. She herself does not think she actually lost consciousness however. With further questioning she reports feeling a bit lightheaded and dizzy for the last couple of days following a bout of diarrhea (following laxatives which she took for constipation) that she had on though that has since improved. Aside from a pretty big hematoma on her head, she sustained no other injuries. She was due for dialysis today but came to the ER instead. She has some mild electrolyte abnormalities including a sodium of 131, potassium 5.1, chloride 92. She was sent for dialysis today and reports feeling fine at the time my evaluation. She denies vertigo, visual changes, chest pain, pleuritic pain, palpitations, sensations of racing heart, shortness of breath, nausea, vomiting, and diarrhea today. Review of Systems Review of Systems: Twelve systems were reviewed. No fever, chills, sweats. No recent cold or flu symptoms. No dysuria, she no longer urinates. No recent change in medications. Except as documented, all other systems were reviewed and are negative. [facility] Past Medical History Medical History Anemia in chronic kidney disease Anxiety Arthritis Bipolar disorder Cataract Congestive heart failure Echo in January 2020 showing EF of 55-60% with moderate pulmonary hypertension and turbulent flow across the mitral valve; the diastolic function is normal Coronary artery disease With history of myocardial infarction. Depression Diabetic peripheral neuropathy Diabetic retinopathy Dyslipidemia End-stage renal disease on hemodialysis Patient of Dr. Chowdhury. Deviated dialysis in [place] on , Monday. Fibromyalgia Hypertension Insulin dependent type 2 diabetes mellitus Renal osteodystrophy Seasonal allergies Secondary hyperparathyroidism (of renal origin) Surgical History Surgical History History of 2 sections History of cardiac catheterization (09/2017) Patent stent to LAD and 90% occlusion of a very small diagonal branch. History of cataract extraction with lens replacement (2018) History of cholecystectomy (1996) History of coronary artery stent placement (2012) LAD. History of exploratory laparotomy With possible partial colectomy in the . Patient unsure regarding the history of this surgery. History of hysterectomy (2002) History of inguinal hernia repair History of repair of hiatal hernia Family History Family History Father , age 50s Diabetes mellitus Cancer Mother , Age 89 Cerebrovascular accident Sibling Family history of kidney disease Brother on dialysis Son Diabetes mellitus Hypertension Asthma Social History Social History Social History: Ms. Moore lives at home with her in [place], [place]. 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 She is a lifelong nonsmoker. She designates her son Sincere Blevins as her surrogate decision m
[2023-02-11 16:32] LABS: Troponin I 0.013 ng/mL (0.000-0.034)
[2023-02-11 16:51] LABS: Hepatitis B Surface Antigen Negative (Negative)
[2023-02-11 17:16] LABS: Hemoglobin A1C 6.6 % (<5.7)
[2023-02-11 17:16] LABS: Hepatitis B Surface Anti Res Positive
--- NOTE | 2023-02-11 18:04 | ADMGEN ---
This patient, Isis Moore, was admitted to Medical Room 343-01. Patient/family oriented to hospital policies and general routines including ID bracelet, bed and alarms, visiting hours, pain management, procedures, bathroom and other care routines, personal items, smoking policy, room service/diet, and visiting hours. Information on how to activate the Rapid Response Team has been discussed. Patient/Family are encouraged to report perceived risks to care and to ask questions if they do not understand what they are told or what they should do.
[2023-02-11 18:28] LABS: Glucose Point of Care 120 mg/dl (65-105)
[2023-02-11] MEDS: MORPHINE SULFATE (*CRX) 4 MG/ML INJ IV PUSH (18:29)
[2023-02-11 21:41] LABS: Glucose Point of Care 193 mg/dl (65-105)
[2023-02-11] MEDS: hydrALAZINE HCL 50 MG TABLET PO (23:23)
[2023-02-11] MEDS: ZIPRASIDONE HCL 20 MG CAPSULE 40 MG PO (23:23)
[2023-02-11] MEDS: RANOLAZINE 500 MG TAB.ER.12H 1000 MG PO (23:23)
[2023-02-11] MEDS: PRAZOSIN HCL 5 MG CAPSULE 15 MG PO (23:24)
[2023-02-11] MEDS: FLUTICASONE PROPIONATE 0.05% NA SPR 16 GM BTL (*BKC) 1 SPRAY NASAL (23:25)
[2023-02-11] MEDS: clonazePAM (*CRX) 0.5 MG TABLET 1 MG PO (23:28)
[2023-02-11] MEDS: ONDANSETRON HCL ODT 4 MG TABLET PO (23:31)
[2023-02-12] VITALS (14 sets, daily range): BP systolic 151–172; BP diastolic 54–60; PULSE 63–78; RESP 18–20; TEMP 36.5–37.3; O2SAT 93–100
[2023-02-12 05:51] LABS: Hematocrit 29.8 % (37.0-47.0); Hemoglobin 9.2 g/dL (12.0-15.0); Mean Corpuscular HGB Conc 30.9 g/dl (32-36); Mean Corpuscular Hemoglobin 31.8 pg (26-34); Mean Corpuscular Volume 103.1 fl (80-100); Platelet Count Result 283 k/mm3 (150-375); Red Blood Count 2.89 M/mm3 (4.2-5.4); Red Cell Distribution Width 14.4 % (11.5-14.5); White Blood Count 6.6 K/mm3 (4.5-10.0)
[2023-02-12 05:53] LABS: Anion Gap 8 mmol/L (8-16); Blood Urea Nitrogen 18 mg/dL (7-17); Calcium 8.9 mg/dL (8.4-10.2); Carbon Dioxide 36 mmol/L (22-30); Chloride 96 mmol/L (98-107); Estimated CRCL calculation 12 ml/min; Estimated Glomerular Filt Rate 11; Glucose 113 mg/dL (65-110); Potassium 3.9 mmol/L (3.4-5.0); Sodium 140 mmol/L (137-145)
[2023-02-12] MEDS: hydrALAZINE HCL 50 MG TABLET PO ×3 (06:02→20:26)
[2023-02-12] MEDS: ISOSORBIDE MONONITRATE 60 MG TAB.ER.24H PO (09:03)
[2023-02-12] MEDS: METOPROLOL SUCCINATE EXT REL 100 MG TABCR PO (09:03)
[2023-02-12] MEDS: FUROSEMIDE 80 MG TABLET PO (09:03)
--- NOTE | 2023-02-12 09:03 | PM.CNNEP ---
Assessment and Plan Assessment and plan (1) End stage renal disease: Code(s): N18.6 - End stage renal disease Status: Chronic Assessment and Plan: The patient had dialysis yesterday. She tolerated this well. Electrolytes look okay. Potassium is fine. Creatinine is improved to 4.2. Volume status looks okay. (2) Hypertension: Code(s): I10 - Essential (primary) hypertension Status: Chronic Assessment and Plan: Blood pressure is fairly high. At home she is on amlodipine 10 hydralazine, metoprolol, prazosin. The blood pressure was higher yesterday around 200 but today is down to 170. She is getting her morning medicines now. I do not think she got her pills yesterday. Will see how the blood pressure looks later this afternoon. (3) Fall: Code(s): W19.XXXA - Unspecified fall, initial encounter Status: Acute Assessment and Plan: The patient had a fall yesterday. It is unclear what caused this. It almost sounds orthostatic however she had orthostatic blood pressure readings in the emergency room and the [facility] emergency physician said that they were unchanged. She does have diabetes and neuropathy so could have some venous instability. Cardiology is going to see the patient to investigate this (4) Diabetes mellitus with complication, with long-term current use of insulin: Code(s): E11.8 - Type 2 diabetes mellitus with unspecified complications; Z79.4 - intermission coordinator (current) use of insulin Status: Chronic Assessment and Plan: The patient has diabetes. A1cs have been good. She is on Accu-Cheks and sliding-scale insulin hospitalist. (5) Drowsiness: Code(s): R40.0 - Somnolence Status: Acute Assessment and Plan: She is drowsy today. She is oriented. Her neuro exam looks okay. Her oxygen saturation is a little bit low. The nurse is going to put her on some oxygen. Will repeat a CT scan of the head. She is on clopidogrel for her stents and heart. She may have some delayed bleeding. (6) Anemia in chronic kidney disease: Code(s): N18.9 - Chronic kidney disease, unspecified; D63.1 - Anemia in chronic kidney disease Status: Acute Assessment and Plan: Hemoglobin is a little low. We will continue to watch this. Will give her Epogen (7) Renal osteodystrophy: Code(s): N25.0 - Renal osteodystrophy Status: Acute Assessment and Plan: Will check a phosphorus level in the History of Present Illness Reason for Consult Consult date: 02/12/23 Chief Complaint Chief complaint: Syncope and fall History of Present Illness Narrative: Isis is a very pleasant 62-year-old lady who has end-stage renal disease under the care of Dr. Garth olivier. The patient has multiple medical problems including hypertension, end-stage renal disease, anemia, renal osteodystrophy, anxiety, arthritis, diabetes, hyperlipidemia, depression, coronary disease status post [place] plus stents, moderate pulmonary hypertension, bipolar disorder, and bronchitis. The patient was at home yesterday and feeling okay. She was getting out of bed and lifted her dog and when she stood up everything went black and she fell. She hit her head pretty hard in the occiput. She came to the ER. There was CT scan was negative except for the contusion. She was admitted to investigate the syncope. She was due for dialysis yesterday so dialysis treatment was performed. This went well. Heparin was not used. The patient has been on dialysis for 8 years she says. It has been going fairly well. She has had hypertension and diabetes for many years as well. Her A1cs are typically well controlled. The patient had her dialysis which went well. Came back up to the room at around 6. Apparently she did get her medicine until midnight last night and she did not sleep well. Today she is somewhat drowsy. Does answer orientation questions correctly, and is sipping o
[2023-02-12] MEDS: amLODIPine BESYLATE 5 MG TABLET 10 MG PO (09:05)
[2023-02-12] MEDS: ASPIRIN 81 MG ENTERIC TABLET PO (09:05)
[2023-02-12] MEDS: RANOLAZINE 500 MG TAB.ER.12H 1000 MG PO ×2 (09:07→20:25)
[2023-02-12] MEDS: CLOPIDOGREL BISULFATE 75 MG TABLET PO (09:08)
[2023-02-12] MEDS: PANTOPRAZOLE 40 MG TABLET PO (09:08)
[2023-02-12] MEDS: BENZONATATE 100 MG CAPSULE PO ×3 (09:09→16:55)
[2023-02-12] MEDS: FLUoxetine HCL 20 MG CAPSULE 60 MG PO (09:09)
[2023-02-12 09:38] LABS: Glucose Point of Care 140 mg/dl (65-105)
[2023-02-12 09:50] LABS: Alveolar/Arterial O2 Gradient 80.6 mmHg; Fractional Inspired Oxygen 28 %; HCO3 ABG 34.3 mEq/l (22.0-26.0); Oxygen Content ABG 12.1 %vol (16.0-22.0); Oxygen Saturation ABG 91.2 % (95.0-100.0); Oxyhemoglobin 89.1 % THb (90.0-100.0); PCO2 ABG 50.9 mmHg (35.0-45.0); PO2 FiO2 Ratio Arterial Blood 2.11 %; Total Hemoglobin 9.6 g/dL (12.0-18.0); pH ABG 7.446 (7.350-7.450)
[2023-02-12 09:51] LABS: Device NASAL CANNULA; Modified Allen's Test Pass; Site Drawn RIGHT RADIAL
[2023-02-12 12:31] LABS: Glucose Point of Care 131 mg/dl (65-105)
--- NOTE | 2023-02-12 12:35 | PM.IMPN ---
Progress Note: A&P Assessment and Plan (1) Drowsiness: Code(s): R40.0 - Somnolence Status: Acute Assessment and Plan: Patient states that she takes Geodon and clonazepam around 730 in the evening. She was given these medications around midnight. She feels this is the reason why she is so sleepy. The CT the brain has been repeated does not show any acute changes. ABG performed given that she is being evaluated for sleep apnea. ABG shows 7.45/51/59 on 2 L. Her elevated pCO2 is probably chronic and unrelated to her drowsiness. Will hold clonazepam. Will move up the Geodon so she has this at 7:30 a.m. in the evening. Continue to monitor. (2) Syncope: Code(s): R55 - Syncope and collapse Status: Acute Assessment and Plan: Patient was somnolent on the morning of admission. 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 This could be related to decreased venous return from Valsalva or possibly orthostatic. Carotid ultrasound shows less than 50% stenosis in the bilateral internal carotid arteries. Head CT showed no acute findings. Cervical spine CT also showed no acute abnormalities. EKG shows nonspecific ST T wave changes Troponins are negative x3. Echo is pending. Will start PT and OT. (3) Fall from ground level: Code(s): W18.30XA - Fall on same level, unspecified, initial encounter Status: Acute Assessment and Plan: As above. (4) Hypoxia: Code(s): R09.02 - Hypoxemia Status: Acute Assessment and Plan: Patient noted to be hypoxic when she is sleeping. Will do ApneaLink tonight on 2 L. she may need supplemental oxygen at night while sleeping until she gets her sleep study. (5) Closed head injury: Code(s): S09.90XA - Unspecified injury of head, initial encounter Status: Acute Assessment and Plan: Patient sustained a closed head injury from the fall. Repeat CT does not show any acute findings. The head CTs have been about 24 hours apart. Continue to follow for further changes. (6) End-stage renal disease on hemodialysis: Code(s): N18.6 - End stage renal disease; Z99.2 - Dependence on renal dialysis Status: Acute Assessment and Plan: Potassium improved. No metabolic acidosis. Nephrology following. Appreciate their input. Continue hemodialysis per their recommendation. (7) Anemia in chronic kidney disease: Code(s): N18.9 - Chronic kidney disease, unspecified; D63.1 - Anemia in chronic kidney disease Status: Acute Assessment and Plan: Hemoglobin low but stable and within her baseline. Continue to follow. (8) Insulin dependent type 2 diabetes mellitus: Code(s): E11.9 - Type 2 diabetes mellitus without complications; Z79.4 - terminal block assembler (current) use of insulin Status: Acute Assessment and Plan: The patient's blood glucose was reviewed on 02/12 Glucose remains well controlled. Continue AccuCheks covering with sliding scale. Hypoglycemia protocol available as needed . Continue to monitor. Subjective Date/time seen: 02/12/23 12:35 Interval history: 62yo female with ESRD, CAD, HTN and DM here for a fall. RN found the patient slumped over her tray sleeping with a pulse ox of 79-80%. Patient is somnolent but oriented x4. She denies feeling short of breath or cough. No odynophagia or dysphagia. No chest pain. She denies headache in general but does have pain at the site of the head injury the occipital region. She does not have sleep apnea that she is aware of but is going to be tested for this May. She denies any numbness, tingling or weakness in her extremities. She feel she is somnolent is because she received her evening meds at [facility] (normally takes them at 730pm). Exam Narrative: AF 97.7 172/54 69 18 93% RA Gen - KARMA STEVENS -
[2023-02-12 17:26] LABS: Glucose Point of Care 125 mg/dl (65-105)
[2023-02-12] MEDS: ZIPRASIDONE HCL 20 MG CAPSULE 40 MG PO (20:25)
[2023-02-12] MEDS: PRAZOSIN HCL 5 MG CAPSULE 15 MG PO (20:25)
[2023-02-12] MEDS: SENNA/DOCUSATE SODIUM TABLET 1 TAB PO (20:25)
[2023-02-12 22:10] LABS: Glucose Point of Care 153 mg/dl (65-105)
[2023-02-13] VITALS (18 sets, daily range): BP systolic 130–165; BP diastolic 48–60; PULSE 61–72; RESP 16–18; TEMP 36.4–37; O2SAT 94–99
[2023-02-13] MEDS: hydrALAZINE HCL 50 MG TABLET PO ×3 (05:48→19:41)
[2023-02-13 07:26] LABS: Hematocrit 29.6 % (37.0-47.0); Hemoglobin 9.1 g/dL (12.0-15.0); Mean Corpuscular HGB Conc 30.7 g/dl (32-36); Mean Corpuscular Hemoglobin 31.3 pg (26-34); Mean Corpuscular Volume 101.7 fl (80-100); Mean Platelet Volume 9.7 fl (7.4-10.4); Platelet Count Result 297 k/mm3 (150-375); Red Blood Count 2.91 M/mm3 (4.2-5.4); Red Cell Distribution Width 14.4 % (11.5-14.5); White Blood Count 7.9 K/mm3 (4.5-10.0)
[2023-02-13 07:38] LABS: Anion Gap 10 mmol/L (8-16); Blood Urea Nitrogen 26 mg/dL (7-17); Calcium 9.3 mg/dL (8.4-10.2); Carbon Dioxide 33 mmol/L (22-30); Chloride 93 mmol/L (98-107); Estimated CRCL calculation 8 ml/min; Estimated Glomerular Filt Rate 7; Glucose 121 mg/dL (65-110); Phosphorus 5.8 mg/dL (2.5-4.5); Potassium 4.6 mmol/L (3.4-5.0); Sodium 136 mmol/L (137-145)
--- NOTE | 2023-02-13 08:00 | ECHO_ITS ---
Patient Info Name: Iiss Moore Age: 62 years : 1960 Gender: Female Ht: 62 in Wt: 156 lbs BSA: 1.78 m2 HR: 69 bpm BP: 164 / 56 mmHg Heart Rhythm: Sinus Rhythm Technical Quality: Good Exam Date: 02/13/2023 12:57 PM Exam Location: [facility] Pulmonary Exam Room: 343 Patient Status: Inpatient Admit Date: 02/11/2023 Staff Ordering Physician: Marlen Garcia PA-C Utility Locate Technician: Kay Rdz RDCS Attending Provider: Damon Alvarez MD Referring Physician: Jose JERRY; Exam Type: CA echo doppler color flow Study Info Indications - syncope Complete two-dimensional, color flow and Doppler transthoracic echocardiogram is performed. Summary 1. Complete two-dimensional, color flow and Doppler transthoracic echocardiogram is performed. 2. Left ventricular chamber dimension is normal. 3. Left ventricular systolic function is normal, estimated at 60-65%. 4. There is mildly increased left ventricular wall thickness. 5. Right ventricular systolic function is normal. 6. Left atrial chamber dimension is severely enlarged. 7. Right atrial chamber dimension is mildly enlarged. 8. There is mild aortic valve calcification. 9. The mitral valve annulus is mildly calcified. 10. The mitral valve has thickened leaflets. 11. There is mild mitral valve regurgitation. 12. There is mild tricuspid valve regurgitation. 13. There is mild aortic atherosclerosis. 14. There is small anterior pericardial effusion. Left Ventricle Left ventricular chamber dimension is normal. Left ventricular systolic function is normal, estimated at 60-65%. There is mildly increased left ventricular wall thickness. Right Ventricle Right ventricular chamber dimension is normal. Right ventricular systolic function is normal. Left Atria Left atrial chamber dimension is severely enlarged. Right Atria Right atrial chamber dimension is mildly enlarged. Atrial Septum Intact interatrial septum visualized by color flow imaging. Aortic Valve The aortic valve is probable trileaflet. There is no aortic valve stenosis. There is no aortic valve regurgitation. There is mild aortic valve calcification. Pulmonic Valve The pulmonic valve is not well visualized. There is trace pulmonic regurgitation. Mitral Valve The mitral valve has thickened leaflets. There is no mitral valve stenosis. There is mild mitral valve regurgitation. The mitral valve annulus is mildly calcified. Tricuspid Valve There is no significant tricuspid valve stenosis. There is mild tricuspid valve regurgitation. Pericardium/Pleural There is small anterior pericardial effusion. Inferior Vena Cava Dilated inferior vena cava with <50% collapse upon inspiration consistent with elevated right atrial pressure, 15 mmHg. Aorta The aortic root size at the sinus of Valsalva is normal. There is mild aortic atherosclerosis. Left Ventricular Outflow Tract Name Value Normal LVOT 2D LVOT Diameter 2.0 cm LVOT Doppler LVOT Peak Gradient 6 mmHg LVOT Mean Gradient 3 mmHg LVOT
[2023-02-13 08:53] LABS: Glucose Point of Care 149 mg/dl (65-105)
--- NOTE | 2023-02-13 09:00 | PCPTNOTE ---
Attempted PT evaluation, pt refused. Will follow.
--- NOTE | 2023-02-13 09:13 | PM.IMPN ---
Progress Note: A&P Assessment and Plan (1) Drowsiness: Code(s): R40.0 - Somnolence Status: Acute Assessment and Plan: Patient states that she takes Geodon and clonazepam around 730 in the evening. She was given these medications around midnight and was very somnolent on the morning of 02/12. CT the brain showed no acute findings on admission and no change on repeat. ABG 7.45/51/59 on 2 L. Her elevated pCO2 is probably chronic and unrelated to her drowsiness. We held clonazepam and scheduled Geodon at 7:30 p.m. Less drowsy today. Continue to monitor. (2) Syncope: Code(s): R55 - Syncope and collapse Status: Acute Assessment and Plan: Patient was somnolent on the morning of admission. She was bending over to hand picker the dog. When she stood up, she had a syncopal episode falling backwards striking the back of her head. This could be related to decreased venous return from Valsalva or possibly orthostatic. Carotid ultrasound shows less than 50% stenosis in the bilateral internal carotid arteries. Head CT showed no acute findings. Cervical spine CT also showed no acute abnormalities. EKG shows nonspecific ST T wave changes Troponins are negative x3. Echo is pending. Continue PT and OT. (3) Fall from ground level: Code(s): W18.30XA - Fall on same level, unspecified, initial encounter Status: Acute Assessment and Plan: As above. (4) Hypoxia: Code(s): R09.02 - Hypoxemia Status: Acute Assessment and Plan: Patient noted to be hypoxic when she is sleeping. ApneaLink on 2 L showing no significant desaturation. Repeat Apnea link on room air. (5) Closed head injury: Code(s): S09.90XA - Unspecified injury of head, initial encounter Status: Acute Assessment and Plan: Patient sustained a closed head injury from the fall. Repeat CT does not show any acute findings. The head CTs have been about 24 hours apart. Continue to follow for further changes. (6) End-stage renal disease on hemodialysis: Code(s): N18.6 - End stage renal disease; Z99.2 - Dependence on renal dialysis Status: Acute Assessment and Plan: Potassium improved. No metabolic acidosis. Nephrology following. Appreciate their input. Continue hemodialysis per their recommendation. (7) Anemia in chronic kidney disease: Code(s): N18.9 - Chronic kidney disease, unspecified; D63.1 - Anemia in chronic kidney disease Status: Chronic Assessment and Plan: Hemoglobin low but stable and within her baseline. Continue to follow. (8) Insulin dependent type 2 diabetes mellitus: Code(s): E11.9 - Type 2 diabetes mellitus without complications; Z79.4 - supervisor intermediates (current) use of insulin Status: Acute Assessment and Plan: The patient's blood glucose was reviewed on 02/13 Glucose remains well controlled. Continue AccuCheks covering with sliding scale. Hypoglycemia protocol available as needed . Continue to monitor. Subjective Date/time seen: 02/13/23 09:13 Interval history: 62yo female with ESRD, CAD, HTN and DM here for a fall. Patient slept well last night. No chest pain or shortness of breath but did have some dyspnea on exertion when I had up to the chair today. She is not on home oxygen. They did put oxygen on the patient last night. She does not have a history of sleep apnea. She does not have home oxygen. HD at [facility] on . Exam Narrative: AF 98.6 164/56 69 18 97% 2L Gen - NARD sitting up in chair HEENT - quarter-sized hematoma noted midline of the occipital region without change. Chest - bibasialr inspiratory crackles. CV - RRR S1/S2. Telemetry showing no significant dysrhythmias. Abd - Soft, NT/ND, Positive BS. Ext - No pedal edema. left UE fistula with thrill and bruit Neuro - awake, alert and appropriate Psych - Nml mood and affect Skin - Warm and dry
[2023-02-13] MEDS: CLOPIDOGREL BISULFATE 75 MG TABLET PO (09:40)
[2023-02-13] MEDS: FLUTICASONE PROPIONATE 0.05% NA SPR 16 GM BTL (*BKC) 1 SPRAY NASAL (09:40)
[2023-02-13] MEDS: amLODIPine BESYLATE 5 MG TABLET 10 MG PO (09:41)
[2023-02-13] MEDS: ISOSORBIDE MONONITRATE 60 MG TAB.ER.24H PO (09:41)
[2023-02-13] MEDS: METOPROLOL SUCCINATE EXT REL 100 MG TABCR PO (09:42)
[2023-02-13] MEDS: PANTOPRAZOLE 40 MG TABLET PO (09:42)
[2023-02-13] MEDS: ASPIRIN 81 MG ENTERIC TABLET PO (09:43)
[2023-02-13] MEDS: FUROSEMIDE 80 MG TABLET PO (09:43)
[2023-02-13] MEDS: BENZONATATE 100 MG CAPSULE PO ×3 (09:43→16:46)
[2023-02-13] MEDS: RANOLAZINE 500 MG TAB.ER.12H 1000 MG PO ×2 (09:43→19:40)
[2023-02-13] MEDS: FLUoxetine HCL 20 MG CAPSULE 60 MG PO (09:44)
--- NOTE | 2023-02-13 10:15 | P.PNNP_ITS ---
Progress Note: A&P Assessment and Plan (1) End stage renal disease: Code(s): N18.6 - End stage renal disease Status: Chronic Assessment and Plan: * plan HD tomorrow and continue T/T/S schedule * follow electrolytes, volume status, and clearance (2) Syncope and collapse: Code(s): R55 - Syncope and collapse Status: Acute Assessment and Plan: * as noted by admission history * she was bending over to picker the dog and when she stood up, she had a syncopal episode falling backwards striking the back of her head.? * due to Valsalva versus orthostatsis versus medication related? * evaluation to date noted: * carotid ultrasound shows less than 50% stenosis in the bilateral internal carotid arteries * head CT showed no acute findings * cervical spine CT also showed no acute abnormalities * EKG shows nonspecific ST T wave changes? * Troponins are negative * Echo is pending.? * PT/OT as tolerated (3) Fall: Code(s): W19.XXXA - Unspecified fall, initial encounter Status: Acute Assessment and Plan: * see #2 (4) Drowsiness: Code(s): R40.0 - Somnolence Status: Acute Assessment and Plan: * as noted yesterday * suspect related to off scheduled home medications * follow trend with appropriate scheduling of outpatient medications (5) Hypertension: Code(s): I10 - Essential (primary) hypertension Status: Chronic Assessment and Plan: * better control than on admission * continue home medications * follow trend of hemodynamics (6) Anemia in chronic kidney disease: Code(s): N18.9 - Chronic kidney disease, unspecified; D63.1 - Anemia in chronic kidney disease Status: Chronic Assessment and Plan: * due to ESRD * Epogen with HD * follow trend of H/H (7) Diabetes mellitus with complication, with long-term current use of insulin: Code(s): E11.8 - Type 2 diabetes mellitus with unspecified complications; Z79.4 - nursing home (current) use of insulin Status: Chronic Assessment and Plan: * follow accuchecks * glycemic control as per hospitalists Will continue to follow. Subjective Date/time seen: 02/13/23 10:15 Chart reviewed -- assuming care from Dr. Smith; appears to be doing reasonably well at the time of my visit; still requiring supplemental oxygen currently; no apparent distress noted; no other issues/events overnight or earlier this morning. Exam Narrative: General: WD/WN female in NAD Heart: normal S1 and S2; no rub Lungs: clear anteriorly; decreased at bases Abdomen: soft, nontender, nondistended, positive bowel sounds Extremities: no cyanosis or clubbing; no edema Skin: warm and intact Objective Data Vital Signs Vital Signs: Vital Signs Temp Pulse Resp BP Pulse Ox O2 Del Method O2 Flow Rate 02/13/23 09:42 69 02/13/23 09:15 72 96 Nasal Cannula 2 02/13/23 08:28 Nasal Cannula 2 02/13/23 04:46 98.6 F 69 18 164/56 H 97 02/13/23 04:00 70 02/13/23 00:00 69 02/12/23 20:00 67 02/12/23 20:00 95 Nasal Cannula 2 02/12/23 22:37 97 Nasal Cannula 2 02/12/23 19:56 67 154/55 H 02/12/23 19:51 65 151/60 H 02/12/23 19:48 99.1 F 67 18 158/60 H 10
--- NOTE | 2023-02-13 10:15 | PM.PNNEP ---
Progress Note: A&P Assessment and Plan (1) End stage renal disease: Code(s): N18.6 - End stage renal disease Status: Chronic Assessment and Plan: plan HD tomorrow and continue T/T/S schedule follow electrolytes, volume status, and clearance (2) Syncope and collapse: Code(s): R55 - Syncope and collapse Status: Acute Assessment and Plan: as noted by admission history she was bending over to pickle sorter the dog and when she stood up, she had a syncopal episode falling backwards striking the back of her head.? due to Valsalva versus orthostatsis versus medication related? evaluation to date noted: carotid ultrasound shows less than 50% stenosis in the bilateral internal carotid arteries head CT showed no acute findings cervical spine CT also showed no acute abnormalities EKG shows nonspecific ST T wave changes? Troponins are negative Echo is pending.? PT/OT as tolerated (3) Fall: Code(s): W19.XXXA - Unspecified fall, initial encounter Status: Acute Assessment and Plan: see #2 (4) Drowsiness: Code(s): R40.0 - Somnolence Status: Acute Assessment and Plan: as noted yesterday suspect related to off scheduled home medications follow trend with appropriate scheduling of outpatient medications (5) Hypertension: Code(s): I10 - Essential (primary) hypertension Status: Chronic Assessment and Plan: better control than on admission continue home medications follow trend of hemodynamics (6) Anemia in chronic kidney disease: Code(s): N18.9 - Chronic kidney disease, unspecified; D63.1 - Anemia in chronic kidney disease Status: Chronic Assessment and Plan: due to ESRD Epogen with HD follow trend of H/H (7) Diabetes mellitus with complication, with long-term current use of insulin: Code(s): E11.8 - Type 2 diabetes mellitus with unspecified complications; Z79.4 - alf (current) use of insulin Status: Chronic Assessment and Plan: follow accuchecks glycemic control as per hospitalists Will continue to follow. Subjective Date/time seen: 02/13/23 10:15 Chart reviewed -- assuming care from Dr. Smith; appears to be doing reasonably well at the time of my visit; still requiring supplemental oxygen currently; no apparent distress noted; no other issues/events overnight or earlier this morning. Exam Narrative: General: WD/WN female in NAD Heart: normal S1 and S2; no rub Lungs: clear anteriorly; decreased at bases Abdomen: soft, nontender, nondistended, positive bowel sounds Extremities: no cyanosis or clubbing; no edema Skin: warm and intact Objective Data Vital Signs Vital Signs: Vital Signs Temp Pulse Resp BP Pulse Ox O2 Del Method O2 Flow Rate 02/13/23 09:42 69 02/13/23 09:15 72 96 Nasal Cannula 2 02/13/23 08:28 Nasal Cannula 2 02/13/23 04:46 98.6 F 69 18 164/56 H 97 02/13/23 04:00 70 02/13/23 00:00 69 02/12/23 20:00 67 02/12/23 20:00 95 Nasal Cannula 2 02/12/23 22:37 97 Nasal Cannula 2 02/12/23 19:56 67 154/55 H 02/12/23 19:51 65 151/60 H 02/12/23 19:48 99.1 F 67 18 158/60 H 100 02/12/23 14:00 98.8 F 63 20 154/58 H 97 02/12/23 16:00 66 02/12/23 12:00 69 Intake/Output Intake/Output: Intake & Output 02/10/23 02/11/23 02/12/23 02/13/23 23:59 23:59 23:59 23:59 Intake Total 900 490 Output Total 2100 0 Balance -2100 900 490 Meds/Results Medications: Active Medications Generic Name Dose Route Start Last Admin Trade Name Freq PRN Reason Stop Dose Admin Acetaminophen 650 mg 02/11/23 14:26 Acetaminophen 325 Mg Tablet PO Q6H PRN Mild Pain (1-3) or Fever Amlodipine Besylate 10 mg 02/12/23 09:00 02/13/23 09:41 Amlodipine Besylate 5 Mg Tablet PO 10 mg DAILY CAMILLA Administ
[2023-02-13 10:17] LABS: Folic Acid 6.6 ng/mL (2.76->20)
[2023-02-13 11:59] LABS: Glucose Point of Care 171 mg/dl (65-105)
--- NOTE | 2023-02-13 15:45 | PCPTNOTE ---
Attempted PT evaluation, pt refused stating she wants to take a nap right now. Will follow.
[2023-02-13 16:54] LABS: Glucose Point of Care 145 mg/dl (65-105)
[2023-02-13] MEDS: ZIPRASIDONE HCL 20 MG CAPSULE 40 MG PO (19:41)
[2023-02-13] MEDS: PRAZOSIN HCL 5 MG CAPSULE 15 MG PO (19:41)
[2023-02-13] MEDS: SENNA/DOCUSATE SODIUM TABLET 1 TAB PO (19:41)
[2023-02-13 20:59] LABS: Glucose Point of Care 173 mg/dl (65-105)
--- NOTE | 2023-02-13 23:52 | PCRCNOTE ---
Apnea link was ordered tonight to be on room air, but when RT turned oxygen off, patient began panting due to shortness of breath. Her oxygen saturation decreased as well. Apnea link is being done on 2L.
[2023-02-14] VITALS (29 sets, daily range): BP systolic 143–194; BP diastolic 48–145; PULSE 63–69; RESP 18–20; TEMP 36–37.1; O2SAT 93–100
[2023-02-14] MEDS: ONDANSETRON INJ 4 MG/2 ML VIAL IV PUSH (05:47)
[2023-02-14] MEDS: hydrALAZINE HCL 50 MG TABLET PO ×3 (05:48→20:26)
[2023-02-14 06:05] LABS: Albumin Level 4.1 g/dL (3.5-5.1); Anion Gap 12 mmol/L (8-16); Blood Urea Nitrogen 38 mg/dL (7-17); Calcium 9.2 mg/dL (8.4-10.2); Carbon Dioxide 30 mmol/L (22-30); Chloride 90 mmol/L (98-107); Estimated CRCL calculation 7 ml/min; Estimated Glomerular Filt Rate 6; Glucose 107 mg/dL (65-110); Potassium 4.9 mmol/L (3.4-5.0); Sodium 132 mmol/L (137-145)
[2023-02-14 08:25] LABS: Glucose Point of Care 144 mg/dl (65-105)
[2023-02-14] MEDS: METOPROLOL SUCCINATE EXT REL 100 MG TABCR PO (08:32)
[2023-02-14] MEDS: PANTOPRAZOLE 40 MG TABLET PO (08:33)
[2023-02-14] MEDS: FLUTICASONE PROPIONATE 0.05% NA SPR 16 GM BTL (*BKC) 1 SPRAY NASAL (08:33)
--- NOTE | 2023-02-14 09:43 | PCPTNOTE ---
Attempted PT evaluation, pt at dialysis. Will follow
--- NOTE | 2023-02-14 10:50 | P.PNNP_ITS ---
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 * due to Valsalva versus orthostatsis versus medication related? * evaluation to date noted: * carotid ultrasound shows less than 50% stenosis in the bilateral internal carotid arteries * head CT showed no acute findings * cervical spine CT also showed no acute abnormalities * EKG shows nonspecific ST T wave changes? * Troponins are negative * Echo is pending.? * PT/OT as tolerated (3) Fall: Code(s): W19.XXXA - Unspecified fall, initial encounter Status: Acute Assessment and Plan: * see #2 (4) Drowsiness: Code(s): R40.0 - Somnolence Status: Acute Assessment and Plan: * better at this time * as noted on admission * suspect related to off scheduled home medications * follow trend with appropriate scheduling of outpatient medications (5) Hypertension: Code(s): I10 - Essential (primary) hypertension Status: Chronic Assessment and Plan: * better control than on admission * continue home medications * follow trend of hemodynamics (6) Anemia in chronic kidney disease: Code(s): N18.9 - Chronic kidney disease, unspecified; D63.1 - Anemia in chronic kidney disease Status: Chronic Assessment and Plan: * due to ESRD * Epogen with HD * follow trend of H/H (7) Diabetes mellitus with complication, with long-term current use of insulin: Code(s): E11.8 - Type 2 diabetes mellitus with unspecified complications; Z79.4 - retirement (current) use of insulin Status: Chronic Assessment and Plan: * follow accuchecks * glycemic control as per hospitalists Will continue to follow. Subjective Date/time seen: 02/14/23 10:50 Tolerating dialysis treatment at the time of my visit (seen on HD at 10:40AM); no apparent distress noted; no issues/events overnight or earlier this AM; no other complaints voiced. Exam Narrative: General: WD/WN female in NAD Heart: normal S1 and S2; no rub Lungs: clear anteriorly; decreased at bases Abdomen: soft, nontender, nondistended, positive bowel sounds Extremities: no cyanosis or clubbing; no edema Skin: warm and intact Objective Data Vital Signs Vital Signs: Vital Signs Temp Pulse Resp BP Pulse Ox O2 Del Method O2 Flow Rate 02/14/23 10:40 64 181/71 H 02/14/23 10:20 64 168/64 H 02/14/23 10:00 63 176/71 H 02/14/23 09:40 63 165/67 H 02/14/23 09:20 63 163/70 H 02/14/23 09:00 64 156/70 H 02/14/23 08:44 98.2 F 65 20 158/71 H 02/14/23 08:32 65 02/14/23 04:00 64 02/14/23 05:15 97.3 F L 63 18 165/145 H 99 02/14/23 00:00 63 02/13/23 23:50 66 95 Nasal Cannula 2 02/13/23 20:00 62
--- NOTE | 2023-02-14 10:50 | PM.PNNEP ---
Progress Note: A&P Assessment and Plan (1) End stage renal disease: Code(s): N18.6 - End stage renal disease Status: Chronic Assessment and Plan: HD today and continue T/T/S schedule follow electrolytes, volume status, and clearance (2) Syncope and collapse: Code(s): R55 - Syncope and collapse Status: Acute Assessment and Plan: as noted by admission history she was bending over to picker feeder the dog and when she stood up, she had a syncopal episode falling backwards striking the back of her head.? due to Valsalva versus orthostatsis versus medication related? evaluation to date noted: carotid ultrasound shows less than 50% stenosis in the bilateral internal carotid arteries head CT showed no acute findings cervical spine CT also showed no acute abnormalities EKG shows nonspecific ST T wave changes? Troponins are negative Echo is pending.? PT/OT as tolerated (3) Fall: Code(s): W19.XXXA - Unspecified fall, initial encounter Status: Acute Assessment and Plan: see #2 (4) Drowsiness: Code(s): R40.0 - Somnolence Status: Acute Assessment and Plan: better at this time as noted on admission suspect related to off scheduled home medications follow trend with appropriate scheduling of outpatient medications (5) Hypertension: Code(s): I10 - Essential (primary) hypertension Status: Chronic Assessment and Plan: better control than on admission continue home medications follow trend of hemodynamics (6) Anemia in chronic kidney disease: Code(s): N18.9 - Chronic kidney disease, unspecified; D63.1 - Anemia in chronic kidney disease Status: Chronic Assessment and Plan: due to ESRD Epogen with HD follow trend of H/H (7) Diabetes mellitus with complication, with long-term current use of insulin: Code(s): E11.8 - Type 2 diabetes mellitus with unspecified complications; Z79.4 - director long term care (current) use of insulin Status: Chronic Assessment and Plan: follow accuchecks glycemic control as per hospitalists Will continue to follow. Subjective Date/time seen: 02/14/23 10:50 Tolerating dialysis treatment at the time of my visit (seen on HD at 10:40AM); no apparent distress noted; no issues/events overnight or earlier this AM; no other complaints voiced. Exam Narrative: General: WD/WN female in NAD Heart: normal S1 and S2; no rub Lungs: clear anteriorly; decreased at bases Abdomen: soft, nontender, nondistended, positive bowel sounds Extremities: no cyanosis or clubbing; no edema Skin: warm and intact Objective Data Vital Signs Vital Signs: Vital Signs Temp Pulse Resp BP Pulse Ox O2 Del Method O2 Flow Rate 02/14/23 10:40 64 181/71 H 02/14/23 10:20 64 168/64 H 02/14/23 10:00 63 176/71 H 02/14/23 09:40 63 165/67 H 02/14/23 09:20 63 163/70 H 02/14/23 09:00 64 156/70 H 02/14/23 08:44 98.2 F 65 20 158/71 H 02/14/23 08:32 65 02/14/23 04:00 64 02/14/23 05:15 97.3 F L 63 18 165/145 H 99 02/14/23 00:00 63 02/13/23 23:50 66 95 Nasal Cannula 2 02/13/23 20:00 62 02/13/23 21:16 97.6 F 61 18 150/54 H 97 02/13/23 20:08 97.6 F 62 18 150/48 H 97 02/13/23 20:04 97.6 F 63 18 135/56 L 97 02/13/23 20:00 97.6 F 61 18 130/54 L 97 02/13/23 19:58 94 Nasal Cannula 2 02/13/23 16:00 62 02/13/23 12:00 63 02/13/23 14:33 155/56 H 02/13/23 14:33 150/59 H 02/13/23 14:00 97.5 F L 63 16 165/60 H 99 02/13/23 14:32 165/60 H Intake/Output Intake/Output: Intake & Output 02/11/23 02/12/23 02/13/23 02/14/23 23:59 23:59 23:59 23:59 Intake Total 900 1270 250 Output Total 2100 0 Balance -2100 900 1270 250 Meds/Results Medications: Active Medications Generic Name Dose
[2023-02-14 14:02] LABS: Glucose Point of Care 121 mg/dl (65-105)
--- NOTE | 2023-02-14 14:14 | PCOTNOTE ---
Attempted to see patient for afternoon OT session. Patient verbalized, she just returned from dialysis and is exhausted. She is trying to eat something but needs to sleep. Patient requested for therapy services tomorrow.
[2023-02-14] MEDS: amLODIPine BESYLATE 5 MG TABLET 10 MG PO (14:23)
[2023-02-14] MEDS: BENZONATATE 100 MG CAPSULE PO ×2 (14:23→18:10)
[2023-02-14] MEDS: CLOPIDOGREL BISULFATE 75 MG TABLET PO (14:23)
[2023-02-14] MEDS: FUROSEMIDE 80 MG TABLET PO (14:23)
[2023-02-14] MEDS: ISOSORBIDE MONONITRATE 60 MG TAB.ER.24H PO (14:23)
[2023-02-14] MEDS: ASPIRIN 81 MG ENTERIC TABLET PO (14:24)
[2023-02-14] MEDS: FLUoxetine HCL 20 MG CAPSULE 60 MG PO (14:24)
[2023-02-14] MEDS: ACETAMINOPHEN 325 MG TABLET 650 MG PO ×2 (14:28→20:29)
--- NOTE | 2023-02-14 14:41 | PCPTNOTE ---
Attempted PT evaluation, Pt refused. Will follow.
[2023-02-14 17:09] LABS: Glucose Point of Care 160 mg/dl (65-105)
--- NOTE | 2023-02-14 17:49 | PM.IMPN ---
Progress Note: A&P Assessment and Plan (1) Hypoxia: Code(s): R09.02 - Hypoxemia Status: Acute Assessment and Plan: Patient noted to be hypoxic when she is sleeping. ApneaLink on 2 L showing no significant desaturation. Repeat Apnea link showed only desaturation of 24minutes but this was done on 2L as well. Patient has been on 2L essentially since admission. It is unclear if patient actually needs O2. Repeat CXR reviewed personally. Patient wanted to be discharged so home O2 evaluation ordered. The therapist attempted to do the study but patient refused and states she needed to stay the night. She probably needs O2 at night at 2L until she can have her sleep study. Home O2 evaluation tomorrow (2) Drowsiness: Code(s): R40.0 - Somnolence Status: Acute Assessment and Plan: Patient was drowsy the morning after admission. CT the brain showed no acute findings on admission and no change on repeat. ABG 7.45/51/59 on 2 L. [place] related to taking her Geodon and clonazepam too late the night before. She normally takes these medications around 730 in the evening. We scheduled Geodon at 7:30 p.m. Clonazepam changed to prn. Symptoms have resolved. 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 When she stood up, she had a syncopal episode falling backwards striking the back of her head. This could be related to decreased venous return from Valsalva or possibly orthostatic. Carotid ultrasound shows less than 50% stenosis in the bilateral internal carotid arteries. Head CT showed no acute findings. Cervical spine CT also showed no acute abnormalities. EKG shows nonspecific ST T wave changes Troponins are negative x3. Echo is EF 60-65% with JACKSON and mild valvular disease. Continue PT and OT. (4) Fall from ground level: Code(s): W18.30XA - Fall on same level, unspecified, initial encounter Status: Acute Assessment and Plan: As above. (5) Closed head injury: Code(s): S09.90XA - Unspecified injury of head, initial encounter Status: Acute Assessment and Plan: Patient sustained a closed head injury from the fall. Repeat CT does not show any acute findings. The head CTs have been about 24 hours apart. Continue to follow for further changes. (6) End-stage renal disease on hemodialysis: Code(s): N18.6 - End stage renal disease; Z99.2 - Dependence on renal dialysis Status: Acute Assessment and Plan: Potassium improved. No metabolic acidosis. Nephrology following. Appreciate their input. HD at [facility] on //Mon. Continue hemodialysis per their recommendation. (7) Anemia in chronic kidney disease: Code(s): N18.9 - Chronic kidney disease, unspecified; D63.1 - Anemia in chronic kidney disease Status: Chronic Assessment and Plan: Hemoglobin low but stable and within her baseline. Continue to follow. (8) Insulin dependent type 2 diabetes mellitus: Code(s): E11.9 - Type 2 diabetes mellitus without complications; Z79.4 - senior care (current) use of insulin Status: Acute Assessment and Plan: The patient's blood glucose was reviewed on 02/14 Glucose remains well controlled. Continue AccuCheks covering with sliding scale. Hypoglycemia protocol available as needed . Continue to monitor. Subjective Date/time seen: 02/14/23 17:49 Interval history: 62yo female with ESRD, CAD, HTN and DM here for a fall. Patient feels better. She does get SOB during dialysis requiring O2 at times. She does not have a history of sleep apnea. She does not have home oxygen. She denies CP. She has been on O2 almost since admission. Patent was seen while she was finishing her dialysis. She was requesting discharge at the time of my visit. Exam Narrative: AF 98.7 161/61 65 18 93% Gen -
[2023-02-14] MEDS: SENNA/DOCUSATE SODIUM TABLET 1 TAB PO (20:26)
[2023-02-14] MEDS: clonazePAM (*CRX) 0.5 MG TABLET 1 MG PO (20:26)
[2023-02-14] MEDS: ZIPRASIDONE HCL 20 MG CAPSULE 40 MG PO (20:26)
[2023-02-14] MEDS: RANOLAZINE 500 MG TAB.ER.12H 1000 MG PO (20:26)
[2023-02-14] MEDS: PRAZOSIN HCL 5 MG CAPSULE 15 MG PO (20:26)
[2023-02-15] VITALS (13 sets, daily range): BP systolic 143–158; BP diastolic 51–57; PULSE 58–64; RESP 18; TEMP 36.6–36.7; O2SAT 94–98
[2023-02-15] MEDS: hydrALAZINE HCL 50 MG TABLET PO ×2 (05:56→14:53)
[2023-02-15] MEDS: FLUoxetine HCL 20 MG CAPSULE 60 MG PO (08:46)
[2023-02-15] MEDS: RANOLAZINE 500 MG TAB.ER.12H 1000 MG PO (08:46)
[2023-02-15] MEDS: ISOSORBIDE MONONITRATE 60 MG TAB.ER.24H PO (08:47)
[2023-02-15] MEDS: CLOPIDOGREL BISULFATE 75 MG TABLET PO (08:47)
[2023-02-15] MEDS: METOPROLOL SUCCINATE EXT REL 100 MG TABCR PO (08:47)
[2023-02-15] MEDS: BENZONATATE 100 MG CAPSULE PO ×2 (08:47→14:53)
[2023-02-15] MEDS: amLODIPine BESYLATE 5 MG TABLET 10 MG PO (08:47)
[2023-02-15] MEDS: ASPIRIN 81 MG ENTERIC TABLET PO (08:47)
[2023-02-15] MEDS: PANTOPRAZOLE 40 MG TABLET PO (08:48)
[2023-02-15] MEDS: FUROSEMIDE 80 MG TABLET PO (08:48)
[2023-02-15 09:05] LABS: Glucose Point of Care 117 mg/dl (65-105)
--- NOTE | 2023-02-15 11:48 | HOMEO2EVAL ---
Evaluation was performed at [facility] Home Oxygen Evaluation RC: Home Oxygen (O2) Evaluation Start: 02/14/23 16:26 Freq: ONCE Status: Active Protocol: RPE Activity Type Activity Date Activity User E-sign Co-sign Detail Recorded Client Recorded Date Recorded By Document 02/15/23 11:10 [facility] [id number] 02/15/23 11:48 [facility] Document 02/15/23 11:25 [facility] [id number] 02/15/23 11:48 [facility] Document 02/15/23 11:35 [facility] [id number] 02/15/23 11:48 [facility] 02/15/23 02/15/23 02/15/23 11:10 11:25 11:35 Home O2 Evaluation [Oxygen] -Test Phase Resting Exercise Resting -Oxygen Delivery Room Air Room Air Room Air [Pulse Oximetry] -Pulse Oximetry (90-100 %) 97 96 96 [Pulse Rate] -Pulse Rate (60-100 beats/min) 60 62 63 [Evaluation] -Activity Tolerance Good Good Good [Charges] -Treatment Charges O2 Evaluation - Inpatient
--- NOTE | 2023-02-15 11:51 | PCRCNOTE ---
HOME O2 EVAL COMPLETE. PATIENT DOES NOT REQUIRE HOME O2 DAYTIME BUT REQUIRES O2 NOC.2LPM. RN NOTIFIED. O2 SET UP WITH [facility] [phone].
--- NOTE | 2023-02-15 12:36 | P.PNNP_ITS ---
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 * due to Valsalva versus orthostatsis versus medication related? * evaluation to date noted: * carotid ultrasound shows less than 50% stenosis in the bilateral internal carotid arteries * head CT showed no acute findings * cervical spine CT also showed no acute abnormalities * EKG shows nonspecific ST T wave changes? * Troponins are negative * Echo is pending.? * PT/OT as tolerated (3) Fall: Code(s): W19.XXXA - Unspecified fall, initial encounter Status: Acute Assessment and Plan: * see #2 (4) Drowsiness: Code(s): R40.0 - Somnolence Status: Acute Assessment and Plan: * better at this time * as noted on admission * suspect related to off scheduled home medications * follow trend with appropriate scheduling of outpatient medications (5) Hypertension: Code(s): I10 - Essential (primary) hypertension Status: Chronic Assessment and Plan: * better control than on admission * continue home medications * follow trend of hemodynamics (6) Anemia in chronic kidney disease: Code(s): N18.9 - Chronic kidney disease, unspecified; D63.1 - Anemia in chronic kidney disease Status: Chronic Assessment and Plan: * due to ESRD * Epogen with HD * follow trend of H/H (7) Diabetes mellitus with complication, with long-term current use of insulin: Code(s): E11.8 - Type 2 diabetes mellitus with unspecified complications; Z79.4 - prison (current) use of insulin Status: Chronic Assessment and Plan: * follow accuchecks * glycemic control as per hospitalists Not opposed to discharge from renal perspective if otherwise medically stable. Will continue to follow. Subjective Date/time seen: 02/15/23 12:36 Tolerated dialysis treatment yesterday without any issues or problems; able to be weaned off supplemental oxygen with stable oxygen saturations; no events overnight or earlier this AM. Exam Narrative: General: WD/WN female in NAD Heart: normal S1 and S2; no rub Lungs: clear anteriorly; decreased at bases Abdomen: soft, nontender, nondistended, positive bowel sounds Extremities: no cyanosis or clubbing; no edema Skin: no rash Objective Data Vital Signs Vital Signs: Vital Signs Temp Pulse Resp BP Pulse Ox O2 Del Method O2 Flow Rate 02/15/23 12:00 60 02/15/23 11:35 63 96 Room Air 02/15/23 11:25 62 96 Room Air 02/15/23 11:10 60 97 Room Air 02/15/23 10:41 94 Room Air 02/15/23 08:30 98 Room Air 02/15/23 08:30 64 02/15/23 10:09 Room Air 02/15/23 08:47 63 02/15/23 06:00 97.8 F 63 18 158/51 H 98 02/15/23 04:00 58 L 02/15/23 00:00 62
--- NOTE | 2023-02-15 12:36 | PM.PNNEP ---
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 due to Valsalva versus orthostatsis versus medication related? evaluation to date noted: carotid ultrasound shows less than 50% stenosis in the bilateral internal carotid arteries head CT showed no acute findings cervical spine CT also showed no acute abnormalities EKG shows nonspecific ST T wave changes? Troponins are negative Echo is pending.? PT/OT as tolerated (3) Fall: Code(s): W19.XXXA - Unspecified fall, initial encounter Status: Acute Assessment and Plan: see #2 (4) Drowsiness: Code(s): R40.0 - Somnolence Status: Acute Assessment and Plan: better at this time as noted on admission suspect related to off scheduled home medications follow trend with appropriate scheduling of outpatient medications (5) Hypertension: Code(s): I10 - Essential (primary) hypertension Status: Chronic Assessment and Plan: better control than on admission continue home medications follow trend of hemodynamics (6) Anemia in chronic kidney disease: Code(s): N18.9 - Chronic kidney disease, unspecified; D63.1 - Anemia in chronic kidney disease Status: Chronic Assessment and Plan: due to ESRD Epogen with HD follow trend of H/H (7) Diabetes mellitus with complication, with long-term current use of insulin: Code(s): E11.8 - Type 2 diabetes mellitus with unspecified complications; Z79.4 - rat exterminator (current) use of insulin Status: Chronic Assessment and Plan: follow accuchecks glycemic control as per hospitalists Not opposed to discharge from renal perspective if otherwise medically stable. Will continue to follow. Subjective Date/time seen: 02/15/23 12:36 Tolerated dialysis treatment yesterday without any issues or problems; able to be weaned off supplemental oxygen with stable oxygen saturations; no events overnight or earlier this AM. Exam Narrative: General: WD/WN female in NAD Heart: normal S1 and S2; no rub Lungs: clear anteriorly; decreased at bases Abdomen: soft, nontender, nondistended, positive bowel sounds Extremities: no cyanosis or clubbing; no edema Skin: no rash Objective Data Vital Signs Vital Signs: Vital Signs Temp Pulse Resp BP Pulse Ox O2 Del Method O2 Flow Rate 02/15/23 12:00 60 02/15/23 11:35 63 96 Room Air 02/15/23 11:25 62 96 Room Air 02/15/23 11:10 60 97 Room Air 02/15/23 10:41 94 Room Air 02/15/23 08:30 98 Room Air 02/15/23 08:30 64 02/15/23 10:09 Room Air 02/15/23 08:47 63 02/15/23 06:00 97.8 F 63 18 158/51 H 98 02/15/23 04:00 58 L 02/15/23 00:00 62 02/14/23 22:00 98.7 F 65 18 97 02/14/23 20:00 95 Nasal Cannula 2 02/14/23 20:00 65 02/14/23 21:19 148/48 H 02/14/23 21:19 143/52 H 02/14/23 20:00 161/49 H 02/14/23 17:31 93 Room Air 02/14/23 17:00 95 Nasal Cannula 1.5 Intake/Output Intake/Output: Intake & Output 02/12/23 02/13/23 02/14/23 02/15/23 23:59 23:59 23:59 23:59 Intake Total 900 1270 970 360 Output Total 0 2500 Balance 900 1270 -1530 360 Meds/Results Medications: Active Medications Generic Name Dose Route Start Last Admin Trade Name Freq PRN Reason Stop Dose Admin Acetaminophen 650 mg 02/11/23 14:26 02/14/23 20:29 Ac
[2023-02-15] MEDS: ONDANSETRON INJ 4 MG/2 ML VIAL IV PUSH (12:53)
[2023-02-15 12:54] LABS: Glucose Point of Care 175 mg/dl (65-105)
[2023-02-15 14:50] LABS: Zinc 74 mcg/dL (60-130)
--- NOTE | 2023-02-15 14:58 | PM.DS ---
DS: Admitting Diagnosis Discharge Date 02/15/23 Admitting Diagnosis Syncopal episode DS: Discharge Diagnosis Discharge Diagnosis (1) Hypoxia: Code(s): R09.02 - Hypoxemia Status: Acute Assessment and Plan: Patient noted to be hypoxic when she is sleeping. ApneaLink on 2 L showing no significant desaturation. Repeat Apnea link showed only desaturation of 24minutes but this was done on 2L as well. Patient has been on 2L essentially since admission. It is unclear if patient actually needs O2. Repeat CXR reviewed personally. Patient wanted to be discharged so home O2 evaluation ordered. The therapist attempted to do the study but patient refused and states she needed to stay the night. She probably needs O2 at night at 2L until she can have her sleep study. Home O2 evaluation tomorrow (2) Drowsiness: Code(s): R40.0 - Somnolence Status: Acute Assessment and Plan: Patient was drowsy the morning after admission. CT the brain showed no acute findings on admission and no change on repeat. ABG 7.45/51/59 on 2 L. [place] related to taking her Geodon and clonazepam too late the night before. She normally takes these medications around 730 in the evening. We scheduled Geodon at 7:30 p.m. Clonazepam changed to prn. Symptoms have resolved. 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 When she stood up, she had a syncopal episode falling backwards striking the back of her head. This could be related to decreased venous return from Valsalva or possibly orthostatic. Carotid ultrasound shows less than 50% stenosis in the bilateral internal carotid arteries. Head CT showed no acute findings. Cervical spine CT also showed no acute abnormalities. EKG shows nonspecific ST T wave changes Troponins are negative x3. Echo is EF 60-65% with JACKSON and mild valvular disease. Continue PT and OT. (4) Fall from ground level: Code(s): W18.30XA - Fall on same level, unspecified, initial encounter Status: Acute Assessment and Plan: As above. (5) Closed head injury: Code(s): S09.90XA - Unspecified injury of head, initial encounter Status: Acute Assessment and Plan: Patient sustained a closed head injury from the fall. Repeat CT does not show any acute findings. The head CTs have been about 24 hours apart. Continue to follow for further changes. (6) End-stage renal disease on hemodialysis: Code(s): N18.6 - End stage renal disease; Z99.2 - Dependence on renal dialysis Status: Acute Assessment and Plan: Potassium improved. No metabolic acidosis. Nephrology following. Appreciate their input. HD at [facility] on . Continue hemodialysis per their recommendation. (7) Anemia in chronic kidney disease: Code(s): N18.9 - Chronic kidney disease, unspecified; D63.1 - Anemia in chronic kidney disease Status: Chronic Assessment and Plan: Hemoglobin low but stable and within her baseline. Continue to follow. (8) Insulin dependent type 2 diabetes mellitus: Code(s): E11.9 - Type 2 diabetes mellitus without complications; Z79.4 - emt intermediate (current) use of insulin Status: Acute Assessment and Plan: The patient's blood glucose was reviewed on 02/14 Glucose remains well controlled. Continue AccuCheks covering with sliding scale. Hypoglycemia protocol available as needed . Continue to monitor. DS: Summary Hospital Course Hospital Course: 62-year-old female with end-stage renal disease on hemodialysis, heart disease, diabetes and anemia is presenting after a fall. She states she has been feeling lightheaded and dizzy fell last couple days as well as having diarrhea and think she was dehydrated. Orthostatics were checked and were within normal limits. She was noted to have some somnolence and so
[2023-02-16 12:33] LABS: Hepatitis B Core Ab Total Nonreactive (Nonreactive)
== END 2023-02-15 18:00 | disposition home or self-care (01) ==
LOC: ANHED 12:35 → ANH3MED 14:44
PROVIDERS: Internal Medicine Nephrology; Physician Assistant; Admitting Provider Internal Medicine; Emergency Provider Physician Assistant; PCP Internal Medicine Gastroenterology; Visit Provider Student in an Organized Health Care Education/Training Program
DX: R09.02 Hypoxemia (principal); R55 Syncope and collapse; S00.03XA Contusion of scalp, initial encounter; W18.30XA Fall on same level, unspecified, initial encounter; Y93.89 Activity, other specified; Y92.003 Bedroom of unspecified non-institutional (private) residence as the place of occurrence of the external cause; I13.2 Hypertensive heart and chronic kidney disease with heart failure and with stage 5 chronic kidney disease, or end stage renal disease; E11.22 Type 2 diabetes mellitus with diabetic chronic kidney disease; I50.9 Heart failure, unspecified; N18.6 End stage renal disease; Z99.2 Dependence on renal dialysis; D63.1 Anemia in chronic kidney disease; M54.2 Cervicalgia; R42 Dizziness and giddiness; R51.9 Headache, unspecified; R11.0 Nausea; F41.9 Anxiety disorder, unspecified; F31.9 Bipolar disorder, unspecified; I25.10 Atherosclerotic heart disease of native coronary artery without angina pectoris; Z95.5 Presence of coronary angioplasty implant and graft; E11.40 Type 2 diabetes mellitus with diabetic neuropathy, unspecified; E11.319 Type 2 diabetes mellitus with unspecified diabetic retinopathy without macular edema; E78.5 Hyperlipidemia, unspecified; N25.0 Renal osteodystrophy; N25.81 Secondary hyperparathyroidism of renal origin; I08.3 Combined rheumatic disorders of mitral, aortic and tricuspid valves; I70.0 Atherosclerosis of aorta; M19.90 Unspecified osteoarthritis, unspecified site; R09.81 Nasal congestion; J90 Pleural effusion, not elsewhere classified; R07.9 Chest pain, unspecified; Z79.82 Long term (current) use of aspirin; Z79.02 Long term (current) use of antithrombotics/antiplatelets; Z79.51 Long term (current) use of inhaled steroids; Z79.4 Long term (current) use of insulin; Z79.899 Other long term (current) drug therapy; Z83.3 Family history of diabetes mellitus; Z84.1 Family history of disorders of kidney and ureter; Z82.49 Family history of ischemic heart disease and other diseases of the circulatory system
CPT/HCPCS: 36415; 36600; 70450; 71045; 72125; 80048; 80053; 80069; 82607; 82746; 82805; 82948; 83036; 83735; 84484; 84630; 85025; 85027; 85610; 85730; 86704; 86706; 87340; 93005; 93306; 93880; 94618; 94762; 96374; 96375; 96376; 97161; 97165; 97530; 97535; 99285; A9270; G0257; G0378; J0360; J1940; J2270; J2405; J7030

== ENCOUNTER 2023-04-19 06:56 | Emergency (ER) | payer MEDICARE, MEDICAID, SELFPAY ==
[2023-04-19] VITALS (10 sets, daily range): BP systolic 172–189; BP diastolic 48–93; PULSE 65–71; RESP 16–29; TEMP 36.6; O2SAT 84–96
--- NOTE | ~2023-04-19 | CT_ITS ---
EXAMINATION: CT brain wo con DATE: 04/19/2023 07:55 INDICATION: Head injury. TECHNIQUE: Computed tomography (CT) of the head was performed without intravenous contrast. The mA wa s adjusted according to patient size. Iterative reconstruction technique was employed. The dose-lengt h product was 908.00 mGy-cm. COMPARISON: Head CT 02/12/2023 FINDINGS: There are scattered areas of low attenuation in the cerebral white matter. There is no intr acranial hemorrhage, acute infarction, or abnormal intracranial mass lesion. The ventricles are jerilyn l in size. There are likely changes of ocular lens replacement surgeries. The paranasal sinuses are c lear. The mastoid air cells are normal. There is a posterior scalp hematoma. IMPRESSION: 1. Stable mild nonspecific cerebral white matter disease, which likely represents chronic small vesse l ischemic disease. Reviewed, dictated and finalized at location A. IMPRESSION: 1. Stable mild nonspecific cerebral white matter disease, which likely represen ts chronic small vessel ischemic disease.
--- NOTE | 2023-04-19 07:30 | ED.GENADULT ---
HPI - General Adult General Chief complaint: Head Injury Stated complaint: WEAK/FALL/HEAD INJURY Time Seen by Provider: 04/19/23 07:02 History of Present Illness HPI narrative: 62-year-old female presented the emergency department for evaluation for a head injury. Patient states that she did have 2 falls on Monday and patient states she did strike her head. Patient denies any loss of consciousness. Patient states she does have frequent falls due to muscle weakness. Patient states these falls are noted usual for her. Patient reports she is on oxygen, 2 L by nasal cannula, at all times. Patient denies any chest pain shortness of breath nausea vomiting diarrhea. Patient states she does feel at her baseline now other than having a headache. Related Data Home Medications Medication Instructions Recorded Confirmed amlodipine 10 mg tablet 10 mg PO DAILY 01/27/20 02/11/23 clonazepam 0.5 mg tablet 1 mg PO HS PRN Anxiety 01/27/20 02/11/23 clopidogrel 75 mg tablet 75 mg PO DAILY 01/27/20 02/11/23 fluoxetine 20 mg capsule 60 mg PO DAILY 01/27/20 02/11/23 fluticasone propionate 50 1 spray intranasal BID PRN Nasal 01/27/20 02/11/23 mcg/actuation nasal Congestion spray,suspension (Allergy Relief (fluticasone)) furosemide 80 mg tablet 80 mg PO DAILY 01/27/20 02/11/23 hydralazine 50 mg tablet 50 mg PO TID 01/27/20 02/11/23 insulin detemir U-100 100 unit/mL 14 unit subcut HS 01/27/20 02/11/23 (3 mL) subcutaneous pen (Levemir FlexTouch U-100 Insulin) metoprolol succinate 25 mg 100 mg PO DAILY 01/27/20 02/11/23 tablet,extended release 24 hr nitroglycerin 0.4 mg sublingual 0.4 mg sublingual Q5MIN PRN Chest 01/27/20 02/11/23 tablet Pain prazosin 5 mg capsule 15 mg PO HS 01/27/20 02/11/23 ranolazine 1,000 mg 1,000 mg PO BID 01/27/20 02/11/23 tablet,extended release,12 hr ziprasidone HCl 40 mg capsule 40 mg PO HS 02/14/20 02/11/23 pantoprazole 40 mg tablet,delayed 40 mg PO DAILY 10/11/22 02/11/23 release sennosides 8.6 mg-docusate sodium 1 tab PO HS 02/11/23 02/11/23 50 mg tablet (Senokot-S) Allergies Allergy/AdvReac Type Severity Reaction Status Date / Time No Known Allergies Allergy Unknown Verified 02/11/23 18:49 Review of Systems Review of Systems: All systems reviewed & are unremarkable except as noted in HPI and below PMFSH Past Medical History Medical History Anemia in chronic kidney disease Anxiety Arthritis Bipolar disorder Cataract Congestive heart failure Echo in January 2020 showing EF of 55-60% with moderate pulmonary hypertension and turbulent flow across the mitral valve; the diastolic function is normal Coronary artery disease With history of myocardial infarction. Depression Diabetic peripheral neuropathy Diabetic retinopathy Dyslipidemia End-stage renal disease on hemodialysis Patient of Dr. Chowdhury. Deviated dialysis in [place] on Monday, , Monday. Fibromyalgia Hypertension Insulin dependent type 2 diabetes mellitus Renal osteodystrophy Seasonal allergies Secondary hyperparathyroidism (of renal origin) Surgical History Surgical History History of 2 sections History of cardiac catheterization (09/2017) Patent stent to LAD and 90% occlusion of a very small diagonal branch. History of cataract extraction with lens replacement (2018) History of cholecystectomy (1996) History of coronary artery stent placement (2012) LAD. History of exploratory laparotomy With possible partial colectomy in the . Patient unsure regarding the history of this surgery. History of hysterectomy (2002) History of inguinal hernia repair History of repair of hiatal hernia Family History Family History Father , age 50s Diabetes mellitus Cancer Mother , Age 89 Cerebrovascula
--- NOTE | 2023-04-19 08:12 | PC.NURSE ---
PT states she feels like she is having an anxiety attack.
--- NOTE | 2023-04-19 08:29 | PC.NURSE ---
Pt stated that she wanted her bladder scanned before being cathed.
--- NOTE | 2023-04-19 09:03 | PC.NURSE ---
Pt states that she needs her water pill to help produce urine which she did not take today. After scanning pt only 69mls of urine was found and pt was refusing a straight cath at this time. Reported to ERP who states we will hold of on a urine.
[2023-04-19 09:24] LABS: Basophils Absolute Auto 0.1 K/mm3 (0.0-0.1); Basophils Percent Auto 0.9 % (0.2-1.2); Eosinophils Absolute Auto 0.3 K/mm3 (0-0.3); Eosinophils Percent Auto 3.9 % (0-4.4); Hematocrit 33.6 % (37.0-47.0); Immature Granulocyte Absolute 0.02 K/mm3 (0.00-0.031); Immature Granulocyte Percent A 0.3 % (0-0.5); Lymphocytes Absolute Auto 0.54 K/mm3 (0.9-3.2); Lymphocytes Percent Auto 7.2 % (18.3-44.2); Mean Corpuscular HGB Conc 32.7 g/dl (32-36); Mean Corpuscular Hemoglobin 30.7 pg (26-34); Mean Corpuscular Volume 93.9 fl (80-100); Mean Platelet Volume 9.8 fl (7.4-10.4); Monocytes Absolute Auto 0.8 K/mm3 (0.1-0.6); Monocytes Percent Auto 10.1 % (2.6-8.5); Neutrophils Absolute Auto 5.9 K/mm3 (1.3-6.7); Neutrophils Percent Auto 77.6 % (45.5-73.1); Platelet Count Result 308 k/mm3 (150-375); Red Blood Count 3.58 M/mm3 (4.2-5.4); White Blood Count 7.5 K/mm3 (4.5-10.0)
[2023-04-19 09:37] LABS: Alanine Aminotransferase 10 U/L (6-35); Albumin Level 4.1 g/dL (3.5-5.1); Alkaline Phosphatase 91 U/L (38-126); Anion Gap 15 mmol/L (8-16); Aspartate Amino Transferase 21 U/L (14-36); Bilirubin,Total 0.8 mg/dL (0.2-1.3); Blood Urea Nitrogen 39 mg/dL (7-17); Calcium 9.3 mg/dL (8.4-10.2); Carbon Dioxide 26 mmol/L (22-30); Chloride 85 mmol/L (98-107); Estimated CRCL calculation 7 ml/min; Estimated Glomerular Filt Rate 6; Glucose 181 mg/dL (65-110); Potassium 4.3 mmol/L (3.4-5.0); Sodium 126 mmol/L (137-145)
[2023-04-19 09:39] LABS: Lactic Acid Reflex 0.6 mmol/L (0.7-2.0)
== END 2023-04-19 10:11 | disposition home or self-care (01) ==
PROVIDERS: Emergency Provider Emergency Medicine; PCP Internal Medicine Gastroenterology
DX: S09.90XA Unspecified injury of head, initial encounter (principal); R51.9 Headache, unspecified; R29.6 Repeated falls; E11.22 Type 2 diabetes mellitus with diabetic chronic kidney disease; I13.2 Hypertensive heart and chronic kidney disease with heart failure and with stage 5 chronic kidney disease, or end stage renal disease; N18.6 End stage renal disease; I50.9 Heart failure, unspecified; D63.1 Anemia in chronic kidney disease; N25.0 Renal osteodystrophy; N25.81 Secondary hyperparathyroidism of renal origin; I25.10 Atherosclerotic heart disease of native coronary artery without angina pectoris; E78.5 Hyperlipidemia, unspecified; E11.42 Type 2 diabetes mellitus with diabetic polyneuropathy; E11.319 Type 2 diabetes mellitus with unspecified diabetic retinopathy without macular edema; M79.7 Fibromyalgia; M19.90 Unspecified osteoarthritis, unspecified site; Z99.2 Dependence on renal dialysis; Z99.81 Dependence on supplemental oxygen; Z96.1 Presence of intraocular lens; Z95.5 Presence of coronary angioplasty implant and graft; Z98.49 Cataract extraction status, unspecified eye; Z90.710 Acquired absence of both cervix and uterus; Z79.4 Long term (current) use of insulin; R90.82 White matter disease, unspecified; W19.XXXA Unspecified fall, initial encounter
CPT/HCPCS: 36415; 70450; 80053; 83605; 85025; 96374; 99284; J0131

== ENCOUNTER 2023-05-10 10:54 | Emergency (ER) | payer MEDICARE, MEDICAID, SELFPAY ==
--- NOTE | ~2023-05-10 | XR_ITS ---
EXAMINATION: XR knee RT min 4V DATE: 05/10/2023 INDICATION: Right knee pain TECHNIQUE: Four views of the right knee were obtained. COMPARISON: None. FINDINGS: Alignment is normal. No fracture or osteochondral lesion. There is mild tricompartmental os teoarthritis characterized by tiny marginal osteophytes. No joint effusion/synovitis. Extensive calc ified atherosclerosis is noted. IMPRESSION: 1. No acute osseous abnormality. Reviewed, dictated and finalized at location A.
--- NOTE | ~2023-05-10 | CT_ITS ---
EXAMINATION: CT brain wo con DATE: 05/10/2023 INDICATION: Head injury. TECHNIQUE: Computed tomography (CT) of the head was performed without intravenous contrast. The mA wa s adjusted according to patient size. Iterative reconstruction technique was employed. The dose-lengt h product was 681 mGy-cm. COMPARISON: Head CT 04/19/2023 FINDINGS: There is an acute subdural hematoma involving the cerebellar tentorium and right frontotemp oral parietal region. The hematoma is hyperdense and hypodense relative to clinton matter. The maximum t hickness is 1.9 cm. There are scattered areas of low attenuation in the cerebral white matter. There is no acute ischemic infarct or abnormal mass lesion. There is a small old infarct in right cerebellu m. There is 9 mm leftward midline shift at the foramen of Fierro. There is right-sided uncal herniati on. The ventricles are not dilated. There are hematomas in the posterior scalp and left side of the s calp. There are likely changes of ocular lens replacement surgeries. There is mild mucosal thickening in the paranasal sinuses. There is a small left mastoid effusion. IMPRESSION: 1. Acute subdural hematoma involving the cerebellar tentorium and right frontotemporal parietal regio n. 2. 9 mm leftward midline shift and right-sided uncal herniation. 3. Mild nonspecific cerebral white matter disease, which likely represents chronic small vessel ische magy disease. 4. I called this result to Dr. Lubin on 05/10/23 at 14:13. Reviewed, dictated and finalized at location A. IMPRESSION: 1. Acute subdural hematoma involving the cerebellar tentorium and right frontot emporal parietal region. 2. 9 mm leftward midline shift and right-sided uncal herniation. 3. Mild nonspecific cerebral white matter disease, which likely represents wafer cutter geovani small vessel ischemic disease. 4. I called this result to Dr. Lubin on 05/10/23 at 14:13.
--- NOTE | ~2023-05-10 | XR_ITS ---
EXAMINATION: XR tibia fibula RT 2V INDICATION: Right leg pain TECHNIQUE: Two views of the right tibia and fibula are obtained. COMPARISON: None available FINDINGS: There is mild anterior soft tissue swelling overlying the mid tibia. No underlying osseous abnormality is identified. There is no fracture. There is mild osteoarthritis of the knee. Calcified atherosclerosis is noted. IMPRESSION: 1. No acute osseous abnormality. Reviewed, dictated and finalized at location A.
--- NOTE | ~2023-05-10 | XR_ITS ---
EXAMINATION: XR chest 1V INDICATION: Fall, pain and weakness TECHNIQUE: PA view of the chest is obtained. COMPARISON: None available FINDINGS: There is mild atelectasis of the left midlung zone. No pleural effusion or pneumothorax. Th e cardiomediastinal silhouette is normal. IMPRESSION: 1. Mild atelectasis of the left midlung zone. Reviewed, dictated and finalized at location A.
--- NOTE | ~2023-05-10 | CT_ITS ---
EXAMINATION: CT cervical spine wo con DATE: 05/10/2023 INDICATION: Head injury. TECHNIQUE: Computed tomography (CT) of the cervical spine was performed without intravenous contrast. Automated exposure control and iterative reconstruction technique were employed. The dose-length pro duct was 360 mGy-cm. COMPARISON: CT cervical spine 05/10/2023 FINDINGS: There is a right pleural effusion. The lungs demonstrate smooth septal thickening, consiste nt with pulmonary edema. There is 8 degrees levocurvature of cervical spine. There is mild kyphosis o f cervical spine. Vertebral body heights are normal. There is mildly decreased disc height at C3-C4 a nd C4-C5 and severely decreased disc height at C5-C6 and C6-C7. The following disc levels are specifi gurmeet discussed: C2-C3: There is mild bilateral uncovertebral joint osteoarthritis. There is mild bilateral facet join t osteoarthritis. There is no neural foraminal stenosis. There is no central canal stenosis. C3-C4: There is mild bilateral uncovertebral joint osteoarthritis. There is no facet joint osteoarthr itis. There is no neural foraminal stenosis. There is no central canal stenosis. C4-C5: There is mild bilateral uncovertebral joint osteoarthritis. There is severe right facet joint osteoarthritis. There is no neural foraminal stenosis. There is mild central canal stenosis. C5-C6: There is severe bilateral uncovertebral joint osteoarthritis. There is severe right and mild l eft facet joint osteoarthritis. There is mild right neural foraminal stenosis. There is mild central canal stenosis. C6-C7: There is severe bilateral uncovertebral joint osteoarthritis. There is mild bilateral facet zarina int osteoarthritis. There is mild bilateral neural foraminal stenosis. There is mild central canal st enosis. C7-T1: There is no uncovertebral joint osteoarthritis. There is moderate severe left facet joint oste oarthritis. There is mild left neural foraminal stenosis. There is no central canal stenosis. IMPRESSION: 1. No fracture. 2. Severe cervical spondylosis. Reviewed, dictated and finalized at location A.
[2023-05-11 07:20] LABS: Hematocrit 25.4 % (37.0-47.0); Hemoglobin 8.2 g/dL (12.0-15.0); Mean Corpuscular HGB Conc 32.3 g/dl (32-36); Mean Corpuscular Hemoglobin 30.7 pg (26-34); Mean Corpuscular Volume 95.1 fl (80-100); Mean Platelet Volume 10.3 fl (7.4-10.4); Platelet Count Result 264 k/mm3 (150-375); Red Blood Count 2.67 M/mm3 (4.2-5.4); Red Cell Distribution Width 15.6 % (11.5-14.5)
[2023-05-11 07:21] LABS: Basophils Absolute Auto 0.1 K/mm3 (0.0-0.1); Basophils Percent Auto 0.8 % (0.2-1.2); Eosinophils Absolute Auto 0.1 K/mm3 (0-0.3); Eosinophils Percent Auto 0.5 % (0-4.4); Immature Granulocyte Absolute 0.07 K/mm3 (0.00-0.031); Immature Granulocyte Percent A 0.5 % (0-0.5); Lymphocytes Absolute Auto 0.73 K/mm3 (0.9-3.2); Lymphocytes Percent Auto 5.6 % (18.3-44.2); Monocytes Absolute Auto 1.4 K/mm3 (0.1-0.6); Monocytes Percent Auto 10.9 % (2.6-8.5); Neutrophils Absolute Auto 10.6 K/mm3 (1.3-6.7); Neutrophils Percent Auto 81.7 % (45.5-73.1)
[2023-05-11 07:22] LABS: Anion Gap 10 mmol/L (8-16); Blood Urea Nitrogen 33 mg/dL (7-17); Carbon Dioxide 31 mmol/L (22-30); Chloride 92 mmol/L (98-107); Estimated Glomerular Filt Rate 11; Potassium 4.5 mmol/L (3.4-5.0); Sodium 133 mmol/L (137-145)
[2023-05-11 07:23] LABS: Alanine Aminotransferase 19 U/L (6-35); Albumin Level 3.6 g/dL (3.5-5.1); Alkaline Phosphatase 96 U/L (38-126); Aspartate Amino Transferase 25 U/L (14-36); Calcium 8.6 mg/dL (8.4-10.2); Glucose 178 mg/dL (65-110); Lipase 36 U/L (23-300); Magnesium 2.1 mg/dL (1.6-2.3); Total Protein 6.2 g/dL (6.3-8.2)
[2023-05-11 07:44] LABS: Appearance Urine Clear (Clear); Color Urine Yellow (Yellow); Glucose Urine UA 1+ mg/dL (Negative); Protein Urine 3+ mg/dL (Negative); Specific Grav Ur 1.015 (1.001-1.035)
[2023-05-11 07:45] LABS: Add Urine Microscopic? YES; Bilirubin Urine Negative (Negative); Blood Urine Negative (Negative); Ketones Urine Negative (Negative); Leukocyte Esterase Ur 1+ LEU/UL (Negative); Nitrate Urine Negative (Negative); RBC Urine 0-2 /hpf (0-2)
[2023-05-11 07:46] LABS: WBC Urine 51-100 /hpf
[2023-05-11 07:47] LABS: Bacteria Urine None seen /hpf; Squamous Epithelial Cell Urine None seen /hpf (Few)
== END 2023-05-10 14:57 | disposition short-term general hospital (02) ==
PROVIDERS: Emergency Provider Emergency Medicine; PCP Internal Medicine Gastroenterology
DX: S06.5X0A Traumatic subdural hemorrhage without loss of consciousness, initial encounter (principal); W19.XXXA Unspecified fall, initial encounter; R53.1 Weakness; S80.12XA Contusion of left lower leg, initial encounter; S80.11XA Contusion of right lower leg, initial encounter; R11.0 Nausea; N18.6 End stage renal disease; Z99.2 Dependence on renal dialysis; Z79.02 Long term (current) use of antithrombotics/antiplatelets; Z23 Encounter for immunization
CPT/HCPCS: 36415; 70450; 71045; 72125; 73564; 73590; 80053; 81001; 83690; 83735; 85025; 87086; 90471; 90714; 96365; 96374; 96375; 99285; J0131

== ENCOUNTER 2023-05-28 00:24 | Emergency (ER) | payer MEDICARE, MEDICAID, SELFPAY ==
[2023-05-28] VITALS (24 sets, daily range): BP systolic 115–186; BP diastolic 41–75; PULSE 55–81; RESP 11–29; TEMP 36.8; O2SAT 87–100
--- NOTE | ~2023-05-28 | CT_ITS ---
EXAMINATION: CT brain wo con INDICATION: Headache COMPARISON: None TECHNIQUE: Standard unenhanced head CT. The dose-length product (DLP) was 681.00 mGy-cm. The mA was a djusted according to patient size. Iterative reconstruction technique was employed. FINDINGS: There are changes of interval right temporal craniotomy. There is a scalp hematoma overlyin g the craniotomy defect. Associated skin madan are also seen. There is a trace subdural hematoma ad jacent to the craniotomy defect. There is a resolving left parietal scalp hematoma. There is no acute intraparenchymal hemorrhage. No evidence of mass lesion. No evidence of acute infarction. There is m ild periventricular and subcortical hypodensity probably related to small vessel ischemic disease. Th ere is mild prominence of the sulci and ventricles related to cerebral atrophy. Intracranial calcifie d cerebral atherosclerosis is noted. There is no mass effect or midline shift. Changes in the globes are likely from ocular lens surgery. The visualized sinuses and mastoid air cells are well aerated. IMPRESSION: 1. Changes of interval right temporal craniotomy and subdural hematoma evacuation. A trace adjacent s ubdural hematoma is age indeterminate. 2. Age related findings. These findings were communicated to the Emergency Department at 0101 hours on 05/28/2023 by the [employer] [facility]iologist. Reviewed, dictated and finalized at location A. IMPRESSION: 1. Changes of interval right temporal craniotomy and subdural hematoma evacuati on. A trace adjacent subdural hematoma is age indeterminate. 2. Age related findings. These findings were communicated to the Emergency Department at 0101 hours on by the [employer] Radiologist.
--- NOTE | ~2023-05-28 | CT_ITS ---
EXAMINATION: CT cervical spine wo con DATE: 05/28/2023 00:47 INDICATION: Head injury TECHNIQUE: Computed tomography (CT) of the cervical spine was performed without intravenous contrast. The dose-length product (DLP) was 398.76 mGy-cm. Automated exposure control and iterative reconstruc tion technique were employed. COMPARISON: 05/10/2023 FINDINGS: Vertebral body alignment is normal. There is no fracture. The odontoid process is intact. T here is severe loss of intervertebral disc space height at C5-6 and C6-7. There is mild loss of inter vertebral disc space height at C3-4 and C4-5. The vertebral body heights are maintained. There is mul tilevel severe facet and uncovertebral joint osteoarthritis. The prevertebral soft tissues are normal . Small degenerative osteophytes project from the anterior endplates of multiple vertebral bodies. Th ere are moderate size right and small left pleural effusions. There is moderate pulmonary edema of th e visualized lung apices. IMPRESSION: 1. Severe cervical spondylosis without acute findings or significant interval change. 2. Moderate-sized right and small left pleural effusions with pulmonary edema of the visualized lung apices. Reviewed, dictated and finalized at location A. IMPRESSION: 1. Severe cervical spondylosis without acute findings or significant interval c hange. 2. Moderate-sized right and small left pleural effusions with pulmonary edema o f the visualized lung apices.
--- NOTE | ~2023-05-28 | XR_ITS ---
EXAMINATION: XR chest 2V DATE: 05/28/2023 02:48 INDICATION: Chest pain TECHNIQUE: Frontal and lateral views of the chest are obtained COMPARISON: None available FINDINGS: There are small pleural effusions, right greater than left. A mild diffuse interstitial pat tern is present. Cardiomegaly is noted. There is no pneumothorax. IMPRESSION: 1. Cardiomegaly with mild pulmonary edema. 2. Small pleural effusions, right greater than left. Reviewed, dictated and finalized at location A.
--- NOTE | ~2023-05-28 | XR_ITS ---
EXAMINATION: XR tibia fibula RT 2V INDICATION: Right leg pain TECHNIQUE: Two views of the right tibia and fibula are obtained. COMPARISON: None available FINDINGS: Bone alignment is normal. There is no fracture. There is mild osteoarthritis of the knee an d ankle. Calcified atherosclerosis is noted. There is a plantar calcaneal enthesophyte. IMPRESSION: 1. No acute osseous abnormality. Reviewed, dictated and finalized at location A.
--- NOTE | ~2023-05-28 | XR_ITS ---
EXAMINATION: XR pelvis 1-2V INDICATION: Pain after fall TECHNIQUE: AP view the pelvis is obtained. COMPARISON: None available FINDINGS: Bone alignment is normal. There is no fracture. There is mild osteoarthritis of the hips. C alcified atherosclerosis is noted. There are phleboliths of the pelvis. IMPRESSION: 1. No acute osseous abnormality. Reviewed, dictated and finalized at location A.
[2023-05-28 01:53] LABS: Basophils Absolute Auto 0.1 K/mm3 (0.0-0.1); Basophils Percent Auto 0.6 % (0.2-1.2); Eosinophils Absolute Auto 0.2 K/mm3 (0-0.3); Eosinophils Percent Auto 1.8 % (0-4.4); Hemoglobin 8.6 g/dL (12.0-15.0); Immature Granulocyte Absolute 0.03 K/mm3 (0.00-0.031); Immature Granulocyte Percent A 0.3 % (0-0.5); Lymphocytes Absolute Auto 0.66 K/mm3 (0.9-3.2); Lymphocytes Percent Auto 6.4 % (18.3-44.2); Mean Corpuscular HGB Conc 30.7 g/dl (32-36); Mean Corpuscular Hemoglobin 30.5 pg (26-34); Mean Corpuscular Volume 99.3 fl (80-100); Mean Platelet Volume 10.1 fl (7.4-10.4); Monocytes Absolute Auto 1.4 K/mm3 (0.1-0.6); Monocytes Percent Auto 13.5 % (2.6-8.5); Neutrophils Percent Auto 77.4 % (45.5-73.1); Nucleated Red Blood Cells Perc 0.3 % (0.0-0.2); Platelet Count Result 272 k/mm3 (150-375); Red Blood Count 2.82 M/mm3 (4.2-5.4); Red Cell Distribution Width 17.5 % (11.5-14.5); White Blood Count 10.3 K/mm3 (4.5-10.0)
--- NOTE | 2023-05-28 02:03 | ED.HEATRA ---
HPI - Head Injury General Chief complaint: Head Injury <GLADYS Borjas Last Filed: 05/28/23 03:34> Stated complaint: Head injury, fall. hx of subarachnoid hemorrhage <GLADYS Borjas Last Filed: 05/28/23 03:34> Time Seen by Provider: 05/28/23 01:05 <Zeinab Nolan PA-C - Last Filed: 05/28/23 03:34> Source: patient and EMS <GLADYS Borjas Last Filed: 05/28/23 03:34> Mode of arrival: EMS <GLADYS Borjas Last Filed: 05/28/23 03:34> Limitations: altered mental status <GLADYS Borjas Last Filed: 05/28/23 03:34> History of Present Illness HPI Narrative: This is a 62 year old female that presents to the ER after a ground level fall today. Reports she was getting up to use the restroom and fell. She is unsure what caused her to fall. Does report hitting her head. She did not lose consciousness. Reports pain in her right lower leg. Patient was noted to be hypoxic upon arrival and placed on 2L via NC with relief. She is supposed to be on oxygen chronically, but was not wearing it upon arrival. Denies vomiting or focal numbness or weakness. <Zeinab Nolan PA-C - Last Filed: 05/28/23 03:34> Related Data Home medications: Home Medications Medication Instructions Recorded Confirmed amlodipine 10 mg tablet 10 mg PO DAILY 01/27/20 02/11/23 clonazepam 0.5 mg tablet 1 mg PO HS PRN Anxiety 01/27/20 02/11/23 clopidogrel 75 mg tablet 75 mg PO DAILY 01/27/20 02/11/23 fluoxetine 20 mg capsule 60 mg PO DAILY 01/27/20 02/11/23 fluticasone propionate 50 1 spray intranasal BID PRN Nasal 01/27/20 02/11/23 mcg/actuation nasal Congestion spray,suspension (Allergy Relief (fluticasone)) furosemide 80 mg tablet 80 mg PO DAILY 01/27/20 02/11/23 hydralazine 50 mg tablet 50 mg PO TID 01/27/20 02/11/23 insulin detemir U-100 100 unit/mL 14 unit subcut HS 01/27/20 02/11/23 (3 mL) subcutaneous pen (Levemir FlexTouch U-100 Insulin) metoprolol succinate 25 mg 100 mg PO DAILY 01/27/20 02/11/23 tablet,extended release 24 hr nitroglycerin 0.4 mg sublingual 0.4 mg sublingual Q5MIN PRN Chest 01/27/20 02/11/23 tablet Pain prazosin 5 mg capsule 15 mg PO HS 01/27/20 02/11/23 ranolazine 1,000 mg 1,000 mg PO BID 01/27/20 02/11/23 tablet,extended release,12 hr ziprasidone HCl 40 mg capsule 40 mg PO HS 02/14/20 02/11/23 pantoprazole 40 mg tablet,delayed 40 mg PO DAILY 10/11/22 02/11/23 release sennosides 8.6 mg-docusate sodium 1 tab PO HS 02/11/23 02/11/23 50 mg tablet (Senokot-S) <Zeinab Nolan PA-C - Last Filed: 05/28/23 03:34> Allergies/Adverse reactions: Allergies Allergy/AdvReac Type Severity Reaction Status Date / Time No Known Allergies Allergy Unknown Verified 05/28/23 00:48 <Zeinab Nolan PA-C - Last Filed: 05/28/23 03:34> Review of Systems Review of Systems: ROS unobtainable: Yes unobtainable due to mental status <Zeinab Nolan PA-C - Last Filed: 05/28/23 03:34> [facility] Past Medical History Medical History: Medical History Anemia in chronic kidney disease Anxiety Arthritis Bipolar disorder Cataract Congestive heart failure Echo in January 2020 showing EF of 55-60% with moderate pulmonary hypertension and turbulent flow across the mitral valve; the diastolic function is normal Coronary artery disease With history of myocardial infarction. Depression Diabetic peripheral neuropathy Diabetic retinopathy Dyslipidemia End-stage renal disease on hemodialysis Patient of Dr. Chowdhruy. Deviated dialysis in [place] on Monday, , Monday. Fibromyalgia Hypertension Insulin dependent type 2 diabetes mellitus Renal osteodystrophy Seasonal allergies Secondary hyperparathyroidism (of renal origin) <Zeinab Nolan PA-C - Last Filed: 05/28/23 03:34> Surgical History Surgical History: Surgical History (Reviewed 02/12/23 @ 23:40 by Marlen Lees
[2023-05-28 02:08] LABS: Alveolar/Arterial O2 Gradient 116.2 mmHg; Base Excess ABG 5.2 mEq/l (+/-2.0); Carboxyhemoglobin 2.1 % THb (0-2.0); Fractional Inspired Oxygen 36 %; HCO3 ABG 30.1 mEq/l (22.0-26.0); Methemoglobin ABG 0.1 %THb (0-1.5); Oxygen Content ABG 16.1 %vol (16.0-22.0); Oxygen Saturation ABG 96.8 % (95.0-100.0); Oxyhemoglobin 94.1 % THb (90.0-100.0); PCO2 ABG 45.9 mmHg (35.0-45.0); PO2 ABG 87.2 mmHg (80.0-100.0); PO2 FiO2 Ratio Arterial Blood 2.42 %; Reduced Hemoglobin 3.7 %THb (0-5.0); Total Hemoglobin 12.1 g/dL (12.0-18.0); pH ABG 7.435 (7.350-7.450)
[2023-05-28 02:08] LABS: Alanine Aminotransferase 11 U/L (6-35); Albumin Level 3.1 g/dL (3.5-5.1); Alkaline Phosphatase 104 U/L (38-126); Anion Gap 5 mmol/L (8-16); Aspartate Amino Transferase 19 U/L (14-36); Bilirubin,Total 0.6 mg/dL (0.2-1.3); Blood Urea Nitrogen 17 mg/dL (7-17); Calcium 8.2 mg/dL (8.4-10.2); Carbon Dioxide 33 mmol/L (22-30); Chloride 99 mmol/L (98-107); Estimated CRCL calculation 17 ml/min; Estimated Glomerular Filt Rate 16; Glucose 107 mg/dL (65-110); Potassium 3.7 mmol/L (3.4-5.0); Sodium 137 mmol/L (137-145)
[2023-05-28 02:09] LABS: Device NASAL CANNULA; Modified Allen's Test Pass; Site Drawn RIGHT RADIAL
--- NOTE | 2023-05-28 02:17 | ECG_ITS ---
Rate [place] QRSd QT QTc P QRS T Severity 60 170 89 251 253 39 37 0 Borderline ECG SINUS RHYTHM NONSPECIFIC ST & T-WAVE ABNORMALITY- DIFFUSE LEADS BASELINE ARTIFACT- I, II, III, AVR, AVL, AVF, V1-V6 BORDERLINE ECG COMPARED TO ECG 02/11/2023 10:42:08 NO SIGNIFICANT CHANGES Electronically Signed On 05-29-2023 7:46:44 CDT by Balbir PLASCENCIA
[2023-05-28] MEDS: hydrALAZINE HCL 20 MG/ML VIAL 10 MG IV PUSH (02:51)
[2023-05-28 03:12] LABS: INR 1.2; Prothrombin Time 15.5 Seconds (11.1-14.7)
[2023-05-28 03:13] LABS: Partial Thromboplastin Time 31.7 SECONDS (22.3-36.8)
[2023-05-28 04:05] LABS: Appearance Urine Cloudy (Clear); Bacteria Urine None Seen /hpf; Bilirubin Urine Negative (Negative); Blood Urine Negative (Negative); Color Urine Dark Yellow (Yellow); Glucose Urine UA 1+ mg/dL (Negative); Ketones Urine Negative (Negative); Leukocyte Esterase Ur 1+ LEU/UL (Negative); Need Manual Microscopic Reviewed; Nitrate Urine Negative (Negative); Protein Urine 4+ mg/dL (Negative); RBC Urine 0-2 /hpf (0-2); Specific Grav Ur 1.018 (1.001-1.035); Squamous Epithelial Cell Urine None seen /hpf (Few); WBC Urine 21-50 /hpf; pH Urine 7.5 (5.0-9.0)
[2023-05-28 04:07] LABS: Add Urine Microscopic? YES
[2023-05-28 04:10] LABS: Amphetamine Screen Urine Negative (Negative); Barbiturate Screen Urine Negative (Negative); Benzodiazepines Screen Urine Negative (Negative); Cannabinoid Screen Urine Negative (Negative); Cocaine Screen Urine Negative (Negative); Methadone Screen Urine Negative (Negative); Opiate Screen Urine Negative (Negative); Phencyclidine Screen Urine Negative (Negative)
--- NOTE | 2023-05-28 10:53 | PC.NURSE ---
Report called to SP Archuleta at [facility]
== END 2023-05-28 11:28 ==
PROVIDERS: Physician Assistant; Emergency Provider Emergency Medicine; PCP Internal Medicine Gastroenterology
DX: R41.82 Altered mental status, unspecified (principal); N39.0 Urinary tract infection, site not specified; R09.02 Hypoxemia; M79.661 Pain in right lower leg; S09.90XA Unspecified injury of head, initial encounter; W18.30XA Fall on same level, unspecified, initial encounter; I13.2 Hypertensive heart and chronic kidney disease with heart failure and with stage 5 chronic kidney disease, or end stage renal disease; I50.9 Heart failure, unspecified; E11.22 Type 2 diabetes mellitus with diabetic chronic kidney disease; N18.6 End stage renal disease; N25.81 Secondary hyperparathyroidism of renal origin; D63.1 Anemia in chronic kidney disease; Z99.2 Dependence on renal dialysis; F41.9 Anxiety disorder, unspecified; F31.9 Bipolar disorder, unspecified; I25.10 Atherosclerotic heart disease of native coronary artery without angina pectoris; I25.2 Old myocardial infarction; E11.42 Type 2 diabetes mellitus with diabetic polyneuropathy; E11.319 Type 2 diabetes mellitus with unspecified diabetic retinopathy without macular edema; M79.7 Fibromyalgia; N25.0 Renal osteodystrophy; M19.90 Unspecified osteoarthritis, unspecified site; Z79.4 Long term (current) use of insulin; Z79.02 Long term (current) use of antithrombotics/antiplatelets; Z79.899 Other long term (current) drug therapy; Z95.5 Presence of coronary angioplasty implant and graft; Z79.82 Long term (current) use of aspirin
CPT/HCPCS: 36415; 36600; 70450; 71046; 72125; 72170; 73590; 80053; 80307; 81001; 82375; 82805; 83050; 85025; 85610; 85730; 87086; 93005; 96374; 99284; J0360

== ENCOUNTER 2023-06-29 10:47 | Observation (INO) | payer MEDICARE, MEDICAID, SELFPAY ==
[2023-06-29] VITALS (40 sets, daily range): BP systolic 150–206; BP diastolic 51–79; PULSE 53–78; RESP 12–31; TEMP 36.5–36.8; O2SAT 95–100; BMI 29.0
--- NOTE | ~2023-06-29 | XR_ITS ---
EXAMINATION: XR chest 2V DATE: 06/29/2023 11:39 INDICATION: Chest pain TECHNIQUE: frontal and lateral views of the chest were obtained. COMPARISON: Chest radiograph dated 05/28/2023 FINDINGS: Skinfold projects along the lateral margin of the right lung. Airspace opacities in the right mid and lower lung zone corresponding to a small pleural effusion with associated atelectasis and/or pneumon ia. Tiny left pleural effusion with blunting of the posterior sulcus but not the costophrenic angle. No pulmonary edema or pneumothorax. Cardiomegaly. Mild to moderate thoracic spondylosis. IMPRESSION: 1. Small right and tiny left pleural effusions. 2. Opacities in the right lower lung zone which could represent associated atelectasis and/or pneumon ia. 3. Cardiomegaly. Reviewed, dictated and finalized at location A. IMPRESSION: 1. Small right and tiny left pleural effusions. 2. Opacities in the right lower lung zone which could represent associated atel ectasis and/or pneumonia. 3. Cardiomegaly.
--- NOTE | ~2023-06-29 | XR_ITS ---
EXAMINATION: XR hip BI 2V w AP pelvis DATE: 06/29/2023 13:18 INDICATION: Pelvic pain. Fall. TECHNIQUE: An anteroposterior view pelvis and 2 views of each hip were obtained. COMPARISON: Pelvis radiograph 05/28/2023 FINDINGS: Bone alignment is normal. No fracture. There is mild lumbar spondylosis. There is moderate osteoarthritis of the hips. IMPRESSION: 1. Moderate osteoarthritis of the hips. Reviewed, dictated and finalized at location L.
--- NOTE | ~2023-06-29 | XR_ITS ---
EXAMINATION: [id number]_[id number] DATE: 06/30/2023 09:31 INDICATION: Left knee injury. TECHNIQUE: 2 views of left knee were obtained. COMPARISON: None. FINDINGS: Bone alignment is normal. No fracture. There is mild tricompartmental osteoarthritis. No kn ee joint effusion. IMPRESSION: 1. Mild left knee osteoarthritis. Reviewed, dictated and finalized at location B.
--- NOTE | ~2023-06-29 | US_ITS ---
EXAMINATION: US venous doppler LE RT DATE: 06/30/2023 09:21 INDICATION: Right lower limb pain. TECHNIQUE: Grayscale ultrasound images without and with compression and Doppler ultrasound images of the right lower extremity veins were obtained. COMPARISON: Ultrasound 09/04/2019 FINDINGS: The visualized portions of right common femoral vein, profunda (deep) femoral vein, femoral vein, pop liteal vein, peroneal veins, posterior tibial veins, and greater saphenous vein outflow are patent. IMPRESSION: 1. No deep venous thrombosis. Reviewed, dictated and finalized at location B.
--- NOTE | 2023-06-29 11:11 | ECG_ITS ---
Measurements Intervals [place] Rate: 58 P: 24 GA: 172 QRS: 73 QRSD: 85 T: 240 QT: 418 QTc: 413 Interpretive Statements SINUS BRADYCARDIA MINIMAL ST DEPRESSION [0.025+ mV ST DEPRESSION] NONSPECIFIC T-WAVE ABNORMALITY ABNORMAL ECG COMPARED TO ECG 05/28/2023 03:25:54 THERE IS NO SIGNIFICANT CHANGE Electronically Signed On 06-30-2023 12:43:26 CDT by Saleem Braun M.D.
[2023-06-29 11:20] LABS: Basophils Absolute Auto 0.1 K/mm3 (0.0-0.1); Basophils Percent Auto 0.9 % (0.2-1.2); Eosinophils Absolute Auto 0.4 K/mm3 (0-0.3); Eosinophils Percent Auto 5.1 % (0-4.4); Hematocrit 34.4 % (37.0-47.0); Hemoglobin 10.6 g/dL (12.0-15.0); Immature Granulocyte Absolute 0.03 K/mm3 (0.00-0.031); Immature Granulocyte Percent A 0.4 % (0-0.5); Lymphocytes Absolute Auto 0.48 K/mm3 (0.9-3.2); Mean Corpuscular HGB Conc 30.8 g/dl (32-36); Mean Corpuscular Hemoglobin 29.9 pg (26-34); Mean Corpuscular Volume 97.2 fl (80-100); Mean Platelet Volume 9.9 fl (7.4-10.4); Monocytes Absolute Auto 0.8 K/mm3 (0.1-0.6); Monocytes Percent Auto 11.6 % (2.6-8.5); Neutrophils Absolute Auto 5.1 K/mm3 (1.3-6.7); Platelet Count Result 238 k/mm3 (150-375); Red Blood Count 3.54 M/mm3 (4.2-5.4); Red Cell Distribution Width 17.2 % (11.5-14.5); White Blood Count 6.8 K/mm3 (4.5-10.0)
[2023-06-29 11:32] LABS: INR 1.1; Prothrombin Time 14.5 Seconds (11.1-14.7)
[2023-06-29 11:33] LABS: Partial Thromboplastin Time 27.4 SECONDS (22.3-36.8)
[2023-06-29 11:35] LABS: Alanine Aminotransferase 29 U/L (6-35); Albumin Level 3.6 g/dL (3.5-5.1); Alkaline Phosphatase 260 U/L (38-126); Anion Gap 8 mmol/L (8-16); Aspartate Amino Transferase 36 U/L (14-36); Bilirubin,Total 0.9 mg/dL (0.2-1.3); Blood Urea Nitrogen 29 mg/dL (7-17); Calcium 9.2 mg/dL (8.4-10.2); Carbon Dioxide 31 mmol/L (22-30); Chloride 97 mmol/L (98-107); Estimated CRCL calculation 11 ml/min; Estimated Glomerular Filt Rate 10; Glucose 187 mg/dL (65-110); Lipase 49 U/L (23-300); Potassium 3.9 mmol/L (3.4-5.0); Sodium 136 mmol/L (137-145)
[2023-06-29] MEDS: ONDANSETRON INJ 4 MG/2 ML VIAL IV PUSH (11:41)
[2023-06-29] MEDS: MORPHINE SULFATE (*CRX) 4 MG/ML INJ IV PUSH (11:43)
[2023-06-29] MEDS: NITROGLYCERIN OINTMENT 1 INCH DOSE TRANSDERM (11:44)
[2023-06-29 11:47] LABS: Troponin I < 0.012 ng/mL (0.000-0.034)
--- NOTE | 2023-06-29 12:35 | ED.CHESTPAIN ---
HPI - Chest Pain General Chief Complaint: Chest Pain Stated Complaint: CP Time Seen by Provider: 06/29/23 11:06 Source: patient, EMS, RN notes reviewed and old records reviewed Mode of arrival: EMS Limitations: no limitations History of Present Illness HPI narrative: This is a 62 year old female with history of ESRD on dialysis, chronic respiratory failure on 2 L NC at home who presents for evaluation of chest pain. PAtient reports this morning around 2 am she developed left chest pressure. She took nitroglycerin which relieved her pain. She went to dialysis this morning and she reports 30 minutes into her dialysis session she developed left chest pressure again. She also reports shortness of breath. She was given aspirin and nitro by EMS. Patient reports pain mildly improved to 9/10. Related Data Home Medications Medication Instructions Recorded Confirmed amlodipine 10 mg tablet 10 mg PO DAILY 01/27/20 06/29/23 clonazepam 0.5 mg tablet 1 mg PO HS PRN Anxiety 01/27/20 06/29/23 clopidogrel 75 mg tablet 75 mg PO DAILY 01/27/20 06/29/23 fluoxetine 20 mg capsule 60 mg PO DAILY 01/27/20 06/29/23 fluticasone propionate 50 1 spray intranasal BID PRN Nasal 01/27/20 06/29/23 mcg/actuation nasal Congestion spray,suspension (Allergy Relief (fluticasone)) furosemide 80 mg tablet 80 mg PO DAILY 01/27/20 06/29/23 hydralazine 50 mg tablet 50 mg PO TID 01/27/20 06/29/23 insulin detemir U-100 100 unit/mL 14 unit subcut HS PRN Hyperglycemia 01/27/20 06/29/23 (3 mL) subcutaneous pen (Levemir FlexTouch U-100 Insulin) metoprolol succinate 25 mg 100 mg PO DAILY 01/27/20 06/29/23 tablet,extended release 24 hr nitroglycerin 0.4 mg sublingual 0.4 mg sublingual Q5MIN PRN Chest 01/27/20 06/29/23 tablet Pain prazosin 5 mg capsule 15 mg PO HS 01/27/20 06/29/23 ranolazine 1,000 mg 1,000 mg PO BID 01/27/20 06/29/23 tablet,extended release,12 hr ziprasidone HCl 40 mg capsule 40 mg PO HS 02/14/20 06/29/23 pantoprazole 40 mg tablet,delayed 40 mg PO DAILY 10/11/22 06/29/23 release sennosides 8.6 mg-docusate sodium 1 tab PO HS 02/11/23 06/29/23 50 mg tablet (Senokot-S) bisacodyl 5 mg tablet,delayed 5 mg PO HS PRN Constipation 06/29/23 06/29/23 release (Dulcolax (bisacodyl)) ondansetron HCl 4 mg tablet 4 mg PO Q12H PRN Nausea And 06/29/23 06/29/23 Vomiting Allergies Allergy/AdvReac Type Severity Reaction Status Date / Time No Known Allergies Allergy Unknown Verified 05/28/23 00:48 Review of Systems Constitutional: Constitutional: Denies weakness Cardiovascular: Cardiovascular: Reports chest pain, Denies syncope, Denies rapid heart rate, Denies irregular heart rhythm, Denies leg edema and Reports dyspnea Respiratory: Respiratory: Denies chest congestion, Denies hemoptysis, Denies excessive phlegm production and Reports dyspnea Gastrointestinal: Gastrointestinal: Denies abdominal pain, Denies hematochezia, Denies diarrhea and Denies vomiting Genitourinary: Genitourinary: Denies hematuria and Denies dysuria Musculoskeletal: Musculoskeletal: Denies joint swelling, Denies loss of height and Denies muscle weakness Neurologic: Denies syncope, Denies focal weakness and Denies weakness PMFSH Past Medical History Medical History Anemia in chronic kidney disease Anxiety Arthritis Bipolar disorder Cataract Congestive heart failure Echo in January 2020 showing EF of 55-60% with moderate pulmonary hypertension and turbulent flow across the mitral valve; the diastolic function is normal Coronary artery disease With history of myocardial infarction. Depression Diabetic peripheral neuropathy Diabetic retinopathy Dyslipidemia End-stage renal disease on hemodialysis Patient of Dr. Chowdhury. Deviated dialysis in [place] on Monday, , Monday. Fibromyalgia Hypertension Insulin dependent type 2 diabetes mellitus Renal osteodystrophy Seasonal allergies Secondary h
[2023-06-29] MEDS: hydrALAZINE HCL 20 MG/ML VIAL 10 MG IV PUSH (12:47)
[2023-06-29] MEDS: hydrALAZINE HCL 50 MG TABLET PO ×2 (12:48→22:45)
[2023-06-29 14:57] LABS: Glucose Point of Care 132 mg/dl (65-105)
[2023-06-29 15:16] LABS: Troponin I < 0.012 ng/mL (0.000-0.034)
--- NOTE | 2023-06-29 16:45 | ADMGEN ---
This patient, Isis Moore, was admitted to IMU Room 210-01. Patient/family oriented to hospital policies and general routines including ID bracelet, bed and alarms, visiting hours, pain management, procedures, bathroom and other care routines, personal items, smoking policy, room service/diet, and visiting hours. Information on how to activate the Rapid Response Team has been discussed. Patient/Family are encouraged to report perceived risks to care and to ask questions if they do not understand what they are told or what they should do.
[2023-06-29 17:30] LABS: Glucose Point of Care 219 mg/dl (65-105)
[2023-06-29 18:32] LABS: Troponin I < 0.012 ng/mL (0.000-0.034)
[2023-06-29 20:42] LABS: Glucose Point of Care 204 mg/dl (65-105)
--- NOTE | 2023-06-29 21:25 | PM.IMHP ---
H&P: HPI History of Present Illness Date/Time: 06/29/23 21:25 Chief Complaint: Chest pain Narrative: This is a 62-year-old female patient who has end-stage renal disease and has dialysis on Monday. The patient stated that she woke up at 2:00 a.m. left chest pressure. She took her nitro and her pain was relieved. The patient went had went to her dialysis this morning and then reported 30 minutes into her dialysis session she developed chest pressure again. She also reports shortness of breath. The patient was given an aspirin and nitro EN route. She stated that her pain was mildly relieved 08/06. Her blood pressure was noted to be 203/68. The patient was given aspirin nitro morphine Zofran and hydralazine. Her blood sugars were noted to be 132, 219 and 204. H&H is 10.6 and 34.4 of which the patient has chronic anemia secondary to end-stage renal disease. BUN is 29 creatinine 4.6. Sodium 136. Troponin nonreactive x3. EKG was read as sinus bradycardia minimal ST depression. Nephrology has been consulted. The patient is being admitted to observation status on the date of service of 06/29/2023. Review of Systems Review of Systems: All systems reviewed & are unremarkable except as noted in HPI and below Constitutional: Constitutional: Reports as per HPI and Reports no additional constitutional complaints Eyes: Eyes: Reports as per HPI and Reports no additional eye complaints ENT: Reports system reviewed and no additional complaints, except as documented and Reports Normal hearing present Cardiovascular: Cardiovascular: Reports no additional cardiovascular complaints Respiratory: Respiratory: Reports no additional respiratory complaints and Reports no additional respiratory complaints Gastrointestinal: Gastrointestinal: Reports as per HPI and Reports no additional gastrointestinal complaints Musculoskeletal: Musculoskeletal: Reports no additional musculoskeletal complaints Integumentary/Breasts: Skin/Breast: Reports system reviewed and no additional complaints, except as docu and Reports as per HPI Neurologic: Reports system reviewed and no additional complaints, except as documented, Reports as per HPI and Reports Normal hearing present Psychiatric: Psychiatric: Reports no additional psychiatric complaints and Reports as per HPI Endocrine: Endocrine: Reports no additional endocrine complaints Hematologic/Lymphatic: Hematologic/Lymphatic: Reports no additional hematologic/lymphatic complaints Allergic/Immunologic: Allergic/Immunologic: Reports no additional allergic/immunologic complaints [facility] Past Medical History Medical History Anemia in chronic kidney disease Anxiety Arthritis Bipolar disorder Cataract Congestive heart failure Echo in January 2020 showing EF of 55-60% with moderate pulmonary hypertension and turbulent flow across the mitral valve; the diastolic function is normal Coronary artery disease With history of myocardial infarction. Depression Diabetic peripheral neuropathy Diabetic retinopathy Dyslipidemia End-stage renal disease on hemodialysis Patient of Dr. Chowdhury. Deviated dialysis in [place] on Monday, , Monday. Fibromyalgia Hypertension Insulin dependent type 2 diabetes mellitus Renal osteodystrophy Seasonal allergies Secondary hyperparathyroidism (of renal origin) Surgical History Surgical History History of 2 sections History of cardiac catheterization (09/2017) Patent stent to LAD and 90% occlusion of a very small diagonal branch. History of cataract extraction with lens replacement (2018) History of cholecystectomy (1996) History of coronary artery stent placement (2012) LAD. History of exploratory laparotomy With possible partial colectomy in the . Patient unsure regarding the history of this surgery. History of hysterectomy (
[2023-06-29] MEDS: ZIPRASIDONE HCL 20 MG CAPSULE 40 MG PO (22:45)
[2023-06-29] MEDS: RANOLAZINE 500 MG TAB.ER.12H 1000 MG PO (22:45)
[2023-06-29] MEDS: BISACODYL 5 MG TABLET EC PO (22:45)
[2023-06-29] MEDS: clonazePAM (*CRX) 0.5 MG TABLET 1 MG PO (22:45)
[2023-06-29] MEDS: INSULIN GLARGINE (*BKC) 100 UNITS/ML 14 UNITS SUB-Q (22:46)
[2023-06-29] MEDS: PRAZOSIN HCL 5 MG CAPSULE 15 MG PO (22:46)
[2023-06-30] VITALS (26 sets, daily range): BP systolic 122–199; BP diastolic 48–89; PULSE 48–85; RESP 16–24; TEMP 36–37.1; O2SAT 91–100
[2023-06-30] MEDS: hydrALAZINE HCL 50 MG TABLET PO ×3 (04:51→22:11)
[2023-06-30 05:18] LABS: Basophils Absolute Auto 0.1 K/mm3 (0.0-0.1); Basophils Percent Auto 0.8 % (0.2-1.2); Eosinophils Absolute Auto 0.4 K/mm3 (0-0.3); Eosinophils Percent Auto 4.6 % (0-4.4); Hematocrit 33.1 % (37.0-47.0); Hemoglobin 10.1 g/dL (12.0-15.0); Immature Granulocyte Absolute 0.03 K/mm3 (0.00-0.031); Immature Granulocyte Percent A 0.4 % (0-0.5); Lymphocytes Absolute Auto 0.66 K/mm3 (0.9-3.2); Lymphocytes Percent Auto 8.4 % (18.3-44.2); Mean Corpuscular HGB Conc 30.5 g/dl (32-36); Mean Corpuscular Hemoglobin 29.6 pg (26-34); Mean Corpuscular Volume 97.1 fl (80-100); Mean Platelet Volume 10.4 fl (7.4-10.4); Monocytes Absolute Auto 0.9 K/mm3 (0.1-0.6); Monocytes Percent Auto 11.7 % (2.6-8.5); Neutrophils Absolute Auto 5.8 K/mm3 (1.3-6.7); Neutrophils Percent Auto 74.1 % (45.5-73.1); Platelet Count Result 254 k/mm3 (150-375); Red Blood Count 3.41 M/mm3 (4.2-5.4); Red Cell Distribution Width 17.1 % (11.5-14.5); White Blood Count 7.8 K/mm3 (4.5-10.0)
[2023-06-30 05:26] LABS: Lactic Acid Reflex 1.1 mmol/L (0.7-2.0)
[2023-06-30 05:27] LABS: Alanine Aminotransferase 29 U/L (6-35); Albumin Level 3.6 g/dL (3.5-5.1); Alkaline Phosphatase 235 U/L (38-126); Anion Gap 11 mmol/L (8-16); Aspartate Amino Transferase 46 U/L (14-36); Bilirubin,Total 0.7 mg/dL (0.2-1.3); Blood Urea Nitrogen 38 mg/dL (7-17); Calcium 9.3 mg/dL (8.4-10.2); Carbon Dioxide 29 mmol/L (22-30); Chloride 97 mmol/L (98-107); Estimated CRCL calculation 8 ml/min; Estimated Glomerular Filt Rate 7; Glucose 82 mg/dL (65-110); Hemoglobin A1C 5.6 % (<5.7); Magnesium 2.3 mg/dL (1.6-2.3); Phosphorus 5.7 mg/dL (2.5-4.5); Potassium 4.6 mmol/L (3.4-5.0); Sodium 137 mmol/L (137-145)
[2023-06-30 07:51] LABS: Hepatitis B Surface Antigen Negative (Negative)
[2023-06-30 08:20] LABS: Hepatitis B Surface Anti Res Positive
[2023-06-30] MEDS: amLODIPine BESYLATE 5 MG TABLET 10 MG PO (09:07)
[2023-06-30] MEDS: ISOSORBIDE MONONITRATE 60 MG TAB.ER.24H PO (09:07)
[2023-06-30] MEDS: METOPROLOL SUCCINATE EXT REL 100 MG TABCR PO (09:07)
[2023-06-30] MEDS: RANOLAZINE 500 MG TAB.ER.12H 1000 MG PO ×2 (09:08→21:24)
[2023-06-30] MEDS: ASPIRIN 81 MG ENTERIC TABLET PO (09:09)
[2023-06-30] MEDS: CLOPIDOGREL BISULFATE 75 MG TABLET PO (09:11)
[2023-06-30] MEDS: FLUoxetine HCL 20 MG CAPSULE 60 MG PO (09:11)
[2023-06-30] MEDS: PANTOPRAZOLE 40 MG TABLET PO (09:11)
[2023-06-30] MEDS: FUROSEMIDE 80 MG TABLET PO (09:11)
--- NOTE | 2023-06-30 11:46 | PM.IMPN ---
Progress Note: A&P Assessment and Plan (1) Chest pain: Code(s): R07.9 - Chest pain, unspecified Status: Acute Assessment and Plan: Cardiac enzymes are negative x3. Could be from hypertensive urgency. Increase Imdur and hydralazine dose. An echo also has been ordered. Continue with metoprolol. The patient is on Plavix and aspirin. (2) (HFpEF) heart failure with preserved ejection fraction: Code(s): I50.30 - Unspecified diastolic (congestive) heart failure Status: Acute Assessment and Plan: Echo ordered. 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 Continue with long-acting insulin and Accu-Cheks AC and HS. (4) General weakness: Code(s): R53.1 - Weakness Status: Acute Assessment and Plan: PT OT evaluation as well as intensive care medicine specialist evaluation for possible rehab facility. (5) End stage renal disease: Code(s): N18.6 - End stage renal disease Status: Chronic Assessment and Plan: AV fistula left forearm is positive bruit and thrill. Nephrology has been consulted. (6) Hypertensive urgency: Code(s): I16.0 - Hypertensive urgency Status: Acute Assessment and Plan: Blood pressure elevated. Continue metoprolol at current dose. Increase Imdur and hydralazine dose Subjective Date/time seen: 06/30/23 11:46 Interval history: Somnolent at present per nursing staff. Patient was awake alert oriented at the time of my examination Review of Systems Review of Systems: All systems reviewed & are unremarkable except as noted in HPI and below Constitutional: Constitutional: Reports as per HPI and Reports no additional constitutional complaints Eyes: Eyes: Reports as per HPI and Reports no additional eye complaints ENT: Reports system reviewed and no additional complaints, except as documented and Reports Normal hearing present Cardiovascular: Cardiovascular: Reports no additional cardiovascular complaints Respiratory: Respiratory: Reports no additional respiratory complaints and Reports no additional respiratory complaints Gastrointestinal: Gastrointestinal: Reports as per HPI and Reports no additional gastrointestinal complaints Musculoskeletal: Musculoskeletal: Reports no additional musculoskeletal complaints Integumentary/Breasts: Skin/Breast: Reports system reviewed and no additional complaints, except as docu and Reports as per HPI Neurologic: Reports system reviewed and no additional complaints, except as documented, Reports as per HPI and Reports Normal hearing present Psychiatric: Psychiatric: Reports no additional psychiatric complaints and Reports as per HPI Endocrine: Endocrine: Reports no additional endocrine complaints Hematologic/Lymphatic: Hematologic/Lymphatic: Reports no additional hematologic/lymphatic complaints Allergic/Immunologic: Allergic/Immunologic: Reports no additional allergic/immunologic complaints Exam Const: General: cooperative, healthy appearing, comfortable, no acute distress, well developed, alert, awake, Physically active, average body habitus and well nourished Nutritional Appearance: well nourished and overweight Orientation/consciousness: oriented to person, oriented to place, oriented to time and patient oriented x3 Limitations: no limitations HENMT: Head: normal to inspection, No palpable skull fracture present, normocephalic and atraumatic Ears: hearing grossly normal bilaterally and external ears normal Face/Nose/Sinus: Normal external nose present and Normal nares present Eyes: General: appearance normal, both eyes and all related structures Alignment and Position: alignment normal Periorbital: periorbital findings normal Eyelids: eye
--- NOTE | 2023-06-30 12:24 | PM.CNCAR ---
Assessment and Plan Assessment and plan (1) Chest pain: Code(s): R07.9 - Chest pain, unspecified Status: Acute Plan Episode of atypical sounding chest pain in this 62-year-old lady known to have coronary disease with remote history of PCI to her LAD 10 years ago. She has not had any documented ischemic trouble since then. She has been admitted here previously with atypical sounding pain as well such as this and there was no evidence of ACS the last admission like this was in the of 2021. She does describe having had a stress test of some sort by her established language instructor she thinks within the last year that was negative. There is no evidence of acute coronary syndrome. For her coronary disease she is on appropriate medical therapy. I believe she should be dialyzed today since she does have some scant bibasilar rales and did not complete her dialysis yesterday because of the symptoms. If she is stable following dialysis I would recommend discharging her for follow-up with her established physicians. I do not perceive the need to conduct an ischemia workup at this time here at [place] Saleem Braun MD [facility] History of Present Illness History of Present Illness Consult date/time: 06/30/23 12:24 Reason For Visit: Hypertensive emergency, chest pain Narrative: This is a 62-year-old woman who apparently has coronary artery disease am seeing at the request of the hospitalist because of an episode of chest pain which occurred yesterday. The patient is unknown to me prior to this referral however her chart has been reviewed and the patient has been seen in detail in room 210. She has a history of coronary artery disease dating back to 2012 at which time she was found to have high-grade stenosis in the left anterior descending which was treated successfully with stenting of that lesion. She has been followed by a language instructor elsewhere who no longer practices at [facility] and she states that in recent years she has been stable. She did have a follow-up angiogram in 2017 because of some chest pain and was found to be well/optimally revascularized. She has end-stage renal disease related to diabetes and is on a dialysis schedule of Monday. Apparently she started to experience and reports some chest pain yesterday while she was being dialyzed an ambulance was called she was taken to this hospital's emergency room for evaluation. Her electrocardiogram did not show any evidence of ischemia and her biomarkers have been negative for evidence of acute myocardial injury. She is no longer having any symptoms last night, through the night and so far today. She is asking if there are plans to dialyze her today. I told her I would look into that for her. Her established language instructor does see her regularly at 6 month intervals she believes she has had a stress test within the last year at that physicians office which was by her understanding normal. She not having any orthopnea PND or edema. She is not having any significant shortness of breath. According to her language instructor's previous notes that her in the chart she does not surprisingly have diastolic dysfunction as well. Review of Systems Constitutional: Constitutional: Reports fatigue Eyes: Eyes: Reports no additional eye complaints ENT: Reports system reviewed and no additional complaints, except as documented Cardiovascular: Cardiovascular: Reports as per HPI Respiratory: Respiratory: Reports no additional respiratory complaints Gastrointestinal: Gastrointestinal: Reports no additional gastrointestinal complaints Musculoskeletal: Musculoskeletal: Reports back pain Integumentary/Breasts: Skin/Breast: Reports system reviewed and no additional complaints, except as docu Neurologic: Reports system reviewed and no additional complaints, except as documented Endocrine: Endocrine: Reports no additional endocrine complaints Hematologic/Lympha
[2023-06-30 13:40] LABS: Glucose Point of Care 95 mg/dl (65-105)
--- NOTE | 2023-06-30 14:45 | PM.CNNEP ---
Assessment and Plan Assessment and plan (1) End stage renal disease: Code(s): N18.6 - End stage renal disease Status: Chronic Assessment and Plan: short HD today since did not receive full treatment yesterday HD tomorrow as well to resume T/T/S dialysis schedule follow electrolytes, volume status and clearance (2) Chest pain: Code(s): R07.9 - Chest pain, unspecified Status: Acute Assessment and Plan: no further episodes Cardiology recommendations noted fluid removal today and tomorrow with dialysis (3) Hypertension: Code(s): I10 - Essential (primary) hypertension Status: Chronic Assessment and Plan: reasonable control at this time follow trend of hemodynamics (4) Anemia: Code(s): D64.9 - Anemia, unspecified Status: Chronic Assessment and Plan: due to ESRD Epogen with HD follow trend of H/H (5) General weakness: Code(s): R53.1 - Weakness Status: Acute Assessment and Plan: likely secondary to recent hospitalization for fluid overload +/- pneumonia PT/OT as tolerated may need placement on discharge (6) Diabetes mellitus with complication, with long-term current use of insulin: Code(s): E11.8 - Type 2 diabetes mellitus with unspecified complications; 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 Thank you for allowing me to participate in the care of this patient. History of Present Illness Reason for Consult Consult date: 06/30/23 Reason for consult: end stage renal disease Chief Complaint Chief complaint: Hypertensive emergency, chest pain History of Present Illness Narrative: The patient is a 62-year-old female with a past medical history as outlined below who presented to [facility] Emergency room with complaints of chest pain. The patient reports that yesterday morning she had symptoms of left chest pressure that resolved after she took a sublingual nitro. She subsequently went to her outpatient schedule dialysis treatment later that morning. Approximately 30 min into her dialysis treatment, she had left chest pressure again in association with shortness of breath. Her dialysis treatment was aborted and she was eating aspirin and EMS was called. She apparently had chest pain pressure that was 9/10 in severity but after taking sublingual nitroglycerin in route to the hospital, her pain resolved again. Workup and evaluation in the emergency room demonstrated the patient to be quite hypertensive in the 200 systolic range but her chest pain and shortness of breath seemed to be somewhat better. As already mentioned, her chest pain seemed to resolve with a combination of nitroglycerin and morphine and she is already given aspirin. She received IV hydralazine for blood pressure with improvement. Routine blood test were consistent with her known history of end-stage renal disease with no critical electrolyte abnormalities. Initial troponin and subsequent testing was negative and she did not appear to have any EKG changes significant for ischemia. However, given her complex medical history and the symptoms that led to her presentation to the emergency room, she was admitted to the hospital for cardiology consultation and further evaluation and therapy. Since admission, she has been seen by Cardiology who do not feel that her symptoms are special service representative of acute coronary syndrome. Furthermore, she has not had any further chest pain since her admission and her shortness of breath which is still somewhat present, is not as severe as it was on presentation. Renal consultation was requested due to her end-stage renal disease. The patient dialyzes on a //Monday dialysis
[2023-06-30] MEDS: EPOETIN ALFA-EPBX 3,000 UNITS/ML VIAL 4000 UNITS IV PUSH (16:16)
[2023-06-30 17:00] LABS: Glucose Point of Care 70 mg/dl (65-105)
[2023-06-30 17:00] LABS: Glucose Point of Care 110 mg/dl (65-105)
[2023-06-30 18:02] LABS: Glucose Point of Care 69 mg/dl (65-105)
[2023-06-30 20:09] LABS: Glucose Point of Care 115 mg/dl (65-105)
[2023-06-30] MEDS: PRAZOSIN HCL 5 MG CAPSULE 15 MG PO (21:22)
[2023-06-30] MEDS: SENNA/DOCUSATE SODIUM TABLET 1 TAB PO (21:22)
[2023-06-30] MEDS: ZIPRASIDONE HCL 20 MG CAPSULE 40 MG PO (21:23)
[2023-07-01] VITALS (27 sets, daily range): BP systolic 118–192; BP diastolic 51–91; PULSE 53–63; RESP 16–20; TEMP 35.4–37; O2SAT 97–100
[2023-07-01] MEDS: amLODIPine BESYLATE 5 MG TABLET 10 MG PO (08:24)
[2023-07-01] MEDS: ASPIRIN 81 MG ENTERIC TABLET PO (08:26)
[2023-07-01] MEDS: hydrALAZINE HCL 50 MG TABLET PO ×4 (08:27→22:50)
[2023-07-01] MEDS: FLUoxetine HCL 20 MG CAPSULE 60 MG PO (08:27)
[2023-07-01] MEDS: FUROSEMIDE 80 MG TABLET PO (08:27)
[2023-07-01] MEDS: CLOPIDOGREL BISULFATE 75 MG TABLET PO (08:27)
[2023-07-01] MEDS: ISOSORBIDE MONONITRATE 30 MG TAB.ER.24H 90 MG PO (08:28)
[2023-07-01] MEDS: RANOLAZINE 500 MG TAB.ER.12H 1000 MG PO ×2 (08:36→22:54)
[2023-07-01] MEDS: METOPROLOL SUCCINATE EXT REL 100 MG TABCR PO (08:36)
[2023-07-01] MEDS: PANTOPRAZOLE 40 MG TABLET PO (08:36)
--- NOTE | 2023-07-01 11:48 | PM.IMPN ---
Progress Note: A&P Assessment and Plan (1) Chest pain: Code(s): R07.9 - Chest pain, unspecified Status: Acute Assessment and Plan: Cardiac enzymes are negative x3. Could be from hypertensive urgency. Increase Imdur and hydralazine dose. An echo also has been ordered. Continue with metoprolol. The patient is on Plavix and aspirin. No further ischemic workup planned (2) (HFpEF) heart failure with preserved ejection fraction: Code(s): I50.30 - Unspecified diastolic (congestive) heart failure Status: Acute Assessment and Plan: Echo ordered. continue with Lasix and metoprolol (3) End stage renal disease: Code(s): N18.6 - End stage renal disease Status: Chronic Assessment and Plan: AV fistula left forearm is positive bruit and thrill. Nephrology has been consulted. 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 Continue with long-acting insulin and Accu-Cheks AC and HS. (5) General weakness: Code(s): R53.1 - Weakness Status: Acute Assessment and Plan: PT OT evaluation as well as assisted living care manager evaluation for possible rehab facility. (6) Hypertensive urgency: Code(s): I16.0 - Hypertensive urgency Status: Acute Assessment and Plan: Blood pressure elevated. Continue metoprolol at current dose. Increase Imdur and hydralazine dose Subjective Date/time seen: 07/01/23 11:48 Interval history: Reports nausea. No other complaint Review of Systems Review of Systems: As per HPI. Exam Const: General: cooperative, healthy appearing, comfortable, no acute distress, well developed, alert, awake, Physically active, average body habitus and well nourished Nutritional Appearance: well nourished and overweight Orientation/consciousness: oriented to person, oriented to place, oriented to time and patient oriented x3 Limitations: no limitations HENMT: Head: normal to inspection, No palpable skull fracture present, normocephalic and atraumatic Ears: hearing grossly normal bilaterally and external ears normal Face/Nose/Sinus: Normal external nose present and Normal nares present Eyes: General: appearance normal, both eyes and all related structures Alignment and Position: alignment normal Periorbital: periorbital findings normal Eyelids: eyelids normal Sclera: sclerae normal Pupils: Equal, round and reactive pupils present EOM: EOMs intact bilaterally Neck: Neck: normal visual inspection, full ROM, no lymphadenopathy, trachea midline and supple Chest: Chest palpation & inspection: normal inspection of the chest Resp: Effort & Inspection: normal respiratory effort Auscultation: rales Percussion: percussion normal Cardio: Palpation: normal PMI Rate: bradycardic Rhythm: regular rhythm Heart sounds: S1 normal heart sound present and S2 normal heart sound present Peripheral pulses: Peripheral pulses 2+ throughout GI: Inspection: normal to inspection Percussion: Yes normal to percussion Auscultation: normal bowel sounds Rectal Exam: deferred Back/Spine/Pelvis: Cervical Spine: cervical ROM normal Skin: General skin exam: normal color Lesions: no lesions Rashes: no rashes Trauma: no lacerations or abrasions Wounds: no wounds Hair: normal Nails: normal Other: Patient has multiple abrasions to her lower extremity and her left knee. She has a AV fistula left forearm which has positive bruit and thrill. Neuro: General: oriented to person, oriented to place, oriented to time and patient oriented x3 Cranial nerves: Yes Equal, round and reactive pupils present and Yes Normal hearing present Cognition (Neuro): normal cognition Speech: normal speech Gait exam (Neuro): Normal gait
[2023-07-01 12:15] LABS: Glucose Point of Care 128 mg/dl (65-105)
--- NOTE | 2023-07-01 15:01 | P.PNNP_ITS ---
Progress Note: A&P Assessment and Plan (1) End stage renal disease: Code(s): N18.6 - End stage renal disease Status: Chronic Assessment and Plan: * hemodialysis due today. * Volume status looks okay. * Will check a renal panel tomorrow (2) Chest pain: Code(s): R07.9 - Chest pain, unspecified Status: Acute Assessment and Plan: * no further episodes * Cardiology recommendations noted * fluid removal today and tomorrow with dialysis (3) Hypertension: Code(s): I10 - Essential (primary) hypertension Status: Chronic Assessment and Plan: * systolic extremely erratic between 118 and 196. * Fluid will be removed today and dialysis which would help. * She is on amlodipine, metoprolol, prazosin, and hydralazine. Will try changing metoprolol to carvedilol to enhance hypertension treatment. * follow trend of hemodynamics (4) Anemia: Code(s): D64.9 - Anemia, unspecified Status: Chronic Assessment and Plan: * due to ESRD * Epogen with HD * hb 10.1 yesterday. 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 Thank you for allowing me to participate in the care of this patient. Subjective Date/time seen: 07/01/23 15:01 Interval history: Isis is feeling fairly well. No chest pain or shortness of breath. She is going to have dialysis this afternoon Review of Systems Cardiovascular: Cardiovascular: Reports no additional cardiovascular complaints Respiratory: Respiratory: Reports no additional respiratory complaints Gastrointestinal: Gastrointestinal: Reports no additional gastrointestinal complaints Genitourinary: Genitourinary: Reports no additional female genitourinary complaints Exam Narrative: WDWN in NAD skin no rash head ncat lungs clear cor reg no rub abd BS+ nontender and soft ext no edema. Objective Data Vital Signs Vital Signs: Vital Signs - 24 hr 06/30/23 15:20 06/30/23 15:40 06/30/23 16:00 Temperature Pulse Rate 54 L 63 51 L Respiratory Rate Blood Pressure 146/71 H 167/74 H 155/67 H Pulse Oximetry Oxygen Delivery Oxygen Flow Rate 06/30/23 16:20 06/30/23 16:40 06/30/23 16:58 Temperature Pulse Rate 53 L 53 L 53 L Respiratory Rate Blood Pressure 163/65 H 172/68 H 181/62 H Pulse Oximetry Oxygen Delivery Oxygen Flow Rate 06/30/23 17:08 06/30/23 17:30 06/30/23 16:00 Temperature 98.7 F 98 F Pulse Rate 58 L 85 85 Respiratory Rate 16 16 16 Blood Pressur
--- NOTE | 2023-07-01 15:01 | PM.PNNEP ---
Progress Note: A&P Assessment and Plan (1) End stage renal disease: Code(s): N18.6 - End stage renal disease Status: Chronic Assessment and Plan: hemodialysis due today. Volume status looks okay. Will check a renal panel tomorrow (2) Chest pain: Code(s): R07.9 - Chest pain, unspecified Status: Acute Assessment and Plan: no further episodes Cardiology recommendations noted fluid removal today and tomorrow with dialysis (3) Hypertension: Code(s): I10 - Essential (primary) hypertension Status: Chronic Assessment and Plan: systolic extremely erratic between 118 and 196. Fluid will be removed today and dialysis which would help. She is on amlodipine, metoprolol, prazosin, and hydralazine. Will try changing metoprolol to carvedilol to enhance hypertension treatment. follow trend of hemodynamics (4) Anemia: Code(s): D64.9 - Anemia, unspecified Status: Chronic Assessment and Plan: due to ESRD Epogen with HD hb 10.1 yesterday. check in am (5) General weakness: Code(s): R53.1 - Weakness Status: Acute Assessment and Plan: likely secondary to recent hospitalization for fluid overload +/- pneumonia PT/OT as tolerated may need placement on discharge (6) Diabetes mellitus with complication, with long-term current use of insulin: Code(s): E11.8 - Type 2 diabetes mellitus with unspecified complications; Z79.4 - jail (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 Thank you for allowing me to participate in the care of this patient. Subjective Date/time seen: 07/01/23 15:01 Interval history: Isis is feeling fairly well. No chest pain or shortness of breath. She is going to have dialysis this afternoon Review of Systems Cardiovascular: Cardiovascular: Reports no additional cardiovascular complaints Respiratory: Respiratory: Reports no additional respiratory complaints Gastrointestinal: Gastrointestinal: Reports no additional gastrointestinal complaints Genitourinary: Genitourinary: Reports no additional female genitourinary complaints Exam Narrative: WDWN in NAD skin no rash head ncat lungs clear cor reg no rub abd BS+ nontender and soft ext no edema. Objective Data Vital Signs Vital Signs: Vital Signs - 24 hr 06/30/23 15:20 06/30/23 15:40 06/30/23 16:00 Temperature Pulse Rate 54 L 63 51 L Respiratory Rate Blood Pressure 146/71 H 167/74 H 155/67 H Pulse Oximetry Oxygen Delivery Oxygen Flow Rate 06/30/23 16:20 06/30/23 16:40 06/30/23 16:58 Temperature Pulse Rate 53 L 53 L 53 L Respiratory Rate Blood Pressure 163/65 H 172/68 H 181/62 H Pulse Oximetry Oxygen Delivery Oxygen Flow Rate 06/30/23 17:08 06/30/23 17:30 06/30/23 16:00 Temperature 98.7 F 98 F Pulse Rate 58 L 85 85 Respiratory Rate 16 16 16 Blood Pressure 196/80 H 133/83 Pulse Oximetry 97 97 Oxygen Delivery Nasal Cannula Oxygen Flow Rate 2 06/30/23 16:00 06/30/23 18:00 06/30/23 20:00 Temperature 98.3 F Pulse Rate 52 L 59 L 58 L Respiratory Rate 20 Blood Pressure 178/56 H Pulse Oximetry 91 Oxygen Delivery Oxygen Flow Rate 06/30/23 20:00 06/30/23 22:00 06/30/23 20:00 Temperature Pulse Rate 58 L 58 L 58 L Respiratory Rate 18 Blood Pressure Pulse Oximetry 99 Oxygen Delivery Nasal Cannula Oxygen Flow Rate 2 07/01/23 00:00 07/01/23 00:00 07/01/23 02:00 Temperature 97.5 F L Pulse Rate 57 L 56 L 63 Respiratory Rate 20 Blood Pressure 168/61 H Pulse Oximetry 100 Oxygen Delivery Oxygen Flow Rate 07/01/23 00:00 07/01/23 04:00 07/01/23 04:00 Temperature 97.5 F L P
[2023-07-01 15:54] LABS: Glucose Point of Care 71 mg/dl (65-105)
[2023-07-01 16:40] LABS: Glucose Point of Care 154 mg/dl (65-105)
--- NOTE | 2023-07-01 16:53 | PC.NURSE ---
Spoke with assistant housekeeping manager at 1510 today regarding Dialysis. No Dialysis nurse has showed up for the shift today. Dr. Sarah cote.
[2023-07-01 18:57] LABS: Glucose Point of Care 146 mg/dl (65-105)
[2023-07-01] MEDS: EPOETIN ALFA-EPBX 3,000 UNITS/ML VIAL 4000 UNITS IV PUSH (20:15)
[2023-07-01] MEDS: ACETAMINOPHEN 500 MG TABLET 1000 MG PO (20:23)
[2023-07-01 22:18] LABS: Glucose Point of Care 130 mg/dl (65-105)
[2023-07-01] MEDS: clonazePAM (*CRX) 0.5 MG TABLET 1 MG PO (22:50)
[2023-07-01] MEDS: ZIPRASIDONE HCL 20 MG CAPSULE 40 MG PO (22:51)
[2023-07-01] MEDS: SENNA/DOCUSATE SODIUM TABLET 1 TAB PO (22:52)
[2023-07-01] MEDS: carvediloL 25 MG TABLET PO (22:52)
[2023-07-01] MEDS: PRAZOSIN HCL 5 MG CAPSULE 15 MG PO (22:54)
[2023-07-02] VITALS (8 sets, daily range): BP systolic 146–199; BP diastolic 68–86; PULSE 51–61; RESP 16–20; TEMP 36.4–36.8; O2SAT 95–100
[2023-07-02 05:11] LABS: Hematocrit 35.7 % (37.0-47.0); Hemoglobin 10.8 g/dL (12.0-15.0); Mean Corpuscular HGB Conc 30.3 g/dl (32-36); Mean Corpuscular Hemoglobin 29.4 pg (26-34); Mean Corpuscular Volume 97.3 fl (80-100); Mean Platelet Volume 10.6 fl (7.4-10.4); Platelet Count Result 216 k/mm3 (150-375); Red Blood Count 3.67 M/mm3 (4.2-5.4); Red Cell Distribution Width 16.8 % (11.5-14.5); White Blood Count 6.9 K/mm3 (4.5-10.0)
[2023-07-02 05:24] LABS: Albumin Level 3.6 g/dL (3.5-5.1); Anion Gap 7 mmol/L (8-16); Blood Urea Nitrogen 17 mg/dL (7-17); Calcium 9.1 mg/dL (8.4-10.2); Carbon Dioxide 24 mmol/L (22-30); Chloride 102 mmol/L (98-107); Estimated CRCL calculation 16 ml/min; Estimated Glomerular Filt Rate 16; Glucose 110 mg/dL (65-110); Phosphorus 3.7 mg/dL (2.5-4.5); Potassium 4.4 mmol/L (3.4-5.0); Sodium 133 mmol/L (137-145)
[2023-07-02] MEDS: FUROSEMIDE 80 MG TABLET PO (07:52)
[2023-07-02] MEDS: hydrALAZINE HCL 50 MG TABLET PO ×2 (07:52→12:42)
[2023-07-02 07:57] LABS: Glucose Point of Care 118 mg/dl (65-105)
[2023-07-02] MEDS: amLODIPine BESYLATE 5 MG TABLET 10 MG PO (09:21)
[2023-07-02] MEDS: carvediloL 25 MG TABLET PO (09:25)
[2023-07-02] MEDS: ASPIRIN 81 MG ENTERIC TABLET PO (09:25)
[2023-07-02] MEDS: FLUoxetine HCL 20 MG CAPSULE 60 MG PO (09:26)
[2023-07-02] MEDS: PANTOPRAZOLE 40 MG TABLET PO (09:26)
[2023-07-02] MEDS: ISOSORBIDE MONONITRATE 30 MG TAB.ER.24H 90 MG PO (09:26)
[2023-07-02] MEDS: RANOLAZINE 500 MG TAB.ER.12H 1000 MG PO (09:26)
[2023-07-02] MEDS: CLOPIDOGREL BISULFATE 75 MG TABLET PO (09:26)
[2023-07-02 11:29] LABS: Glucose Point of Care 148 mg/dl (65-105)
--- NOTE | 2023-07-02 11:35 | PM.DS ---
DS: Admitting Diagnosis Discharge Date 07/02/2023 Admitting Diagnosis Chest pain ESRD on dialysis DS: Discharge Diagnosis Discharge Diagnosis (1) Coronary artery disease: Qualifiers: Associated angina: with unspecified angina Coronary Disease-Associated Artery/Lesion type: inupiat artery [place] vs. transplanted heart: inupiat heart Qualified Code(s): I25.119 - Atherosclerotic heart disease of inupiat coronary artery with unspecified angina pectoris Code(s): I25.10 - Atherosclerotic heart disease of inupiat coronary artery without angina pectoris Status: Acute (2) Diabetes: Qualifiers: Diabetes mellitus complication detail: with polyneuropathy Diabetes mellitus complication status: with neurologic complications Diabetes mellitus middle or intermediate school principal insulin use: with middle or intermediate school principal use Diabetes mellitus type: type 2 Qualified Code(s): E11.42 - Type 2 diabetes mellitus with diabetic polyneuropathy; Z79.4 - intermediate project manager (current) use of insulin Code(s): E11.9 - Type 2 diabetes mellitus without complications Status: Chronic (3) End stage renal disease: Code(s): N18.6 - End stage renal disease Status: Chronic DS: Summary Hospital Course Hospital Course: This is a 62-year-old female patient who has end-stage renal disease and has dialysis on Monday.? The patient stated that she woke up at 2:00 a.m. left chest pressure.? She took her nitro and her pain was relieved.? The patient went had went to her dialysis this morning and then reported 30 minutes into her dialysis session she developed chest pressure again.? She also reports shortness of breath.? The patient was given an aspirin and nitro EN route.? She stated that her pain was mildly relieved 08/06.? Her blood pressure was noted to be 203/68.? The patient was given aspirin nitro morphine Zofran and hydralazine.? Her blood sugars were noted to be 132, 219 and 204.? H&H is 10.6 and 34.4 of which the patient has chronic anemia secondary to end-stage renal disease.? BUN is 29 creatinine 4.6.? Sodium 136.? Troponin nonreactive x3.? EKG was read as sinus bradycardia minimal ST depression.? Nephrology has been consulted.? Blood pressure stable now. Metoprolol has been changed to Coreg for better blood pressure control. patient is clinically stable now. She underwent dialysis and will continue dialysis as outpatient. Patient was seen by Cardiology in consultation. She is on the optimize medication for her coronary artery disease as per Cardiology. No further intervention. Patient is being discharged home with home health Time Spent with Patient Time attestation: Total time spent providing and/or coordinating discharge services: DS: Data Data Completed and Pending Labs on day of discharge: Labs from last 24 hours 07/02/23 07/02/23 07/02/23 11:23 07:46 04:50 WBC 6.9 RBC 3.67 L Hgb 10.8 L Hct 35.7 L MCV 97.3 MCH 29.4 MCHC 30.3 L RDW 16.8 H Plt Count 216 MPV 10.6 H Sodium 133 L Potassium 4.4 Chloride 102 Carbon Dioxide 24 Anion Gap 7 L BUN 17 D Creatinine 3.00 H Estim Creat Clear Calc 16 Estimated GFR 16 L Glucose 110 POC Capillary Glucose 148 H 118 H Calcium 9.1 Phosphorus 3.7 Albumin 3.6 07/01/23 07/01/23 07/01/23 22:15 18:52 16:27 WBC RBC Hgb Hct MCV MCH MCHC RDW Plt Count MPV Sodium Potassium Chloride Carbon Dioxide Anion Gap BUN Creatinine Estim Creat Clear Calc Estimated GFR Glucose POC Capillary Glucose 130 H 146 H 154 H Calcium Phosphorus Albumin 07/01/23 07/01/23 11:36 07:50 WBC RBC Hgb Hct MCV MCH MCHC RDW Plt Count MPV Sodium Potassium Chloride Carbon Dioxide Anion Gap BUN Creatinine Estim Creat Clear Calc Estimated GFR Glucose POC Capillary Glucose 128 H 71 Calcium Angela
== END 2023-07-02 13:00 | disposition home health service (06) ==
LOC: ANHED 11:16 → ANHIMU 15:50
PROVIDERS: Internal Medicine Nephrology; Nurse Practitioner; Admitting Provider Student in an Organized Health Care Education/Training Program; Emergency Provider General Practice; PCP Internal Medicine Gastroenterology; Visit Provider Hospitalist
DX: I25.119 Atherosclerotic heart disease of native coronary artery with unspecified angina pectoris (principal); Z95.5 Presence of coronary angioplasty implant and graft; E11.42 Type 2 diabetes mellitus with diabetic polyneuropathy; E11.319 Type 2 diabetes mellitus with unspecified diabetic retinopathy without macular edema; E11.65 Type 2 diabetes mellitus with hyperglycemia; I13.0 Hypertensive heart and chronic kidney disease with heart failure and stage 1 through stage 4 chronic kidney disease, or unspecified chronic kidney disease; I50.30 Unspecified diastolic (congestive) heart failure; E11.22 Type 2 diabetes mellitus with diabetic chronic kidney disease; N18.6 End stage renal disease; Z99.2 Dependence on renal dialysis; D63.1 Anemia in chronic kidney disease; F41.9 Anxiety disorder, unspecified; F31.9 Bipolar disorder, unspecified; J90 Pleural effusion, not elsewhere classified; R91.8 Other nonspecific abnormal finding of lung field; E78.5 Hyperlipidemia, unspecified; I16.0 Hypertensive urgency; M79.7 Fibromyalgia; R11.2 Nausea with vomiting, unspecified; M16.0 Bilateral primary osteoarthritis of hip; R94.31 Abnormal electrocardiogram [ECG] [EKG]; N25.0 Renal osteodystrophy; Z99.81 Dependence on supplemental oxygen; J96.01 Acute respiratory failure with hypoxia; E21.3 Hyperparathyroidism, unspecified; M79.661 Pain in right lower leg; M17.12 Unilateral primary osteoarthritis, left knee; I27.20 Pulmonary hypertension, unspecified; I08.1 Rheumatic disorders of both mitral and tricuspid valves; R53.1 Weakness; K59.00 Constipation, unspecified; Z79.4 Long term (current) use of insulin; Z79.02 Long term (current) use of antithrombotics/antiplatelets; Z79.82 Long term (current) use of aspirin; Z79.899 Other long term (current) drug therapy; Z83.3 Family history of diabetes mellitus; Z84.1 Family history of disorders of kidney and ureter; Z82.49 Family history of ischemic heart disease and other diseases of the circulatory system
CPT/HCPCS: 36415; 71046; 73521; 73560; 80053; 80069; 82948; 83036; 83605; 83690; 83735; 84100; 84484; 85025; 85027; 85610; 85730; 86706; 87340; 93005; 93971; 96374; 96375; 96376; 97161; 99285; A9270; G0257; G0378; J0360; J1815; J2270; J2405; J7030; Q5105

== ENCOUNTER 2023-12-21 16:09 | Outpatient (CLI) | payer MEDICARE, MEDICAID, SELFPAY ==
--- NOTE | ~2023-12-21 | US_ITS ---
EXAMINATION: US venous doppler [facility] DATE: 12/21/2023 17:10 INDICATION: Left lower limb swelling and pain. TECHNIQUE: Grayscale ultrasound images without and with compression and Doppler ultrasound images of the left lower extremity veins were obtained. COMPARISON: Ultrasound 09/04/2019 FINDINGS: The visualized portions of left common femoral vein, profunda (deep) femoral vein, femoral vein, popl iteal vein, peroneal veins, posterior tibial veins, and greater saphenous vein outflow are patent. IMPRESSION: 1. No deep venous thrombosis. Reviewed, dictated and finalized at location E. ICAL BUSINESS ANALYST
== END 2023-12-21 16:10 | disposition home or self-care (01) ==
PROVIDERS: PCP Internal Medicine Gastroenterology; Visit Provider Podiatrist Foot & Ankle Surgery
DX: M79.662 Pain in left lower leg (principal)
CPT/HCPCS: 93971

== ENCOUNTER 2024-04-18 10:40 | Emergency (ER) | payer MEDICARE, MEDICAID, SELFPAY ==
--- NOTE | ~2024-04-18 | XR_ITS ---
EXAMINATION: XR chest 2V DATE: 04/18/2024 11:30 INDICATION: Chest pain. TECHNIQUE: Frontal and lateral views of the chest were obtained. COMPARISON: Chest 2 views 06/29/2023, CT abdomen and pelvis 04/23/2019 FINDINGS: There are airspace opacities in the mid and lower lung zones, right worse than left. There is a small right pleural effusion. No pneumothorax. Cardiomegaly is noted. IMPRESSION: 1. Airspace opacities in the mid and lower lung zones, right worse than left, consistent with atelect asis versus pneumonia. 2. Small right pleural effusion. 3. Cardiomegaly. Reviewed, dictated and finalized at location A. IMPRESSION: 1. Airspace opacities in the mid and lower lung zones, right worse than left, c onsistent with atelectasis versus pneumonia. 2. Small right pleural effusion. 3. Cardiomegaly.
[2024-04-18 10:43] VITALS: BP 145/52; PULSE 52; RESP 18; TEMP 36.4; O2SAT 94
--- NOTE | 2024-04-18 10:47 | ECG_ITS ---
SEE SCANNED COPY FOR CONFIRMED REPORT MTDD
[2024-04-18 11:11] LABS: Alanine Aminotransferase 23 U/L (6-35); Albumin Level 3.7 g/dL (3.5-5.1); Alkaline Phosphatase 175 U/L (38-126); Anion Gap 11 mmol/L (4-12); Aspartate Amino Transferase 39 U/L (14-36); Bilirubin,Total 0.8 mg/dL (0.2-1.3); Blood Urea Nitrogen 58 mg/dL (7-17); Calcium 9.4 mg/dL (8.4-10.2); Carbon Dioxide 26 mmol/L (22-30); Chloride 99 mmol/L (98-107); Estimated CRCL calculation 10 ml/min; Estimated Glomerular Filt Rate 9; Glucose 116 mg/dL (65-110); Lipase 82 U/L (23-300); Potassium 4.5 mmol/L (3.4-5.0); Sodium 136 mmol/L (137-145)
[2024-04-18 11:14] LABS: INR 1.2; Prothrombin Time 15.6 Seconds (11.1-14.7)
[2024-04-18 11:20] LABS: Basophils Absolute Auto 0.1 K/mm3 (0.0-0.1); Basophils Percent Auto 1.1 % (0.2-1.2); Eosinophils Absolute Auto 0.2 K/mm3 (0-0.3); Eosinophils Percent Auto 3.5 % (0-4.4); Hematocrit 31.8 % (37.0-47.0); Immature Granulocyte Absolute 0.02 K/mm3 (0.00-0.031); Immature Granulocyte Percent A 0.3 % (0-0.5); Lymphocytes Absolute Auto 0.57 K/mm3 (0.9-3.2); Lymphocytes Percent Auto 8.7 % (18.3-44.2); Mean Corpuscular HGB Conc 31.4 g/dl (32-36); Mean Corpuscular Volume 95.5 fl (80-100); Mean Platelet Volume 10.3 fl (7.4-10.4); Monocytes Absolute Auto 0.8 K/mm3 (0.1-0.6); Monocytes Percent Auto 12.3 % (2.6-8.5); Neutrophils Absolute Auto 4.8 K/mm3 (1.3-6.7); Neutrophils Percent Auto 74.1 % (45.5-73.1); Platelet Count Result 254 k/mm3 (150-375); Red Blood Count 3.33 M/mm3 (4.2-5.4); Red Cell Distribution Width 15.6 % (11.5-14.5); White Blood Count 6.5 K/mm3 (4.5-10.0)
[2024-04-18 11:22] LABS: Troponin I 0.014 ng/mL (0.000-0.034)
--- NOTE | 2024-04-18 12:49 | PC.NURSE ---
pt left stating its time for my lunch, I'm hungry
== END 2024-04-18 12:45 | disposition left against medical advice (07) ==
LOC: ANHED 12:58
PROVIDERS: Emergency Provider Student in an Organized Health Care Education/Training Program; PCP Internal Medicine Gastroenterology
DX: R07.9 Chest pain, unspecified (principal); R06.02 Shortness of breath
CPT/HCPCS: 36415; 71046; 80053; 83690; 84484; 85025; 85610; 85730; 93005; 99199

== ENCOUNTER 2024-05-05 12:33 | Outpatient (CLI) | payer MEDICARE, MEDICAID, SELFPAY ==
--- NOTE | ~2024-05-05 | CT_ITS ---
EXAMINATION: CT abdomen pelvis w con DATE: 05/05/2024 13:16 INDICATION: Abdominal pain. Incisional hernia TECHNIQUE: Computed tomography (CT) of the abdomen and pelvis was performed with 100 cc Omnipaque 350 intravenous contrast. The dose-length product was 841.76 mGy-cm. Automated exposure control and iter ative reconstruction technique were employed. COMPARISON: CT dated 04/23/2019. FINDINGS: There is diffuse subcutaneous edema, bilateral pleural effusions, right greater than left. Large amount of ascites. Findings compatible with anasarca secondary to fluid overload. There is gene ralized renal atrophy bilaterally. There is cirrhosis of the liver. Portal vein is patent. There is e xtensive atherosclerosis. There is dependent atelectasis. Cardiomegaly. There is atrial enlargement o f the heart. There is atherosclerosis of the aorta without aneurysm. There is stenosis of the celiac axis, SMA and renal arteries. Moderate thoracic and lumbar spondylosis. IMPRESSION: 1. Cirrhosis of the liver with large amount of ascites. 2: Anasarca characterized by diffuse body wall edema, pleural effusions, ascites. 3: Bilateral renal atrophy, likely chronic. 4: Severe atherosclerosis with advanced stenosis of the celiac axis, SMA and renal arteries. Reviewed, dictated and finalized at location B. IMPRESSION: 1. Cirrhosis of the liver with large amount of ascites. 2: Anasarca characterized by diffuse body wall edema, pleural effusions, ascit es. 3: Bilateral renal atrophy, likely chronic. 4: Severe atherosclerosis with advanced stenosis of the celiac axis, SMA and re nal arteries.
== END 2024-05-05 12:34 | disposition home or self-care (01) ==
LOC: ANHIMG 12:34
PROVIDERS: PCP Internal Medicine Gastroenterology
DX: K43.2 Incisional hernia without obstruction or gangrene (principal); K74.69 Other cirrhosis of liver; I70.8 Atherosclerosis of other arteries
CPT/HCPCS: 74177; Q9967

== ENCOUNTER 2024-06-04 07:40 | Observation (INO) | payer MEDICARE, MEDICAID, SELFPAY ==
[2024-06-04] VITALS (40 sets, daily range): BP systolic 128–185; BP diastolic 45–78; PULSE 46–66; RESP 13–20; TEMP 36.1–37; O2SAT 93–100; BMI 27.6
--- NOTE | ~2024-06-04 | CT_ITS ---
CT brain wo con Ordering provider: Etelvina Hopson MD History: 63 years Female with . c/o pain in the back of the head, s/p skull surger . Comparison: May 28, 2023 Technique: CT of the head without contrast. Radiation reduction technique utilized. DLP is 605.33 mGy-cm. FINDINGS: BRAIN PARENCHYMA AND CSF SPACES: Mild leukoaraiosis and diffuse cortical atrophy. Mild atheromatous d isease. No midline shift, mass effect or hemorrhage. The brain parenchyma and CSF spaces are otherwi se normal. Partial empty sella turcica. VISUALIZED PARANASAL SINUSES: Right maxillary sinus disease. MASTOIDS: Well aerated. BONES: Right frontal craniotomy. Otherwise, The bones appear intact. SOFT TISSUES: Visualized nasopharynx is normal. Superficial soft tissues are normal. No evidence of scalp hematoma seen. IMPRESSION: No acute intracranial findings. Reviewed, dictated and finalized at location A.
--- NOTE | ~2024-06-04 | XR_ITS ---
Portable chest x-ray Comparison: 04/18/2024 Clinical History: Chest pain Findings: There is hazy bibasilar perihilar airspace disease. Possible minimal right pleural effusio n Cardiomediastinal silhouette is stable. Bones and soft tissues are unremarkable. Impression: Moderate bibasilar pulmonary edema pattern. Correlate clinically for infection. Minimal right pleural effusion. Reviewed, dictated and finalized at [facility]. Impression: Moderate bibasilar pulmonary edema pattern. Correlate clinically for infection. Minimal right pleural effusion.
--- NOTE | ~2024-06-04 | XR_ITS ---
4 VIEWS SKULL Ordering provider: Etelvina Hopson MD History: . Suspected hematoma . Comparison: None. FINDINGS: BONES: No fracture. Postcraniotomy is noted in. The right frontal parietal area. SOFT TISSUES: Normal. IMPRESSION: Postoperative changes in the right side. No definite hematoma seen. CT is better for evaluation Reviewed, dictated and finalized at location A. IMPRESSION: Postoperative changes in the right side. No definite hematoma seen. CT is kimberly r for evaluation
--- NOTE | 2024-06-04 07:54 | ECG_ITS ---
Test Date: 2024-06-04 08:01:45 Measurements Intervals [place] Rate: 62 P: 29 NC: 174 QRS: 57 QRSD: 92 T: 8 QT: 444 QTc: 451 Interpretive Statements SINUS RHYTHM INCOMPLETE RIGHT BUNDLE BRANCH BLOCK BORDERLINE ST-T WAVE ABNORMALITY- INFERIOR LEADS BASELINE ARTIFACT- I, II, III, AVR, AVL, AVF, V1, V3-V6 BORDERLINE ECG No previous ECG available for comparison Electronically Signed On 06-04-2024 08:29:49 CDT by Balbir Ashley D.O.
[2024-06-04 08:15] LABS: Basophils Absolute Auto 0.1 K/mm3 (0.0-0.1); Eosinophils Absolute Auto 0.3 K/mm3 (0-0.3); Eosinophils Percent Auto 4.3 % (0-4.4); Hematocrit 30.5 % (37.0-47.0); Hemoglobin 9.7 g/dL (12.0-15.0); Immature Granulocyte Absolute 0.02 K/mm3 (0.00-0.031); Immature Granulocyte Percent A 0.3 % (0-0.5); Lymphocytes Absolute Auto 0.58 K/mm3 (0.9-3.2); Lymphocytes Percent Auto 8.3 % (18.3-44.2); Mean Corpuscular HGB Conc 31.8 g/dl (32-36); Mean Corpuscular Hemoglobin 30.6 pg (26-34); Mean Corpuscular Volume 96.2 fl (80-100); Mean Platelet Volume 9.7 fl (7.4-10.4); Monocytes Absolute Auto 0.8 K/mm3 (0.1-0.6); Monocytes Percent Auto 11.7 % (2.6-8.5); Neutrophils Absolute Auto 5.2 K/mm3 (1.3-6.7); Neutrophils Percent Auto 74.4 % (45.5-73.1); Platelet Count Result 218 k/mm3 (150-375); Red Blood Count 3.17 M/mm3 (4.2-5.4)
[2024-06-04 08:25] LABS: Alanine Aminotransferase 21 U/L (6-35); Albumin Level 3.9 g/dL (3.5-5.1); Alkaline Phosphatase 178 U/L (38-126); Anion Gap 14 mmol/L (4-12); Aspartate Amino Transferase 28 U/L (14-36); Bilirubin,Total 0.8 mg/dL (0.2-1.3); Blood Urea Nitrogen 57 mg/dL (7-17); Calcium 9.3 mg/dL (8.4-10.2); Carbon Dioxide 28 mmol/L (22-30); Chloride 94 mmol/L (98-107); Estimated CRCL calculation 10 ml/min; Estimated Glomerular Filt Rate 9; Glucose 166 mg/dL (65-110); Potassium 4.7 mmol/L (3.4-5.0); Sodium 136 mmol/L (137-145)
[2024-06-04 08:26] LABS: INR 1.2; Prothrombin Time 15.9 Seconds (11.1-14.7)
[2024-06-04 08:37] LABS: Troponin I 0.016 ng/mL (0.000-0.034)
[2024-06-04] MEDS: MORPHINE SULFATE (*CRX) 2 MG/ML INJ IV PUSH (08:40)
--- NOTE | 2024-06-04 09:09 | ED.CHESTPAIN ---
HPI - Chest Pain General Chief Complaint: Chest Pain Stated Complaint: chest pain History of Present Illness HPI narrative: This is a 63-year-old female, with history of coronary artery disease and dialysis (Monday, Monday), brought in by EMS from dialysis for chest pain. She describes the pain as pressure-like, located in the center of the chest, beginning at 05:00 o'clock this morning. She states this was aggravated by the anxiety of her dialysis without other aggravating factors. She was given sublingual nitro by EMS with improvement. She has no other complaints at this time. Related Data Home Medications Medication Instructions Recorded Confirmed amlodipine 10 mg tablet 10 mg PO DAILY 01/27/20 06/04/24 clonazepam 0.5 mg tablet 1 mg PO HS PRN Anxiety 01/27/20 06/04/24 clopidogrel 75 mg tablet 75 mg PO DAILY 01/27/20 06/04/24 fluoxetine 20 mg capsule 60 mg PO DAILY 01/27/20 06/04/24 fluticasone propionate 50 1 spray intranasal DAILY PRN Nasal 01/27/20 06/04/24 mcg/actuation nasal Congestion spray,suspension (Allergy Relief (fluticasone)) furosemide 80 mg tablet 80 mg PO DAILY 01/27/20 06/04/24 hydralazine 50 mg tablet 50 mg PO TID 01/27/20 06/04/24 insulin detemir U-100 100 unit/mL 10 unit subcut HS PRN Hyperglycemia 01/27/20 06/04/24 (3 mL) subcutaneous pen (Levemir FlexTouch U-100 Insulin) nitroglycerin 0.4 mg sublingual 0.4 mg sublingual Q5MIN PRN Chest 01/27/20 06/04/24 tablet Pain prazosin 5 mg capsule 10 mg PO HS 01/27/20 06/04/24 ranolazine 1,000 mg 1,000 mg PO BID 01/27/20 06/04/24 tablet,extended release,12 hr pantoprazole 40 mg tablet,delayed 40 mg PO DAILY 10/11/22 06/04/24 release sennosides 8.6 mg-docusate sodium 1 tab PO HS 02/11/23 06/04/24 50 mg tablet (Senokot-S) atorvastatin 40 mg tablet 40 mg PO DAILY 06/04/24 06/04/24 cholecalciferol (vitamin D3) 10 400 unit PO DAILY 06/04/24 06/04/24 mcg (400 unit) chewable tablet insulin lispro 100 unit/mL 12 unit subcut QID 06/04/24 06/04/24 subcutaneous solution metoprolol succinate 100 mg 100 mg PO HS 06/04/24 06/04/24 tablet,extended release 24 hr sevelamer carbonate 800 mg tablet 800 mg PO TID 06/04/24 06/04/24 ziprasidone HCl 40 mg capsule 120 mg PO DAILY 06/04/24 06/04/24 Allergies Allergy/AdvReac Type Severity Reaction Status Date / Time No Known Allergies Allergy Unknown Verified 06/04/24 10:15 Review of Systems Review of Systems: All systems reviewed & are unremarkable except as noted in HPI and below PMFSH Past Medical History Medical History Anemia in chronic kidney disease Anxiety Arthritis Bipolar disorder Cataract Congestive heart failure Echo in January 2020 showing EF of 55-60% with moderate pulmonary hypertension and turbulent flow across the mitral valve; the diastolic function is normal Coronary artery disease With history of myocardial infarction. Depression Diabetic peripheral neuropathy Diabetic retinopathy Dyslipidemia End-stage renal disease on hemodialysis Patient of Dr. Chowdhury. Deviated dialysis in [place] on Monday, , Monday. Fibromyalgia Hypertension Insulin dependent type 2 diabetes mellitus Renal osteodystrophy Seasonal allergies Secondary hyperparathyroidism (of renal origin) Surgical History Surgical History History of 2 sections History of cardiac catheterization (09/2017) Patent stent to LAD and 90% occlusion of a very small diagonal branch. History of cataract extraction with lens replacement (2018) History of cholecystectomy (1996) History of coronary artery stent placement (2012) LAD. History of exploratory laparotomy With possible partial colectomy in the . Patient unsure regarding the history of this surgery. History of hysterectomy (2002) History of inguinal hernia repair History of repair of hiatal hernia Family History
--- NOTE | 2024-06-04 09:38 | PC.NURSE ---
Pt informed of IP room 202. States pain remains 5, feel so much better
--- NOTE | 2024-06-04 10:35 | ADMGEN ---
This patient, Isis Moore, was admitted to IMU Room 202-01. Patient/family oriented to hospital policies and general routines including ID bracelet, bed and alarms, visiting hours, pain management, procedures, bathroom and other care routines, personal items, smoking policy, room service/diet, and visiting hours. Information on how to activate the Rapid Response Team has been discussed. Patient/Family are encouraged to report perceived risks to care and to ask questions if they do not understand what they are told or what they should do.
[2024-06-04 10:39] LABS: Hepatitis B Surface Antigen Negative (Negative)
--- NOTE | 2024-06-04 10:50 | PC.NURSE ---
Notified Dr. Hopson regarding pt moderate risk level of suicide, pt a new admit so MD to see patient. See charting for details. Care coordination also notified.
[2024-06-04 11:09] LABS: Hepatitis B Surface Anti Res Positive
[2024-06-04 11:21] LABS: Glucose Point of Care 98 mg/dl (65-105)
[2024-06-04 11:54] LABS: Troponin I 0.012 ng/mL (0.000-0.034)
--- NOTE | 2024-06-04 12:09 | PM.IMHP ---
H&P: HPI History of Present Illness Date/Time: 06/04/24 12:09 Chief Complaint: Chest pain Narrative: Isis Moore is a 63 year old female with PMH of ESRD, CAD (s/p stenting x 1), T2DM, HTN, and bipolar disorder presents from her dialysis clinic this morning with reported chest pain. She states the pain started last night shortly before midnight, she took ntg at that time and had resolution. She awoke early for dialysis and was having chest pain at her dialysis clinic which she attributed to her anxiety over where she was to be seated for dialysis. She took her clonazepam and symptoms did not improve. She took ntg at that time as well without improvement in symptoms. Dialysis was started and 40 minutes of treatment occurred. She did not have resolution of the pain and insurance counselor contacted EMS for transfer to ED for evaluation. Isis describes the pain as midsternal and pressure like. She states she had some shortness of breath associated despite her home O2, but no additional timing factors. There were no relieving factors identified. She has had nausea but not outside of her baseline hx (d/t unrepaired hernias per her report). She does not describe palpitations. She denies any recent illness, she has been eating/drinking well at home and has been at her approximate baseline healthwise over the last several weeks. On evaluation in the ED CXR demonstrates bilateral pulmonary edema. Labwork at 0 and 3 hours show a normal range troponin. ECG with borderline st/t changes in the inferior leads which is reported to be c/w her prior ECG tracings. Additional lab findings include hgb 9.7. BUN/Cr 57/5.0, glucose of 166. Isis is being admitted to complete dialysis and have serial ECG/enzymes trended in regards to the chest pain. Review of Systems Review of Systems: CONSTITUTIONAL: ?No weight loss, fever, chills, weakness, or fatigue. HEENT: ? No hearing loss or ear pain.? + sinus congestion - states c/w her seasonal allergies. SKIN: ?No new rash CARDIOVASCULAR: ?See hpi. RESPIRATORY: ?See hpi. GASTROINTESTINAL: ?No anorexia, nausea, vomiting, constipation, or diarrhea. NEUROLOGICAL: ?No dizziness, syncope, paralysis No additional findings over 10 systems other than as described above. [facility] Past Medical History Medical History Anemia in chronic kidney disease Anxiety Arthritis Bipolar disorder Cataract Congestive heart failure Echo in January 2020 showing EF of 55-60% with moderate pulmonary hypertension and turbulent flow across the mitral valve; the diastolic function is normal Coronary artery disease With history of myocardial infarction. Depression Diabetic peripheral neuropathy Diabetic retinopathy Dyslipidemia End-stage renal disease on hemodialysis Patient of Dr. Chowdhury. Deviated dialysis in [place] on Monday, , Monday. Fibromyalgia Hypertension Insulin dependent type 2 diabetes mellitus Renal osteodystrophy Seasonal allergies Secondary hyperparathyroidism (of renal origin) Surgical History Surgical History History of 2 sections History of cardiac catheterization (09/2017) Patent stent to LAD and 90% occlusion of a very small diagonal branch. History of cataract extraction with lens replacement (2018) History of cholecystectomy (1996) History of coronary artery stent placement (2012) LAD. History of exploratory laparotomy With possible partial colectomy in the . Patient unsure regarding the history of this surgery. History of hysterectomy (2002) History of inguinal hernia repair History of repair of hiatal hernia Family History Family History Father , age 50s Diabetes mellitus Cancer Mother , Age 89 Cerebrovascular accident Sibling Family history of cassius
--- NOTE | 2024-06-04 15:22 | PM.CNNEP ---
Assessment and Plan Assessment and plan (1) End stage renal disease: Code(s): N18.6 - End stage renal disease Status: Chronic Assessment and Plan: HD today since did not receive full treatment earlier today continue T/T/S dialysis schedule while hospitalized follow electrolytes, volume status and clearance (2) Chest pain: Qualifiers: Chest pain type: unspecified Qualified Code(s): R07.9 - Chest pain, unspecified Code(s): R07.9 - Chest pain, unspecified Status: Acute Assessment and Plan: no further episodes since admission known history of CAD troponins and EKG unremarkable at this itme continue home medical therapy (3) Pulmonary edema: Qualifiers: Chronicity: acute Qualified Code(s): J81.0 - Acute pulmonary edema Code(s): J81.1 - Chronic pulmonary edema Status: Chronic Assessment and Plan: as noted by admission imaging HD today with fluid removal as tolerated on supplemental oxygen at baseline follow respiratory status (4) Hypertension: Code(s): I10 - Essential (primary) hypertension Status: Chronic Assessment and Plan: reasonable control at this time follow trend of hemodynamics (5) Anemia: Code(s): D64.9 - Anemia, unspecified Status: Chronic Assessment and Plan: due to ESRD Epogen with HD follow trend of H/H (6) Diabetes mellitus with complication, with long-term current use of insulin: Code(s): E11.8 - Type 2 diabetes mellitus with unspecified complications; Z79.4 - senior marketing analyst (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 Thank you for allowing me to participate in the care of this patient. History of Present Illness Reason for Consult Consult date: 06/04/24 Reason for consult: end stage renal disease Chief Complaint Chief complaint: chest pain,pulmonary edema History of Present Illness Narrative: The patient is a 63-year-old female with a past medical history as outlined below who presented to [facility] Emergency room with complaints of chest pain. The patient reports that yesterday evening shortly before midnight, she had chest pain and took a sublingual nitroglycerin at that time with resolution of the symptom. She woke up early this morning for her regularly scheduled dialysis treatment and at that time, did not have any issues or problems with chest pain. on her arrival to her dialysis center, she had another episode of chest pain but she attributed this to her anxiety as the dialysis staff for trying to arrange for her cp mint for her treatment. She apparently took a clients a Laina at that time with no improvement in her symptoms and then subsequently took a snow other supple in sublingual nitroglycerin as well but this did not relieve her symptoms either. She did not report her symptoms of chest pain to any of the dialysis nursing staff at that time. Her dialysis treatment was subsequently initiated and about 40 min into her dialysis treatment, she reported her chest pain symptoms to the dialysis staff. Her dialysis treatment was subsequently aborted and as her chest pain continued, EMS was contacted and she was subsequently transferred to the emergency room for further assessment. Workup and evaluation in the emergency room demonstrated the patient to be hemodynamically stable but in mild discomfort secondary to her chest pain. She reported the chest pain being localized to the midsternal area and described it as a pressure-like sensation. Associated symptoms included shortness of breath despite her ongoing home oxygen with no other symptoms with regard to dizziness, lightheadedness, palpitations, diaphoresis, nausea, or vomiting. She denies any s
--- NOTE | 2024-06-04 15:22 | PC.NURSE ---
@1400 - pt to dialysis room for treatment via bed accompanied by staff
[2024-06-04] MEDS: EPOETIN ALFA-EPBX 10,000 UNITS/ML VIAL 10000 UNITS IV PUSH (16:58)
[2024-06-04 18:40] LABS: Glucose Point of Care 110 mg/dl (65-105)
--- NOTE | 2024-06-04 20:03 | PC.NURSE ---
1839- returned to room post dialysis treatment- c/o being hungry-supper served- no c/o pain or SOB
--- NOTE | 2024-06-04 20:10 | ECG_ITS ---
Test Date: 2024-06-04 20:22:46 Measurements Intervals [place] Rate: 58 P: 14 SD: 168 QRS: 15 QRSD: 89 T: 12 QT: 438 QTc: 434 Interpretive Statements SINUS BRADYCARDIA BORDERLINE ST-T WAVE ABNORMALITY- INFERIOR LEADS BASELINE ARTIFACT- I, II, III, AVR, AVL, AVF, V1-V6 BORDERLINE ECG Compared to ECG 06/04/2024 08:01:45 HEART RATE HAS DECREASED Electronically Signed On 06-05-2024 06:01:59 CDT by Balbir Ashley D.O.
[2024-06-04 20:15] LABS: Glucose Point of Care 179 mg/dl (65-105)
[2024-06-04 20:51] LABS: Troponin I < 0.012 ng/mL (0.000-0.034)
[2024-06-04] MEDS: carvediloL 25 MG TABLET PO (20:53)
[2024-06-04] MEDS: clonazePAM (*CRX) 0.5 MG TABLET 1 MG PO (20:53)
[2024-06-04] MEDS: ZIPRASIDONE HCL 20 MG CAPSULE 120 MG PO (20:54)
[2024-06-04] MEDS: HEPARIN SODIUM 5,000 UNITS/ML VIAL 5000 UNITS SUB-Q (20:55)
[2024-06-04] MEDS: PRAZOSIN HCL 5 MG CAPSULE 10 MG PO (20:55)
[2024-06-04] MEDS: RANOLAZINE 500 MG TAB.ER.12H 1000 MG PO (20:56)
[2024-06-04] MEDS: hydrALAZINE HCL 50 MG TABLET PO (21:04)
[2024-06-05] VITALS (16 sets, daily range): BP systolic 142–187; BP diastolic 42–52; PULSE 48–68; RESP 12–20; TEMP 36.4–37.3; O2SAT 92–100
[2024-06-05 03:56] LABS: Basophils Absolute Auto 0.1 K/mm3 (0.0-0.1); Basophils Percent Auto 1.3 % (0.2-1.2); Eosinophils Absolute Auto 0.3 K/mm3 (0-0.3); Eosinophils Percent Auto 4.5 % (0-4.4); Hematocrit 32.3 % (37.0-47.0); Hemoglobin 10.2 g/dL (12.0-15.0); Immature Granulocyte Absolute 0.02 K/mm3 (0.00-0.031); Immature Granulocyte Percent A 0.3 % (0-0.5); Lymphocytes Absolute Auto 0.62 K/mm3 (0.9-3.2); Mean Corpuscular HGB Conc 31.6 g/dl (32-36); Mean Corpuscular Hemoglobin 30.7 pg (26-34); Mean Corpuscular Volume 97.3 fl (80-100); Mean Platelet Volume 9.6 fl (7.4-10.4); Monocytes Absolute Auto 0.9 K/mm3 (0.1-0.6); Monocytes Percent Auto 13.6 % (2.6-8.5); Neutrophils Absolute Auto 4.9 K/mm3 (1.3-6.7); Neutrophils Percent Auto 71.3 % (45.5-73.1); Platelet Count Result 209 k/mm3 (150-375); Red Blood Count 3.32 M/mm3 (4.2-5.4); Red Cell Distribution Width 16.2 % (11.5-14.5); White Blood Count 6.9 K/mm3 (4.5-10.0)
[2024-06-05 04:28] LABS: Anion Gap 13 mmol/L (4-12); Blood Urea Nitrogen 35 mg/dL (7-17); Calcium 9.2 mg/dL (8.4-10.2); Carbon Dioxide 29 mmol/L (22-30); Chloride 94 mmol/L (98-107); Estimated CRCL calculation 12 ml/min; Estimated Glomerular Filt Rate 12; Glucose 82 mg/dL (65-110); Potassium 4.3 mmol/L (3.4-5.0); Sodium 136 mmol/L (137-145)
[2024-06-05] MEDS: hydrALAZINE HCL 50 MG TABLET PO ×3 (05:54→21:16)
[2024-06-05 07:42] LABS: Glucose Point of Care 95 mg/dl (65-105)
[2024-06-05] MEDS: FUROSEMIDE 80 MG TABLET PO (08:47)
[2024-06-05] MEDS: FLUoxetine HCL 20 MG CAPSULE 60 MG PO (08:47)
[2024-06-05] MEDS: ISOSORBIDE MONONITRATE 60 MG TAB.ER.24H PO (08:47)
[2024-06-05] MEDS: RANOLAZINE 500 MG TAB.ER.12H 1000 MG PO ×2 (08:47→21:16)
[2024-06-05] MEDS: CLOPIDOGREL BISULFATE 75 MG TABLET PO (08:47)
[2024-06-05] MEDS: amLODIPine BESYLATE 5 MG TABLET 10 MG PO (08:47)
[2024-06-05] MEDS: ONDANSETRON INJ 4 MG/2 ML VIAL IV PUSH ×2 (08:47→15:59)
[2024-06-05] MEDS: HEPARIN SODIUM 5,000 UNITS/ML VIAL 5000 UNITS SUB-Q ×2 (08:47→21:16)
[2024-06-05] MEDS: carvediloL 25 MG TABLET PO ×2 (08:47→21:17)
[2024-06-05] MEDS: PANTOPRAZOLE 40 MG TABLET PO (08:47)
[2024-06-05] MEDS: CHOLECALCIFEROL 400 UNITS TABLET (VIT D) PO (08:47)
[2024-06-05] MEDS: SEVELAMER CARBONATE 800 MG TABLET PO ×3 (08:47→16:59)
[2024-06-05] MEDS: ZIPRASIDONE HCL 20 MG CAPSULE 120 MG PO (08:48)
[2024-06-05] MEDS: ASPIRIN 81 MG ENTERIC TABLET PO (08:48)
--- NOTE | 2024-06-05 09:22 | PM.PNNEP ---
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 Anemia of chronic kidney disease Secondary hyperparathyroidism Plan: -fluid removal as tolerated from a renal standpoint, doing better after close to 3 L of fluid removal yesterday -do workup for other problems as per hospitalist team -follow-up for ESRD and related needs (2) Anemia in CKD (chronic kidney disease): Code(s): N18.9 - Chronic kidney disease, unspecified; D63.1 - Anemia in chronic kidney disease Status: Acute (3) Secondary hyperparathyroidism (of renal origin): Code(s): N25.81 - Secondary hyperparathyroidism of renal origin Status: Acute Subjective Date/time seen: 06/05/24 09:22 Interval history: End-stage renal disease follow-up Admitted with chest pain, shortness of breath. Has chronic pulmonary edema. Chest pain is better. EKG with no acute changes troponins are normal. There is no lower extremity swelling. She did not wake up short of breath at night. Review of Systems Review of Systems: As above Exam Narrative: Average built, chronically ill-looking, skin turgor normal, no pallor, no icterus, mild shortness or JVD positive, regular rate rhythm, coarse lung sounds at left base, equal breath sounds however, soft nontender abdomen, edema negative, but oriented x3, no tremor Objective Data Vital Signs Vital Signs: Vital Signs - 24 hr 06/04/24 09:38 06/04/24 09:53 06/04/24 10:04 Temperature 36.8 C 36.7 C 36.1 C L Pulse Rate 61 66 49 L Respiratory Rate 20 20 20 Blood Pressure 151/63 H 150/63 H 128/47 L Pulse Oximetry 97 98 93 Oxygen Delivery Oxygen Flow Rate 06/04/24 11:21 06/04/24 10:15 06/04/24 14:18 Temperature 36.2 C L 36.4 C L Pulse Rate 46 L 48 L 54 L Respiratory Rate 18 16 Blood Pressure 132/45 L 154/60 H Pulse Oximetry 94 95 Oxygen Delivery Oxygen Flow Rate 06/04/24 14:31 06/04/24 14:31 06/04/24 15:30 Temperature Pulse Rate 47 L 47 L Respiratory Rate Blood Pressure 144/58 H 147/61 H Pulse Oximetry Oxygen Delivery Oxygen Flow Rate 2 06/04/24 16:00 06/04/24 17:00 06/04/24 17:15 Temperature Pulse Rate 46 L 49 L 50 L Respiratory Rate Blood Pressure 150/59 H 185/64 H 176/70 H Pulse Oximetry Oxygen Delivery Oxygen Flow Rate 06/04/24 17:47 06/04/24 17:52 06/04/24 14:45 Temperature 36.8 C Pulse Rate 49 L 50 L 46 L Respiratory Rate 16 Blood Pressure 178/68 H 169/65 H 152/63 H Pulse Oximetry 100 Oxygen Delivery Oxygen Flow Rate 06/04/24 15:00 06/04/24 15:15 06/04/24 12:00 Temperature Pulse Rate 46 L 46 L 51 L Respiratory Rate Blood Pressure 145/60 H 151/62 H Pulse Oximetry Oxygen Delivery Oxygen Flow Rate 06/04/24 14:00 06/04/24 15:45 06/04/24 16:15 Temperature Pulse Rate 50 L 46 L 50 L Respiratory Rate Blood Pressure 143/59 H 167/60 H Pulse Oximetry Oxygen Delivery Oxygen Flow Rate 06/04/24 16:30 06/04/24 16:45 06/04/24 17:30 Temperature Pulse Rate 49 L 49 L 48 L Respiratory Rate Blood Pressure 175/68 H 167/56 H 172/61 H Pulse Oximetry Oxygen Delivery Oxygen Flow Rate 06/04/24 16:05 06/04/24 18:00 06/04/24 20:00 Temperature 36.4 C L Pulse Rate 51 L 58 L 57 L Respiratory Rate 18 Blood Pressure 158/52 H Pulse Oximetry 94 Oxygen Delivery Oxygen Flow Rate 06/04/24 20:53 06/04/24 20:00 06/04/24 20:00 Temperature Pulse Rate 59 L 60 Respiratory Rate Blood Pressure Pulse Oximetry 94 Oxygen Delivery Nasal Cannula Oxygen Flow Ra
[2024-06-05 11:57] LABS: Glucose Point of Care 145 mg/dl (65-105)
[2024-06-05 15:49] LABS: Glucose Point of Care 117 mg/dl (65-105)
--- NOTE | 2024-06-05 17:29 | WPDPN ---
Progress Note: A&P Assessment and Plan (1) Chest pain: Qualifiers: Chest pain type: unspecified Qualified Code(s): R07.9 - Chest pain, unspecified Code(s): R07.9 - Chest pain, unspecified Status: Acute Assessment and Plan: Serial enzymes and ECG thus far unremarkable. Two additional sets of enzymes/ecgs will be obtained. Patient has CAD with stent in place and known lesion not amenable to stenting in the past. Consider further evaluation/consultation with cardiology if troponin uptrending/ecg changes. - Cont. asa/plavix. - Cont. home carvedilol. (2) End stage renal disease: Code(s): N18.6 - End stage renal disease Status: Acute Assessment and Plan: Appreciate consultation with nephrology which will reportedly be dialyzing this afternoon. (3) Pulmonary edema: Qualifiers: Chronicity: acute Qualified Code(s): J81.0 - Acute pulmonary edema Code(s): J81.1 - Chronic pulmonary edema Status: Chronic Assessment and Plan: Breathing easily on home O2 supplementation. (4) Coronary artery disease: Qualifiers: Associated angina: with unspecified angina Coronary Disease-Associated Artery/Lesion type: [place] artery [place] vs. transplanted heart: [place] heart Qualified Code(s): I25.119 - Atherosclerotic heart disease of [place] coronary artery with unspecified angina pectoris Code(s): I25.10 - Atherosclerotic heart disease of [place] coronary artery without angina pectoris Status: Acute Assessment and Plan: Cont. asa/plavix, coreg, statin, ranolazine. (5) Diabetes: Qualifiers: Diabetes mellitus complication detail: with polyneuropathy Diabetes mellitus complication status: with neurologic complications Diabetes mellitus shelter insulin use: with shelter use Diabetes mellitus type: type 2 Qualified Code(s): E11.42 - Type 2 diabetes mellitus with diabetic polyneuropathy; Z79.4 - USP (current) use of insulin Code(s): E11.9 - Type 2 diabetes mellitus without complications Status: Chronic Assessment and Plan: - States last a1c was good and has been taken off of all insulin therapy recently. - DM diet. (6) Hypercholesterolemia: Code(s): E78.00 - Pure hypercholesterolemia, unspecified Status: Acute Assessment and Plan: Discussed with patient, she does not feel that she is on a statin currently. Noted interaction with current medications - will hold at this time. (7) GERD (gastroesophageal reflux disease): Qualifiers: Esophagitis presence: esophagitis presence not specified Qualified Code(s): K21.9 - Gastro-esophageal reflux disease without esophagitis Code(s): K21.9 - Gastro-esophageal reflux disease without esophagitis Status: Chronic Assessment and Plan: - Protonix. (8) Anxiety: Code(s): F41.9 - Anxiety disorder, unspecified Status: Acute Assessment and Plan: Cont. home clonazepam. Stable on exam. (9) Bipolar disorder: Code(s): F31.9 - Bipolar disorder, unspecified Status: Acute Assessment and Plan: Cont. ziprasidone per home regimen. (10) Seasonal allergies: Code(s): J30.2 - Other seasonal allergic rhinitis Status: Acute Plan Isis Moore is a 63 year old female with hx significant for CAD s/p stent previously and ESRD who was unable to complete dialysis today d/t chest pain. - Chest pain workup. - Complete Dialysis. - Further consultation as appropriate pending continued workup. Interval History 06/05/2024 interval history: patient is 63 y/o female with history ESRD-HD during dialysis patient developed CP and patient was sent to the ER. patient did complete her dialysis, to further evaluate patient had a 3 sets of cardiac enzymes which were essentially normal, today patient denies any chest however patient complains of pain in the back of her he
--- NOTE | 2024-06-05 18:35 | PC.NURSE ---
This patient, Isis Moore, was transferred to [facility] on 06/05/24 at 1827. Personal belongings sent with patient. Report given to Marshal. Appropriate documentation sent with patient.
--- NOTE | 2024-06-05 18:39 | PC.NURSE ---
Patient received to room 252 from IMU 202 at 1830. Patient oriented to new room and shown how to use call light. Resting comfortably
[2024-06-05] MEDS: NITROGLYCERIN SL 0.4 MG TABLET SUBLINGUAL (20:46)
[2024-06-05] MEDS: ZIPRASIDONE HCL 80 MG CAPSULE PO (21:15)
[2024-06-05] MEDS: PRAZOSIN HCL 5 MG CAPSULE 10 MG PO (21:15)
[2024-06-05] MEDS: ZIPRASIDONE HCL 20 MG CAPSULE 40 MG PO (21:16)
[2024-06-05] MEDS: clonazePAM (*CRX) 0.5 MG TABLET 1 MG PO (21:16)
[2024-06-06] VITALS (25 sets, daily range): BP systolic 124–194; BP diastolic 39–75; PULSE 59–78; RESP 17–18; TEMP 35.8–36.9; O2SAT 95–100
[2024-06-06] MEDS: hydrALAZINE HCL 50 MG TABLET PO ×2 (06:32→13:50)
[2024-06-06 10:31] LABS: Hematocrit 31.2 % (37.0-47.0); Hemoglobin 10.1 g/dL (12.0-15.0); Mean Corpuscular HGB Conc 32.4 g/dl (32-36); Mean Corpuscular Hemoglobin 31.1 pg (26-34); Mean Platelet Volume 10.1 fl (7.4-10.4); Platelet Count Result 219 k/mm3 (150-375); Red Blood Count 3.25 M/mm3 (4.2-5.4); White Blood Count 7.1 K/mm3 (4.5-10.0)
[2024-06-06 10:38] LABS: Anion Gap 14 mmol/L (4-12); Blood Urea Nitrogen 28 mg/dL (7-17); Calcium 9.2 mg/dL (8.4-10.2); Carbon Dioxide 32 mmol/L (22-30); Chloride 91 mmol/L (98-107); Estimated CRCL calculation 16 ml/min; Estimated Glomerular Filt Rate 17; Glucose 116 mg/dL (65-110); Magnesium 1.9 mg/dL (1.6-2.3); Phosphorus 3.9 mg/dL (2.5-4.5); Potassium 3.5 mmol/L (3.4-5.0); Sodium 137 mmol/L (137-145)
--- NOTE | 2024-06-06 10:43 | PC.NURSE ---
0830 patient to dialysis
--- NOTE | 2024-06-06 10:55 | PM.PNNEP ---
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 Anemia of chronic kidney disease Secondary hyperparathyroidism Plan: -fluid removal as tolerated from a renal standpoint, planning 3 L of fluid removal today -clinical stability maintain -follow-up for ESRD and related needs (2) Anemia in CKD (chronic kidney disease): Code(s): N18.9 - Chronic kidney disease, unspecified; D63.1 - Anemia in chronic kidney disease Status: Acute Assessment and Plan: Erythrocyte stimulating agent as needed (3) Secondary hyperparathyroidism (of renal origin): Code(s): N25.81 - Secondary hyperparathyroidism of renal origin Status: Acute Assessment and Plan: On Renvela as a binder Subjective Date/time seen: 06/06/24 10:55 Interval history: CC: Follow-up for ESRD and related needs Hemodialysis Procedure Note Seen and examined on hemodialysis supervised. Ultrafiltration goal is 3 L. Blood flow 400, sats of 600. Review of Systems Review of Systems: Patient still complains of a bit of short of breath, however feeling better, no chest pain. Exam Narrative: Seen and examined on hemodialysis and hematoma supervised. Average built, chronically ill-looking, skin turgor normal, no pallor, no icterus, mild shortness or JVD positive, regular rate rhythm, coarse lung sounds at left base, equal breath sounds however, soft nontender abdomen, edema negative, but oriented x3, no tremor Objective Data Vital Signs Vital Signs: Vital Signs - 24 hr 06/05/24 11:18 06/05/24 12:00 06/05/24 12:00 Temperature 36.9 C Pulse Rate 63 Respiratory Rate 16 Blood Pressure 172/45 H Pulse Oximetry 99 99 99 Oxygen Delivery Nasal Cannula Nasal Cannula Oxygen Flow Rate 2 2 06/05/24 12:00 06/05/24 14:00 06/05/24 16:00 Temperature 37.2 C Pulse Rate 63 61 60 Respiratory Rate 12 Blood Pressure 150/43 H Pulse Oximetry 98 Oxygen Delivery Oxygen Flow Rate 06/05/24 16:00 06/05/24 20:00 06/05/24 21:17 Temperature 36.4 C L Pulse Rate 64 66 66 Respiratory Rate 18 Blood Pressure 187/52 H Pulse Oximetry 95 Oxygen Delivery Oxygen Flow Rate 06/05/24 23:04 06/05/24 23:07 06/06/24 00:00 Temperature 37.3 C 36.2 C L Pulse Rate 68 68 64 Respiratory Rate 20 18 Blood Pressure 172/47 H 172/47 H 177/39 H Pulse Oximetry 100 100 98 Oxygen Delivery Nasal Cannula Oxygen Flow Rate 2 06/05/24 20:00 06/06/24 04:00 06/05/24 20:00 Temperature 36.4 C Pulse Rate 62 65 Respiratory Rate 18 Blood Pressure 177/46 H Pulse Oximetry 99 95 Oxygen Delivery Nasal Cannula Oxygen Flow Rate 2 06/06/24 00:00 06/06/24 04:00 06/06/24 08:00 Temperature Pulse Rate 64 61 59 L Respiratory Rate Blood Pressure Pulse Oximetry Oxygen Delivery Oxygen Flow Rate 06/06/24 08:41 06/06/24 09:08 Temperature 35.8 C L 36.2 C L Pulse Rate 59 L 64 Respiratory Rate 17 18 Blood Pressure 155/47 H 124/69 Pulse Oximetry 96 Oxygen Delivery Oxygen Flow Rate Intake/Output Intake/Output: Intake & Output 06/03/24 06/04/24 06/05/24 06/06/24 23:59 23:59 23:59 23:59 Intake Total 480 970 600 Output Total 3000 0 0 Balance -2520 970 600 Meds/Results Medications: Active Medications Generic Name Dose Route Start Last Admin Trade Name Angeli PRN Reason Stop Dose Admin Amlodipine Besylate 10 mg 06/05/24 09:00 06/05/24 08:47 Amlodipine Besylate 5 Mg Tablet PO 10 mg DAILY CAMILLA Administration Aspirin 81 mg 06/05/24 09:00 06/05/24 08:48 Aspirin 81 Mg Enteri
[2024-06-06] MEDS: amLODIPine BESYLATE 5 MG TABLET 10 MG PO (13:50)
[2024-06-06] MEDS: SEVELAMER CARBONATE 800 MG TABLET PO (13:50)
[2024-06-06] MEDS: ISOSORBIDE MONONITRATE 60 MG TAB.ER.24H PO (13:50)
[2024-06-06] MEDS: FLUoxetine HCL 20 MG CAPSULE 60 MG PO (13:50)
[2024-06-06] MEDS: CLOPIDOGREL BISULFATE 75 MG TABLET PO (13:51)
[2024-06-06] MEDS: ACETAMINOPHEN 325 MG TABLET 650 MG PO (13:51)
[2024-06-06] MEDS: RANOLAZINE 500 MG TAB.ER.12H 1000 MG PO (13:51)
[2024-06-06] MEDS: carvediloL 25 MG TABLET PO (13:51)
[2024-06-06] MEDS: FUROSEMIDE 80 MG TABLET PO (13:51)
[2024-06-06] MEDS: ASPIRIN 81 MG ENTERIC TABLET PO (13:51)
[2024-06-06] MEDS: CHOLECALCIFEROL 400 UNITS TABLET (VIT D) PO (13:51)
[2024-06-06] MEDS: PANTOPRAZOLE 40 MG TABLET PO (13:51)
--- NOTE | 2024-06-06 14:54 | PM.DS ---
DS: Admitting Diagnosis Discharge Date 06/06/2024 Admitting Diagnosis Chest pain DS: Discharge Diagnosis Discharge Diagnosis (1) Chest pain: Qualifiers: Chest pain type: unspecified Qualified Code(s): R07.9 - Chest pain, unspecified Code(s): R07.9 - Chest pain, unspecified Status: Acute (2) End stage renal disease: Code(s): N18.6 - End stage renal disease Status: Acute (3) Pulmonary edema: Qualifiers: Chronicity: acute Qualified Code(s): J81.0 - Acute pulmonary edema Code(s): J81.1 - Chronic pulmonary edema Status: Chronic DS: Summary Hospital Course Hospital Course: interval history: patient is 63 y/o female with history ESRD-HD during dialysis patient developed CP and patient was sent to the ER. patient did complete her dialysis, to further evaluate patient had a 3 sets of cardiac enzymes which were essentially normal, today patient denies any chest however patient complains of pain in the back of her head, patient had a traumatic surgery of the brain to further evaluate,CT scan of the head was done which essentially normal for any bleeding, patient seen by her wet cleaner machine and had a dialysis, will continue to monitor and further recommendation to follow. Today patient stats feels better, denies any CP, was seen by her wet cleaner machine, will discharge home today. Time Spent with Patient Time attestation: Total time spent providing and/or coordinating discharge services: Exam Narrative: Patient is comfortable, NAD HEENT: eyes are clear and none icteric, on the right posterior aspect the skull, there is swelling and some tenderness LUNGS:CTA HEART: RR S1S2 ABD: BS+, Soft and nontender Lower extremities: no edema SKIN: nonjaundiced Neuro: grossly intact. DS: Data Data Completed and Pending Labs on day of discharge: Labs from last 24 hours 06/06/24 06/05/24 10:13 15:40 WBC 7.1 RBC 3.25 L Hgb 10.1 L Hct 31.2 L MCV 96.0 MCH 31.1 MCHC 32.4 RDW 16.0 H Plt Count 219 MPV 10.1 Sodium 137 Potassium 3.5 Chloride 91 L Carbon Dioxide 32 H Anion Gap 14 H BUN 28 H Creatinine 2.80 H Estim Creat Clear Calc 16 Estimated GFR 17 L Glucose 116 H POC Capillary Glucose 117 H Calcium 9.2 Phosphorus 3.9 Magnesium 1.9 Albumin 4.0 Discharge Plan Discharge Attending physician on discharge: Etelvina Hopson Consulting providers: Yandel Moreno; Washington Carlisle; Garth Chowdhury; Balbir Ashley; Preet Craig; Anthony Jade Discharging Clinician: Etelvina Hopson Patient Disposition: Home Health Service Activity: as tolerated Diet: heart healthy and low sodium Discharge Instructions: Care Coordination: [facility] ([phone]) has been arranged for physical and occupational therapy. They will contact you regarding your first visit. patient to follow up with her wet cleaner machine and will have scheduled dialysis, patient to follow up with her primary care provider as soon as possible, patient is instructed if any symptoms redevelop to go to nearest ER Patient Instructions: Antibiotic Form, Heart Failure (GEN) Stand Alone Forms: General Discharge Information Follow-up/Referrals: Garth Chowdhury MD [Physician] - Vinod,Mike Hutchins MD [Primary Care Provider] - Discharge Medications: New nitroglycerin [Nitrostat] 0.4 mg Tablet, Sublingual 0.4 mg sublingual Q5MIN PRN (Reason: Chest Pain) Qty: 26 0RF Continued sennosides-docusate sodium [Senokot-S] 8.6-50 mg tablet 1 tab PO HS carvedilol [Coreg] 25 mg Tablet 25 mg PO Q12HR Qty: 60 0RF metoprolol succinate 100 mg tablet extended release 24 hr 100 mg PO HS ziprasidone HCl 40 mg capsule 120 mg PO DAILY insulin lispro 100 unit/mL Solution 12 unit SUBCUT QID sevelamer carbonate 800 mg tablet 800 mg PO TID cholecalciferol (vitamin D3) 10 mcg (40
== END 2024-06-06 16:50 | disposition home health service (06) ==
LOC: ANHED 09:33 → ANHIMU 09:41 → ANH2MED 06-05 18:29
PROVIDERS: Internal Medicine Nephrology; Nurse Practitioner Family; Admitting Provider Family Medicine; Emergency Provider Preventive Medicine Aerospace Medicine; PCP Internal Medicine Gastroenterology; Visit Provider Family Medicine
DX: N18.6 End stage renal disease (principal); R07.9 Chest pain, unspecified; J81.0 Acute pulmonary edema; I25.119 Atherosclerotic heart disease of native coronary artery with unspecified angina pectoris; Z99.2 Dependence on renal dialysis; Z79.4 Long term (current) use of insulin; D63.1 Anemia in chronic kidney disease; N25.81 Secondary hyperparathyroidism of renal origin; F31.9 Bipolar disorder, unspecified; I50.9 Heart failure, unspecified; I25.2 Old myocardial infarction; E11.22 Type 2 diabetes mellitus with diabetic chronic kidney disease; I13.2 Hypertensive heart and chronic kidney disease with heart failure and with stage 5 chronic kidney disease, or end stage renal disease; Z87.891 Personal history of nicotine dependence; E78.00 Pure hypercholesterolemia, unspecified; K21.9 Gastro-esophageal reflux disease without esophagitis; F41.9 Anxiety disorder, unspecified; J30.2 Other seasonal allergic rhinitis; E11.42 Type 2 diabetes mellitus with diabetic polyneuropathy
CPT/HCPCS: 36415; 70260; 70450; 71045; 80048; 80053; 80069; 82948; 83735; 84484; 85025; 85027; 85610; 86706; 87340; 93005; 96374; 96375; 97161; 99285; A9270; G0257; G0378; J1644; J2270; J2405; J7030; Q5105